=== PATIENT | female | born 1955 | race Caucasian/White ===

== ENCOUNTER 2020-10-28 14:43 | Outpatient (REF) | payer MEDICARE, SELFPAY ==
[2020-10-28 13:34] LABS: *AMPHETAMINES SCREEN URINE Negative (Negative); *BARBITURATES SCREEN URINE Negative (Negative); *BENZODIAZEPINES SCREEN URINE Negative (Negative); Cannabinoids THC Negative (Negative); Cocaine Screen,Urine Negative (Negative); METHADONE URINE SCREEN Negative (Negative); OPIATES URINE SCREEN POSITIVE (Negative)
[2020-10-28 13:35] LABS: Tricyclic Antidepressants Negative (Negative)
== END 2020-10-28 15:03 ==
LOC: LBN 14:43
PROVIDERS: PCP Nurse Practitioner Family; Visit Provider Nurse Practitioner Family
DX: G89.4 Chronic pain syndrome (principal); Z79.891 Long term (current) use of opiate analgesic
CPT/HCPCS: 80307

== ENCOUNTER → 2020-10-31 01:18 | Outpatient (CLI) | payer MEDICARE, SELFPAY ==
--- NOTE | 2020-10-31 | DI.MRI_ITS ---
EXAM: MR LUMBAR SPINE WO CLINICAL HISTORY: Chronic low back pain with radiculopathy, MRI '10,M47.27. TECHNIQUE: Multiplanar multisequence MRI of the Lumbar spine was performed. COMPARISON: CR LUMBAR SPINE COMPLETE from 12/08/2009 MR MRI - LUMBAR SPINE WO CONTRAST from 12/08/2009 MR MR LS SPINE W/O CONTRAST from 09/22/2013 MR MR LS SPINE W/O CONTRAST from 09/22/2013 FINDINGS: There is transitional anatomy here. There is a lumbosacral transitional vertebra. Conus medullaris is at normal level. There is no evidence of conus mass nor subjacent clumping of in trathecal nerve roots to suggest arachnoiditis. The distal thecal sac appears unremarkable.There is no evidence of Tarlov intrasacral cysts nor other significant findings within the sacral canal. Bones: No significant bone lesion evident With respect to the individual levels... T12-L1: Unremarkable L1-2: Normal disc height and signal. No disc herniation nor central canal stenosis.No foraminal steno sis L2-3: Normal disc height. There is focal increased signal in the posterior annulus but no evidence o f true disc herniation. The disc herniation which was evident at this level on the 2009 study is no longer seen. There is no central canal stenosis.No foraminal stenosis.No facet arthropathy. L3-4: Normal disc height. No disc herniation or central canal stenosis.No foraminal stenosis.No face t arthropathy. L4-5: Normal disc height and signal. There is very mild anterolisthesis of L4 upon L5 which is due t o moderate degenerative changes in the facet joints. There are no pars defects at this level. There is approximately 1-2 millimeters anterior slippage of L4 upon L5 evident. There is no significant c entral canal stenosis and there is no foraminal stenosis at this level. L5-S1: There is advanced chronic disc space narrowing again noted at this level with Modic type 2 sub endplate fatty changes both size of this disc space again evident. There is mild annular bulging at this level but no distinct disc herniation or central canal stenosis. There is, however, mild bilat eral foraminal stenosis, slightly more prominent on the right side. This is basically vertical dione inal stenosis due to the height loss of the disc, thus narrowing the space between the subjacent desean erick and overlying L5 pedicles. Soft tissues: paraspinal soft tissues appear unremarkable. IMPRESSION: 1. At L4-5 level there is mild degenerative anterolisthesis of L4 upon L5 as described above. This i s not associated with significant central nor foraminal stenosis. Recommend flexion and extension la teral views to determine the true amount of anterior slippage of L4 upon L5 during everyday activitie s. 2. There is chronic advanced disc space narrowing at L5-S1 level, as evident on the prior studies lis fabiana above. There is no central canal stenosis at this level but there is mild bilateral vertical for aminal stenosis. 3. The disc herniation which was evident at L2-3 level on the 2009 study is no longer seen. DATA REPOSITORY:
--- NOTE | 2020-10-31 | DI.MAMMO_ITS ---
EXAM: MG MAMMO SCREENING CLINICAL HISTORY: screening,Z12.39. TECHNIQUE: Bilateral full field digital CC and MLO mammographic images were obtained with 3D tomosyn thesis and utilizing computer aided detection (CAD). COMPARISON: None FINDINGS: There are no CAD designations. There are no spiculated masses nor malignant appearing microcalcification groups. There is no signif icant architectural distortion nor skin thickening-retraction. IMPRESSION: No radiographic evidence of malignancy. BI-RADS Category 1 - Negative Breast Density - Category B - Scattered areas of fibroglandular density Breast density Category C or D implies that the patient has dense breast tissue. Dense breast tissue can make it harder to find cancer on a mammogram. Dense breast tissue is also associated with an incr eased risk of breast cancer. This information about the result of the mammogram report was provided to the patient to raise their awareness. Use this report when you speak with the patient about their risks for breast cancer, which includes their family history. At that time, you may recommend additional screening tests (Ultrasoun d or MRI) as these tests may add significant information. A negative radiographic report should not delay biopsy if a dominant or clinically suspicious mass is present. Up to ten percent of cancers are not identified on mammography. A negative report may reinforce clinical impression. Adenosis and dense breasts may obscure an underlying neoplasm. False positive reports average 6 to 10%. Patient will receive a letter notifying them of these results.
== END ==
PROVIDERS: PCP Nurse Practitioner Family; Visit Provider Nurse Practitioner Family
DX: Z12.31 Encounter for screening mammogram for malignant neoplasm of breast (principal); M47.26 Other spondylosis with radiculopathy, lumbar region; M48.07 Spinal stenosis, lumbosacral region
CPT/HCPCS: 77063; 77067; 72148

== ENCOUNTER 2020-10-31 02:47 | Outpatient (CLI) | payer MEDICARE, SELFPAY ==
[2020-10-31 10:12] LABS: ALT 16 U/L (14-59); AST 13 U/L (15-37); Albumin 4.3 g/dL (3.4-5.0); Alkaline Phosphatase 57 U/L (46-116); BUN 21 mg/dL (7-18); Bilirubin, Total 0.4 mg/dL (0.2-1.0); CREATININE 1.24 mg/dL (0.55-1.02); Calculated LDL 119 mg/dL (<100); Chloride 98 mmol/L (98-107); Cholesterol 224 mg/dL (<200); Estimated GFR 43.69 (mL/min/1.73m2); Glucose 135 mg/dL (74-106); HDL Cholesterol 45 mg/dL (40-60); Sodium 136 mmol/L (136-145); Triglyceride 302 mg/dL (<150)
== END 2020-10-31 03:07 ==
PROVIDERS: PCP Nurse Practitioner Family; Visit Provider Nurse Practitioner Family
DX: E78.5 Hyperlipidemia, unspecified (principal)
CPT/HCPCS: 36415; 80053; 80061

== ENCOUNTER → 2021-08-23 01:12 | Outpatient (CLI) | payer MEDICARE, SELFPAY ==
--- NOTE | 2021-08-23 08:25 | DI.CTLCSR_ITS ---
Exam(s) CT CHEST LUNG CANCER SCREEN EXAM: CT CHEST LUNG CANCER SCREEN CLINICAL HISTORY: Screening for lung cancer,CURRENT SMOKER, F17.210. TECHNIQUE: Imaging Protocol: Low Dose Technique CONTRAST MATERIAL: None COMPARISON: CR XR CHEST 2V PA LATERAL from 08/23/2021. Also chest x-ray December 2015 was reviewed FINDINGS: CHEST: LUNGS: Mild benign-appearing subpleural markings noted in the sub apical aspect of the right upper lo be (series 2/image 26). There is a mosaic pattern throughout both lung desouza consistent with air tra pping . There is a small area of subpleural infiltrate the posterior aspect of the right lower lobe (series 2/image 105). No other focal right lung findings and no pleural effusion. In the opposite-left lung there are no significant focal findings. No pleural effusion. MEDIASTINUM: There is no obvious hilar nor mediastinal adenopathy. CARDIAC: Heart size is normal. There is no pericardial effusion.Caliber of the thoracic aorta is wit hin normal limits. OTHER: No obvious adrenal masses. OSSEOUS: There is a small 6 x 6 millimeter probable bone island in a midthoracic vertebral body.. IMPRESSION: 1. Small area of subpleural infiltrate right lower lobe. Also subpleural increased markings in right upper lobe. No pleural effusions nor intrathoracic adenopathy 2. Recommend repeat CT scan in 6 months. 3. Lung RADS Cat 3 - Probably Benign: Probably benign finding(s) - short term follow-up suggested; in clude nodules with a low likelihood of becoming a clinically active cancer. Lung-RADS 1.0 CATEGORIES: Category 0 - Prior chest CT exam(s) being located for comparison. Category 1 - Annual screening in 12 months. No nodules or definitely benign nodules. Category 2 - Annual screening in 12 months. Benign appearance. Nodules with low likelihood of becomin g active cancer. Category 3 - 6-month follow-up. Probably benign. Short-term follow-up suggested. Nodules with low lik elihood of becoming active cancer. Category 4A - 3-month follow-up and CT/PET if >8 mm in size. Suspicious finding. Findings which requi re additional testing. Category 4B - Findings which require additional testing and tissue sampling. Modifier S- Potentially clinically significant findings (non lung cancer) RADIATION DOSE DELIVERED: 80.3mGy.cm Total DLP 1.84mGy CTDIvol DATA REPOSITORY: All CT scans at this facility are submitted to the National Radiology Data Registry (NRDR) Dose Index Registry (DIR) with the [employer] ([employer]). RADIATION OPTIMIZATION: All CT scans at this facility use at least one of these dose optimization te chniques: automated exposure control; mA and/or kV adjustment per patient size (includes targeted exa ms where dose is matched to clinical indication); or iterative reconstruction.
--- NOTE | 2021-08-23 08:30 | DI.RAD_ITS ---
Exam(s) XR CHEST 2V PA LATERAL EXAM: XR CHEST 2V PA LATERAL CLINICAL HISTORY: Left upper back/beneath bra strap pain,UPPER BACK PAIN ON LT,M54.9. TECHNIQUE: 2D digital imaging was performed. COMPARISON: CR RIGHT RIBS PA CXR-3 VIEWS from 01/02/2016 FINDINGS: Heart size is normal. The mediastinum is not widened. Lungs are clear. No infiltrates nor pleural effusions. IMPRESSION: No acute pulmonary findings. DATA REPOSITORY: RADIATION DOSE DELIVERED:
== END ==
PROVIDERS: PCP Nurse Practitioner Family; Visit Provider Nurse Practitioner Family
DX: F17.210 Nicotine dependence, cigarettes, uncomplicated (principal); M54.9 Dorsalgia, unspecified; Z12.2 Encounter for screening for malignant neoplasm of respiratory organs; R91.8 Other nonspecific abnormal finding of lung field
CPT/HCPCS: 71271; 71046

== ENCOUNTER 2021-09-27 10:11 | Outpatient (CLI) | payer MEDICARE, SELFPAY ==
--- NOTE | 2021-09-27 06:00 | DI.RAD_ITS ---
Exam(s) XR PAIN CLINIC LUMBAR SP 2V EXAM: XR PAIN CLINIC LUMBAR SP 2V CLINICAL HISTORY: DX: Lumbar Spondylosis TECHNIQUE: 2D and realtime digital imaging was performed. CONTRAST MATERIAL: Refer to procedure report. COMPARISON: No exams were available for comparison FINDINGS: Fluoroscopy was provided for Dr. Sheikh during the performance of a bilateral lumbar medial branch blo ck. Please refer to the procedure report for complete details. Ka,r=5.18 mGy IMPRESSION:
[2021-09-27 10:23] VITALS: BP 125/71; PULSE 80; RESP 18; TEMP 36.7; O2SAT 97
--- NOTE | 2021-09-27 10:50 | PDOC.PAIN ---
Pain Clinic Procedure Note Procedure Note Procedure Note: Lumbar/Sacral Medial Branch Blocks Ira Matos has been referred to the [facility] for lumbar/sacral medial branch blocks. COMMENTS: She was seen in our office on 03/09/2021 and this procedure was recommended. Pain VAS pre-procedure was 8/10. DX: Lumbosacral spondylosis without myelopathy Patient was interviewed and the medical record reviewed. There were no medical, pharmacologic, radiographic or other structural contraindications to attempting fluoroscopically guided local anesthetic lumbar/sacral medial branch blocks. Risks and expected side effects as well as potential benefit of the procedure were reviewed and voiced concerns addressed. The printed consent form was signed and witnessed. Standard time-out procedure was performed. Patient was placed in the prone position on the fluoroscopy table and automated blood pressure cuff and pulse oximeter applied. The skin entry points for approaching the anatomic target points of the segmental medial branches of the bilateral L3-L5DR were identified with anfluoroscopy and marked. Following thorough Chlorhexadine preparation of the skin and draping and 1% lidocaine infiltration of the skin entry points and subcutaneous tissues, a 25 gauge 3.5 spinal needle was placed under fluoroscopic guidance down on to the target point for each respective segmental medial branch.Position was confirmed in A/P, oblique and lateral views with 0.25ml of omnipaque 240. At this point 0.5ml of 0.5% Bupivacaine was injected at each segmental nerve. Vital signs were stable throughout the procedure and were as recorded in the docflowsheet by the nursing staff. Follow up plans and appointments were discussed and was instructed to keep careful note of how the usual pain was modified by these injections. Specifically was asked to keep a pain diary for the next 24 hours using a numeric pain scale of 0-10 and report these results at the follow-up visit. Post procedure instruction was given as documented in the nursing documentation and having met discharge criteria. Patient was discharged from the [facility]. Based on the medial branches blocked today, if the patient has adequate relief and we are able to proceed to radiofrequency ablation, the treatment should result in the denervation of the bilateral L4-L5 and L5-S1 FACET JOINTS. We would expect to denervate a total of 4 facets during the radiofrequency ablation. COMMENTS: Post-procedure pain VAS was 2/10. She will call back with her 1-4 hour post-procedure pain scores for her low back. Nabil Sheikh DO, MPH [facility] CC: KYA SevillaP
[2021-09-27] MEDS: Omnipaque 240 MG/ML 50 ML BTL IJ (10:53)
[2021-09-27] MEDS: Bupivacaine 0.5% Pres-Free 10 ML VIAL IJ (10:53)
[2021-09-27 11:01] VITALS: BP 126/93; PULSE 79; RESP 21; O2SAT 98
== END 2021-09-27 10:12 | disposition home or self-care (01) ==
LOC: PC 10:11
PROVIDERS: PCP Nurse Practitioner Family; Visit Provider Preventive Medicine Occupational Medicine
DX: M47.817 Spondylosis without myelopathy or radiculopathy, lumbosacral region (principal)
CPT/HCPCS: 64493; 64494; 72100; Q9967

== ENCOUNTER 2021-11-02 10:25 | Outpatient (CLI) | payer MEDICARE, SELFPAY ==
[2021-11-02 10:35] VITALS: BP 126/74; PULSE 80; RESP 18; TEMP 36.9; O2SAT 97
--- NOTE | 2021-11-02 11:04 | DI.RAD_ITS ---
Exam(s) XR PAIN CLINIC LUMBAR SP 2V EXAM: XR PAIN CLINIC LUMBAR SP 2V CLINICAL HISTORY: DX: Lumbar Spondylosis. TECHNIQUE: Fluoroscopy was provided for the referring physician for guidance with performing injecti on procedure. COMPARISON: No exams were available for comparison FINDINGS: Please see procedure note for details. Fluoro time 55.1 seconds RADIATION DOSE DELIVERED: naa Mcguire=8.34 mGy
--- NOTE | 2021-11-02 11:06 | PDOC.PAIN_ITS ---
Pain Clinic Procedure Note Procedure Note Procedure Note: Lumbar/Sacral Medial Branch Blocks #2 Ira Matos has been referred to the [facility] for lumbar/sacral medial branch blocks. COMMENTS: She did very well with the first LMBB Dx: Lumbosacral spondylosis without myelopathy Pre-procedure pain VAS: 6/10 Patient was interviewed and the medical record reviewed. There were no medical, pharmacologic, radiographic or other structural contraindications to attempting fluoroscopically guided local anesthetic lumbar/sacral medial branch blocks. Risks and expected side effects as well as potential benefit of the procedure were reviewed and voiced concerns addressed. The printed consent form was signed and witnessed. Standard time-out procedure was performed. Patient was placed in the prone position on the fluoroscopy table and automated blood pressure cuff and pulse oximeter applied. The skin entry points for approaching the anatomic target points of the segmental medial branches of bilateral L3-L5DR were identified with anfluoroscopy and marked. Following thorough Chlorhexadine preparation of the skin and draping and 1% lidocaine infiltration of the skin entry points and subcutaneous tissues, a 22 gauge spinal needle was placed under fluoroscopic guidance down on to the target point for each respective segmental medial branch.Position was confirmed in A/P, oblique and lateral views with 0.25ml of omnipaque 240. At this point 0.5ml of 2% Lidocaine was injected at each sensory nerve. Vital signs were stable throughout the procedure and were as recorded in the docflowsheet by the nursing staff. Follow up plans and appointments were discussed and was instructed to keep careful note of how the usual pain was modified by these injections. Specifically was asked to keep a pain diary for the next 24 hours using a numeric pain scale of 0-10 and report these results at the follow-up visit. Post procedure instruction was given as documented in the nursing documentation and having met discharge criteria. Patient was discharged from the [facility] Management [facility]. Based on the medial branches blocked today, if the patient has adequate relief and we are able to proceed to radiofrequency ablation, the treatment should result in the denervation of the bilateral L4-L5 and L5-S1 FACET JOINTS. We would expect to denervate a total of 4 facets during the radiofrequency ablation. COMMENTS: Post-op pain VAS = 2/10 Nabil Sheikh DO, MPH [facility] CC: NOREEN Sevilla
[2021-11-02 11:14] VITALS: BP 137/78; PULSE 75; RESP 18; O2SAT 97
[2021-11-02] MEDS: Lidocaine 2% Pres-Free 5 ML VIAL IJ (11:14)
[2021-11-02] MEDS: Omnipaque 240 MG/ML 50 ML BTL IJ (11:14)
== END 2021-11-02 10:26 | disposition home or self-care (01) ==
LOC: PC 10:26
PROVIDERS: PCP Nurse Practitioner Family; Visit Provider Preventive Medicine Occupational Medicine
DX: M47.817 Spondylosis without myelopathy or radiculopathy, lumbosacral region (principal)
CPT/HCPCS: 64493; 64494; 72100; Q9967

== ENCOUNTER → 2022-02-01 10:51 | Outpatient (BNVA) | payer MEDICARE, SELFPAY | PROVIDERS: PCP Nurse Practitioner Family; Referring Provider Nurse Practitioner Family; Visit Provider Physical Therapy Assistant | DX: Z12.11 Encounter for screening for malignant neoplasm of colon (principal); Z86.010 Personal history of colon polyps ==

== ENCOUNTER 2022-02-08 08:00 | Outpatient (CLI) | payer MEDICARE, SELFPAY ==
[2022-02-08 08:14] VITALS: BP 138/76; PULSE 77; RESP 20; TEMP 36.9; O2SAT 98
[2022-02-08] MEDS: fentaNYL 100 MCG/2 ML VIAL IVP ×2 (08:57→09:26)
[2022-02-08] MEDS: Midazolam 2 MG/2 ML VIAL IVP (08:58)
--- NOTE | 2022-02-08 09:37 | DI.RAD_ITS ---
Exam(s) XR PAIN CLINIC LUMBAR SP 2V EXAM: XR PAIN CLINIC LUMBAR SP 2V CLINICAL HISTORY: lumbar spondylosis TECHNIQUE: 2D and realtime digital imaging was performed. Radiologist not present. CONTRAST MATERIAL: None. COMPARISON: No exams were available for comparison FINDINGS: Fluoroscopy was provided for pain management therapy. Please refer to procedure report or details. Cumulative dose: Shaylar=10.52 mGy IMPRESSION: RADIATION DOSE DELIVERED:
[2022-02-08 09:48] VITALS: BP 147/82; PULSE 67; RESP 16; O2SAT 97
[2022-02-08] MEDS: methylPREDNISolone ACETATE 40 MG/ML VIAL IJ (09:52)
[2022-02-08] MEDS: Lidocaine 2% Pres-Free 5 ML VIAL IJ (09:52)
[2022-02-08] MEDS: Bupivacaine 0.5% Pres-Free 10 ML VIAL IJ (09:52)
--- NOTE | 2022-02-08 10:39 | PDOC.PAIN ---
Pain Clinic Procedure Note Procedure Note Procedure Note: Bilateral Lumbar Radiofrequency with Coolief Machine PROCEDURE NOTE Date of Service: February 08, 2022 Patient: Ira Matos Provider: Nabil Sheikh DO, MPH Pre Operative Diagnosis: Lumbosacral Spondylosis without Myelopathy Post Operative Diagnosis: Same Post procedure pain; VAS= 7/10 PROCEDURE: Radiofrequency Ablation of medial branches - Bilateral L3 L4 L5 and lateral branches of bilateral S1. Ira Matos was brought into the fluoroscopy suite and positioned into the prone position on the fluoroscopy table and allowed to adjust to a position of comfort. A grounding pad was placed on the left thigh. The lumbar region was widely prepped with a chloraprep solution, allowed to air dry and draped in standard sterile surgical fashion. Local anesthesia was provided by 1 mL of 2% Lidocaine delivered with a 25g needle. A 17g 100 mm radiofrequency introducer needle was placed to the planned anatomic targets guided with intermittent fluoroscopy with a perpendicular approach to terminally place at the junction of the superior articular process and the transverse process of the bilateral L4 L5, the base of the sacral ala on the bilateral for the L5 medial branch nerves and the area between base of the sacral ala to the S1 foramen bilaterally. The stylets were removed and radiofrequency probes with a 4mm active tip were then inserted. Needle tip position of the probes was verified in the AP, oblique, and lateral views. At each site, the medial branch nerve was stimulated at 2 Hz to a maximum 1-2 volts determined to finalize safe needle and electrode placement. The patient was awake and responsive during this portion of the procedure. Each target was anesthetized with 1-2 mL of 2% Lidocaine for anesthesia for lesioning and then each target was lesioned at 80 degrees Celsius for 2 minutes and 30 seconds. Tissue impedences were noted to be between 250 and 500 Ohms. Electrodes and needles were then removed and bandages placed over the needle placement sites, the patient then returned to the supine position on a stretcher and transported to the recovery room without hemodynamic, neurologic, or allergic reactions. Fluoroscopic images were printed for hard copy recording and digitally archived. POST PROCEDURE EVALUATION: IMPRESSION: 1. Summary of procedure. Medication given is documented in the MAR. 2. The patient will be contacted in 1-3 weeks 3. Estimated Blood Loss: <5 mls 4. Fluoroscopy time: Documented in the EMR. Follow up plans and appointments were discussed with the Ira . Post procedure instruction was given as documented in nursing documentation and having met discharge criteria, Ira was discharged from the Pain Management Center. COMMENTS: No apparent complications. Post-procedure pain: VAS= 1/10. F/U with our office as needed. I personally performed this entire procedure. Nabil Sheikh DO, MPH Attending Physician Pain Management
== END 2022-02-08 08:01 | disposition home or self-care (01) ==
LOC: PC 08:01
PROVIDERS: PCP Nurse Practitioner Family; Visit Provider Preventive Medicine Occupational Medicine
DX: M47.817 Spondylosis without myelopathy or radiculopathy, lumbosacral region (principal)
CPT/HCPCS: 64635; 64636; 72100; J1030; J2250; J3010

== ENCOUNTER 2022-02-19 06:52 | Day surgery (SDC) | payer MEDICARE, SELFPAY ==
--- NOTE | 2022-02-18 18:27 | ANES.PREOP_ITS ---
General Info Date of Service Date Performed: 02/19/22 Height: 5 ft 2.25 in Weight: 51.71 kg Body Mass Index (BMI): 20.7 Surgical Procedure: Operation Date: 02/19/22 08:20 Proposed Procedure Side Surgeon p Colonoscopy Ronda Mulligan MD Meds Allergies and Home Medications Allergies Allergy/AdvReac Type Severity Reaction Status Date / Time mirtazapine AdvReac Lightheaded Verified 02/19/22 07:12 ness Home Medication Medication Instructions Recorded ibuprofen 200 mg tablet (Motrin IB) 1 - 4 tab PO PRN 02/04/13 docusate sodium 100 mg capsule 100 mg PO BID PRN #180 cap 09/09/18 (Colace) naloxone 4 mg/actuation nasal 1 spray INTRANASAL Q2-3M PRN #2 ea 08/16/20 spray (Narcan) atenolol 50 mg tablet 50 mg PO DAILY #90 tab 08/17/21 hydrochlorothiazide 25 mg tablet 25 mg PO QAM #90 tab 11/30/21 omeprazole 40 mg capsule,delayed 40 mg PO .Daily to BID #180 tab-cap 11/30/21 release tolterodine 4 mg capsule,extended 4 mg PO DAILY #90 tab 11/30/21 release 24 hr oxycodone-acetaminophen 5 mg-325 1 tab PO TID #84 tab MDD 3 tablets 01/25/22 mg tablet bisacodyl 5 mg tablet,delayed 5 mg PO ONCE #4 tab 02/01/22 release (Dulcolax (bisacodyl)) polyethylene glycol 3350 17 17 g PO ONCE #238 g 02/01/22 gram/dose oral powder ibuprofen 200 mg tablet 200 mg PO Q6H PRN 02/06/22 Current Visit Medications: Current Medications Generic Name Dose Route Start Last Admin Trade Name Freq PRN Reason Stop Dose Admin Ringer's Solution 1,000 mls @ 80 mls/hr 02/19/22 06:00 IV 03/18/22 23:59 INFUSION [facility] IV Miscellaneous Supplies 1 each 02/19/22 06:00 Iv Access IV 03/18/22 23:59 DIRECTED CRISTELA Sodium Chloride 0 ml 02/19/22 06:00 Normal Saline Flush 10 Ml Syr IV 03/18/22 23:59 PRN PRN Sodium Chloride 0 ml 02/19/22 06:00 Normal Saline 10 Ml Vial IJ 03/18/22 23:59 DIRECTED PRN Sterile Water 0 ml 02/19/22 06:00 Water,Injection,Sterile 10 Ml Vial IJ 03/18/22 23:59 DIRECTED PRN PFSH Active Problems Active Problems: Problem Status Onset Code Essential hypertension I10 Hyperlipidemia E78.5 Osteoporosis M81.0 PTSD (post-traumatic stress disorder) F43.10 GERD (gastroesophageal reflux disease) K21.9 Cigarette smoker F17.210 Lumbosacral radiculopathy due to degenerative joint disease of spine M47.27 Overactive bladder N32.81 Prediabetes R73.03 Medical History Medical History Endometriosis Medical History Comments:: Pt. states her mother had a reaction to ether, they almost lost her Surgical History Surgical History History of bilateral tubal ligation (04/15/86) History of operative procedure on lumbosacral spinal structure RFA 02/08/22 Hx of esophagogastroduodenoscopy (11/20/06) S/P carpal tunnel release (~2006) Right wrist S/P section (04/15/86) S/P colonoscopy (12/06/16) S/P laparoscopic hysterectomy (~1999) Tobacco Smoking/Tobacco Use Status: Current every day Tobacco Type: cigarettes Years smoked: 46 Passive smoking exposure: Yes Second hand exposure: Yes Alcohol Alcohol Intake: former Substance Use Substance use: Never Substance use type: does not use Prental History History 2 Para 2 Hx # Term Pregnancies Multiple births Hx # Pregnancies Ectopic pregnancies AB induced Hx Number of Living Children 2 AB spontaneous Vital Signs and Lab Results Vital Signs Most Recent Vital Signs in EMR: Temp Pulse Resp BP Pulse Ox 36.8 C 107 H 17 148/90 H 97 02/19/22 07:13 02/19/22 07:13 02/19/22 07:13 02/19/22 07:13 02/19/22 07:13 Lab Results Blood Type / Crossmatch: No Data to Display Complete Blood Count: No Data to Display Complete Metabolic Panel: No Data to Display Liver Function Panel: No Data to Display Coagulation Panel: No Data to Display Cardiac Panel: No Data to Display Arterial Blood Gas: No Data to Display Venous Blood Gas: No Data to Display Pancreas Panel: No Data to Display Thyroid Panel: No Data to Display Infectious Disease: No Data to Display Blood Cultures: No Data to Display Toxicology Panel: No Data to Display Anesthesia Assessment and Plan Anesthesia History Personal History: No History of Anesthesia Complications Family History: Other Exercise Tolerance Exercise Tolerance: Metabolic Equivalents>4 Pertinent Negatives Pertinent Negatives: No Symptoms of GERD, No Major Cardiovascular Symptoms or Complaints, No Major Pulmonary Symptoms or Complaints and No History of CVA/TIA Cardiac & Pulmonary Exam Cardiac Exam: Normal S1/S2 Heart Sounds Pulmonary Exam: Rales Present Implantable Cardiac Device Does patient have a Pacemaker or an ICD?: No Airway Exam Known Difficult Airway: No Mallampati Class: 2 Mouth Opening: Normal (> 3cm) Thyromental Distance: Greater than 3 cm Neck Range of Motion: Full ROM Neck Circumference: Normal Teeth Condition: Generalized Poor Dentition and Removable Dentures/Plates Upper ASA Classification ASA Score: ASA 2 Emergency Case?: No NPO Status NPO Status: NPO Clears >2 hours, Solids >8 hours Anesthesia Plan Resuscitation Status: Full Code Anesthesia Technique: General Anesthesia Airway Planned: Natural Airway Monitors Used: Standard Monitors Preoperative Comments:: 66 yo female with history of tubular adenoma for colonoscopy. Sig PMHx: HTN (atenolol, HCTZ), PTSD, GERD (omeprozole), preDM, smoker, former EtOH, back pain.
--- NOTE | 2022-02-19 06:39 | COLE_ITS ---
Colonoscopy Report Date of procedure: 02/19/22 Pre-op diagnosis general: Colon Cancer Screening Post-op diagnosis procedure note: other (polyps and diverticulosis) Procedure: Colonoscopy with polypectomy Surgeon: Ronda Mulligan Anesthesia Type: General:No Airway Estimated blood loss (mL): 3 Pathology: other (transverse polyp, descending polyp x2, sigmoid polyp x6, rectal polyp x2) Complications: None Disposition: same day Indications: 66 y/o female with history of HTN, GERD, PTSD and pre-diabetes presents for colonoscopy screening pre-op. Her last screening was in 2017, which was remarkable for tubular adenoma.. She reports a family history of colon cancer in her father, mother and paternal aunt. She denies any changes in bowel habits describing a long history of intermittent constipation. She states she does have regular bowel movements also. She denies bloody or black tarry stools, abdominal pain, diarrhea or constipation. She denies constitutional symptoms. Prep: Miralax/Dulcolax Procedure Start Time: 08:10 Procedure End Time: 08:49 Retraction Time: 19 minutes Findings: multiple polyps diverticulosis Procedure Description: After informed consent was obtained the patient was taken to the procedure room and placed in a left decubitous position. Monitors were applied and a time out was done. The patients name, date of , procedure, allergies to medications and metal in their body was reviewed. The patient was then sedated. Once sedated and comfortable a rectal exam was done. External exam was normal. Internal exam revealed a normal sphincter tone and no palpable masses. The scope was then introduced and retro-flexed. No internal hemorrhoids, polyps or masses were identified on retro-flexion. The scope was then advanced to the cecum without difficulty. The ileocecal vlave and appendiceal orifice were identified. The prep was adequate. The scope was then slowly retracted over 19 minutes back into the rectum. Polyps were removed with cold forceps in the transverse polyp, descending polyps x2, sigmoid polyps x6, rectal polyp x2. T here was mild sigmoid diverticulosis noted. The scope was removed and the patient was woken up and taken back to Same day surgery in stable condition. The patient tolerated the procedure well and there were no immediate complications. Follow up: The patient should follow up in 5 years unless they develop changes in bowel habits or other new gastrointestinal complaints.
--- NOTE | 2022-02-19 06:42 | W.PM.DSUDISC ---
Discharge Plan Disposition Patient Disposition: HOME Condition: Good Discharge Details Reason For Visit: Colonoscopy Attending Provider: Ronda Mulligan Primary Care Provider: Susan Arrieta Home Meds and New Rx's Prescriptions: Continued naloxone [Narcan] 4 mg/actuation spray,non-aerosol 1 spray intranasal Q2-3M PRN (Reason: opioid overdose) Qty: 2 4RF Rx Instructions: spray 1 dose into ONE nostril; alternate nostrils w each dose until help arrives atenolol 50 mg tablet 50 mg PO DAILY Qty: 90 4RF ibuprofen [Motrin IB] 200 MG tablet 1 - 4 tab PO PRN 0RF Label Comments: 04/11/18-PRN/pps docusate sodium [Colace] 100 mg capsule 100 mg PO BID PRNQty: 180 4RF Label Comments: 04/11/16 PRN only/pps hydrochlorothiazide 25 mg tablet 25 mg PO QAM Qty: 90 4RF omeprazole 40 mg capsule,delayed release(DR/EC) 40 mg PO .Daily to BID Qty: 180 4RF Rx Instructions: Take 1 pill once to twice a day for heartburn tolterodine 4 mg capsule,extended release 24hr 4 mg PO DAILY Qty: 90 4RF oxycodone-acetaminophen 5-325 mg tablet 1 tab PO TID MDD 3 tablets Qty: 84 0RF Rx Instructions: Take 1 tablet three times a day for chronic low back pain ibuprofen 200 mg Tablet 200 mg PO Q6H PRN0RF Discontinued bisacodyl [Dulcolax (bisacodyl)] 5 mg tablet,delayed release (DR/EC) 5 mg PO ONCE Qty: 4 0RF Rx Instructions: Take according to provider's instructions for colonoscopy prep. polyethylene glycol 3350 17 gram/dose powder 17 g PO ONCE Qty: 238 0RF Rx Instructions: To be taken as directed by prescriber's office for colonoscopy prep. Discharge Instructions Instructions: Diverticulosis (DC), Colorectal Polyps (DC) Additional Instructions: Findings: polyps diverticulosis Follow up: 5 years Please call if you develop: fevers >101.5 Nausea or Vomiting Abdominal pain that is not transient Rectal bleeding that is more then a tbsp A hard abdomen and inability to pass gas DAY SURGERY UNIT POST ENDOSCOPY INSTRUCTIONS Instructions for everyone who is given Anesthesia: For your safety, please do the following for the next 24 Hours: a. Do not drive or operate dangerous equipment b. Do not drink alcohol beverages or use any recreational drugs for the first 24 hours or while taking pain medications. The medications in your body may have a reaction that can be dangerous. c. Do not make any important decisions or sign any important papers 1. Generally there are no restrictions on your activity after a day or so has gone by, but you may feel a bit fatigued for a few days. 2. After you arrive home you may have a light meal and return to a normal diet as you can tolerate it without feeling sick to your stomach. 3. After surgery, you may feel pain or discomfort. This should be only transient, but if it persists please contact your doctor. 4. If there are any questions regarding the findings of your procedure, please feel free to contact your doctor. 6. If you are unable to contact your doctor with a problem, contact the hospital at [phone]. 7. Continue all your regular medications unless directed otherwise. I understand the above instructions and have no questions. Signature of Patient or Responsible Adult Escort Date/Time Name of Responsible Adult Escort Signature of Nurse Date/Time Activity:: Activity as Tolerated Diet:: high fiber Discharge Orders Discharge Orders: Discharge Order (Routine); Ordered 02/19/22 Ordered By: Ronda Mulligan
[2022-02-19 07:13] VITALS: BP 148/90; PULSE 107; RESP 17; TEMP 36.8; O2SAT 97
[2022-02-19] MEDS: Lactated Ringers 1,000 ML 80 ML IV (07:27)
[2022-02-19 08:02] VITALS: BMI 20.7
--- NOTE | 2022-02-19 08:15 | BOWEL_PTH ---
PATIENT: Ira aMtos LOC: [facility] U#:[id number] AGE/SX: 66/F ROOM: RE02/19/[address]: Ronda Mulligan MD : 1955 BED: DIS: 02/19/2022 SPEC #: [id number] RECD: 02/19/22 12:41 STATUS: JENA REQ #: [id number] HENNY: 02/19/22 08:[address]: Ronda Mulligan DEPT: Surgical Specimen RECD BY: Maribeth Yuan ENTERED: 02/19/22 12:44 SP TYPE: Bowel OTHR DR: Susan Arrieta, NOREEN Tissues: 1 - BIOPSY BOWEL 2 - BIOPSY BOWEL 3 - BIOPSY BOWEL 4 - BIOPSY BOWEL Procedures: GROSS AND MICRO LEVEL 4 Comments: [id number]
[2022-02-19 09:02] VITALS: BP 95/67; PULSE 72; RESP 17; TEMP 36.5; O2SAT 98
--- NOTE | 2022-02-19 09:05 | W.ANESPOSTOP ---
Postoperative Evaluation Date, Time and Location Date Performed: 02/19/22 Time Performed: 09:05 Patient Location: Day Surgery Unit Vital Signs Most Recent Imported Vital Signs: Most Recent Vital Signs Temp Pulse Resp BP Pulse Ox 36.5 C 72 17 95/67 L 98 02/19/22 09:02 02/19/22 09:02 02/19/22 09:02 02/19/22 09:02 02/19/22 09:02 Pain Score Most Recent Pain Score: Most Recent Pain Score Pain Level 0 02/19/22 09:02 Assessment Mental Status: Awake (Alert & Oriented to Patient Baseline) Airway and Respiratory Function: Patent airway with normal (patient baseline) respiratory exam Cardiovascular Function: Hemodynamically Stable Hydration Status: Adequately Hydrated Nausea & Vomiting: No Nausea or Vomiting Pain: Pt. Denies Any Pain Peripheral Nerve Block: Patient did not receive a nerve block
[2022-02-19 09:33] VITALS: BP 107/74; PULSE 72; RESP 18; TEMP 36.7; O2SAT 96
== END 2022-02-19 09:59 | disposition home or self-care (01) ==
LOC: SUR 06:53
PROVIDERS: PCP Nurse Practitioner Family; Visit Provider Surgery
PROC: 0DJD8ZZ Inspection of Lower Intestinal Tract, Via Natural or Artificial Opening Endoscopic (ICD-10-PCS; CPT 45378; principal; 2022-02-19 08:15)
DX: Z12.11 Encounter for screening for malignant neoplasm of colon (principal); K63.5 Polyp of colon; K57.30 Diverticulosis of large intestine without perforation or abscess without bleeding; R73.03 Prediabetes; I10 Essential (primary) hypertension; K21.9 Gastro-esophageal reflux disease without esophagitis; K63.89 Other specified diseases of intestine
CPT/HCPCS: 45380; 88305

== ENCOUNTER → 2022-03-15 02:26 | Outpatient (CLI) | payer MEDICARE, SELFPAY ==
--- NOTE | 2022-03-15 06:45 | DI.CT_ITS ---
Exam(s) CT CHEST WO EXAM: CT CHEST WO CLINICAL HISTORY: 6mo f/u on right lower lobe infiltrate on LDCT, R91.8 abnl finding lung. TECHNIQUE: Imaging protocol: Axial computed tomography images were obtained and coronal and sagittal reformatted images were created and reviewed. COMPARISON: CT CT CHEST LUNG CANCER SCREEN from 08/23/2021 FINDINGS: The examination is limited due to patient motion artifact. Tracheobronchial tree: Patent where visualized. Pulmonary parenchyma: No consolidation or dominant measurable mass. No architectural distortion. Find ings of air trapping are present. Mediastinum and Rhianna: No dominant adenopathy or fluid collection. The esophagus is unremarkable. Thyroid gland: Unremarkable. Pleura: No effusion or pneumothorax. Heart: The heart is not dilated. Coronary artery calcifications are present. No pericardial effusion . Aorta: Thoracic aorta non-dilated. Atherosclerosis. Upper abdomen: Unremarkable. Lymph nodes: Within normal limits. Soft tissues: Unremarkable. Bones:Within normal limits for the patient's age. There is a stable bone island in the midthoracic v ertebral body. IMPRESSION: Resolution of the right lower lobe pulmonary infiltrates. No acute pulmonary process. RADIATION DOSE DELIVERED: 403.27mGy.cm Total DLP 403.27mGy.cm Total DLP DATA REPOSITORY: All CT scans at this facility are submitted to the National Radiology Data Registry (NRDR) Dose Index Registry (DIR) with the [employer] (ACR). RADIATION OPTIMIZATION: All CT scans at this facility use at least one of these dose optimization te chniques: automated exposure control; mA and/or kV adjustment per patient size (includes targeted exa ms where dose is matched to clinical indication); or iterative reconstruction.
== END ==
PROVIDERS: PCP Nurse Practitioner Family; Visit Provider Nurse Practitioner Family
DX: R91.8 Other nonspecific abnormal finding of lung field (principal)
CPT/HCPCS: 71250

== ENCOUNTER → 2022-03-21 03:11 | Outpatient (CLI) | payer MEDICARE, SELFPAY | PROVIDERS: PCP Nurse Practitioner Family; Visit Provider Nurse Practitioner Family ==

== ENCOUNTER 2022-10-01 03:23 | Outpatient (CLI) | payer MEDICARE, SELFPAY ==
[2022-10-01 09:17] LABS: Abs Immature Grans 0.05 10^3/uL (0.0-0.06); Absolute Basophil Count 0.03 10^3/uL (0.0-0.2); Absolute Eosinophil Count 0.08 10^3/uL (0.0-0.7); Absolute Lymphocyte Count 2.39 10^3/uL (1.2-3.4); Basophils % 0.3; Eosinophils % 0.7; HCT 37.1 % (36.0-46.0); HGB 12.3 g/dL (11.2-15.7); Immature Grans % 0.4; Lymphocytes % 20.9; MCH 31.7 pg (27.0-33.0); MCHC 33.2 % (32.0-36.0); MCV 96 fL (80-95); MPV 9.3 fL (8.0-11.0); Monocytes % 8.7; Platelet Count 279 10^3/uL (130-400); RBC 3.88 10^6/uL (3.93-5.22); RDW 13.1 % (11.7-14.6); RDW-SD 45.9 fL; WBC 11.43 10^3/uL (4.4-10.8)
[2022-10-01 09:20] LABS: Absolute Monocyte Count 0.99 10^3/uL (0.1-0.8); Absolute Neutrophil Count 7.89 10^3/uL (1.2-6.7)
[2022-10-01 09:51] LABS: Anion Gap 9.4 mmol/L (3-11); BUN 51 mg/dL (7-18); CO2 33.6 mmol/L (21.0-32.0); CREATININE 1.9 mg/dL (0.55-1.02); Calcium 9.3 mg/dL (8.5-10.1); Chloride 93 mmol/L (98-107); Estimated GFR 28.94 (mL/min/1.73m2); Glucose 134 mg/dL (74-106); Sodium 136 mmol/L (136-145); TSH (W/Ref FT4) 0.64 uIU/mL (0.36-3.74)
[2022-10-01 10:04] LABS: Potassium 2.7 mmol/L (3.5-5.1)
== END 2022-10-01 03:24 | disposition home or self-care (01) ==
LOC: LBO 03:23
PROVIDERS: PCP Nurse Practitioner Family; Visit Provider Nurse Practitioner Family
DX: R73.03 Prediabetes (principal); R42 Dizziness and giddiness; I10 Essential (primary) hypertension
CPT/HCPCS: 36415; 80048; 83036; 84443; 85025

== ENCOUNTER 2022-10-23 21:58 | Outpatient (REF) | payer MEDICARE, SELFPAY | END 2022-10-23 21:59 | disposition home or self-care (01) | LOC: LBN 21:58 | PROVIDERS: PCP Nurse Practitioner Family; Visit Provider Nurse Practitioner Family | DX: M54.9 Dorsalgia, unspecified (principal); R30.0 Dysuria | CPT/HCPCS: 87086 ==

== ENCOUNTER 2022-10-24 05:07 | Outpatient (CLI) | payer MEDICARE, SELFPAY ==
[2022-10-24 13:40] LABS: Anion Gap 8.6 mmol/L (3-11); BUN 41 mg/dL (7-18); CO2 27.4 mmol/L (21.0-32.0); CREATININE 2.1 mg/dL (0.55-1.02); Calcium 9.2 mg/dL (8.5-10.1); Chloride 103 mmol/L (98-107); Estimated GFR 25.67 (mL/min/1.73m2); Glucose 123 mg/dL (74-106); Potassium 3.9 mmol/L (3.5-5.1); Sodium 139 mmol/L (136-145)
== END 2022-10-24 05:08 | disposition home or self-care (01) ==
LOC: LBO 05:07
PROVIDERS: PCP Nurse Practitioner Family; Visit Provider Nurse Practitioner Family
DX: E87.6 Hypokalemia (principal); E78.5 Hyperlipidemia, unspecified; I10 Essential (primary) hypertension
CPT/HCPCS: 36415; 80048

== ENCOUNTER 2022-10-31 01:53 | Outpatient (CLI) | payer MEDICARE, SELFPAY ==
--- NOTE | 2022-10-31 07:00 | DI.US_ITS ---
Exam(s) US RENAL EXAM: US RENAL CLINICAL HISTORY: hematuria with out dysuria,R31.0. TECHNIQUE: Phillips scale, color and spectral Doppler were used. COMPARISON: CT CT CHEST LUNG CANCER SCREEN from 08/23/[address] CHEST WO from 03/15/2022 FINDINGS: Renal size in cm: Right: 11 left: 9.7 Echogenicity: Normal Hydronephrosis: Severe right hydronephrosis.. Parenchymal thinning on the right. Cyst or mass: No Nephrolithiasis: No Left ureteral jet is normal. Right ureteral jet is faintly visualized. Bladder:Normal Prevoid vol: 118 Postvoid vol:0 IMPRESSION: Severe right hydronephrosis. No left hydronephrosis. CT urogram could be considered for further evaluation DATA REPOSITORY:
[2022-10-31 15:24] LABS: CREATININE 2.1 mg/dL (0.55-1.02); Estimated GFR 25.67 (mL/min/1.73m2)
== END 2022-10-31 02:13 ==
LOC: DI 01:53
PROVIDERS: Nurse Practitioner Gerontology; PCP Nurse Practitioner Family; Visit Provider Nurse Practitioner Family
DX: R31.0 Gross hematuria (principal); R31.9 Hematuria, unspecified
CPT/HCPCS: 76770; 81003; 99215; 82565

== ENCOUNTER 2022-10-31 13:41 | Outpatient (REF) | payer MEDICARE, SELFPAY ==
[2022-10-31 21:20] LABS: Bilirubin Negative (Negative); Blood Negative (Negative); Clarity Clear (Clear); Glucose Negative (Negative); Ketones Negative (Negative); Leukocyte Esterase Negative (Negative); Nitrite Negative (Negative); Urobilinogen 0.2 EU/dL (Up TO 0.2); pH 5.5 (5-8)
[2022-10-31 22:27] LABS: Bacteria Rare HPF (Negative); C & S Indicated? No; Crystals Few Amorphous HPF (Negative); Epithelial Cells Few HPF (Negative); Mucus Negative (Negative); RBC Negative HPF (0-2); WBC Negative HPF (0-5)
== END 2022-10-31 13:42 | disposition home or self-care (01) ==
LOC: LBN 13:41
PROVIDERS: PCP Nurse Practitioner Family; Visit Provider Nurse Practitioner Family
DX: R30.0 Dysuria (principal)
CPT/HCPCS: 81003; 81015

== ENCOUNTER 2022-10-31 16:01 | Outpatient (CLI) | payer MEDICARE, SELFPAY ==
--- NOTE | 2022-10-31 14:51 | DI.CT_ITS ---
Exam(s) CT ABDOMEN PELVIS WO EXAM: CT ABDOMEN PELVIS WO CLINICAL HISTORY: gross erik with R hydro, r31.9. TECHNIQUE: Imaging Protocol: Axial computed tomography images with coronal and sagittal reformatted images were created and reviewed. IV contrast: None given due to elevated creatinine. Oral: no COMPARISON: CT CT CHEST WO from 03/15/2022 FINDINGS: ABDOMEN: Lung Bases: Bibasilar air trapping. Liver: Normal density. No measurable mass. Gallbladder and biliary tract: No radiodense calculus or dilation. Pancreas: Normal density, no abnormal calcifications or inflammatory process. Spleen: Normal. Kidneys: Left normal size, contour and axis. 2 millimeters nonobstructing stone mid left kidney. No obstructive uropathy. No masses seen. Right: Severe right hydronephrosis and parenchymal thinning. No perinephric collection. Left ureter dilated down to level of lower pelvis. No obstructing stone or mass is visible. Adrenal glands: No masses seen. Lymph nodes: Within normal limits. Abdominal Aorta: Abdominal portion non-dilated. Moderate to severe atherosclerotic changes. PELVIS: Bladder: Nearly empty. No gross wall thickening. No visible mass. Bowel: Large quantity of stool throughout the colon. Mild diverticulosis. No obstruction or bowel w all thickening. Peritoneal cavity: No ascites, collection or mesenteric inflammatory response. Reproductive organs: Status post hysterectomy. Bones: Degenerative disc changes L5-S1. IMPRESSION: Severe right hydronephrosis with dilatation of the ureter down to the low pelvis, a few cm above the ureteralvesicle junction. No visible obstructing stone or mass. RADIATION DOSE DELIVERED: 516.42mGy.cm Total DLP DATA REPOSITORY: All CT scans at this facility are submitted to the National Radiology Data Registry (NRDR) Dose Index Registry (DIR) with the [employer] (ACR). RADIATION OPTIMIZATION: All CT scans at this facility use at least one of these dose optimization te chniques: automated exposure control; mA and/or kV adjustment per patient size (includes targeted exa ms where dose is matched to clinical indication); or iterative reconstruction.
== END 2022-10-31 16:21 ==
LOC: DI 16:02
PROVIDERS: PCP Nurse Practitioner Family; Visit Provider Nurse Practitioner Family
DX: N13.2 Hydronephrosis with renal and ureteral calculous obstruction (principal); R31.9 Hematuria, unspecified
CPT/HCPCS: 76770; 81003; 99215; 74176; 82565

== ENCOUNTER 2022-11-01 12:07 | Day surgery (SDC) | payer MEDICARE, SELFPAY ==
--- NOTE | 2022-11-01 10:09 | W.ANESPRE ---
General Info Date of Service Date Performed: 11/01/22 Height: 5 ft 2 in Weight: 52.617 kg Body Mass Index (BMI): 21.2 Surgical Procedure: Operation Date: 11/01/22 14:25 Proposed Procedure Side Surgeon p Cystoscopy/Retrograde/ Stent Placement Right Janes Parsons MD Meds Allergies and Home Medications Allergies Allergy/AdvReac Type Severity Reaction Status Date / Time mirtazapine AdvReac Lightheaded Verified 10/31/22 15:19 ness Home Medication Medication Instructions Recorded docusate sodium 100 mg capsule 100 mg PO BID PRN #180 caps 09/09/18 (Colace) naloxone 4 mg/actuation nasal 1 spray intranasal Q2-3M PRN 08/16/20 spray (Narcan) opioid overdose #2 ea hydrochlorothiazide 25 mg tablet 25 mg PO QAM #90 tabs 11/30/21 omeprazole 40 mg capsule,delayed 40 mg PO .Daily to BID #180 11/30/21 release tab-caps tolterodine 4 mg capsule,extended 4 mg PO DAILY #90 tabs 11/30/21 release 24 hr ibuprofen 200 mg tablet 200 mg PO Q6H PRN 02/06/22 atenolol 50 mg tablet 50 mg PO DAILY #90 tabs 08/30/22 oxycodone-acetaminophen 5 mg-325 1 tab PO QID pain #112 tabs 10/24/22 mg tablet Current Visit Medications: Current Medications Generic Name Dose Route Start Last Admin Trade Name Freq PRN Reason Stop Dose Admin Ringer's Solution 1,000 mls @ 80 mls/hr 11/01/22 06:00 IV 11/30/22 23:59 INFUSION CRISTELA Cefazolin Sodium/Dextrose 2 gm in 50 mls @ 100 mls/hr 11/01/22 06:00 Ancef Duplex IVPB 11/01/22 16:00 PREOP CRISTELA IV Miscellaneous Supplies 1 each 11/01/22 06:00 Iv Access IV 11/30/22 23:59 DIRECTED CRISTELA Sodium Chloride 0 ml 11/01/22 06:00 Normal Saline Flush 10 Ml Syr IV 11/30/22 23:59 PRN PRN Sodium Chloride 0 ml 11/01/22 06:00 Normal Saline 10 Ml Vial IJ 11/30/22 23:59 DIRECTED PRN Sterile Water 0 ml 11/01/22 06:00 Water,Injection,Sterile 10 Ml Vial IJ 11/30/22 23:59 DIRECTED PRN PFSH Active Problems Active Problems: Problem Status Onset Code Hematuria ~10/2022 R31.9 Hydronephrosis of right kidney ~10/2022 N13.30 DANIEL (acute kidney injury) ~09/2022 N17.9 Lumbosacral radiculopathy due to degenerative joint disease of spine M47.27 Chronic low back pain M54.50, G89.29 Essential hypertension I10 Hyperlipidemia E78.5 Osteoporosis M81.0 PTSD (post-traumatic stress disorder) F43.10 GERD (gastroesophageal reflux disease) K21.9 Cigarette smoker F17.210 Overactive bladder N32.81 Prediabetes R73.03 Medical History Medical History Endometriosis Medical History Comments:: Pt. states her mother had a reaction to ether, they almost lost her Surgical History Surgical History History of bilateral tubal ligation (04/15/86) History of operative procedure on lumbosacral spinal structure RFA 02/08/22 Hx of esophagogastroduodenoscopy (11/20/06) S/P carpal tunnel release (~2006) Right wrist S/P section (04/15/86) S/P colonoscopy (12/06/16) 02/2022 S/P laparoscopic hysterectomy (~1999) Tobacco Smoking/Tobacco Use Status: Current every day Tobacco Type: cigarettes Years smoked: 46 Passive smoking exposure: Yes Second hand exposure: Yes Alcohol Alcohol Intake: former Substance Use Substance use: Never Substance use type: does not use Prental History History 2 Para 2 Hx # Term Pregnancies Multiple births Hx # Pregnancies Ectopic pregnancies AB induced Hx Number of Living Children 2 AB spontaneous Vital Signs and Lab Results Lab Results Blood Type / Crossmatch: No Data to Display Complete Blood Count: No Data to Display Complete Metabolic Panel: Sodium 139 mmol/L (136-145) 10/24/22 12:27 Potassium 3.9 mmol/L (3.5-5.1) 10/24/22 12:27 Chloride 103 mmol/L (98-107) 10/24/22 12:27 Carbon Dioxide 27.4 mmol/L (21.0-32.0) 10/24/22 12:27 BUN 41 mg/dL (7-18) H 10/24/22 12:27 Creatinine 2.1 mg/dL (0.55-1.02) H 10/31/22 15:03 Est GFR (CKD-EPI 2020) 25.67 (mL/min/1.73m2) 10/31/22 15:03 Calcium 9.2 mg/dL (8.5-10.1) 10/24/22 12:27 Glucose 123 mg/dL (74-106) H 10/24/22 12:27 Liver Function Panel: No Data to Display Coagulation Panel: No Data to Display Cardiac Panel: No Data to Display Arterial Blood Gas: No Data to Display Venous Blood Gas: No Data to Display Pancreas Panel: No Data to Display Thyroid Panel: No Data to Display Infectious Disease: No Data to Display Blood Cultures: No Data to Display Toxicology Panel: No Data to Display Anesthesia Assessment and Plan Anesthesia History Personal History: No History of Anesthesia Complications Family History: No Family History of Anesthesia Complications Exercise Tolerance Exercise Tolerance: Metabolic Equivalents>4 Pertinent Negatives Pertinent Negatives: No Symptoms of GERD, No Major Cardiovascular Symptoms or Complaints, No Major Pulmonary Symptoms or Complaints and No History of CVA/TIA Cardiac & Pulmonary Exam Cardiac Exam: Normal S1/S2 Heart Sounds Pulmonary Exam: Clear Bilateral Breath Sounds Implantable Cardiac Device Does patient have a Pacemaker or an ICD?: No Airway Exam Known Difficult Airway: No Mallampati Class: 2 Mouth Opening: Normal (> 3cm) Thyromental Distance: Greater than 3 cm Neck Range of Motion: Full ROM Neck Circumference: Normal Teeth Condition: Generalized Poor Dentition and Removable Dentures/Plates Upper Airway Comments: Lower front teeth loose ASA Classification ASA Score: ASA 3 Emergency Case?: No NPO Status NPO Status: NPO Clears >2 hours, Solids >8 hours Anesthesia Plan Resuscitation Status: Full Code Anesthesia Technique: MAC Anesthesia Airway Planned: Natural Airway Monitors Used: Standard Monitors Preoperative Comments:: 66 yo female with hydroneph for stent placement. Sig PMHx: DANIEL (GFR 25), HTN (atenolol, HCTZ), PTSD, GERD (omeprazole), preDM, smoker, former EtOH, back pain. Previous Anes - colo with prop, no issues.
[2022-11-01 12:29] VITALS: BP 167/87; PULSE 77; RESP 16; TEMP 36.7; O2SAT 98
[2022-11-01] MEDS: Lactated Ringers 1,000 ML 80 ML IV (12:44)
--- NOTE | 2022-11-01 14:29 | W.PM.HP.N ---
Date of service: 11/01/22 Time of Service: 14:29 Assessment and Plan Assessment and plan (1) Hematuria: Status: Acute (2) Hydronephrosis of right kidney: Status: Acute Assessment and plan: I will plan to do a cystoscopy retrograde pyelogram and place a ureteral stent to relieve her hydronephrosis. I would likely get a urine cytology during the procedure and depending on visualization, there may be tissue for me to biopsy today. If I do not see tissue to biopsy, once the stent is allowed in her system to decompress, she will need to return to the operating room for ureteroscopy and possible biopsy. History of Present Illness History of Present Illness Chief Complaint: Right hydronephrosis Narrative: This is a 67-year-old woman who was seen in her primary care provider's office about a week ago with gross hematuria. There was concern that she may have a urinary tract infection and she was started on Keflex. Her urine culture ultimately showed no significant uropathogens. She subsequently had a renal ultrasound which showed right hydronephrosis. The CT scan done yesterday shows the hydronephrosis and a dilated ureter down to the pelvis. No stone is seen. She does have a long history of smoking (over 1pack per day) and the concern is that she may have a ureteral mass causing hydronephrosis. She presents for stent placement. She will likely need ureteroscopy once her system decompressed. Review of Systems Constitutional Comments: No fevers or chills No vision change or dysphasia No diabetes or thyroid Chronic smokers cough. No hemoptysis No chest pain or palpitations Hx GERD controlled with prilosec. No nausea, vomiting, hepatitis, ulcers, jaundice No seizures, strokes or peripheral neuropathy No bleeding disorders or anemia Chronic back pain. No gout PFSH All Active Problems Hematuria (Acute ~10/2022) Hydronephrosis of right kidney (Acute ~10/2022) DANIEL (acute kidney injury) (Acute ~09/2022) Lumbosacral radiculopathy due to degenerative joint disease of spine (Chronic) Chronic low back pain (Chronic) Essential hypertension (Chronic) Hyperlipidemia (Chronic) Osteoporosis (Chronic) PTSD (post-traumatic stress disorder) (Chronic) GERD (gastroesophageal reflux disease) (Chronic) Cigarette smoker (Chronic) Overactive bladder (Chronic) Prediabetes (Chronic) Medical History Endometriosis Surgical History History of bilateral tubal ligation (04/15/86) History of operative procedure on lumbosacral spinal structure RFA 02/08/22 Hx of esophagogastroduodenoscopy (11/20/06) S/P carpal tunnel release (~2006) Right wrist S/P section (04/15/86) S/P colonoscopy (12/06/16) 02/2022 S/P laparoscopic hysterectomy (~1999) Family History Mother , 76 Essential hypertension Heart disease Colon cancer Father , 81 Essential hypertension Stroke Colon cancer Brother , 48 Lung cancer Brother , 48 from accident No problems noted. Sister No problems noted. Son No problems noted. Daughter No problems noted. Maternal Grandfather No problems noted. Maternal Grandmother No problems noted. Paternal Grandfather No problems noted. Paternal Grandmother No problems noted. Social History (Updated 02/03/22 @ 10:19 by Maty Martinez) Smoking/Tobacco Use Status: Current every day Tobacco Type: cigarettes Years smoked: 46 Tobacco: How many years used: 46 Second Hand Exposure: Yes Smoking risk assessment performed?: Yes Alcohol Intake: former Drug use: Never Substance use type: does not use Household members: significant other Housing: house Number of Children: 2 current occupation: Disabled What type of physical activity do you participate in: walking and independent ambulation Do you feel safe at home: Yes Do you feel safe in your relationship?: Yes History History 2 Para 2 Hx # Term Pregnancies Multiple births Hx # Pregnancies Ectopic pregnancies AB induced Hx Number of Living Children 2 AB spontaneous Meds Allergies and Home Medications Allergies Allergy/AdvReac Type Severity Reaction Status Date / Time mirtazapine AdvReac Lightheaded Verified 10/31/22 15:19 ness Home Medications Medication Instructions Recorded Confirmed Type docusate sodium 100 mg capsule 100 mg PO BID PRN #180 caps 09/09/18 10/31/22 History (Colace) naloxone 4 mg/actuation nasal 1 spray intranasal Q2-3M PRN 08/16/20 10/31/22 Rx spray (Narcan) opioid overdose #2 ea hydrochlorothiazide 25 mg tablet 25 mg PO QAM #90 tabs 11/30/21 11/01/22 Rx omeprazole 40 mg capsule,delayed 40 mg PO .Daily to BID #180 11/30/21 11/01/22 Rx release tab-caps tolterodine 4 mg capsule,extended 4 mg PO DAILY #90 tabs 11/30/21 11/01/22 Rx release 24 hr ibuprofen 200 mg tablet 200 mg PO Q6H PRN 02/06/22 10/31/22 History atenolol 50 mg tablet 50 mg PO DAILY #90 tabs 08/30/22 11/01/22 Rx oxycodone-acetaminophen 5 mg-325 1 tab PO QID pain #112 tabs 10/24/22 11/01/22 Rx mg tablet Exam Const General: cooperative Neck Neck: supple Resp Effort & Inspection: normal respiratory effort Cardio Rate: regular rate Rhythm: regular rhythm GI Palpation: soft and no masses Neuro General: patient alert, patient awake and patient oriented x3 Results Last Vital Signs Temp 36.7 C 11/01/22 12:29 Pulse 77 11/01/22 12:29 Resp 16 11/01/22 12:29 BP 167/87 H 11/01/22 12:29 Pulse Ox 98 11/01/22 12:29 Time Spent Time spent with Patient: <40 minutes Time was spent: obtaining and/or reviewing separately otained hiistory and counseling the patient
[2022-11-01 14:55] VITALS: BMI 21.2
[2022-11-01] MEDS: ceFAZolin 2 GM/50 ML BAG IVPB (15:05)
--- NOTE | 2022-11-01 15:22 | PAPNONF_PTH ---
PATIENT: Ira Matos LOC: [facility] U#:[id number] AGE/SX: 67/F ROOM: RE11/01/[address]: Janes Parsons MD : 1955 BED: DIS: 11/01/2022 SPEC #: [id number] RECD: 11/01/22 18:28 STATUS: JENA REJamey #: [id number] HENNY: 11/01/22 15:[address]: Janes Parsons [facility]PT[facility] Cytology RECD BY: Maribeth Yuan ENTERED: 11/01/22 18:28 SP TYPE: JHON PRUITT DR: NOREEN Sevilla Tissues: 1 - BODY FLUID CYTO(SPUTUM/URINE)[facility] Procedures: BODY FLUID CYTO(URINE/SPUTUM) Comments: [id number] (TOTAL URINE VOLUME = 30 ml) (REFRIGERATED)
[2022-11-01] MEDS: Lidocaine 2% Jelly 6 ML SYR (15:29)
[2022-11-01] MEDS: Omnipaque 300 MG/ML 50 ML BTL (15:58)
--- NOTE | 2022-11-01 16:08 | W.PM.DSUDISC ---
Date of service: 11/01/22 Time of Service: 16:08 Discharge Plan Disposition Patient Disposition: Home Condition: Good Discharge Details Reason For Visit: hydronephrosis Attending Provider: Janes Parsons Primary Care Provider: Susan Arrieta Home Meds and New Rx's Prescriptions: No Action naloxone [Narcan] 4 mg/actuation spray,non-aerosol 1 spray intranasal Q2-3M PRN (Reason: opioid overdose) Qty: 2 4RF Rx Instructions: spray 1 dose into ONE nostril; alternate nostrils w each dose until help arrives atenolol 50 mg tablet 50 mg PO DAILY Qty: 90 3RF docusate sodium [Colace] 100 mg capsule 100 mg PO BID PRNQty: 180 Label Comments: 04/11/16 PRN only/pps hydrochlorothiazide 25 mg tablet 25 mg PO QAM Qty: 90 4RF Hold Instructions: Home Medication placed on hold at Doctor's office omeprazole 40 mg capsule,delayed release(DR/EC) 40 mg PO .Daily to BID Qty: 180 4RF Rx Instructions: Take 1 pill once to twice a day for heartburn tolterodine 4 mg capsule,extended release 24hr 4 mg PO DAILY Qty: 90 4RF Hold Instructions: She is holding for now, not sure if still needing ibuprofen 200 mg Tablet 200 mg PO Q6H PRN oxycodone-acetaminophen 5-325 mg tablet 1 tab PO QID MDD 4 tablets Qty: 112 0RF Rx Instructions: Take 1 tablet four times a day for chronic low back pain Discharge Instructions Additional Instructions: expect my office to call about urine cytology results and plans for next procedure (ureteroscopy) Activity:: Activity as Tolerated Shower/Bathe:: 24 hours Diet:: As Tolerated Discharge Orders Discharge Orders: Discharge Order (Routine); Ordered 11/01/22 Ordered By: Janes Parsons DS: Diagnosis Discharge Diagnosis (1) Hematuria: Status: Acute (2) Hydronephrosis of right kidney: Status: Acute
[2022-11-01 16:10] VITALS: BP 139/77; PULSE 67; RESP 16; TEMP 36.3; O2SAT 100
--- NOTE | 2022-11-01 16:12 | W.PM.OP ---
Date of service: 11/01/22 Time of Service: 16:12 Operative Note Operative Note DATE OF PROCEDURE: 11/01/22 PRE-OP DIAGNOSIS: right hydronephrosis POST-OP DIAGNOSIS: same PROCEDURE: cystoscopy, right retrograde pyelogram, right ureteroscopy, insert right ureteral stent SURGEON: Janes Parsons Refer to Anesthesia Record ESTIMATED BLOOD LOSS: 5 PATHOLOGY: other (urine for cytology) COMPLICATIONS: None Patient was transported to: same day Patient's condition: stable Implants: 4.8 [place] by 22 to 30 cm ureteral stent Indications: This is a 67-year-old woman who noticed gross hematuria and symptoms worrisome for a urinary tract infection about a week ago. Her urine culture showed no significant uropathogens. She was then evaluated with a renal ultrasound which showed right hydronephrosis. A CT showed a dilated ureter and down into the pelvis with no specific stone identified at the transition point. She presents now for stent placement. 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 She was given preoperative antibiotics. After successful induction of general anesthesia without intubation, she was placed in the dorsal lithotomy position. Her genitalia was prepped and draped. 2% Xylocaine jelly was instilled into the urethra to act as a local anesthetic. A 22 [place] rigid cystoscope was passed through the urethra into the bladder. The urine in the bladder was collected and sent for cytology. The bladder was inspected with a 30 degree lens. The right ureteral orifice was visualized. No blood was seen coming from the ureteral orifice and no mass was seen surrounding the orifice. The orifice was then cannulated with a 5 [place] access catheter. A retrograde pyelogram was obtained by injecting Omnipaque through the access catheter under fluoroscopic guidance. In the pelvis, the ureter ended blindly with neck initially no contrast extending above the obstructing lesion. I attempted to pass a guidewire through the access catheter and up the remainder of the ureter, but I was not successful. I then passed a semirigid ureteroscope up to the narrowed area. Under ureteroscopic visualization, I was able to pass a guidewire that went up the ureter. I then removed the ureteroscope and passed a access catheter over the wire. I removed the wire and injected Omnipaque through the access catheter. In this manner, I was able to outline a markedly dilated ureter and collecting system. We obtained a hydronephrotic drip from the catheter. I then replaced the wire and removed the access catheter. I attempted to pass a dual-lumen catheter over the wire, but could not navigate the dual-lumen catheter through the stenotic area in the urethra. Likewise, I attempted to pass a 7 [place] variable length stent over the wire, but was not able to go above the stenotic area. Finally, I was able to pass a 4.8 [place] variable length stent over the wire. The proximal end of the stent was seen in the renal pelvis and the distal and was seen in the bladder. The positioning of the stent was confirmed both fluoroscopically and cystoscopically. She tolerated this procedure well with no complications.
--- NOTE | 2022-11-01 16:15 | DI.RAD_ITS ---
Exam(s) XR RETROGRADE IN OR EXAM: XR RETROGRADE IN OR CLINICAL HISTORY: RIGHT HYDRONEPHROSIS TECHNIQUE: 2D and realtime digital imaging was performed. CONTRAST MATERIAL: Refer to procedure report. COMPARISON: No exams were available for comparison FINDINGS: Fluoroscopy was provided for Dr. Parsons during the performance of a retrograde evaluation of the yaron l collecting system. Please refer to the procedure report for complete details. Ka,r=21.9 mGy IMPRESSION: RADIATION DOSE DELIVERED:
[2022-11-01 16:38] VITALS: BP 152/77; PULSE 60; RESP 16; TEMP 36.7; O2SAT 96
--- NOTE | 2022-11-01 16:45 | W.ANESPOSTOP ---
Postoperative Evaluation Date, Time and Location Date Performed: 11/01/22 Time Performed: 16:45 Patient Location: Day Surgery Unit Vital Signs Most Recent Imported Vital Signs: Most Recent Vital Signs Temp Pulse Resp BP Pulse Ox 36.7 C 60 16 152/77 H 96 11/01/22 16:38 11/01/22 16:38 11/01/22 16:38 11/01/22 16:38 11/01/22 16:38 Pain Score Most Recent Pain Score: Most Recent Pain Score Pain Level 0 11/01/22 16:38 Assessment Mental Status: Awake (Alert & Oriented to Patient Baseline) Airway and Respiratory Function: Patent airway with normal (patient baseline) respiratory exam Cardiovascular Function: Hemodynamically Stable Hydration Status: Adequately Hydrated Nausea & Vomiting: No Nausea or Vomiting Pain: Pt. Denies Any Pain Peripheral Nerve Block: Patient did not receive a nerve block
== END 2022-11-01 16:52 | disposition home or self-care (01) ==
PROVIDERS: PCP Nurse Practitioner Family; Visit Provider Urology
PROC: (CPT 74450; principal; 2022-11-01 14:15)
DX: R31.0 Gross hematuria (principal); N13.30 Unspecified hydronephrosis; F17.210 Nicotine dependence, cigarettes, uncomplicated; Q62.10 Congenital occlusion of ureter, unspecified
CPT/HCPCS: 52332; 52005; 74420; 88104; J0690; J2704; Q9967

== ENCOUNTER 2022-11-05 03:09 | Outpatient (CLI) | payer MEDICARE, SELFPAY ==
[2022-11-05 12:24] LABS: Anion Gap 11.3 mmol/L (3-11); BUN 26 mg/dL (7-18); CO2 25.7 mmol/L (21.0-32.0); CREATININE 1.6 mg/dL (0.55-1.02); Calcium 9.4 mg/dL (8.5-10.1); Chloride 99 mmol/L (98-107); Estimated GFR 35.57 (mL/min/1.73m2); Glucose 104 mg/dL (74-106); Potassium 3.4 mmol/L (3.5-5.1); Sodium 136 mmol/L (136-145)
== END 2022-11-05 03:10 | disposition home or self-care (01) ==
LOC: LOS 03:09
PROVIDERS: PCP Nurse Practitioner Family; Visit Provider Nurse Practitioner Family
DX: N17.9 Acute kidney failure, unspecified (principal)
CPT/HCPCS: 36415; 80048

== ENCOUNTER → 2022-11-09 08:06 | Outpatient (BNVA) | payer MEDICARE, SELFPAY | PROVIDERS: PCP Nurse Practitioner Family; Referring Provider Nurse Practitioner Family; Visit Provider Urology | DX: Z96.0 Presence of urogenital implants (principal); N13.5 Crossing vessel and stricture of ureter without hydronephrosis | CPT/HCPCS: 99443 ==

== ENCOUNTER 2022-11-19 06:13 | Day surgery (SDC) | payer MEDICARE, SELFPAY ==
[2022-11-19 06:31] VITALS: BP 168/93; PULSE 69; RESP 16; TEMP 36.6; O2SAT 95
--- NOTE | 2022-11-19 06:54 | W.ANESPRE ---
General Info Date of Service Date Performed: 11/19/22 Height: 5 ft 2 in Weight: 51.8 kg Body Mass Index (BMI): 20.9 Surgical Procedure: Operation Date: 11/19/22 07:40 Proposed Procedure Side Surgeon p Cystoscopy/Ureteroscopy w/Ureteral Biopsy/ Remove Ureteral Stent Right Janes Parsons MD Meds Allergies and Home Medications Allergies Allergy/AdvReac Type Severity Reaction Status Date / Time mirtazapine AdvReac Lightheaded Verified 11/19/22 06:29 ness Home Medication Medication Instructions Recorded docusate sodium 100 mg capsule 100 mg PO BID PRN #180 caps 09/09/18 (Colace) naloxone 4 mg/actuation nasal 1 spray intranasal Q2-3M PRN 08/16/20 spray (Narcan) opioid overdose #2 ea hydrochlorothiazide 25 mg tablet 25 mg PO QAM #90 tabs 11/30/21 omeprazole 40 mg capsule,delayed 40 mg PO .Daily to BID #180 11/30/21 release tab-caps ibuprofen 200 mg tablet 200 mg PO Q6H PRN 02/06/22 atenolol 50 mg tablet 50 mg PO DAILY #90 tabs 08/30/22 oxycodone-acetaminophen 5 mg-325 1 tab PO QID pain #112 tabs 10/24/22 mg tablet Current Visit Medications: Current Medications Generic Name Dose Route Start Last Admin Trade Name Freq PRN Reason Stop Dose Admin Ringer's Solution 1,000 mls @ 80 mls/hr 11/19/22 06:00 IV 11/19/22 23:59 INFUSION CRISTELA Cefazolin Sodium/Dextrose 1 gm in 50 mls @ 100 mls/hr 11/19/22 06:00 Ancef Duplex IVPB 11/19/22 16:00 PREOP CRISTLEA IV Miscellaneous Supplies 1 each 11/19/22 06:00 Iv Access IV 11/19/22 23:59 DIRECTED CRISTELA Sodium Chloride 0 ml 11/19/22 06:00 Normal Saline Flush 10 Ml Syr IV 11/19/22 23:59 PRN PRN Sodium Chloride 0 ml 11/19/22 06:00 Normal Saline 10 Ml Vial IJ 11/19/22 23:59 DIRECTED PRN Sterile Water 0 ml 11/19/22 06:00 Water,Injection,Sterile 10 Ml Vial IJ 11/19/22 23:59 DIRECTED PRN PFSH Active Problems Active Problems: Problem Status Onset Code Essential hypertension I10 Hyperlipidemia E78.5 Osteoporosis M81.0 PTSD (post-traumatic stress disorder) F43.10 GERD (gastroesophageal reflux disease) K21.9 Cigarette smoker F17.210 Lumbosacral radiculopathy due to degenerative joint disease of spine M47.27 Overactive bladder N32.81 Prediabetes R73.03 Chronic low back pain M54.50, G89.29 DANIEL (acute kidney injury) ~09/2022 N17.9 Hydronephrosis of right kidney ~10/2022 N13.30 Hematuria ~10/2022 R31.9 Ureteral stricture, right N13.5 Medical History Medical History Endometriosis Medical History Comments:: Pt. states her mother had a reaction to ether, they almost lost her Surgical History Surgical History History of bilateral tubal ligation (04/15/86) History of operative procedure on lumbosacral spinal structure RFA 02/08/22 Hx of esophagogastroduodenoscopy (11/20/06) S/P carpal tunnel release (~2006) Right wrist S/P section (04/15/86) S/P colonoscopy (12/06/16) 02/2022 S/P cystoscopy with ureteral stent placement 11/01/22 right retrograde pyelogram, right ureteroscopy, right ureteral stent S/P laparoscopic hysterectomy (~1999) Tobacco Smoking/Tobacco Use Status: Current every day Tobacco Type: cigarettes Years smoked: 46 Passive smoking exposure: Yes Second hand exposure: Yes Alcohol Alcohol Intake: former Substance Use Substance use: Never Substance use type: does not use Prental History History 2 Para 2 Hx # Term Pregnancies Multiple births Hx # Pregnancies Ectopic pregnancies AB induced Hx Number of Living Children 2 AB spontaneous Vital Signs and Lab Results Vital Signs Most Recent Vital Signs in EMR: Most Recent Vital Signs Temp Pulse Resp BP Pulse Ox 36.6 C 69 16 168/93 H 95 11/19/22 06:31 11/19/22 06:31 11/19/22 06:31 11/19/22 06:31 11/19/22 06:31 Lab Results Blood Type / Crossmatch: No Data to Display Complete Blood Count: No Data to Display Complete Metabolic Panel: Sodium 136 mmol/L (136-145) 11/05/22 09:10 Potassium 3.4 mmol/L (3.5-5.1) L 11/05/22 09:10 Chloride 99 mmol/L (98-107) 11/05/22 09:10 Carbon Dioxide 25.7 mmol/L (21.0-32.0) 11/05/22 09:10 BUN 26 mg/dL (7-18) H 11/05/22 09:10 Creatinine 1.6 mg/dL (0.55-1.02) H 11/05/22 09:10 Est GFR (CKD-EPI 2020) 35.57 (mL/min/1.73m2) 11/05/22 09:10 Calcium 9.4 mg/dL (8.5-10.1) 11/05/22 09:10 Glucose 104 mg/dL (74-106) 11/05/22 09:10 Liver Function Panel: No Data to Display Coagulation Panel: No Data to Display Cardiac Panel: No Data to Display Arterial Blood Gas: No Data to Display Venous Blood Gas: No Data to Display Pancreas Panel: No Data to Display Thyroid Panel: No Data to Display Infectious Disease: No Data to Display Blood Cultures: No Data to Display Toxicology Panel: No Data to Display Anesthesia Assessment and Plan Anesthesia History Personal History: No History of Anesthesia Complications Family History: No Family History of Anesthesia Complications Exercise Tolerance Exercise Tolerance: Metabolic Equivalents>4 Pertinent Negatives Pertinent Negatives: No Symptoms of GERD Cardiac & Pulmonary Exam Cardiac Exam: Normal S1/S2 Heart Sounds Pulmonary Exam: Clear Bilateral Breath Sounds Implantable Cardiac Device Does patient have a Pacemaker or an ICD?: No Airway Exam Known Difficult Airway: No Mallampati Class: 2 Mouth Opening: Normal (> 3cm) Thyromental Distance: Greater than 3 cm Neck Range of Motion: Full ROM Neck Circumference: Normal Teeth Condition: Generalized Poor Dentition and Removable Dentures/Plates Upper Airway Comments: Lower front teeth loose ASA Classification ASA Score: ASA 3 Emergency Case?: No NPO Status NPO Status: NPO Clears >2 hours, Solids >8 hours Anesthesia Plan Resuscitation Status: Full Code Anesthesia Technique: MAC Anesthesia Airway Planned: Natural Airway Monitors Used: Standard Monitors
[2022-11-19] MEDS: Lactated Ringers 1,000 ML 80 ML IV (06:55)
--- NOTE | 2022-11-19 07:00 | DI.RAD_ITS ---
Exam(s) XR RETROGRADE IN OR EXAM: XR RETROGRADE IN OR CLINICAL HISTORY: Ureteral stricture, right TECHNIQUE: 2D and realtime digital imaging was performed. CONTRAST MATERIAL: Refer to procedure report. COMPARISON: No exams were available for comparison FINDINGS: Fluoroscopy was provided for Dr. Parsons during the performance of a retrograde evaluation of the yaron l collecting system. Please refer to the procedure report for complete details. Ka,r=0.93 mGy IMPRESSION: RADIATION DOSE DELIVERED:
[2022-11-19 07:01] VITALS: BMI 20.9
--- NOTE | 2022-11-19 07:11 | W.PM.HP.N ---
Date of service: 11/19/22 Time of Service: 07:12 Assessment and Plan Assessment and plan (1) Ureteral stricture, right: Status: Acute (2) Hydronephrosis of right kidney: Status: Acute Assessment and plan: We do not have a specific cause for her stricture at this time. I plan to do a ureteroscopy to visualize the area directly and take biopsies/cytologies of the area to get a tissue diagnosis. The ultimate treatment will depend on biopsy results and remaining function of the kidneys. History of Present Illness History of Present Illness Chief Complaint: Right hydronephrosis Narrative: This is a 67-year-old woman who was identified as having right hydronephrosis and hydroureter down to a segment of the ureter in the pelvis. No stone was identified at that location. She underwent cystoscopy and placement of a right ureteral stent. I obtained a urine cytology directly from the bladder. The cytology showed no abnormal cells. Now that the stent has been indwelling for a few weeks, she presents for cystoscopy, removal of ureteral stent, ureteroscopy and possible biopsy of the narrowed area. Review of Systems Narrative: No fevers or chills No vision change or dysphasia No diabetes or thyroid No shortness of breath, cough or hemoptysis No chest pain or palpitations Hx GERD. No hepatitis, ulcers or jaundice No seizures, strokes or peripheral neuropathy No bleeding disorders or anemia Chronic back pain. No gout PFSH All Active Problems Essential hypertension (Chronic) Hyperlipidemia (Chronic) Osteoporosis (Chronic) PTSD (post-traumatic stress disorder) (Chronic) GERD (gastroesophageal reflux disease) (Chronic) Cigarette smoker (Chronic) Lumbosacral radiculopathy due to degenerative joint disease of spine (Chronic) Overactive bladder (Chronic) Prediabetes (Chronic) Chronic low back pain (Chronic) DANIEL (acute kidney injury) (Acute ~09/2022) Hydronephrosis of right kidney (Acute ~10/2022) Hematuria (Acute ~10/2022) Ureteral stricture, right (Acute) Medical History Endometriosis Surgical History History of bilateral tubal ligation (04/15/86) History of operative procedure on lumbosacral spinal structure RFA 02/08/22 Hx of esophagogastroduodenoscopy (11/20/06) S/P carpal tunnel release (~2006) Right wrist S/P section (04/15/86) S/P colonoscopy (12/06/16) 02/2022 S/P cystoscopy with ureteral stent placement 11/01/22 right retrograde pyelogram, right ureteroscopy, right ureteral stent S/P laparoscopic hysterectomy (~1999) Family History Mother , 76 Essential hypertension Heart disease Colon cancer Father , 81 Essential hypertension Stroke Colon cancer Brother , 48 Lung cancer Brother , 48 from accident No problems noted. Sister No problems noted. Son No problems noted. Daughter No problems noted. Maternal Grandfather No problems noted. Maternal Grandmother No problems noted. Paternal Grandfather No problems noted. Paternal Grandmother No problems noted. Social History (Updated 02/03/22 @ 10:19 by Maty Martinez) Smoking/Tobacco Use Status: Current every day Tobacco Type: cigarettes Years smoked: 46 Tobacco: How many years used: 46 Second Hand Exposure: Yes Smoking risk assessment performed?: Yes Alcohol Intake: former Drug use: Never Substance use type: does not use Household members: significant other Housing: house Number of Children: 2 current occupation: Disabled What type of physical activity do you participate in: walking and independent ambulation Do you feel safe at home: Yes Do you feel safe in your relationship?: Yes History History 2 Para 2 Hx # Term Pregnancies Multiple births Hx # Pregnancies Ectopic pregnancies AB induced Hx Number of Living Children 2 AB spontaneous Meds Allergies and Home Medications Allergies Allergy/AdvReac Type Severity Reaction Status Date / Time mirtazapine AdvReac Lightheaded Verified 11/19/22 06:29 ness Home Medications Medication Instructions Recorded Confirmed Type docusate sodium 100 mg capsule 100 mg PO BID PRN #180 caps 09/09/18 11/19/22 History (Colace) naloxone 4 mg/actuation nasal 1 spray intranasal Q2-3M PRN 08/16/20 11/19/22 Rx spray (Narcan) opioid overdose #2 ea hydrochlorothiazide 25 mg tablet 25 mg PO QAM #90 tabs 11/30/21 11/19/22 Rx omeprazole 40 mg capsule,delayed 40 mg PO .Daily to BID #180 11/30/21 11/19/22 Rx release tab-caps ibuprofen 200 mg tablet 200 mg PO Q6H PRN 02/06/22 11/19/22 History atenolol 50 mg tablet 50 mg PO DAILY #90 tabs 08/30/22 11/19/22 Rx oxycodone-acetaminophen 5 mg-325 1 tab PO QID pain #112 tabs 10/24/22 11/19/22 Rx mg tablet Exam Const General: cooperative Resp Effort & Inspection: normal respiratory effort Auscultation: clear to auscultation bilaterally Cardio Rate: regular rate Rhythm: regular rhythm GI Inspection: normal to inspection Palpation: soft Neuro General: patient alert, patient awake and patient oriented x3 Results Last Vital Signs Temp 36.6 C 11/19/22 06:31 Pulse 69 11/19/22 06:31 Resp 16 11/19/22 06:31 BP 168/93 H 11/19/22 06:31 Pulse Ox 95 11/19/22 06:31 Time Spent Time spent with Patient: <40 minutes Time was spent: counseling the patient
[2022-11-19] MEDS: ceFAZolin 1 GM/50 ML BAG IVPB (07:34)
--- NOTE | 2022-11-19 07:48 | PAPNONF_PTH ---
PATIENT: Ira Matos LOC: [facility] U#:[id number] AGE/SX: 67/F ROOM: RE11/19/[address]: Janes Parsons MD : 1955 BED: DIS: 11/19/2022 SPEC #: [id number] RECD: 11/19/22 12:55 STATUS: JENA REQ #: [id number] HENNY: 11/19/22 07:[address]: Janes Parsons DEPT: [facility] Cytology RECD BY: Maribeth Yuan ENTERED: 11/19/22 12:56 SP TYPE: JHON PRUITT DR: Susan Arrieta, NOREEN Tissues: 1 - BODY FLUID CYTO(SPUTUM/URINE)[facility] Procedures: BODY FLUID CYTO(URINE/SPUTUM) Comments: [id number] (TV = 15 ml & 30 ml CYTOLYT ADDED) (REFRIGERATED)
[2022-11-19] MEDS: Lidocaine 2% Jelly 6 ML SYR (07:49)
--- NOTE | 2022-11-19 08:08 | URE_PTH ---
PATIENT: Ira Matos LOC: [facility] U#:[id number] AGE/SX: 67/F ROOM: RE11/19/[address]: Janes Parsons MD : 1955 BED: DIS: 11/19/2022 SPEC #: [id number] RECD: 11/19/22 12:43 STATUS: JENA REQ #: [id number] HENNY: 11/19/22 08:[address]: Jaens Parsons DEPT: Surgical Specimen RECD BY: Maribeth Yuan ENTERED: 11/19/22 12:44 SP TYPE: URE OTHR DR: Susan Arrieta, NOREEN Tissues: 1 - URETER BIOPSY Procedures: GROSS AND MICRO LEVEL 4 Comments: [id number]
--- NOTE | 2022-11-19 08:16 | W.PM.DSUDISC ---
Date of service: 11/19/22 Time of Service: 08:16 Discharge Plan Disposition Patient Disposition: Home Condition: Stable Discharge Details Reason For Visit: ureteral biopsy Attending Provider: Janes Parsons Primary Care Provider: Susan Arrieta Home Meds and New Rx's Prescriptions: No Action naloxone [Narcan] 4 mg/actuation spray,non-aerosol 1 spray intranasal Q2-3M PRN (Reason: opioid overdose) Qty: 2 4RF Rx Instructions: spray 1 dose into ONE nostril; alternate nostrils w each dose until help arrives atenolol 50 mg tablet 50 mg PO DAILY Qty: 90 3RF docusate sodium [Colace] 100 mg capsule 100 mg PO BID PRNQty: 180 Label Comments: 04/11/16 PRN only/pps hydrochlorothiazide 25 mg tablet 25 mg PO QAM Qty: 90 4RF Hold Instructions: Home Medication placed on hold at Doctor's office omeprazole 40 mg capsule,delayed release(DR/EC) 40 mg PO .Daily to BID Qty: 180 4RF Rx Instructions: Take 1 pill once to twice a day for heartburn ibuprofen 200 mg Tablet 200 mg PO Q6H PRN oxycodone-acetaminophen 5-325 mg tablet 1 tab PO QID MDD 4 tablets Qty: 112 0RF Rx Instructions: Take 1 tablet four times a day for chronic low back pain Discharge Instructions Additional Instructions: followup 1 to 2 weeks for pathology results - can be done by phone if pt prefers Stent is back in so not unusual to have blood in urine, frequent urination Activity:: Activity as Tolerated Shower/Bathe:: 24 hours Diet:: As Tolerated Discharge Orders Discharge Orders: Discharge Order (Routine); Ordered 11/19/22 Ordered By: Janes Parsons DS: Diagnosis Discharge Diagnosis (1) Ureteral stricture, right: Status: Acute (2) Hydronephrosis of right kidney: Status: Acute
[2022-11-19 08:21] VITALS: BP 142/76; PULSE 68; RESP 16; TEMP 36.4; O2SAT 98
[2022-11-19] MEDS: Phenazopyridine 200 MG TAB PO (08:33)
[2022-11-19 08:45] VITALS: BP 158/83; PULSE 56; RESP 15; TEMP 36.3; O2SAT 95
--- NOTE | 2022-11-19 08:59 | W.ANESPOSTOP ---
Postoperative Evaluation Date, Time and Location Date Performed: 11/19/22 Time Performed: 09:00 Patient Location: Day Surgery Unit Vital Signs Most Recent Imported Vital Signs: Most Recent Vital Signs Temp Pulse Resp BP Pulse Ox 36.3 C L 56 L 15 158/83 H 95 11/19/22 08:45 11/19/22 08:45 11/19/22 08:45 11/19/22 08:45 11/19/22 08:45 Pain Score Most Recent Pain Score: Most Recent Pain Score Pain Level 0 11/19/22 08:45 Assessment Mental Status: Awake (Alert & Oriented to Patient Baseline) Airway and Respiratory Function: Patent airway with normal (patient baseline) respiratory exam Cardiovascular Function: Hemodynamically Stable Hydration Status: Adequately Hydrated Nausea & Vomiting: No Nausea or Vomiting Pain: Pt. Denies Any Pain Peripheral Nerve Block: Patient did not receive a nerve block
--- NOTE | 2022-11-19 14:12 | ROE_ITS ---
Date of service: 11/19/22 Time of Service: 08:30 Operative Note Operative Note DATE OF PROCEDURE: 11/19/22 PRE-OP DIAGNOSIS: Right ureteral stricture PROCEDURE: Cystoscopy, remove right ureteral stent, right ureteroscopy with ureteral cytologies and ureteral biopsy, insert right ureteral stent SURGEON: Janes Parsons ANESTHESIA TYPE: General:No Airway Refer to Anesthesia Record ESTIMATED BLOOD LOSS: 10 PATHOLOGY: other (1. ureteral cytology by barbotage 2. Ureteral biopsies) COMPLICATIONS: None Patient was transported to: same day Patient's condition: stable Implants: 6 [place] by 22 to 30 cm right ureteral stent Indications: This is a 67-year-old woman who was previously identified as having right hydronephrosis due to a right ureteral stricture. She was initially evaluated with cystoscopy and stent placement. During that initial procedure, I obtained a cytology from the bladder. That particular cytology showed no abnormality. Now that the stent has been in place and the ureter has dilated somewhat, hopefully we are able to obtain direct ureteral specimens for pathology Findings: Short segment of ureteral narrowing with proximal dilation of the ureter Procedure Description: The patient was given preoperative antibiotics and brought to the operating room on 11/19/2022. After successful induction of general anesthesia, she was placed in the dorsal lithotomy position. Her genitalia was prepped and draped. 2% Xylocaine jelly was instilled into the urethra to act as a local anesthetic. A 22 [place] rigid cystoscope was passed through the urethra into the bladder. The bladder was inspected with a 30 degree lens. A stent could be seen protruding from the right ureteral orifice. The stent was grasped and alligator forceps and brought out to the level of the urethral meatus. A Glidewire was then passed through the lumen of the stent and the wire was advanced up the right ureter. The stent was removed leaving the wire in place. A semirigid ureteroscope was then passed through the urethra into the bladder. The ureteroscope was advanced into the right distal ureter and advanced up to the level of the ureteral narrowing. Initially, I injected saline through the lumen of the ureteroscope directly at the narrowed area. I was able to withdraw fluid from the ureteroscope, collected and sent it to the lab for cytology I was able to pass a [email or web address] stone basket through the lumen of the scope. By opening the basket, I was able to trap some ureteral tissue in the basket and send it to the lab for permanent section. At the completion of the procedure, I was able to run the scope through the narrowed area and visualize a dilated proximal ureter. I removed the ureteroscope and passed a 6 [place] variable length stent over the indwelling wire. The proximal end of the stent was curled in the renal pelvis and the distal end was curled within the bladder. The positioning of the stent was confirmed both fluoroscopically and cystoscopically. The patient tolerated this procedure well with no complications.
== END 2022-11-19 09:10 | disposition home or self-care (01) ==
PROVIDERS: PCP Nurse Practitioner Family; Visit Provider Urology
PROC: (CPT 52354; principal; 2022-11-19 07:30)
DX: N13.1 Hydronephrosis with ureteral stricture, not elsewhere classified (principal); I10 Essential (primary) hypertension; R73.03 Prediabetes; F17.210 Nicotine dependence, cigarettes, uncomplicated; R82.89 Other abnormal findings on cytological and histological examination of urine
CPT/HCPCS: 52354; 52332; 76000; 88305; 74420; 88104; J0690; J2704

== ENCOUNTER → 2022-11-30 12:02 | Outpatient (BNVA) | payer MEDICARE, SELFPAY | PROVIDERS: PCP Nurse Practitioner Family; Referring Provider Nurse Practitioner Family; Visit Provider Urology | DX: N13.5 Crossing vessel and stricture of ureter without hydronephrosis (principal); N13.30 Unspecified hydronephrosis | CPT/HCPCS: 99443 ==

== ENCOUNTER 2022-12-07 00:40 | Outpatient (CLI) | payer MEDICARE, SELFPAY ==
--- NOTE | 2022-12-07 07:25 | DI.NM_ITS ---
Exam(s) NM DTPA RENOGRAM WO LASIX CLINICAL HISTORY: check differential renal function,HYDRONEPHROSIS RT KIDNEY,URETERAL STRICT. COMPARISON: CT CT ABDOMEN PELVIS WO from 10/31/2022 XA XR RETROGRADE IN OR from 11/01/2022 XA XR RETROGRADE IN OR from 11/19/2022 EXAMINATION: Dose: 10.8 mCi Tc-99m DTPA Images: Immediately for 1 minute followed by dynamic for 30 minutes. FINDINGS: Curve Appearance: Right: Flattened curve Left: Normal Split renal function: Right: 17 % Left: 83 % IMPRESSION: 1. Poor right renal function with split function of 17 percent.
== END 2022-12-07 01:00 ==
LOC: DI 00:40
PROVIDERS: PCP Nurse Practitioner Family; Visit Provider Urology
DX: R94.4 Abnormal results of kidney function studies (principal)
CPT/HCPCS: 78707

== ENCOUNTER → 2023-01-07 07:33 | Outpatient (BNVA) | payer MEDICARE, SELFPAY | PROVIDERS: PCP Nurse Practitioner Family; Referring Provider Nurse Practitioner Family; Visit Provider Urology | DX: N13.5 Crossing vessel and stricture of ureter without hydronephrosis (principal) | CPT/HCPCS: 99443 ==

== ENCOUNTER → 2023-03-12 12:46 | Outpatient (BNVA) | payer MEDICARE, SELFPAY | PROVIDERS: PCP Nurse Practitioner Family; Referring Provider Nurse Practitioner Family; Visit Provider Urology | DX: Z46.6 Encounter for fitting and adjustment of urinary device (principal); N13.30 Unspecified hydronephrosis; N13.5 Crossing vessel and stricture of ureter without hydronephrosis | CPT/HCPCS: 51702 ==

== ENCOUNTER 2023-03-25 08:10 | Outpatient (CLI) | payer MEDICARE, SELFPAY ==
[2023-03-25 12:10] LABS: Abs Immature Grans 0.06 10^3/uL (0.0-0.06); Absolute Basophil Count 0.04 10^3/uL (0.0-0.2); Absolute Eosinophil Count 0.08 10^3/uL (0.0-0.7); Absolute Lymphocyte Count 1.65 10^3/uL (1.2-3.4); Absolute Monocyte Count 0.53 10^3/uL (0.1-0.8); Absolute Neutrophil Count 7.55 10^3/uL (1.2-6.7); Basophils % 0.4; Eosinophils % 0.8; HCT 34.3 % (36.0-46.0); HGB 11.2 g/dL (11.2-15.7); Immature Grans % 0.6; Lymphocytes % 16.6; MCH 32.7 pg (27.0-33.0); MCHC 32.7 % (32.0-36.0); MCV 100 fL (80-95); Monocytes % 5.3; Neutrophils % 76.3; Platelet Count 352 10^3/uL (130-400); RBC 3.42 10^6/uL (3.93-5.22); RDW 13.2 % (11.7-14.6); RDW-SD 49.1 fL; WBC 9.91 10^3/uL (4.4-10.8)
[2023-03-25 12:26] LABS: ALT 11 U/L (14-59); AST 14 U/L (15-37); Albumin 3.1 g/dL (3.4-5.0); Alkaline Phosphatase 79 U/L (46-116); BUN 17 mg/dL (7-18); Bilirubin, Total 0.2 mg/dL (0.2-1.0); CREATININE 1.5 mg/dL (0.55-1.02); Calcium 9.9 mg/dL (8.5-10.1); Chloride 102 mmol/L (98-107); Estimated GFR 38.43 (mL/min/1.73m2); Glucose 107 mg/dL (74-106); Potassium 3.1 mmol/L (3.5-5.1); Sodium 140 mmol/L (136-145); Total Protein 7.6 g/dL (6.4-8.2)
== END 2023-03-25 08:11 | disposition home or self-care (01) ==
LOC: LOS 08:10
PROVIDERS: PCP Nurse Practitioner Family; Visit Provider Nurse Practitioner Family
DX: I10 Essential (primary) hypertension (principal); N13.30 Unspecified hydronephrosis; N13.5 Crossing vessel and stricture of ureter without hydronephrosis; N17.9 Acute kidney failure, unspecified
CPT/HCPCS: 36415; 80053; 85025

== ENCOUNTER → 2023-03-26 15:20 | Outpatient (BNVA) | payer MEDICARE, SELFPAY | PROVIDERS: PCP Nurse Practitioner Family; Referring Provider Nurse Practitioner Family; Visit Provider Urology | DX: N13.1 Hydronephrosis with ureteral stricture, not elsewhere classified (principal) | CPT/HCPCS: 99214 ==

== ENCOUNTER 2023-03-31 04:33 | Inpatient (IN) | payer MEDICARE, SELFPAY ==
[2023-03-31] VITALS (29 sets, daily range): BP systolic 149–200; BP diastolic 80–95; PULSE 71–97; RESP 13–23; TEMP 36.6–37.2; O2SAT 90–98
--- NOTE | 2023-03-31 04:30 | RT.EKG_ITS ---
APPROVED REPORT Exam: Resting ECG Reason for Exam: chest pain Patient Location: E HR:91 bpm ECG Measurements Heart Rate 91 AXIS VT 150 P 64 QRSd 81 QRS -9 QT 342 T 32 QTc 420 Conclusion Sinus rhythm...normal P axis, V-rate 60- 99 Probable left atrial enlargement...P >50mS, <-0.10mV V1 Physician: no stemi
--- NOTE | 2023-03-31 04:45 | DI.CT_ITS ---
Exam(s) CT ABDOMEN PELVIS WO EXAM: CT ABDOMEN PELVIS WO CLINICAL HISTORY: renal failure, vomiting,LLQ generalized abd pain. TECHNIQUE: Imaging Protocol: Axial computed tomography images with coronal and sagittal reformatted images were created and reviewed. COMPARISON: CT CT ABDOMEN PELVIS WO from 10/31/2022 FINDINGS: ABDOMEN: Lung Bases: There are small bilateral pleural effusions, right greater than left. Liver: Hepatomegaly. No measurable mass. Gallbladder and biliary tract: The gallbladder is distended. No wall thickening or stones are seen. Pancreas: Normal density, no abnormal calcifications or inflammatory process. Spleen: Normal. Kidneys: Normal size, contour and axis.There is marked right hydronephrosis and hydroureter. No radi opaque calculi are seen. No significant left nephrolithiasis. No masses seen. Adrenal glands: No mass is seen. Lymph nodes: Within normal limits. Abdominal Aorta: Abdominal portion non-dilated. Atherosclerosis. PELVIS: Bladder:Symmetric distention, no gross wall thickening. Bowel: There is wall thickening seen in the distal descending colon, sigmoid colon and rectum. There is no evidence of bowel obstruction. Colonic diverticula are seen. There is no evidence of appendi citis. Peritoneal cavity: There is a moderate amount of ascites. No free air. There are small round nodule seen in the suprapubic region which are less than 1 cm in size. Reproductive organs: Unremarkable as visualized. Bones: Within normal limits. Soft Tissues: Within normal limits. IMPRESSION: 1. Colitis involving the distal descending colon, sigmoid colon and rectum. 2. New pelvic ascites. 3. Small right pleural effusion and tiny left pleural effusion. 4. Persistent marked right hydronephrosis without evidence of a radiopaque stone. 5. Gallbladder distension. No evidence of cholelithiasis. RADIATION DOSE DELIVERED: 381.35mGy.cm Total DLP DATA REPOSITORY: All CT scans at this facility are submitted to the National Radiology Data Registry (NRDR) Dose Index Registry (DIR) with the [employer] (ACR). RADIATION OPTIMIZATION: All CT scans at this facility use at least one of these dose optimization te chniques: automated exposure control; mA and/or kV adjustment per patient size (includes targeted exa ms where dose is matched to clinical indication); or iterative reconstruction.
--- NOTE | 2023-03-31 04:49 | ED.GENADUL_ITS ---
Discharge Plan Disposition Patient Disposition: Admit to [facility] Condition: Improving Discharge Details Chief Complaint: Abd Prob Clinical Impression: Colitis Primary Care Provider: Susan Arrieta ED Provider: Maxime Sabillon Home Meds and New Rx's Prescriptions: No Action naloxone [Narcan] 4 mg/actuation spray,non-aerosol 1 spray intranasal Q2-3M PRN (Reason: opioid overdose) Qty: 2 4RF Rx Instructions: spray 1 dose into ONE nostril; alternate nostrils w each dose until help arrives atenolol 50 mg tablet 50 mg PO DAILY Qty: 90 3RF losartan 50 mg tablet 50 mg PO DAILY Qty: 90 3RF docusate sodium [Colace] 100 mg capsule 100 mg PO BID PRNQty: 180 Patient Comments: 04/11/16 PRN only/pps ibuprofen 200 mg Tablet 200 mg PO Q6H PRN omeprazole 40 mg capsule,delayed release(DR/EC) 40 mg PO .Daily to BID Qty: 180 3RF Rx Instructions: Take 1 pill once to twice a day for heartburn oxycodone-acetaminophen 5-325 mg tablet 1 tab PO .4 to 5 times a day MDD 5 tablets Qty: 117 0RF Rx Instructions: Take 1 tablet four times a day for chronic low back pain potassium chloride 20 mEq tablet extended release 20 meq PO BID Qty: 30 0RF Medical Decision Making 67-year-old female with a past medical history of PTSD, GERD, right- sided hydronephrosis secondary to ureteral stricture, which eventually led to a stent, then subsequent removal of the stent led to a return and worsening of her symptoms which led to a recent decision about 5 days ago to perform a right- sided nephrectomy on the poorly functioning right kidney. She presents this evening for increased abdominal pain and constipation. Patient states that over the last few weeks she has had right-sided flank pain which has been worsening, now the pain is somewhat severe. It is severe and achy in nature. It is been notably severe for the past 12 hours. She denies any fever or chills. She denies headache urinary changes. She denies any diarrhea. She has had vomiting secondary to the pain. She also admits to having diminished bowel movements over the last few days, in particular she has had a few very very hard stools, and is concerned she is constipated. She denies any blood in her vomit or her stools. She denies any other complaints at this time. She sees Dr. Parsons regularly for her urology management, but will be going down to [facility] for her nephrectomy. Patient denies any other complaints at this time. No other modifying factors. Physical exam demonstrates generalized abdominal tenderness/achiness. No signs of an acute surgical abdomen clinically though. We will perform a rectal exam. We will treat the patient's pain, we will get a CT scan to evaluate for diverticulitis, obstruction, or renal obstruction. We will monitor closely and reassess. 7:15 AM Patient's laboratory work-up has returned, mild white count of 13 with a mild left shift, lactate is 1.2, electrolytes stable, creatinine is 1.6 which is at the patient's baseline, calcium slightly elevated at 11, troponin normal. Urinalysis negative for infection. CT scan shows evidence of distal colitis, notably enlarged gallbladder but no gallbladder wall thickening. There is persistent severe right hydronephrosis and hydroureter. On reassessment patient states that she still has pain. She is able to differentiate between her chronic kidney pain, and also the new pain which is in the lower left quadrant of the abdomen. She states that this did improve a little with the morphine but is still notably persistent. She does not have significant right upper quadrant pain at this time. I do feel that the new increased pain that she is having is secondary to her colitis. We will treat this with Flagyl and ceftriaxone. With the patient's complicated medical status, her persistent pain, her persistent nausea, and evidence of colitis needing antibiotic therapy, I do feel that inpatient admission for continued monitoring for at least 24 hours would be appropriate at this time for continued pain control, IV antibiotics, and IV hydration as patient still feels notably nauseous and does not feel like she can take anything orally. We will reach out to medicine for admission. At this time though there is no indication for any emergent urologic intervention as she is at her chronic baseline from a urology perspective. 8 AM Discussed the case with Dr. Cody, he agrees with the assessment and plan. I have extensively reviewed the treatment plan with the patient. I have addressed all patient concerns at this time. I have also discussed the plan with the admitting physician and they agree with the current assessment and plan and have agreed to assume responsibility for the patient. All parties demonstrate verbal understanding and agreement with our assessment and plan at this time. The documentation in this chart was dictated using [employer] dictation software. Please excuse any dictation errors. FINDINGS: Pleural spaces: Small right pleural effusion. Heart: There is diminished attenuation of the cardiac chambers in comparison to the myocardium which can be seen with anemia. Correlate clinically. Liver: Hepatomegaly. No mass. Gallbladder and bile ducts: Gallbladder is distended. No wall thickening or calcified gallstones. No biliary ductal dilatation. Pancreas: Normal. No ductal dilation. Spleen: Normal. No splenomegaly. Adrenal glands: Normal. No mass. Kidneys and ureters: Severe right hydronephrosis and hydroureter remain. No radiopaque renal or ureteric calculi identified. No left hydronephrosis. Fat stranding about right kidney is unchanged Stomach and bowel: No dilated loops of small bowel or colonic dilatation. There is now marked wall thickening in distal descending, sigmoid and rectal portions of the colon. Colonic diverticula. Appendix: No evidence of appendicitis. Intraperitoneal space: No free intraperitoneal gas. Moderate pelvic ascites. Vasculature: Unremarkable. No abdominal aortic aneurysm. Lymph nodes: Multiple approximally 1 cm circular soft tissue densities in anterior suprapubic pelvis, most likely prominent lymph nodes. No inguinal, pelvic sidewall, retroperitoneal or abdominal adenopathy. Urinary bladder: Unremarkable as visualized. Reproductive: Prior hysterectomy. Bones/joints: The spine demonstrates mild degenerative changes at multiple levels. Soft tissues: Unremarkable. IMPRESSION: 1. Distal colitis. 2. New pelvic ascites. 3. Small right pleural effusion. 4. Colonic diverticula. 5. Persistent, severe right hydronephrosis and hydroureter. 6. Anemia suspected. 7. The gallbladder is distended but otherwise normal. Gallbladder distention is a nonspecific finding and can be related to patient fasting state. Correlate clinically. Thank you for allowing us to participate in the care of your patient. Dictated and Authenticated by: Jorje Crooks DO 03/31/2023 6:22 AM Eastern Time ([place] & [place]) HPI General Date/Time Provider Initiated Documentation: 03/31/23 04:34 . HPI Narrative: 67-year-old female with a past medical history of PTSD, GERD, right- sided hydronephrosis secondary to ureteral stricture, which eventually led to a stent, then subsequent removal of the stent led to a return and worsening of her symptoms which led to a recent decision about 5 days ago to perform a right- sided nephrectomy on the poorly functioning right kidney. She presents this evening for increased abdominal pain and constipation. Patient states that over the last few weeks she has had right-sided flank pain which has been worsening, now the pain is somewhat severe. It is severe and achy in nature. It is been notably severe for the past 12 hours. She denies any fever or chills. She denies headache urinary changes. She denies any diarrhea. She has had vomiting secondary to the pain. She also admits to having diminished bowel movements over the last few days, in particular she has had a few very very hard stools, and is concerned she is constipated. She denies any blood in her vomit or her stools. She denies any other complaints at this time. She sees Dr. Parsons regularly for her urology management, but will be going down to [facility] for her nephrectomy. Patient denies any other complaints at this time. No other modifying factors. Related Data Home Medications Medication Instructions Recorded Confirmed docusate sodium 100 mg capsule 100 mg PO BID PRN #180 caps 09/09/18 03/31/23 (Colace) naloxone 4 mg/actuation nasal 1 spray intranasal Q2-3M PRN 08/16/20 03/31/23 spray (Narcan) opioid overdose #2 ea ibuprofen 200 mg tablet 200 mg PO Q6H PRN 02/06/22 03/31/23 atenolol 50 mg tablet 50 mg PO DAILY #90 tabs 08/30/22 03/31/23 losartan 50 mg tablet 50 mg PO DAILY #90 tabs 02/07/23 03/31/23 omeprazole 40 mg capsule,delayed 40 mg PO .Daily to BID #180 02/25/23 03/31/23 release tab-caps oxycodone-acetaminophen 5 mg-325 1 tab PO .4 to 5 times a day pain 03/21/23 03/31/23 mg tablet #117 tabs potassium chloride 20 mEq 20 meq PO BID #30 tabs 03/27/23 03/31/23 tablet,extended release Previous Rx's Medication Instructions Recorded naloxone 4 mg/actuation nasal 1 spray intranasal Q2-3M PRN 08/16/20 spray (Narcan) opioid overdose #2 ea atenolol 50 mg tablet 50 mg PO DAILY #90 tabs 08/30/22 losartan 50 mg tablet 50 mg PO DAILY #90 tabs 02/07/23 omeprazole 40 mg capsule,delayed 40 mg PO .Daily to BID #180 02/25/23 release tab-caps oxycodone-acetaminophen 5 mg-325 1 tab PO .4 to 5 times a day pain 03/21/23 mg tablet #117 tabs potassium chloride 20 mEq 20 meq PO BID #30 tabs 03/27/23 tablet,extended release Allergies Allergy/AdvReac Type Severity Reaction Status Date / Time mirtazapine AdvReac Lightheaded Verified 03/31/23 04:48 ness General Stated Complaint: Abd Prob PURA: 3 Review of Systems All systems reviewed & are unremarkable except as noted in HPI and below PFSH All Active Problems Colitis (Acute) DANIEL (acute kidney injury) (Acute ~09/2022) Hydronephrosis of right kidney (Acute ~10/2022) Ureteral stricture, right (Acute) CKD (chronic kidney disease) stage 3, GFR 30-59 ml/min (Acute) Essential hypertension (Chronic) Hyperlipidemia (Chronic) Osteoporosis (Chronic) Prediabetes (Chronic) PTSD (post-traumatic stress disorder) (Chronic) GERD (gastroesophageal reflux disease) (Chronic) Lumbosacral radiculopathy due to degenerative joint disease of spine (Chronic) Chronic low back pain (Chronic) Overactive bladder (Chronic) Cigarette smoker (Chronic) Medical History Endometriosis Surgical History History of bilateral tubal ligation (04/15/86) History of carpal tunnel surgery of right wrist (~2006) History of operative procedure on lumbosacral spinal structure (02/08/22) RFA 02/08/22 Hx of esophagogastroduodenoscopy (11/20/06) S/P section (04/15/86) S/P colonoscopy (12/06/16) 02/2022 S/P cystoscopy with ureteral stent placement (11/01/22) Right retrograde pyelogram, right ureteroscopy, right ureteral stent S/P laparoscopic hysterectomy (~1999) Family History Mother , 76 Essential hypertension Heart disease Colon cancer Father , 81 Essential hypertension Stroke Colon cancer Brother , 48 Lung cancer Brother , 48 from accident No problems noted. Sister No problems noted. Son No problems noted. Daughter No problems noted. Maternal Grandfather No problems noted. Maternal Grandmother No problems noted. Paternal Grandfather No problems noted. Paternal Grandmother No problems noted. Social History Smoking/Tobacco Use Status: Current every day Tobacco Type: cigarettes Years smoked: 47 Tobacco: How many years used: 20 Second Hand Exposure: Yes Smoking risk assessment performed?: Yes Alcohol Intake: former Drug use: Never Substance use type: does not use Caregiver/Support person: No Household members: significant other Housing: house Number of Children: 2 Communication Needs: None Do you need help understanding health information?: Rarely current occupation: Disabled Pets and animals: Yes Pets and animals: dog(s) Sexually active: No Do you think of yourself as: straight/heterosexual Current gender identity: female What is your relationship status?: living with partner How often do you talk on the phone with friends or family?: twice per week How often do you get together with friends or relatives?: decline to answer How often do you attend gnosticist or gnosticism services?: decline to answer Do you belong to any clubs or organized social groups?: no Panel score (0-1 are the most socially isolated patients): 1 What type of physical activity do you participate in: walking Duration: 30-45 minutes/day Frequency: daily Ann-Marie/Orthodox: Taoism Special ann-marie needs: No Seatbelt use: always Drive intox or ride w/intox local city driver: No Do you feel safe at home: Yes Do you feel safe in your relationship?: Yes History History 2 Para 2 Hx # Term Pregnancies Multiple births Hx # Pregnancies Ectopic pregnancies AB induced Hx Number of Living Children 2 AB spontaneous Exam Narrative Exam Narrative: 1.Const: Well-nourished, Well-developed, appearing stated age 2.Eyes: PERRL, no conjunctival injection, and symmetrical lids. 3.ENT: Atraumatic external nose and ears. Moist MM. Neck: Symmetric, trachea midline, No thyromegaly. 4.CVS: +S1/S2, No murmurs or gallops. Peripheral pulses 2+ and equal in all extremities. Brisk capillary refill in all extremities. 5.RESP: Unlabored respiratory effort. Clear to auscultation bilaterally. No wheezes rales or rhonchi 6.GI: Soft, nondistended. No rebound. Mild voluntary guarding. Generalized abdominal achiness on palpation, but no focal significant tenderness. Mild CVA tenderness on the right. 7.MSK: Normocephalic/Atraumatic, Extremities w/o deformity or ttp No cyanosis or clubbing, Normal movement of all extremities 8.Skin: Warm, Dry. No rashes or lesions. 9.Neuro: cheesemaker helper II-XII grossly intact. Sensation grossly intact, no focal neurologic deficits. 10.Psych: (AAO) x3. Appropriate mood and affect Course Vital Signs Vital signs: Vital Signs Temperature 36.8 C 03/31/23 04:39 Pulse 97 H 03/31/23 04:39 Respiratory Rate 16 03/31/23 04:39 Blood Pressure 200/95 H 03/31/23 04:39 Pulse Oximetry 97 03/31/23 04:39 Temperature 36.8 C 03/31/23 04:39 Temperature Source Oral 03/31/23 04:39 Pulse 97 H 03/31/23 04:39 Respiratory Rate 16 03/31/23 04:39 Respiratory Effort Normal 03/31/23 04:39 Blood Pressure 200/95 H 03/31/23 04:39 Pulse Oximetry 97 03/31/23 04:39 Oxygen Delivery Method Room Air 03/31/23 04:39 Oxygen Flow Rate 0 03/31/23 04:39 Pain Level 10 03/31/23 04:39
[2023-03-31] MEDS: Ondansetron 4 MG/2 ML VIAL IVP (05:00)
[2023-03-31] MEDS: Normal Saline 500 ML IV (05:00)
[2023-03-31] MEDS: HYDROmorphone 2 MG/ML SYR 1 MG IVP ×2 (05:00→21:15)
[2023-03-31] MEDS: ACETAMINOPHEN 1,000 MG/100 ML BTL 400 MG IVPB (05:01)
[2023-03-31 05:08] LABS: Lactate 1.2 mmol/L (0.6-1.4)
[2023-03-31 05:09] LABS: Abs Immature Grans 0.05 10^3/uL (0.0-0.06); Absolute Basophil Count 0.04 10^3/uL (0.0-0.2); Absolute Eosinophil Count 0.09 10^3/uL (0.0-0.7); Absolute Lymphocyte Count 1.74 10^3/uL (1.2-3.4); Absolute Monocyte Count 0.49 10^3/uL (0.1-0.8); Absolute Neutrophil Count 10.77 10^3/uL (1.2-6.7); Basophils % 0.3; Eosinophils % 0.7; HCT 38.2 % (36.0-46.0); HGB 12.7 g/dL (11.2-15.7); Immature Grans % 0.4; Lymphocytes % 13.2; MCH 32.6 pg (27.0-33.0); MCHC 33.2 % (32.0-36.0); MCV 98 fL (80-95); MPV 8.4 fL (8.0-11.0); Monocytes % 3.7; Neutrophils % 81.7; Platelet Count 400 10^3/uL (130-400); RDW 13.4 % (11.7-14.6); WBC 13.18 10^3/uL (4.4-10.8)
[2023-03-31 05:29] LABS: ALT 14 U/L (14-59); AST 14 U/L (15-37); Albumin 3.5 g/dL (3.4-5.0); Alkaline Phosphatase 114 U/L (46-116); Anion Gap 11.1 mmol/L (3-11); BUN 16 mg/dL (7-18); Bilirubin, Total 0.3 mg/dL (0.2-1.0); CO2 24.9 mmol/L (21.0-32.0); CREATININE 1.6 mg/dL (0.55-1.02); Calcium 11.4 mg/dL (8.5-10.1); Chloride 100 mmol/L (98-107); Estimated GFR 35.57 (mL/min/1.73m2); Glucose 128 mg/dL (74-106); Lipase 20 U/L (16-77); Potassium 4.1 mmol/L (3.5-5.1); Sodium 136 mmol/L (136-145); Total Protein 8.5 g/dL (6.4-8.2); Troponin I < 50 ng/L (<or=60)
[2023-03-31 05:34] LABS: Bilirubin Negative (Negative); Blood Negative (Negative); Clarity Clear (Clear); Glucose Negative (Negative); Ketones Negative (Negative); Leukocyte Esterase Negative (Negative); Nitrite Negative (Negative); Specific Gravity 1.015 (1.005-1.025); Urobilinogen 0.2 mg/dL (Up to 0.2)
--- NOTE | 2023-03-31 06:22 | DI.VRAD_ITS ---
PROCEDURE INFORMATION: Exam: CT Abdomen And Pelvis Without Contrast Exam date and time: 03/31/2023 5:21 AM Age: 67 years old Clinical indication: Other: Renal failure, vomiing llq pain and generalized abd TECHNIQUE: Imaging protocol: Computed tomography of the abdomen and pelvis without contrast. COMPARISON: CT ABDOMEN PELVIS WO 10/31/2022 3:33 PM FINDINGS: Pleural spaces: Small right pleural effusion. Heart: There is diminished attenuation of the cardiac chambers in comparison to the myocardium which can be seen with anemia. Correlate clinically. Liver: Hepatomegaly. No mass. Gallbladder and bile ducts: Gallbladder is distended. No wall thickening or calcified gallstones. No biliary ductal dilatation. Pancreas: Normal. No ductal dilation. Spleen: Normal. No splenomegaly. Adrenal glands: Normal. No mass. Kidneys and ureters: Severe right hydronephrosis and hydroureter remain. No radiopaque renal or ureteric calculi identified. No left hydronephrosis. Fat stranding about right kidney is unchanged Stomach and bowel: No dilated loops of small bowel or colonic dilatation. There is now marked wall thickening in distal descending, sigmoid and rectal portions of the colon. Colonic diverticula. Appendix: No evidence of appendicitis. Intraperitoneal space: No free intraperitoneal gas. Moderate pelvic ascites. Vasculature: Unremarkable. No abdominal aortic aneurysm. Lymph nodes: Multiple approximally 1 cm circular soft tissue densities in anterior suprapubic pelvis, most likely prominent lymph nodes. No inguinal, pelvic sidewall, retroperitoneal or abdominal adenopathy. Urinary bladder: Unremarkable as visualized. Reproductive: Prior hysterectomy. Bones/joints: The spine demonstrates mild degenerative changes at multiple levels. Soft tissues: Unremarkable. IMPRESSION: 1. Distal colitis. 2. New pelvic ascites. 3. Small right pleural effusion. 4. Colonic diverticula. 5. Persistent, severe right hydronephrosis and hydroureter. 6. Anemia suspected. 7. The gallbladder is distended but otherwise normal. Gallbladder distention is a nonspecific finding and can be related to patient fasting state. Correlate clinically. Dictated and Authenticated by: Jorje Crooks MD. Ordering:SHALA Swartz MD
[2023-03-31] MEDS: MORPHine 4 MG/ML SYR IVP (07:20)
[2023-03-31] MEDS: metroNIDAZOLE 500 MG/100 ML BAG 100 MG IVPB ×3 (07:24→21:16)
[2023-03-31] MEDS: cefTRIAXone 2 GM/50 ML BAG IVPB (07:27)
[2023-03-31 08:19] LABS: Magnesium 1.8 mg/dL (1.8-2.4)
[2023-03-31] MEDS: Atenolol 50 MG TAB PO (08:38)
[2023-03-31] MEDS: Losartan 50 MG TAB PO (08:38)
[2023-03-31] MEDS: Methylnaltrexone 12 MG/0.6 ML VIAL 8 MG SC (09:59)
[2023-03-31] MEDS: Potassium Chloride 20 MEQ TABCR PO ×2 (09:59→21:15)
[2023-03-31] MEDS: Ketorolac 15 MG/ML VIAL IVP ×3 (10:46→23:39)
[2023-03-31 11:20] LABS: Lab Add On Test done
--- NOTE | 2023-03-31 12:45 | INITIAL_ITS ---
Date of service: 03/31/23 Time of Service: 12:45 Care Management Initial Assmt Initial Assessment REASON FOR HOSPITALIZATION:: Colitis PREVIOUS FUNCTIONAL STATUS/SOCIAL/FAMILY SUPPORTS:: Ira lives in [facility] with her partner, Steven. She is retired but formerly worked in [employer] for many years. She names her homeland security program specialist Steven as her only support. Ira drives and is independent with her ADLs at baseline. CURRENT FUNCTIONAL STATUS:: Ira is lying in bed when CM comes to meet with her. She briefly engages in conversation but is tired and does not feel well. CM will continue to follow. ADVANCE DIRECTIVES:: None on file; accepts form for completion at a later time. Has patient been provided with info about the portal/API?: No Did the patient sign up for the portal?: No CODE STATUS:: Full Code INSURANCE COVERAGE / FINANCIAL ISSUES:: Medicare. CURRENT HOME/COMMUNITY SERVICES/EQUIPMENT:: None PRIMARY CARE PHYSICIAN:: TRIXIE Sevilla POTENTIAL DISCHARGE NEEDS:: Follow up appointment with PCP and evaluation for further needs. PATIENT/FAMILY EDUCATION NEEDS:: Review of discharge instructions including medications, limitations and follow up plan of care; discuss Ask Me Three and self management. ANTICIPATED BARRIERS TO DISCHARGE:: None identified at this time. TRANSPORTATION:: Via private vehicle with homeland security program specialist. PLAN:: Anticipate Ira will be discharged home with no services when medically cleared by provider. She will follow up with her PCP and plan of care as instructed following discharge. She will be transported home by her partner via private vehicle when ready. CM will continue to support patient and any discharge planning needs. PFSH All Active Problems Colitis (Acute) DANIEL (acute kidney injury) (Acute ~09/2022) Hydronephrosis of right kidney (Acute ~10/2022) Ureteral stricture, right (Acute) CKD (chronic kidney disease) stage 3, GFR 30-59 ml/min (Acute) Essential hypertension (Chronic) Hyperlipidemia (Chronic) Osteoporosis (Chronic) Prediabetes (Chronic) PTSD (post-traumatic stress disorder) (Chronic) GERD (gastroesophageal reflux disease) (Chronic) Lumbosacral radiculopathy due to degenerative joint disease of spine (Chronic) Chronic low back pain (Chronic) Overactive bladder (Chronic) Cigarette smoker (Chronic) Medical History Endometriosis Surgical History History of bilateral tubal ligation (04/15/86) History of carpal tunnel surgery of right wrist (~2006) History of operative procedure on lumbosacral spinal structure (02/08/22) RFA 02/08/22 Hx of esophagogastroduodenoscopy (11/20/06) S/P section (04/15/86) S/P colonoscopy (12/06/16) 02/2022 S/P cystoscopy with ureteral stent placement (11/01/22) Right retrograde pyelogram, right ureteroscopy, right ureteral stent S/P laparoscopic hysterectomy (~1999) Family History Mother , 76 Essential hypertension Heart disease Colon cancer Father , 81 Essential hypertension Stroke Colon cancer Brother , 48 Lung cancer Brother , 48 from accident No problems noted. Sister No problems noted. Son No problems noted. Daughter No problems noted. Maternal Grandfather No problems noted. Maternal Grandmother No problems noted. Paternal Grandfather No problems noted. Paternal Grandmother No problems noted. Social History Smoking/Tobacco Use Status: Current every day Tobacco Type: cigarettes Years smoked: 47 Tobacco: How many years used: 20 Second Hand Exposure: Yes Smoking risk assessment performed?: Yes Alcohol Intake: former Drug use: Never Substance use type: does not use Caregiver/Support person: No Household members: significant other Housing: house Number of Children: 2 Communication Needs: None Do you need help understanding health information?: Rarely current occupation: Disabled Pets and animals: Yes Pets and animals: dog(s) Sexually active: No Do you think of yourself as: straight/heterosexual Current gender identity: female What is your relationship status?: living with partner How often do you talk on the phone with friends or family?: twice per week How often do you get together with friends or relatives?: decline to answer How often do you attend lutheran or confucianism services?: decline to answer Do you belong to any clubs or organized social groups?: no Panel score (0-1 are the most socially isolated patients): 1 What type of physical activity do you participate in: walking Duration: 30-45 minutes/day Frequency: daily Ann-Marie/Presybeterian: Hoahaoism Special ann-marie needs: No Seatbelt use: always Drive intox or ride w/intox driver wheelchair: No Do you feel safe at home: Yes Do you feel safe in your relationship?: Yes History History 2 Para 2 Hx # Term Pregnancies Multiple births Hx # Pregnancies Ectopic pregnancies AB induced Hx Number of Living Children 2 AB spontaneous
--- NOTE | 2023-03-31 16:28 | W.PM.HP.N ---
Date of service: 03/31/23 Time of Service: 16:29 Assessment and Plan Assessment and plan (1) Colitis: Status: Acute Assessment and plan: Metronidazole and ceftriaxone started Relistor for constipation NS 100 ml/h Ketorelac and dilaudid prn pain (2) Hydronephrosis of right kidney: Status: Acute Assessment and plan: Followed by [facility] Scheduled nephrectomy (3) Nausea: Status: Acute Assessment and plan: PRN prochlorperazine (4) Hypokalemia: Status: Chronic Assessment and plan: Continue home potassium replacement (5) Essential hypertension: Status: Chronic Assessment and plan: Continue losartan; monitor (6) GERD (gastroesophageal reflux disease): Status: Chronic Assessment and plan: continue omeprazole BID (7) DVT prophylaxis: Status: Acute Assessment and plan: SCDs (8) Discharge planning issues: Status: Acute Assessment and plan: Home when stable Discussed with Dr Cody History of Present Illness History of Present Illness Chief Complaint: Abdominal pain Narrative: This is a 67-year-old female with a past medical history of PTSD, GERD, right-sided hydronephrosis secondary to ureteral stricture, which eventually led to a stent, then subsequent removal of the stent led to a return and worsening of her symptoms which led to a recent decision to schedule a right-sided nephrectomy on the poorly functioning right kidney.? She presented to the [facility] ED for increased abdominal pain and constipation.? Patient stated that over the last few weeks she has had right-sided flank pain which has been worsening, and the pain became severe.? She described it as severe and achy in nature.? It had been notably severe for 12 hours prior to arrival.? She denied any fever or chills.? She denied headache urinary changes.? She denied any diarrhea.? She did complain of vomiting she believes was secondary to the pain.? She also admited to having diminished bowel movements over the last few days, in particular she had a few very very hard stools, and is concerned she was constipated.? She denied any blood in her vomit or her stools.? She denied any other complaints.? She sees Dr. Parsons regularly for her urology management, but will be going down to [facility] for her nephrectomy.? Patient's laboratory work-up in the ED revealed mild white count of 13 with a mild left shift, lactate 1.2, electrolytes stable, creatinine is 1.6 which is at the patient's baseline, calcium slightly elevated at 11, troponin normal.? Urinalysis negative for infection.? CT scan showed evidence of distal colitis, notably enlarged gallbladder but no gallbladder wall thickening.? There is persistent severe right hydronephrosis and hydroureter.? On reassessment patient stated that she still had pain.? She was able to differentiate between her chronic kidney pain, and also the new pain which is in the lower left quadrant of the abdomen.? She stated that this did improve a little with the morphine but was still notably persistent.? She did not have significant right upper quadrant pain.? She was diagnosed with colitis and started on Flagyl and ceftriaxone.? With the patient's complicated medical status, her persistent pain, her persistent nausea, and evidence of colitis needing antibiotic therapy, the patient was admitted to the medical floor for further diagnostic studies and treatment for continued pain control, IV antibiotics, and IV hydration.? The patient is a full code. Review of Systems All systems reviewed & are unremarkable except as noted in HPI and below PFSH All Active Problems Nausea (Acute) Hypokalemia (Chronic) Discharge planning issues (Acute) DVT prophylaxis (Acute) Colitis (Acute) DANIEL (acute kidney injury) (Acute ~09/2022) Hydronephrosis of right kidney (Acute ~10/2022) Ureteral stricture, right (Acute) CKD (chronic kidney disease) stage 3, GFR 30-59 ml/min (Acute) Essential hypertension (Chronic) Hyperlipidemia (Chronic) Osteoporosis (Chronic) Prediabetes (Chronic) PTSD (post-traumatic stress disorder) (Chronic) GERD (gastroesophageal reflux disease) (Chronic) Lumbosacral radiculopathy due to degenerative joint disease of spine (Chronic) Chronic low back pain (Chronic) Overactive bladder (Chronic) Cigarette smoker (Chronic) Medical History Endometriosis Surgical History History of bilateral tubal ligation (04/15/86) History of carpal tunnel surgery of right wrist (~2006) History of operative procedure on lumbosacral spinal structure (02/08/22) RFA 02/08/22 Hx of esophagogastroduodenoscopy (11/20/06) S/P section (04/15/86) S/P colonoscopy (12/06/16) 02/2022 S/P cystoscopy with ureteral stent placement (11/01/22) Right retrograde pyelogram, right ureteroscopy, right ureteral stent S/P laparoscopic hysterectomy (~1999) Family History Mother , 76 Essential hypertension Heart disease Colon cancer Father , 81 Essential hypertension Stroke Colon cancer Brother , 48 Lung cancer Brother , 48 from accident No problems noted. Sister No problems noted. Son No problems noted. Daughter No problems noted. Maternal Grandfather No problems noted. Maternal Grandmother No problems noted. Paternal Grandfather No problems noted. Paternal Grandmother No problems noted. Social History Smoking/Tobacco Use Status: Current every day Tobacco Type: cigarettes Years smoked: 47 Tobacco: How many years used: 20 Second Hand Exposure: Yes Smoking risk assessment performed?: Yes Alcohol Intake: former Drug use: Never Substance use type: does not use Caregiver/Support person: No Household members: significant other Housing: house Number of Children: 2 Communication Needs: None Do you need help understanding health information?: Rarely current occupation: Disabled Pets and animals: Yes Pets and animals: dog(s) Sexually active: No Do you think of yourself as: straight/heterosexual Current gender identity: female What is your relationship status?: living with partner How often do you talk on the phone with friends or family?: twice per week How often do you get together with friends or relatives?: decline to answer How often do you attend zoroastrian or uatsdin services?: decline to answer Do you belong to any clubs or organized social groups?: no Panel score (0-1 are the most socially isolated patients): 1 What type of physical activity do you participate in: walking Duration: 30-45 minutes/day Frequency: daily Ann-Marie/Evangelical: Rastafari Special ann-marie needs: No Seatbelt use: always Drive intox or ride w/intox driver/refuse collector: No Do you feel safe at home: Yes Do you feel safe in your relationship?: Yes History History 2 Para 2 Hx # Term Pregnancies Multiple births Hx # Pregnancies Ectopic pregnancies AB induced Hx Number of Living Children 2 AB spontaneous Meds Allergies and Home Medications Allergies Allergy/AdvReac Type Severity Reaction Status Date / Time mirtazapine AdvReac Lightheaded Verified 03/31/23 04:48 ness Home Medications Medication Instructions Recorded Confirmed Type docusate sodium 100 mg capsule 100 mg PO BID PRN #180 caps 09/09/18 03/31/23 History (Colace) naloxone 4 mg/actuation nasal 1 spray intranasal Q2-3M PRN 08/16/20 03/31/23 Rx spray (Narcan) opioid overdose #2 ea ibuprofen 200 mg tablet 200 mg PO Q6H PRN 02/06/22 03/31/23 History atenolol 50 mg tablet 50 mg PO DAILY #90 tabs 08/30/22 03/31/23 Rx losartan 50 mg tablet 50 mg PO DAILY #90 tabs 02/07/23 03/31/23 Rx omeprazole 40 mg capsule,delayed 40 mg PO .Daily to BID #180 02/25/23 03/31/23 Rx release tab-caps oxycodone-acetaminophen 5 mg-325 1 tab PO .4 to 5 times a day pain 03/21/23 03/31/23 Rx mg tablet #117 tabs potassium chloride 20 mEq 20 meq PO BID #30 tabs 03/27/23 03/31/23 Rx tablet,extended release Exam Narrative Exam Narrative: 1.Const: Well-nourished, Well-developed, appearing stated age 2.Eyes: PERRL, no conjunctival injection, and symmetrical lids. 3.ENT: Atraumatic external nose and ears. Moist MM. Neck: Symmetric, trachea midline, No thyromegaly. 4.CVS: +S1/S2, No murmurs or gallops. Peripheral pulses 2+ and equal in all extremities. Brisk capillary refill in all extremities. 5.RESP: Unlabored respiratory effort. Clear to auscultation bilaterally. No wheezes rales or rhonchi 6.GI: Soft, nondistended. No rebound. Mild voluntary guarding. Generalized abdominal achiness on palpation, but no focal significant tenderness. Mild CVA tenderness on the right. 7.MSK: Normocephalic/Atraumatic, Extremities w/o deformity or ttp No cyanosis or clubbing, Normal movement of all extremities 8.Skin: Warm, Dry. No rashes or lesions. 9.Neuro: granite chip terrazzo finisher II-XII grossly intact. Sensation grossly intact, no focal neurologic deficits. 10.Psych: (AAO) x3. Appropriate mood and affect Results Labs 03/31/23 05:00 03/31/23 05:00 Labs: Laboratory Results - last 24 hr 03/31/23 03/31/23 03/31/23 05:00 05:00 05:00 WBC 13.18 H RBC 3.90 L Hgb 12.7 Hct 38.2 MCV 98 H MCH 32.6 MCHC 33.2 RDW 13.4 Plt Count 400 MPV 8.4 Immature Gran % 0.4 Neutrophils % 81.7 Lymphocytes % 13.2 Monocytes % 3.7 Eosinophils % 0.7 Basophils % 0.3 Nucleated RBC % 0.0 Absolute Neutrophils 10.77 H Absolute Lymphocytes 1.74 Absolute Monocytes 0.49 Absolute Eosinophils 0.09 Absolute Basophils 0.04 VBG Lactate 1.2 Sodium 136 Potassium 4.1 Chloride 100 Carbon Dioxide 24.9 Anion Gap 11.1 H BUN 16 Creatinine 1.6 H Est GFR (CKD-EPI 2020) 35.57 Glucose 128 H Calcium 11.4 H Magnesium Total Bilirubin 0.3 AST 14 L ALT 14 Alkaline Phosphatase 114 Troponin I < 50 Total Protein 8.5 H Albumin 3.5 Lipase 20 Urine Color Urine Clarity Urine pH Ur Specific [place] Urine Protein Urine Ketones Urine Blood Urine Nitrite Urine Bilirubin Urine Urobilinogen Ur Leukocyte Esterase Urine Glucose Add-On Test Request 03/31/23 03/31/23 03/31/23 05:00 05:00 05:30 WBC RBC Hgb Hct MCV MCH MCHC RDW Plt Count MPV Immature Gran % Neutrophils % Lymphocytes % Monocytes % Eosinophils % Basophils % Nucleated RBC % Absolute Neutrophils Absolute Lymphocytes Absolute Monocytes Absolute Eosinophils Absolute Basophils VBG Lactate Sodium Potassium Chloride Carbon Dioxide Anion Gap BUN Creatinine Est GFR (CKD-EPI 2020) Glucose Calcium Magnesium 1.8 Total Bilirubin AST ALT Alkaline Phosphatase Troponin I Total Protein Albumin Lipase Urine Color Yellow Urine Clarity Clear Urine pH 5.0 Ur Specific [place] 1.015 Urine Protein Negative Urine Ketones Negative Urine Blood Negative Urine Nitrite Negative Urine Bilirubin Negative Urine Urobilinogen 0.2 Ur Leukocyte Esterase Negative Urine Glucose Negative Add-On Test Request done Last Vital Signs Temp 37 C 03/31/23 15:53 Pulse 77 03/31/23 15:53 Resp 20 03/31/23 15:53 BP 165/80 H 03/31/23 15:53 Pulse Ox 92 03/31/23 15:53 Time Spent Time spent with Patient: 55-74 minutes Time was spent: preparing to see the patient(eg.review tests), obtaining and/or reviewing separately otained hiistory, ordering medications,tests, procedures, referring, communicating with other health animal care attendant, indepentently interpreting results, counseling the patient and care coordination
[2023-03-31] MEDS: HYDROmorphone 2 MG TAB PO (17:28)
[2023-03-31] MEDS: Acetaminophen 325 MG TAB PO (17:28)
[2023-03-31] MEDS: Normal Saline Flush 10 ML SYR IVP ×2 (21:14→23:39)
[2023-03-31] MEDS: Docusate Sodium 100 MG CAP PO (21:15)
[2023-04-01] VITALS (8 sets, daily range): BP systolic 166–197; BP diastolic 72–103; PULSE 68–93; RESP 18; TEMP 35.7–36.5; O2SAT 92–94
[2023-04-01] MEDS: HYDROmorphone 2 MG TAB PO ×2 (03:03→08:00)
[2023-04-01] MEDS: metroNIDAZOLE 500 MG/100 ML BAG 100 MG IVPB ×4 (03:04→20:32)
[2023-04-01] MEDS: HYDROmorphone 2 MG/ML SYR 1 MG IVP ×2 (04:27→05:27)
[2023-04-01] MEDS: Normal Saline Flush 10 ML SYR IVP (04:28)
[2023-04-01 06:24] LABS: Abs Immature Grans 0.04 10^3/uL (0.0-0.06); Absolute Basophil Count 0.03 10^3/uL (0.0-0.2); Absolute Eosinophil Count 0.06 10^3/uL (0.0-0.7); Absolute Lymphocyte Count 1.54 10^3/uL (1.2-3.4); Absolute Neutrophil Count 7.77 10^3/uL (1.2-6.7); Basophils % 0.3; Eosinophils % 0.6; HGB 11.2 g/dL (11.2-15.7); Immature Grans % 0.4; Lymphocytes % 15.5; MCH 33.1 pg (27.0-33.0); MCHC 33.9 % (32.0-36.0); MCV 98 fL (80-95); MPV 8.6 fL (8.0-11.0); Neutrophils % 78.2; Platelet Count 328 10^3/uL (130-400); RBC 3.38 10^6/uL (3.93-5.22); RDW 13.3 % (11.7-14.6); RDW-SD 47.8 fL; WBC 9.94 10^3/uL (4.4-10.8)
[2023-04-01 06:50] LABS: Anion Gap 9.3 mmol/L (3-11); BUN 14 mg/dL (7-18); CO2 23.7 mmol/L (21.0-32.0); CREATININE 1.4 mg/dL (0.55-1.02); Calcium 10.7 mg/dL (8.5-10.1); Chloride 103 mmol/L (98-107); Estimated GFR 41.75 (mL/min/1.73m2); Glucose 113 mg/dL (74-106); Potassium 4.1 mmol/L (3.5-5.1); Sodium 136 mmol/L (136-145)
[2023-04-01] MEDS: Potassium Chloride 20 MEQ TABCR PO ×2 (07:57→19:51)
[2023-04-01] MEDS: Losartan 50 MG TAB PO (07:57)
[2023-04-01] MEDS: Omeprazole 20 MG CAPCR 40 MG PO ×2 (07:57→19:50)
[2023-04-01] MEDS: Atenolol 50 MG TAB PO (07:57)
[2023-04-01] MEDS: Ketorolac 15 MG/ML VIAL IVP ×3 (07:57→23:00)
[2023-04-01] MEDS: cefTRIAXone 1 GM/50 ML BAG IVPB (07:58)
[2023-04-01] MEDS: amLODIPine 5 MG TAB PO (09:55)
[2023-04-01] MEDS: HYDROmorphone 2 MG/ML SYR IVP ×3 (09:55→20:32)
[2023-04-01] MEDS: ACETAMINOPHEN 1,000 MG/100 ML BTL 400 MG IVPB ×2 (10:00→19:50)
--- NOTE | 2023-04-01 10:51 | PDOC.CMPRO ---
Date of service: 04/01/23 Time of Service: 10:51 Care Management Progress Note Progress Note Text Progress Note Text: S/O:Ira was sitting up in bed when CM met with her. She had asked to speak to CM as she had some concerns about her care yesterday. She shared that when she arrived on the unit she felt that she did not receive any attention and that she was very ill. There were no specific details provided. Ira stated that she had her ureteral l stent removed on 03/12/23 and that she has not felt well since. Her supervisor asbestos removal Alejo was present during the visit and corroborated this. She had many questions which CM was able to answer. One of her concerns was that she did not feel that her pain was adequately managed. This had been communicated to the provider and changes were made to her pain regimen. Ira chronically takes pain medication for arthritis in her back as well as for kidney pain. She has been scheduled to have a nephrectomy of her right kidny at [facility], but as an interim measure, will have another stent placed tomorrow. Ira verbalized that she is hopeful she will experience pain relief after the procedure. A: Ira is a 67 year old woman admitted on 03/31/23 with colitis P:Anticipate Ira will be discharged home with no services when medically cleared by provider.? She will follow up with her PCP and plan of care as instructed following discharge.? She will be transported home by her partner via private vehicle.? CM will continue to support patient and any discharge planning needs.
[2023-04-01 11:18] LABS: Lab Add On Test DONE
[2023-04-01 11:58] LABS: Procalcitonin < 0.1 ng/mL
[2023-04-01] MEDS: oxyCODONE 5 mg/Acetaminophen 325 mg TAB 1 TAB PO ×2 (12:38→20:32)
--- NOTE | 2023-04-01 12:41 | W.UROLOGYCON ---
Date of service: 04/01/23 Time of Service: 12:41 Assessment and Plan Assessment and plan (1) Hydronephrosis of right kidney: Status: Acute Assessment and plan: With minimal function from the right kidney, there is no expectation to preserve renal function. The stent however might help control some of her pain. She is agreeable to having the stent reinserted but we will continue with the referral for consideration of laparoscopic nephrectomy. History of Present Illness History of Present Illness Chief Complaint: Hydronephrosis Narrative: This is a 67-year-old woman who is previously known from a finding of right hydronephrosis and hydroureter. No soft tissue mass or stone was identified at the narrowing of her right ureter. Her urologic evaluation has involved cystoscopy with placement of ureteral stent. A urine cytology was obtained and no cancer cells were identified. Once the stent was left in place to do well, we brought her back to the operating room where we did ureteroscopy and biopsy of the strictured area. The biopsy showed fibrotic tissue with no specific mucosal abnormalities. We did a nuclear renogram in less than 20% of her total renal function is coming from the kidney. We agreed that if her kidney was symptomatic with persistent pain or with pyelonephritis, a simple nephrectomy would be her best option. We left a ureteral stent in place for some time, but after removing the stent, her right flank pain escalated. We have already made a referral for her to see one of the providers at [facility] that could perform her simple nephrectomy laparoscopically. In the meantime, she is admitted with colitis. She is on a combination of ceftriaxone and Flagyl. She continues to have flank pain and is wondering if a stent might help her symptoms at this time. Review of Systems Narrative: No fevers or chills No vision change or dysphasia No diabetes or thyroid dysfunction No shortness of breath, cough or hemoptysis No chest pain or palpitations No hepatitis, ulcers, jaundice No seizures, strokes or peripheral neuropathy No bleeding disorders Chronic back pain. No gout Constitutional Constitutional: Denies chills and Denies fever(s) Cardiovascular Cardiovascular: Denies chest pain Respiratory Respiratory: Denies hemoptysis Genitourinary Genitourinary: Denies hematuria PFSH All Active Problems Constipation (Acute) Ascites (Acute) Hypertensive urgency (Acute) Nausea (Acute) Hypokalemia (Chronic) Discharge planning issues (Acute) DVT prophylaxis (Acute) Colitis (Acute) DANIEL (acute kidney injury) (Acute ~09/2022) Hydronephrosis of right kidney (Acute ~10/2022) Ureteral stricture, right (Acute) CKD (chronic kidney disease) stage 3, GFR 30-59 ml/min (Chronic) Essential hypertension (Chronic) Hyperlipidemia (Chronic) Osteoporosis (Chronic) Prediabetes (Chronic) PTSD (post-traumatic stress disorder) (Chronic) GERD (gastroesophageal reflux disease) (Chronic) Lumbosacral radiculopathy due to degenerative joint disease of spine (Chronic) Chronic low back pain (Chronic) Overactive bladder (Chronic) Cigarette smoker (Chronic) Medical History Endometriosis Surgical History History of bilateral tubal ligation (04/15/86) History of carpal tunnel surgery of right wrist (~2006) History of operative procedure on lumbosacral spinal structure (02/08/22) RFA 02/08/22 Hx of esophagogastroduodenoscopy (11/20/06) S/P section (04/15/86) S/P colonoscopy (12/06/16) 02/2022 S/P cystoscopy with ureteral stent placement (11/01/22) Right retrograde pyelogram, right ureteroscopy, right ureteral stent S/P laparoscopic hysterectomy (~1999) Family History Mother , 76 Essential hypertension Heart disease Colon cancer Father , 81 Essential hypertension Stroke Colon cancer Brother , 48 Lung cancer Brother , 48 from accident No problems noted. Sister No problems noted. Son No problems noted. Daughter No problems noted. Maternal Grandfather No problems noted. Maternal Grandmother No problems noted. Paternal Grandfather No problems noted. Paternal Grandmother No problems noted. Social History Smoking/Tobacco Use Status: Current every day Tobacco Type: cigarettes Years smoked: 47 Tobacco: How many years used: 20 Second Hand Exposure: Yes Smoking risk assessment performed?: Yes Alcohol Intake: former Drug use: Never Substance use type: does not use Caregiver/Support person: No Household members: significant other Housing: house Number of Children: 2 Communication Needs: None Do you need help understanding health information?: Rarely current occupation: Disabled Pets and animals: Yes Pets and animals: dog(s) Sexually active: No Do you think of yourself as: straight/heterosexual Current gender identity: female What is your relationship status?: living with partner How often do you talk on the phone with friends or family?: twice per week How often do you get together with friends or relatives?: decline to answer How often do you attend druze or sabianism services?: decline to answer Do you belong to any clubs or organized social groups?: no Panel score (0-1 are the most socially isolated patients): 1 What type of physical activity do you participate in: walking Duration: 30-45 minutes/day Frequency: daily Ann-Marie/Jehovah'S Witness: Evangelical Special ann-marie needs: No Seatbelt use: always Drive intox or ride w/intox haulpak driver: No Do you feel safe at home: Yes Do you feel safe in your relationship?: Yes History History 2 Para 2 Hx # Term Pregnancies Multiple births Hx # Pregnancies Ectopic pregnancies AB induced Hx Number of Living Children 2 AB spontaneous Exam Narrative Exam Narrative: She appears uncomfortable She does not appear septic or toxic Her vital signs are documented elsewhere Her abdomen is soft with no peritoneal signs She is awake and alert Her urinalysis shows no sign of infection Her noncontrast CT shows markedly dilated renal pelvis and ureter down to the pelvis. There is minimal parenchyma remaining in the right kidney. No stones or soft tissue abnormalities identified in the pelvis. Const General: uncomfortable GI Inspection: normal to inspection Palpation: soft Neuro General: patient alert, patient awake and patient oriented x3 Results Last Vital Signs Temp 36.5 C 04/01/23 07:45 Pulse 87 04/01/23 09:50 Resp 18 04/01/23 07:45 BP 189/89 H 04/01/23 09:50 Pulse Ox 94 04/01/23 09:50 Labs 04/02/23 06:15 04/02/23 06:15 Labs: Laboratory Results - last 24 hr 04/01/23 04/01/23 04/01/23 06:04 06:04 06:04 WBC 9.94 RBC 3.38 L Hgb 11.2 Hct 33.0 L MCV 98 H MCH 33.1 H MCHC 33.9 RDW 13.3 Plt Count 328 MPV 8.6 Immature Gran % 0.4 Neutrophils % 78.2 Lymphocytes % 15.5 Monocytes % 5.0 Eosinophils % 0.6 Basophils % 0.3 Nucleated RBC % 0.0 Absolute Neutrophils 7.77 H Absolute Lymphocytes 1.54 Absolute Monocytes 0.50 Absolute Eosinophils 0.06 Absolute Basophils 0.03 Sodium 136 Potassium 4.1 Chloride 103 Carbon Dioxide 23.7 Anion Gap 9.3 BUN 14 Creatinine 1.4 H Est GFR (CKD-EPI 2020) 41.75 Glucose 113 H Calcium 10.7 H C-Reactive Protein Procalcitonin Add-On Test Request DONE 04/01/23 04/01/23 06:04 06:04 WBC RBC Hgb Hct MCV MCH MCHC RDW Plt Count MPV Immature Gran % Neutrophils % Lymphocytes % Monocytes % Eosinophils % Basophils % Nucleated RBC % Absolute Neutrophils Absolute Lymphocytes Absolute Monocytes Absolute Eosinophils Absolute Basophils Sodium Potassium Chloride Carbon Dioxide Anion Gap BUN Creatinine Est GFR (CKD-EPI 2020) Glucose Calcium C-Reactive Protein 6.40 H Procalcitonin < 0.1 Add-On Test Request
--- NOTE | 2023-04-01 12:45 | W.PM.PROGNOT ---
Date of Service Date of service: 04/01/23 Time of Service: 12:46 Assessment and Plan Assessment and plan (1) Colitis: Status: Acute Assessment and plan: The patient is being empirically treated with ceftriaxone and metronidazole. Her CRP is 6.4. I did order a scheduled bowel regimen, stool studies, probiotics. The patient does endorse having being on antibiotics recently, so C.Diff is a possibility. General surgery is consulted for any other ideas as to how to approach this colitis. (2) Hydronephrosis of right kidney: Status: Acute Assessment and plan: Acute on chronic. NO evidence of stones. The patient is known to the urology clinic for history of this. She is planned for a ureteral stent placement tomorrow am; NPO after midnight. No evidence of a UTI on this admission. (3) Hypertensive urgency: Status: Acute Assessment and plan: In setting of uncontrolled pain. I did encourage the nursing to treat the pain first and use prn antihypertensives once the pain regimen has been exhausted. Continue home atenolol, losartan. Amlodipine added today. Prn IV lopressor and hydralazine are written. (4) Ascites: Status: Acute Assessment and plan: This is a new problem. General surgery is consulted to evaluate the need for paracenthesis, but I do not think that on my physical exam there appeared to be enough fluid for a tap. (5) Constipation: Status: Acute Assessment and plan: Intensify bowel regimen. (6) CKD (chronic kidney disease) stage 3, GFR 30-59 ml/min: Status: Chronic Assessment and plan: Cr is at about baseline. Will continue to monitor post placement of a ureteral stent. (7) DVT prophylaxis: Status: Acute Assessment and plan: Start SC heparin (hold after midnight) (8) Discharge planning issues: Status: Acute Assessment and plan: Full code Continues to require hospitalization Subjective Subjective Interval history since last seen: Ms Matos c/o abdominal pain, L>R, as well as nausea. NO dizziness, CP, SOB. She has been constipated - this is normal for her. At home, she had started taking miralax for her constipation and stopped taking colace. She was evaluated by Dr Parsons, who is planning on placing a ureteral stent for her R hydronephrosis tomorrow. Her BP has been very elevated today, up to 200/95. It is now down to 189/89. Exam Narrative Exam Narrative: General: Pleasant middle-aged female who is uncomfortable, A&Ox3, in visible pain HEENT: EOMI, MMM Heart: RRR, no m/r/g Lungs: CTAB Abdomen: soft, tender diffusely, but especially in LLQ Extremities: no jeremy BLEs Objective Last Vital Signs Temp 36.5 C 04/01/23 07:45 Pulse 87 04/01/23 09:50 Resp 18 04/01/23 07:45 BP 189/89 H 04/01/23 09:50 Pulse Ox 94 04/01/23 09:50 Laboratory Results - last 24 hr 04/01/23 04/01/23 04/01/23 06:04 06:04 06:04 WBC 9.94 RBC 3.38 L Hgb 11.2 Hct 33.0 L MCV 98 H MCH 33.1 H MCHC 33.9 RDW 13.3 Plt Count 328 MPV 8.6 Immature Gran % 0.4 Neutrophils % 78.2 Lymphocytes % 15.5 Monocytes % 5.0 Eosinophils % 0.6 Basophils % 0.3 Nucleated RBC % 0.0 Absolute Neutrophils 7.77 H Absolute Lymphocytes 1.54 Absolute Monocytes 0.50 Absolute Eosinophils 0.06 Absolute Basophils 0.03 Sodium 136 Potassium 4.1 Chloride 103 Carbon Dioxide 23.7 Anion Gap 9.3 BUN 14 Creatinine 1.4 H Est GFR (CKD-EPI 2020) 41.75 Glucose 113 H Calcium 10.7 H C-Reactive Protein Procalcitonin Add-On Test Request DONE 04/01/23 04/01/23 06:04 06:04 WBC RBC Hgb Hct MCV MCH MCHC RDW Plt Count MPV Immature Gran % Neutrophils % Lymphocytes % Monocytes % Eosinophils % Basophils % Nucleated RBC % Absolute Neutrophils Absolute Lymphocytes Absolute Monocytes Absolute Eosinophils Absolute Basophils Sodium Potassium Chloride Carbon Dioxide Anion Gap BUN Creatinine Est GFR (CKD-EPI 2020) Glucose Calcium C-Reactive Protein 6.40 H Procalcitonin < 0.1 Add-On Test Request Time Spent with Patient Time Spent with Patient: 35-49 minutes Time was spent: preparing to see the patient(eg.review tests), obtaining and/or reviewing separately otained hiistory, ordering medications,tests, procedures, referring, communicating with other health primary care sales representative, indepentently interpreting results, counseling the patient and care coordination
[2023-04-01 13:05] LABS: Vitamin D 25 Total 13.8 ng/mL (30-100)
[2023-04-01] MEDS: Ondansetron 4 MG/2 ML VIAL IVP (14:38)
[2023-04-01] MEDS: Polyethylene Glycol 3350 17 GM PACKET PO (14:39)
[2023-04-01] MEDS: Docusate Sodium 100 MG CAP PO ×2 (14:39→19:50)
[2023-04-01] MEDS: Heparin 5,000 UNITS/ML VIAL 5000 UNITS SC ×2 (14:55→19:51)
--- NOTE | 2023-04-01 15:48 | W.SURGCON ---
Date of service: 04/01/23 Time of Service: 15:51 Assessment and Plan Assessment and plan (1) Colitis: Status: Acute Assessment and plan: The cause of her colitis is unclear to me. There are some diverticula obvious on the CAT scan, and this was seen on her previous colonoscopy, so I suppose traditional diverticulitis could be the source of this. Alternatively, her previous biopsies suggest some element of chronic colitis, which would be more consistent with something like a lymphocytic or collagenous colitis (although the symptoms of that are typically diarrhea rather than constipation). For now, I think it is reasonable to continue with antibiotics. I would keep her on some clear liquids, or a simple bland diet to see how her symptoms evolve. Stool studies should be sent to rule out other infectious colitis, as well as C. difficile. Assuming she starts to recover, it would probably be worth doing another colonoscopy to better characterize the pathology that was previously described. Regards to her ascites, I suspect this is secondary to the colitis. The volume is too small for any kind of diagnostic paracentesis at this point. History of Present Illness History of Present Illness Chief Complaint: Abdominal pain Narrative: Ira is 67 years old. She comes to the hospital with a chief complaint of abdominal pain. She points to her mid epigastrium, but she says the pain is mostly on her right side. She describes the pain as stabbing, and cramping. She tells me the pains been getting worse since a right-sided ureteral stent was removed in the end of February. She denies nausea or vomiting. She was found to have a leukocytosis of 13,000 in the emergency department, as well as some mild increase in her serum creatinine which was measured at 1.6. She underwent a CAT scan of the abdomen and pelvis without contrast that showed colitis of the descending and sigmoid colons, as well as the rectum. She also had some pelvic ascites which was new compared to previous imaging. She was admitted to the hospital, and started on ceftriaxone and Flagyl. Her past medical history is significant for chronic constipation. She tells me she moves her bowels once every few weeks. She tells me that she has tried Metamucil, and Dulcolax without much success. She has a known right-sided ureteral stricture, and chronic right-sided hydronephrosis. She has had some discussions about insertion of another right ureteral stent, or perhaps right nephrectomy. Her other past medical history is significant for some hypertension, hypercholesterolemia, and GERD. She underwent a colonoscopy about a year ago. At that time, she had some hyperplastic polyps removed. She was diagnosed with some diverticulosis, and her pathology report describes some lymphoplasmacytic inflammation suggesting chronic inactive colitis. Review of Systems Constitutional Constitutional: Reports body ache(s), Reports fatigue, Denies fever(s) and Reports lethargy Eyes Eyes: Reports system reviewed and no additional complaints, except as documented ENT Ears, Nose, Mouth, and Throat: Reports system reviewed and no additional complaints, except as documented Cardiovascular Cardiovascular: Denies chest pain and Denies dyspnea Respiratory Respiratory: Denies chest congestion, Reports cough and Denies dyspnea Gastrointestinal Gastrointestinal: Reports abdominal pain, Denies hematochezia, Reports constipation, Reports cramping, Denies nausea and Denies vomiting Musculoskeletal Musculoskeletal: Reports system reviewed and no additional complaints, except as documented Neurologic Neurologic: Reports system reviewed and no additional complaints, except as documented and Reports confusion Psychiatric Psychiatric: Reports confusion Endocrine Endocrine: Reports fatigue Hematologic/Lymphatic Hematologic/Lymphatic: Denies easy bleeding and Denies easy bruising PFSH All Active Problems Constipation (Acute) Ascites (Acute) Hypertensive urgency (Acute) Nausea (Acute) Hypokalemia (Chronic) Discharge planning issues (Acute) DVT prophylaxis (Acute) Colitis (Acute) DANIEL (acute kidney injury) (Acute ~09/2022) Hydronephrosis of right kidney (Acute ~10/2022) Ureteral stricture, right (Acute) CKD (chronic kidney disease) stage 3, GFR 30-59 ml/min (Chronic) Essential hypertension (Chronic) Hyperlipidemia (Chronic) Osteoporosis (Chronic) Prediabetes (Chronic) PTSD (post-traumatic stress disorder) (Chronic) GERD (gastroesophageal reflux disease) (Chronic) Lumbosacral radiculopathy due to degenerative joint disease of spine (Chronic) Chronic low back pain (Chronic) Overactive bladder (Chronic) Cigarette smoker (Chronic) Medical History Endometriosis Surgical History History of bilateral tubal ligation (04/15/86) History of carpal tunnel surgery of right wrist (~2006) History of operative procedure on lumbosacral spinal structure (02/08/22) RFA 02/08/22 Hx of esophagogastroduodenoscopy (11/20/06) S/P section (04/15/86) S/P colonoscopy (12/06/16) 02/2022 S/P cystoscopy with ureteral stent placement (11/01/22) Right retrograde pyelogram, right ureteroscopy, right ureteral stent S/P laparoscopic hysterectomy (~1999) Family History Mother , 76 Essential hypertension Heart disease Colon cancer Father , 81 Essential hypertension Stroke Colon cancer Brother , 48 Lung cancer Brother , 48 from accident No problems noted. Sister No problems noted. Son No problems noted. Daughter No problems noted. Maternal Grandfather No problems noted. Maternal Grandmother No problems noted. Paternal Grandfather No problems noted. Paternal Grandmother No problems noted. Social History Smoking/Tobacco Use Status: Current every day Tobacco Type: cigarettes Years smoked: 47 Tobacco: How many years used: 20 Second Hand Exposure: Yes Smoking risk assessment performed?: Yes Alcohol Intake: former Drug use: Never Substance use type: does not use Caregiver/Support person: No Household members: significant other Housing: house Number of Children: 2 Communication Needs: None Do you need help understanding health information?: Rarely current occupation: Disabled Pets and animals: Yes Pets and animals: dog(s) Sexually active: No Do you think of yourself as: straight/heterosexual Current gender identity: female What is your relationship status?: living with partner How often do you talk on the phone with friends or family?: twice per week How often do you get together with friends or relatives?: decline to answer How often do you attend mandaeism or sabianism services?: decline to answer Do you belong to any clubs or organized social groups?: no Panel score (0-1 are the most socially isolated patients): 1 What type of physical activity do you participate in: walking Duration: 30-45 minutes/day Frequency: daily Ann-Marie/Yarsani: Amish Special ann-marie needs: No Seatbelt use: always Drive intox or ride w/intox route delivery service driver: No Do you feel safe at home: Yes Do you feel safe in your relationship?: Yes History History 2 Para 2 Hx # Term Pregnancies Multiple births Hx # Pregnancies Ectopic pregnancies AB induced Hx Number of Living Children 2 AB spontaneous Exam Const General: cooperative, comfortable and no acute distress Nutritional Appearance: average body habitus Orientation: alert, awake and oriented x3 Eyes General: appearance normal, both eyes and all related structures Neck Neck: normal visual inspection, full ROM and supple Resp Effort & Inspection: normal respiratory effort Auscultation: clear to auscultation bilaterally Cardio Jugular venous pressure: no JVD Rate: regular rate Rhythm: regular rhythm GI Inspection: normal to inspection Palpation: soft Percussion: dullness to percussion Auscultation: hypoactive bowel sounds Skin General skin exam: no rashes or lesions noted Results Last Vital Signs Temp 97.3 F L 04/01/23 15:41 Pulse 77 04/01/23 15:41 Resp 18 04/01/23 15:41 BP 169/72 H 04/01/23 15:41 Pulse Ox 92 04/01/23 15:41 Labs 04/01/23 06:04 04/01/23 06:04 Labs: Laboratory Results - last 24 hr 04/01/23 04/01/23 04/01/23 06:04 06:04 06:04 WBC 9.94 RBC 3.38 L Hgb 11.2 Hct 33.0 L MCV 98 H MCH 33.1 H MCHC 33.9 RDW 13.3 Plt Count 328 MPV 8.6 Immature Gran % 0.4 Neutrophils % 78.2 Lymphocytes % 15.5 Monocytes % 5.0 Eosinophils % 0.6 Basophils % 0.3 Nucleated RBC % 0.0 Absolute Neutrophils 7.77 H Absolute Lymphocytes 1.54 Absolute Monocytes 0.50 Absolute Eosinophils 0.06 Absolute Basophils 0.03 Sodium 136 Potassium 4.1 Chloride 103 Carbon Dioxide 23.7 Anion Gap 9.3 BUN 14 Creatinine 1.4 H Est GFR (CKD-EPI 2020) 41.75 Glucose 113 H Calcium 10.7 H C-Reactive Protein 25-OH Vitamin D Total Procalcitonin Add-On Test Request DONE 04/01/23 04/01/23 04/01/23 06:04 06:04 06:04 WBC RBC Hgb Hct MCV MCH MCHC RDW Plt Count MPV Immature Gran % Neutrophils % Lymphocytes % Monocytes % Eosinophils % Basophils % Nucleated RBC % Absolute Neutrophils Absolute Lymphocytes Absolute Monocytes Absolute Eosinophils Absolute Basophils Sodium Potassium Chloride Carbon Dioxide Anion Gap BUN Creatinine Est GFR (CKD-EPI 2020) Glucose Calcium C-Reactive Protein 6.40 H 25-OH Vitamin D Total 13.8 L Procalcitonin < 0.1 Add-On Test Request
[2023-04-02] VITALS (19 sets, daily range): BP systolic 151–207; BP diastolic 81–105; PULSE 68–88; RESP 12–23; TEMP 35.4–37.2; O2SAT 92–95; BMI 19.0
[2023-04-02] MEDS: metroNIDAZOLE 500 MG/100 ML BAG 100 MG IVPB ×5 (01:55→19:30)
[2023-04-02] MEDS: HYDROmorphone 2 MG/ML SYR IVP ×4 (02:30→19:29)
[2023-04-02] MEDS: oxyCODONE 5 MG TAB PO ×3 (02:30→17:55)
[2023-04-02] MEDS: ACETAMINOPHEN 1,000 MG/100 ML BTL 400 MG IVPB ×2 (05:10→15:26)
[2023-04-02 06:48] LABS: Abs Immature Grans 0.03 10^3/uL (0.0-0.06); Absolute Basophil Count 0.04 10^3/uL (0.0-0.2); Absolute Lymphocyte Count 1.86 10^3/uL (1.2-3.4); Absolute Monocyte Count 0.46 10^3/uL (0.1-0.8); Absolute Neutrophil Count 6.24 10^3/uL (1.2-6.7); Basophils % 0.5; Eosinophils % 1.1; HCT 33.4 % (36.0-46.0); HGB 11.2 g/dL (11.2-15.7); Immature Grans % 0.3; Lymphocytes % 21.3; MCH 32.9 pg (27.0-33.0); MCHC 33.5 % (32.0-36.0); MCV 98 fL (80-95); MPV 8.5 fL (8.0-11.0); Monocytes % 5.3; Neutrophils % 71.5; Platelet Count 341 10^3/uL (130-400); RDW 13.2 % (11.7-14.6); RDW-SD 47.4 fL; WBC 8.73 10^3/uL (4.4-10.8)
[2023-04-02 07:07] LABS: Anion Gap 10.5 mmol/L (3-11); BUN 16 mg/dL (7-18); C-Reactive Protein 5.17 mg/dL (0.0-0.3); CO2 24.5 mmol/L (21.0-32.0); CREATININE 1.5 mg/dL (0.55-1.02); Calcium 10.3 mg/dL (8.5-10.1); Chloride 101 mmol/L (98-107); Estimated GFR 38.43 (mL/min/1.73m2); Glucose 111 mg/dL (74-106); Magnesium 1.7 mg/dL (1.8-2.4); Potassium 4.1 mmol/L (3.5-5.1); Sodium 136 mmol/L (136-145)
--- NOTE | 2023-04-02 07:08 | ANES.PREOP_ITS ---
General Info Date of Service Date Performed: 04/02/23 Height: 5 ft 2 in Weight: 47.174 kg Body Mass Index (BMI): 19.0 Surgical Procedure: Operation Date: 04/02/23 07:40 Proposed Procedure Side Surgeon p Cystoscopy/Retrograde/ Stent Insertion Right Janes Parsons MD Meds Allergies and Home Medications Allergies Allergy/AdvReac Type Severity Reaction Status Date / Time mirtazapine AdvReac Lightheaded Verified 03/31/23 04:48 ness Home Medication Medication Instructions Recorded docusate sodium 100 mg capsule 100 mg PO BID PRN #180 caps 09/09/18 (Colace) naloxone 4 mg/actuation nasal 1 spray intranasal Q2-3M PRN 08/16/20 spray (Narcan) opioid overdose #2 ea ibuprofen 200 mg tablet 200 mg PO Q6H PRN 02/06/22 atenolol 50 mg tablet 50 mg PO DAILY #90 tabs 08/30/22 losartan 50 mg tablet 50 mg PO DAILY #90 tabs 02/07/23 omeprazole 40 mg capsule,delayed 40 mg PO .Daily to BID #180 02/25/23 release tab-caps oxycodone-acetaminophen 5 mg-325 1 tab PO .4 to 5 times a day pain 03/21/23 mg tablet #117 tabs potassium chloride 20 mEq 20 meq PO BID #30 tabs 03/27/23 tablet,extended release Current Visit Medications: Current Medications Generic Name Dose Route Start Last Admin Trade Name Freq PRN Reason Stop Dose Admin Amlodipine Besylate 5 mg 04/02/23 08:30 Amlodipine 5 Mg Tab PO DAILY CRISTELA Atenolol 50 mg 03/31/23 08:30 04/01/23 07:57 Atenolol 50 Mg Tab PO 50 mg DAILY CRISTELA Administration Bisacodyl 5 mg 04/01/23 12:59 Bisacodyl 5 Mg Tabec PO DAILY PRN PRN Bisacodyl 10 mg 04/01/23 12:59 Bisacodyl 10 Mg Supp KS DAILY PRN PRN Dimethicone/Zinc Oxide 0 gm 03/31/23 07:34 Miguel Angel Protect Cream 142 Gm Tube TP PRN PRN Docusate Sodium 100 mg 04/01/23 20:00 04/01/23 19:50 Docusate Sodium 100 Mg Cap PO 100 mg BID CRISTELA Administration Heparin Sodium (Porcine) 5,000 units 04/01/23 12:00 04/01/23 19:51 Heparin 5,000 Units/Ml Vial SC 5,000 units Q8H CRISTELA Administration Hydralazine HCl 10 mg 04/01/23 08:21 Hydralazine 20 Mg/Ml Vial IVP Q4H PRN PRN Hydromorphone HCl 1 - 2 mg 04/01/23 05:00 04/02/23 02:30 Hydromorphone 2 Mg/Ml Syr IVP 2 mg Q4H PRN PRN Administration Metronidazole 500 mg in 100 mls @ 100 mls/hr 03/31/23 14:00 04/02/23 01:55 Flagyl IVPB 100 mls/hr Q6H CRISTELA Administration Ceftriaxone Sodium/Dextrose 1 gm in 50 mls @ 100 mls/hr 04/01/23 08:30 04/01/23 12:02 Rocephin IVPB Infused DAILY CRISTELA Infusion Sodium Chloride 500 mls @ 0 mls/hr 03/31/23 12:44 Saline 500ml Bag IV PRN PRN As Directed Acetaminophen 1,000 mg in 100 mls @ 400 mls/hr 04/01/23 04:39 04/02/23 05:10 Ofirmev IVPB 400 mls/hr Q8H PRN PRN Administration IV Miscellaneous Supplies 1 each 03/31/23 12:45 Iv Access IV DIRECTED CRISTELA Ketorolac Tromethamine 15 mg 03/31/23 09:02 04/01/23 23:00 Ketorolac 15 Mg/Ml Vial IVP 04/05/23 09:01 15 mg Q6H PRN PRN Administration Lactobacillus Acidophilus/Casei 1 cap 04/02/23 08:30 L. Acidophilus, Casei, Rhamnosus Cap PO DAILY CRISTELA Losartan Potassium 50 mg 03/31/23 08:30 04/01/23 07:57 Losartan 50 Mg Tab PO 50 mg DAILY CRISTELA Administration Metoprolol Tartrate 5 mg 04/01/23 12:45 Metoprolol 5 Mg/5 Ml Vial IVP Q6H PRN PRN Nicotine 14 mg 04/01/23 16:12 Nicotine 14 Mg/24 Hr Patch TD DAILY PRN PRN Omeprazole 40 mg 04/01/23 07:30 04/01/23 19:50 Omeprazole 20 Mg Capcr PO 40 mg DAILY@ CRISTELA Administration Ondansetron HCl 4 mg 04/01/23 12:41 04/01/23 14:38 Ondansetron 4 Mg/2 Ml Vial IVP 4 mg Q6H PRN PRN Administration Oxycodone HCl 5 mg 04/02/23 00:06 04/02/23 02:30 Oxycodone 5 Mg Tab PO 5 mg Q6H PRN PRN Administration Polyethylene Glycol 17 gm 04/02/23 08:30 Polyethylene Glycol 3350 17 Gm Packet PO DAILY CRISTELA Potassium Chloride 20 meq 03/31/23 09:00 04/01/23 19:51 Potassium Chloride 20 Meq Tabcr PO 20 meq BID CRISTELA Administration Prochlorperazine Edisylate 5 mg 03/31/23 07:40 Prochlorperazine 10 Mg/2 Ml Vial IVP Q4H PRN PRN Sodium Chloride 0 ml 03/31/23 12:44 04/01/23 04:28 Normal Saline Flush 10 Ml Syr IVP 10 ml PRN PRN Administration PFSH Active Problems Active Problems: Problem Status Onset Code Constipation K59.00 Ascites R18.8 Hypertensive urgency I16.0 Nausea R11.0 Hypokalemia E87.6 Discharge planning issues Z02.9 DVT prophylaxis Z29.9 Colitis K52.9 DANIEL (acute kidney injury) ~09/2022 N17.9 Hydronephrosis of right kidney ~10/2022 N13.30 Ureteral stricture, right N13.5 CKD (chronic kidney disease) stage 3, GFR 30-59 ml/min N18.30 Essential hypertension I10 Hyperlipidemia E78.5 Osteoporosis M81.0 Prediabetes R73.03 PTSD (post-traumatic stress disorder) F43.10 GERD (gastroesophageal reflux disease) K21.9 Lumbosacral radiculopathy due to degenerative joint disease of spine M47.27 Chronic low back pain M54.50, G89.29 Overactive bladder N32.81 Cigarette smoker F17.210 Medical History Medical History Endometriosis Medical History Comments:: Pt. states her mother had a reaction to ether, they almost lost her Surgical History Surgical History History of bilateral tubal ligation (04/15/86) History of carpal tunnel surgery of right wrist (~2006) History of operative procedure on lumbosacral spinal structure (02/08/22) RFA 02/08/22 Hx of esophagogastroduodenoscopy (11/20/06) S/P section (04/15/86) S/P colonoscopy (12/06/16) 02/2022 S/P cystoscopy with ureteral stent placement (11/01/22) Right retrograde pyelogram, right ureteroscopy, right ureteral stent S/P laparoscopic hysterectomy (~1999) Tobacco Smoking/Tobacco Use Status: Current every day Tobacco Type: cigarettes Years smoked: 47 Passive smoking exposure: Yes Second hand exposure: Yes Alcohol Alcohol Intake: former Substance Use Substance use: Never Substance use type: does not use Prental History History 2 Para 2 Hx # Term Pregnancies Multiple births Hx # Pregnancies Ectopic pregnancies AB induced Hx Number of Living Children 2 AB spontaneous Vital Signs and Lab Results Vital Signs Most Recent Vital Signs in EMR: Most Recent Vital Signs Temp Pulse Resp BP Pulse Ox 36.9 C 78 18 170/81 H 92 04/02/23 06:23 04/02/23 06:23 04/02/23 06:23 04/02/23 06:23 04/02/23 06:23 Lab Results 04/02/23 06:15 04/01/23 06:04 Blood Type / Crossmatch: No Data to Display Complete Blood Count: White Blood Count 8.73 10^3/uL (4.4-10.8) 04/02/23 06:15 Red Blood Count 3.40 10^6/uL (3.93-5.22) L 04/02/23 06:15 Hemoglobin 11.2 g/dL (11.2-15.7) 04/02/23 06:15 Hematocrit 33.4 % (36.0-46.0) L 04/02/23 06:15 Platelet Count 341 10^3/uL (130-400) 04/02/23 06:15 Venous Blood Lactate 1.2 mmol/L (0.6-1.4) 03/31/23 05:00 Complete Metabolic Panel: Sodium 136 mmol/L (136-145) 04/02/23 06:15 Potassium 4.1 mmol/L (3.5-5.1) 04/02/23 06:15 Chloride 101 mmol/L (98-107) 04/02/23 06:15 Carbon Dioxide 24.5 mmol/L (21.0-32.0) 04/02/23 06:15 BUN 16 mg/dL (7-18) 04/02/23 06:15 Creatinine 1.5 mg/dL (0.55-1.02) H 04/02/23 06:15 Est GFR (CKD-EPI 2020) 38.43 (mL/min/1.73m2) 04/02/23 06:15 Magnesium 1.7 mg/dL (1.8-2.4) L 04/02/23 06:15 Calcium 10.3 mg/dL (8.5-10.1) H 04/02/23 06:15 Albumin 3.5 g/dL (3.4-5.0) 03/31/23 05:00 Glucose 111 mg/dL (74-106) H 04/02/23 06:15 C-Reactive Protein 5.17 mg/dL (0.0-0.3) H 04/02/23 06:15 Liver Function Panel: Alanine Aminotransferase (ALT/SGPT) 14 U/L (14-59) 03/31/23 05: 00 Aspartate Amino Transf (AST/SGOT) 14 U/L (15-37) L 03/31/23 05: 00 Coagulation Panel: No Data to Display Cardiac Panel: Troponin I < 50 ng/L (<or=60) 03/31/23 Arterial Blood Gas: No Data to Display Venous Blood Gas: No Data to Display Pancreas Panel: Lipase 20 U/L (16-77) 03/31/23 05:00 Thyroid Panel: No Data to Display Infectious Disease: No Data to Display Blood Cultures: No Data to Display Toxicology Panel: No Data to Display Imaging and Studies Imaging and Studies Study information below may be from another EMR and interpreted by another provider. Please see original notes in EMR for more complete details. EKG Summary: EKG PATIENT NAME: Ira Matos #: [id number] ORDERING PROVIDER: Maxime Elizabeth #: [id number] PRIMARY CARE PROVIDER:ANITA RYAN NP DATE/TIME OF SERVICE: 03/31/231 : 1955PERFORMING LOCATION: [place] APPROVED REPORT Exam: Resting ECG Reason for Exam: chest pain Patient Location: E HR:91 bpm ECG Measurements Heart Rate 91 AXIS KS 150 P 64 QRSd 81 QRS -9 QT 342 T32 QTc 420 Conclusion Sinus rhythm...normal P axis, V-rate 60- 99 Probable left atrial enlargement...P >50mS, <-0.10mV V1 Physician: no stemi <Electronically signed by MAXIME ELIZABETH DO in [place]> E-Sign Date: 03/31/23 E-Sign Time: 0503 ADDENDUM APPROVED REPORT Exam: Resting ECG Reason for Exam: chest pain Patient Location: E HR:91 bpm ECG Measurements Heart Rate 91 AXIS KS 150 P 64 QRSd 81 QRS -9 QT 342 T32 QTc 420 Conclusion Sinus rhythm...normal P axis, V-rate 60- 99 Probable left atrial enlargement...P >50mS, <-0.10mV V1 Physician: no stemi I have reviewed and I agree with the emergency room physician's ECG interpretation. Electronically signed by: <Electronically signed by Jennifer Anne M.D. in [place]> 04/01/23 0807 Cosigned by: Anesthesia Assessment and Plan Anesthesia History Personal History: No History of Anesthesia Complications Family History: No Family History of Anesthesia Complications Exercise Tolerance Exercise Tolerance: Metabolic Equivalents>4 Pertinent Negatives Pertinent Negatives: No Symptoms of GERD, No Major Cardiovascular Symptoms or Complaints, No Major Pulmonary Symptoms or Complaints and No History of CVA/TIA Cardiac & Pulmonary Exam Cardiac Exam: Normal S1/S2 Heart Sounds Pulmonary Exam: Clear Bilateral Breath Sounds Implantable Cardiac Device Does patient have a Pacemaker or an ICD?: No Airway Exam Known Difficult Airway: No Mallampati Class: 2 Mouth Opening: Normal (> 3cm) Thyromental Distance: Greater than 3 cm Neck Range of Motion: Full ROM Neck Circumference: Normal Teeth Condition: Generalized Poor Dentition and Removable Dentures/Plates Upper Airway Comments: Lower front teeth loose ASA Classification ASA Score: ASA 3 Emergency Case?: Yes NPO Status NPO Status: NPO Clears >2 hours, Solids >8 hours Anesthesia Plan Resuscitation Status: Full Code Anesthesia Technique: General Anesthesia Airway Planned: Endotracheal Tube Monitors Used: Standard Monitors
--- NOTE | 2023-04-02 07:15 | DI.RAD_ITS ---
Exam(s) XR RETROGRADE IN OR EXAM: XR RETROGRADE IN OR CLINICAL HISTORY: right hydronephrosis and hydroureter. TECHNIQUE: 2D digital imaging was performed. COMPARISON: No exams were available for comparison FINDINGS: Fluoroscopy provided during urologic stent placement. See procedure report for details. Total fluoroscopy time 36 seconds Radiation exposure index/cumulative dose: Shaylar= 3.5 mGy IMPRESSION: As above. DATA REPOSITORY: RADIATION DOSE DELIVERED:
[2023-04-02] MEDS: Lactated Ringers 1,000 ML 30 ML IV (08:03)
[2023-04-02] MEDS: Lidocaine 2% Jelly 6 ML SYR (08:14)
[2023-04-02] MEDS: cefTRIAXone 1 GM/50 ML BAG IVPB ×2 (08:15→08:45)
[2023-04-02] MEDS: Omnipaque 300 MG/ML 50 ML BTL (08:24)
--- NOTE | 2023-04-02 08:29 | ROE_ITS ---
Date of service: 04/02/23 Time of Service: 08:29 Operative Note Operative Note DATE OF PROCEDURE: 04/02/23 PRE-OP DIAGNOSIS: Right hydronephrosis Right distal ureteral stricture PROCEDURE: Cystoscopy, right retrograde pyelogram, insert right ureteral stent SURGEON: Janes Parsons ANESTHESIA TYPE: General:No Airway Refer to Anesthesia Record ESTIMATED BLOOD LOSS: 0 PATHOLOGY: none sent COMPLICATIONS: None Patient was transported to: floor Patient's condition: stable Implants: 6 Haitian by 22 to 30 cm right ureteral stent Indications: This is a 67-year-old woman who has a history of right hydronephrosis and hydroureter down to a distal ureteral stricture. She was initially treated with a stent placement. She then underwent ureteroscopy and biopsy of the strictured area. Fibrosis was identified but no malignancy was found. We found that her right kidney was only producing about 15% of her total renal function, so we did not believe that a reconstruction procedure for the stricture would be indicated. We felt a nephrectomy would be more appropriate if her hydronephrosis remained symptomatic. She is currently admitted with colitis. There is CT again shows the hydronephrosis as expected. She has had an escalation of her pain since her ureteral stent was removed. She is agreeable to a stent placement for possible pain control. Findings: Severe right hydronephrosis due to distal ureteral stricture Procedure Description: The patient was brought to the operating room on 04/02/2023. She was already on a combination of ceftriaxone and Flagyl for her colitis. After successful induction of general anesthesia, she was placed in the dorsal lithotomy position. Her genitalia was prepped and draped. 2% Xylocaine jelly was instilled into the urethra to act as a local anesthetic. A 22 Haitian rigid cystoscope was passed through the urethra into the bladder. The bladder was inspected with a 30 degree lens. The right ureteral orifice was visualized. I was able to cannulate the orifice with a 5 Haitian access catheter. When I injected Omnipaque through the access catheter however, no filling of the ureter was identified. The contrast came back around the access catheter. I was however able to pass a guidewire up the ureter. I was able to move the ureteral access catheter over the wire into the proximal ureter. I removed the wire and injected Omnipaque which demonstrated a markedly dilated renal pelvis. I replaced the guidewire and removed the access catheter. I was then able to pass a 6 Haitian variable length stent over the wire. We positioned the stent with the proximal end curled in the renal pelvis and the distal end curled in the bladder. The positioning of the stent was confirmed both fluoroscopically and cystoscopically. The bladder was emptied and the scope was removed. The patient tolerated this procedure well.
--- NOTE | 2023-04-02 08:56 | PDOC.CMPRO ---
Date of service: 04/02/23 Time of Service: 08:56 Care Management Progress Note Progress Note Text Progress Note Text: S/O:Ira was sitting up in bed when CM met with her. A: rIa is a 67 year old woman admitted on 03/31/23 with colitis P:Anticipate Ira will be discharged home with no services when medically cleared by provider.? She will follow up with her PCP and plan of care as instructed following discharge.? She will be transported home by her partner via private vehicle.? CM will continue to support patient and any discharge planning needs.
--- NOTE | 2023-04-02 09:04 | W.ANESPOSTOP ---
Postoperative Evaluation Date, Time and Location Date Performed: 04/02/23 Time Performed: 09:04 Patient Location: PACU Vital Signs Most Recent Imported Vital Signs: Most Recent Vital Signs Temp Pulse Resp BP Pulse Ox 36.3 C L 84 23 195/104 H 95 04/02/23 08:38 04/02/23 08:38 04/02/23 08:38 04/02/23 08:38 04/02/23 08:38 Pain Score Most Recent Pain Score: Most Recent Pain Score Pain Level 10 04/02/23 07:28 Assessment Mental Status: Awake (Alert & Oriented to Patient Baseline) Airway and Respiratory Function: Patent airway with normal (patient baseline) respiratory exam Cardiovascular Function: Hemodynamically Stable Hydration Status: Adequately Hydrated Nausea & Vomiting: No Nausea or Vomiting Pain: Pain is tolerable per patient Peripheral Nerve Block: Patient did not receive a nerve block Postoperative Comments:: VS remain elevated at this time, primarily seems to be revolving around patient sensation of need to void. Currently being medicated by SENIOR HARDWARE ENGINEER. Patient alert and denied questions. Appropriate for discharge back to hospitalist service from Anesthesia.
[2023-04-02] MEDS: fentaNYL 100 MCG/2 ML VIAL IVP (09:06)
[2023-04-02] MEDS: amLODIPine 5 MG TAB PO (10:23)
[2023-04-02] MEDS: Atenolol 50 MG TAB PO (10:23)
[2023-04-02] MEDS: Docusate Sodium 100 MG CAP PO ×2 (10:25→19:29)
[2023-04-02] MEDS: Omeprazole 20 MG CAPCR 40 MG PO ×2 (10:25→19:29)
[2023-04-02] MEDS: Losartan 50 MG TAB PO (10:25)
[2023-04-02] MEDS: Polyethylene Glycol 3350 17 GM PACKET PO (10:26)
[2023-04-02] MEDS: Bisacodyl 5 MG TABEC PO (10:26)
[2023-04-02] MEDS: Potassium Chloride 20 MEQ TABCR PO ×2 (10:27→19:29)
[2023-04-02] MEDS: Normal Saline Flush 10 ML SYR IVP ×2 (11:44→14:14)
[2023-04-02] MEDS: Bisacodyl 10 MG SUPP PR (11:44)
[2023-04-02] MEDS: Ketorolac 15 MG/ML VIAL IVP (14:13)
--- NOTE | 2023-04-02 16:29 | DSE_ITS ---
Date of service: 04/02/23 Time of Service: 16:29 DS: Diagnosis Discharge Diagnosis (1) Hydronephrosis of right kidney: Status: Acute Discharge Plan Disposition Patient Disposition: Home Condition: Fair Discharge Details Reason For Visit: Colitis Admit Date/Time: 03/31/23 07:34 Admit Provider: Liban Cody Attending Provider: Liban Cody Primary Care Provider: Susan Arrieta Home Meds and New Rx's Prescriptions: New amlodipine 5 mg Tablet 5 mg PO DAILY Qty: 30 0RF metronidazole 500 mg tablet 500 mg PO Q6H Qty: 22 0RF Rx Instructions: continued hospital course cefpodoxime 200 mg tablet 200 mg PO BID Qty: 22 0RF Rx Instructions: must administer with a meal/food Do not drink alcohol Continued naloxone [Narcan] 4 mg/actuation spray,non-aerosol 1 spray intranasal Q2-3M PRN (Reason: opioid overdose) Qty: 2 4RF Rx Instructions: spray 1 dose into ONE nostril; alternate nostrils w each dose until help arrives atenolol 50 mg tablet 50 mg PO DAILY Qty: 90 3RF losartan 50 mg tablet 50 mg PO DAILY Qty: 90 3RF docusate sodium [Colace] 100 mg capsule 100 mg PO BID PRNQty: 180 Patient Comments: 04/11/16 PRN only/pps ibuprofen 200 mg Tablet 200 mg PO Q6H PRN omeprazole 40 mg capsule,delayed release(DR/EC) 40 mg PO .Daily to BID Qty: 180 3RF Rx Instructions: Take 1 pill once to twice a day for heartburn oxycodone-acetaminophen 5-325 mg tablet 1 tab PO .4 to 5 times a day MDD 5 tablets Qty: 117 0RF Rx Instructions: Take 1 tablet four times a day for chronic low back pain potassium chloride 20 mEq tablet extended release 20 meq PO BID Qty: 30 0RF Discharge Instructions Instructions: Metronidazole (By mouth), Cefpodoxime Proxetil (By mouth), Hypertension (DC), Colitis (ED), Ureteral Stent Placement (DC) Additional Instructions: Take your antibiotics until they are finished. Referrals: Susan Arrieta NP [Primary Care Provider] - (1-2 weeks) Janes Parsons MD [ [facility] STAFF PHYSICIAN] - (1-2 weeks) Activity:: Activity as Tolerated Equipment/Supplies:: No Equipment Needed Diet:: As Tolerated Discharge Orders Discharge Orders: Discharge Order (Routine); Ordered 04/02/23 Ordered By: Mishel Cantu DS: Data Vitals/I&O Vitals and I&O: Vital Signs Temperature 35.4 C L 04/02/23 15:20 Temperature Source Tympanic 04/02/23 15:20 Pulse 71 04/02/23 15:20 Pulse Rhythm Regular 04/02/23 15:40 Pulse 83 03/31/23 07:57 Respiratory Rate 18 04/02/23 15:20 Respiratory Effort Normal 04/02/23 15:40 Respiratory Depth Normal 04/02/23 15:40 Respiratory Pattern Normal 04/02/23 15:40 Blood Pressure 168/85 H 04/02/23 15:20 Blood Pressure Mean 106 03/31/23 07:57 Pulse Oximetry 92 04/02/23 15:20 Oxygen Delivery Method Room Air 04/02/23 15:20 Oxygen Flow Rate 0 04/02/23 15:20 Pain Level 10 04/02/23 15:20 Comment rn notified 04/02/23 03:30 Intake & Output 04/01/23 04/02/23 04/02/23 23:59 11:59 23:59 Intake Total 450 / 650 700 / 800 100 / 800 Output Total 500 / 1000 500 / 1000 Balance 450 / 650 200 / -200 -400 / -200 Weight 47.174 kg Intake: IV 450 / 650 700 / 800 100 / 800 Output: Urine 500 / 1000 500 / 1000 Other: Urine Color Pale Yellow Yellow Urine Appearance Clear Clear Clear Urine Odor None None Comment PACU. Stool Size Small Stool Characteristics Formed Hard Emesis Description None Voiding Methods Toilet Bedpan Toilet Data Completed and Pending Labs on day of discharge: Labs from last 24 hours 04/02/23 04/02/23 06:15 06:15 WBC 8.73 RBC 3.40 L Hgb 11.2 Hct 33.4 L MCV 98 H MCH 32.9 MCHC 33.5 RDW 13.2 Plt Count 341 MPV 8.5 Immature Gran % 0.3 Neutrophils % 71.5 Lymphocytes % 21.3 Monocytes % 5.3 Eosinophils % 1.1 Basophils % 0.5 Nucleated RBC % 0.0 Absolute Neutrophils 6.24 Absolute Lymphocytes 1.86 Absolute Monocytes 0.46 Absolute Eosinophils 0.10 Absolute Basophils 0.04 Sodium 136 Potassium 4.1 Chloride 101 Carbon Dioxide 24.5 Anion Gap 10.5 BUN 16 Creatinine 1.5 H Est GFR (CKD-EPI 2020) 38.43 Glucose 111 H Calcium 10.3 H Magnesium 1.7 L C-Reactive Protein 5.17 H PFSH All Active Problems Constipation (Acute) Ascites (Acute) Hypertensive urgency (Acute) Nausea (Acute) Hypokalemia (Chronic) Discharge planning issues (Acute) DVT prophylaxis (Acute) Colitis (Acute) DANIEL (acute kidney injury) (Acute ~09/2022) Hydronephrosis of right kidney (Acute ~10/2022) Ureteral stricture, right (Acute) CKD (chronic kidney disease) stage 3, GFR 30-59 ml/min (Chronic) Essential hypertension (Chronic) Hyperlipidemia (Chronic) Osteoporosis (Chronic) Prediabetes (Chronic) PTSD (post-traumatic stress disorder) (Chronic) GERD (gastroesophageal reflux disease) (Chronic) Lumbosacral radiculopathy due to degenerative joint disease of spine (Chronic) Chronic low back pain (Chronic) Overactive bladder (Chronic) Cigarette smoker (Chronic) Medical History Endometriosis Surgical History History of bilateral tubal ligation (04/15/86) History of carpal tunnel surgery of right wrist (~2006) History of operative procedure on lumbosacral spinal structure (02/08/22) RFA 02/08/22 Hx of esophagogastroduodenoscopy (11/20/06) S/P section (04/15/86) S/P colonoscopy (12/06/16) 02/2022 S/P cystoscopy with ureteral stent placement (11/01/22) Right retrograde pyelogram, right ureteroscopy, right ureteral stent S/P laparoscopic hysterectomy (~1999) Family History Mother , 76 Essential hypertension Heart disease Colon cancer Father , 81 Essential hypertension Stroke Colon cancer Brother , 48 Lung cancer Brother , 48 from accident No problems noted. Sister No problems noted. Son No problems noted. Daughter No problems noted. Maternal Grandfather No problems noted. Maternal Grandmother No problems noted. Paternal Grandfather No problems noted. Paternal Grandmother No problems noted. Social History Smoking/Tobacco Use Status: Current every day Tobacco Type: cigarettes Years smoked: 47 Tobacco: How many years used: 20 Second Hand Exposure: Yes Smoking risk assessment performed?: Yes Alcohol Intake: former Drug use: Never Substance use type: does not use Caregiver/Support person: No Household members: significant other Housing: house Number of Children: 2 Communication Needs: None Do you need help understanding health information?: Rarely current occupation: Disabled Pets and animals: Yes Pets and animals: dog(s) Sexually active: No Do you think of yourself as: straight/heterosexual Current gender identity: female What is your relationship status?: living with partner How often do you talk on the phone with friends or family?: twice per week How often do you get together with friends or relatives?: decline to answer How often do you attend baptism or methodist services?: decline to answer Do you belong to any clubs or organized social groups?: no Panel score (0-1 are the most socially isolated patients): 1 What type of physical activity do you participate in: walking Duration: 30-45 minutes/day Frequency: daily Ann-Marie/Uatsdin: Pentecostal Special ann-marie needs: No Seatbelt use: always Drive intox or ride w/intox motorcoach driver: No Do you feel safe at home: Yes Do you feel safe in your relationship?: Yes History History 2 Para 2 Hx # Term Pregnancies Multiple births Hx # Pregnancies Ectopic pregnancies AB induced Hx Number of Living Children 2 AB spontaneous
--- NOTE | 2023-04-02 17:26 | CMDISCH_ITS ---
Date of service: 04/02/23 Time of Service: 17:26 LACE Index Scoring Tool Questions: Length of Stay (in days): 2 Was the patient admitted via the E.D.?: Yes Comorbidities: Liver or Renal Disease E.D. Visits: 1 Answers: Total Score: 11 Risk of Readmission: High Risk Care Management Discharge Plan Reason for Hospitalization: Colitis Discharge Plan: Ira will be discharged home with no services. She will follow up with her PCP and plan of care as instructed and will be transported home by her partner via private vehicle. Patient/Family Education Needs: Review of discharge instructions including medi cations, limitations and follow up plan of care; discuss Ask Me Three and self management.
--- NOTE | 2023-04-02 18:45 | PGE_ITS ---
Date of Service Date of service: 04/02/23 Time of Service: 16:00 Assessment and Plan Assessment and plan (1) Colitis: Status: Acute Assessment and plan: Continue ceftriaxone and metronidazole recommendation of surgery Continue scheduled bowel regimen, stool studies, probiotics. The patient does endorse having being on antibiotics recently, so C.Diff is a possibility. . (2) Hydronephrosis of right kidney: Status: Acute Assessment and plan: Acute on chronic. No evidence of stones. The patient is known to the urology clinic for history of this. She underwent a ureteral stent placement this am that was unevenful No evidence of a UTI on this admission. (3) Hypertensive urgency: Status: Acute Assessment and plan: In setting of uncontrolled pain. Continue home atenolol, losartan and recently added amlodipine Prn IV lopressor and hydralazine Treat pain prior to BP (4) Ascites: Status: Acute Assessment and plan: This is a new problem. Seen by general surgery - they do no recommend paracenthesis (5) Constipation: Status: Acute Assessment and plan: Intensify bowel regimen. (6) CKD (chronic kidney disease) stage 3, GFR 30-59 ml/min: Status: Chronic Assessment and plan: Cr is at about baseline. Will continue to monitor post placement of a ureteral stent. (7) DVT prophylaxis: Status: Deleted Assessment and plan: Start SC heparin (8) Discharge planning issues: Status: Deleted Assessment and plan: Full code Continues to require hospitalization Discussed with Dr Mora Subjective Subjective Patient reports: no new complaints, feels better, tolerating a regular diet, bowel movement and afebrile; denies flatus, diarrhea, nausea or vomiting Interval history since last seen: Ira states she is feeling better and requested to go home. After discharge was completed she said she stated her ride left and she had no way to get home. [facility] was closed for the day. Exam Const General: cooperative, comfortable and no acute distress Nutritional Appearance: average body habitus Orientation: alert, awake and oriented x3 Eyes General: appearance normal, both eyes and all related structures Neck Neck: normal visual inspection, full ROM and supple Resp Effort & Inspection: normal respiratory effort Auscultation: clear to auscultation bilaterally Cardio Jugular venous pressure: no JVD Rate: regular rate Rhythm: regular rhythm GI Inspection: normal to inspection Palpation: soft Percussion: dullness to percussion Auscultation: hypoactive bowel sounds Skin General skin exam: no rashes or lesions noted Objective Last Vital Signs Temp 35.4 C L 04/02/23 15:20 Pulse 71 04/02/23 15:20 Resp 18 04/02/23 15:20 BP 168/85 H 04/02/23 15:20 Pulse Ox 92 04/02/23 15:20 Laboratory Results - last 24 hr 04/02/23 04/02/23 06:15 06:15 WBC 8.73 RBC 3.40 L Hgb 11.2 Hct 33.4 L MCV 98 H MCH 32.9 MCHC 33.5 RDW 13.2 Plt Count 341 MPV 8.5 Immature Gran % 0.3 Neutrophils % 71.5 Lymphocytes % 21.3 Monocytes % 5.3 Eosinophils % 1.1 Basophils % 0.5 Nucleated RBC % 0.0 Absolute Neutrophils 6.24 Absolute Lymphocytes 1.86 Absolute Monocytes 0.46 Absolute Eosinophils 0.10 Absolute Basophils 0.04 Sodium 136 Potassium 4.1 Chloride 101 Carbon Dioxide 24.5 Anion Gap 10.5 BUN 16 Creatinine 1.5 H Est GFR (CKD-EPI 2020) 38.43 Glucose 111 H Calcium 10.3 H Magnesium 1.7 L C-Reactive Protein 5.17 H Time Spent with Patient Time Spent with Patient: 25-34 minutes Time was spent: preparing to see the patient(eg.review tests), ordering medications,tests, procedures, referring, communicating with other health transition of care specialist, indepentently interpreting results and counseling the patient
[2023-04-03] MEDS: oxyCODONE 5 MG TAB PO ×2 (00:08→06:10)
[2023-04-03 01:07] VITALS: PULSE 88
[2023-04-03] MEDS: HYDROmorphone 2 MG/ML SYR IVP (01:07)
[2023-04-03] MEDS: metroNIDAZOLE 500 MG/100 ML BAG 100 MG IVPB ×2 (01:08→08:08)
[2023-04-03 01:11] VITALS: BP 170/90; PULSE 78; RESP 18; TEMP 36.9; O2SAT 94
[2023-04-03] MEDS: Ketorolac 15 MG/ML VIAL IVP (02:46)
[2023-04-03] MEDS: ACETAMINOPHEN 1,000 MG/100 ML BTL 400 MG IVPB (05:06)
[2023-04-03 07:00] VITALS: PULSE 91
[2023-04-03 07:26] VITALS: BP 184/96; PULSE 89; RESP 18; TEMP 36.6; O2SAT 96
[2023-04-03 07:46] VITALS: BP 125/75; PULSE 63; RESP 18; TEMP 36.5; O2SAT 95
[2023-04-03] MEDS: Losartan 50 MG TAB PO (08:00)
[2023-04-03] MEDS: Omeprazole 20 MG CAPCR 40 MG PO (08:00)
[2023-04-03] MEDS: Docusate Sodium 100 MG CAP PO (08:01)
[2023-04-03] MEDS: amLODIPine 5 MG TAB PO (08:02)
[2023-04-03] MEDS: Atenolol 50 MG TAB PO (08:02)
[2023-04-03] MEDS: Potassium Chloride 20 MEQ TABCR PO (08:03)
[2023-04-03] MEDS: Polyethylene Glycol 3350 17 GM PACKET PO (08:09)
[2023-04-03] MEDS: Normal Saline Flush 10 ML SYR IVP (08:09)
[2023-04-03] MEDS: cefTRIAXone 1 GM/50 ML BAG IVPB (09:57)
--- NOTE | 2023-04-03 10:14 | DSE_ITS ---
Date of service: 04/03/23 Time of Service: 10:14 DS: Diagnosis Discharge Diagnosis (1) Hydronephrosis of right kidney: Status: Chronic Discharge Plan Disposition Patient Disposition: Home Condition: Fair Discharge Details Reason For Visit: Colitis Admit Date/Time: 03/31/23 07:34 Admit Provider: Liban Cody Attending Provider: Liban Cody Primary Care Provider: Susan Arrieta Hospital Course Hospital Course: This is a 67-year-old female with a past medical history of PTSD, GERD, right-sided hydronephrosis secondary to ureteral stricture, which eventually led to a stent, then subsequent removal of the stent led to a return and worsening of her symptoms. She is awaiting a nephrectomy which is scheduled to be done at [facility]. Presented here to the emergency department with increasing right-sided flank pain. Her work-up in the emergency department did show worsening hydronephrosis with hydroureter. Her work-up in the emergency department also showed colitis so she was started on treatment with metronidazole ceftriaxone and admitted to the hospitalist services. Also was experiencing constipation thought to be due to her chronic opioid use and was given Relistor. She was seen by Dr. Parsons regarding her hydronephrosis and stent was again placed. Her pain and nausea became controlled with antiemetics and oral pain medicine. She medically stabilized and was felt ready for discharge to home. She was started on amlodipine for poorly controlled blood pressures while hospitalized. And will be discharged home on cefpodoxime and metronidazole to complete her course for colitis. She is discharged to home with no services. Discharge is discussed with Dr. Mora?? Home Meds and New Rx's Prescriptions: New amlodipine 5 mg Tablet 5 mg PO DAILY Qty: 30 0RF metronidazole 500 mg tablet 500 mg PO Q6H Qty: 22 0RF Rx Instructions: continued hospital course cefpodoxime 200 mg tablet 200 mg PO BID Qty: 22 0RF Rx Instructions: must administer with a meal/food Do not drink alcohol Continued naloxone [Narcan] 4 mg/actuation spray,non-aerosol 1 spray intranasal Q2-3M PRN (Reason: opioid overdose) Qty: 2 4RF Rx Instructions: spray 1 dose into ONE nostril; alternate nostrils w each dose until help arrives atenolol 50 mg tablet 50 mg PO DAILY Qty: 90 3RF losartan 50 mg tablet 50 mg PO DAILY Qty: 90 3RF docusate sodium [Colace] 100 mg capsule 100 mg PO BID PRNQty: 180 Patient Comments: 04/11/16 PRN only/pps ibuprofen 200 mg Tablet 200 mg PO Q6H PRN omeprazole 40 mg capsule,delayed release(DR/EC) 40 mg PO .Daily to BID Qty: 180 3RF Rx Instructions: Take 1 pill once to twice a day for heartburn oxycodone-acetaminophen 5-325 mg tablet 1 tab PO .4 to 5 times a day MDD 5 tablets Qty: 117 0RF Rx Instructions: Take 1 tablet four times a day for chronic low back pain potassium chloride 20 mEq tablet extended release 20 meq PO BID Qty: 30 0RF No Action hydromorphone [Dilaudid] 2 mg tablet 2 mg PO Q6H MDD 4 tabs PRN (Reason: pain) Qty: 20 0RF Discharge Instructions Instructions: Metronidazole (By mouth), Cefpodoxime Proxetil (By mouth), Hypertension (DC), Colitis (ED), Ureteral Stent Placement (DC) Additional Instructions: Take your antibiotics until they are finished. Stand Alone Forms: Nursing Discharge Form Referrals: Susan Arrieta [employer] [Primary Care Provider] - (Dr Arrieta's office would like you to call [phone] later today to set up an Appointment as they are updating computers till 1pm and can not make appointments at this time.) Janes Parsons MD [ [facility] STAFF PHYSICIAN] - (A Nurse from Dr Parsons's office will call you with an appointment after they look at your referral ) Activity:: Activity as Tolerated Equipment/Supplies:: No Equipment Needed Diet:: As Tolerated Discharge Orders Discharge Orders: Discharge Order (Routine); Ordered 04/03/23 Ordered By: Lori Cervantes Discharge Data Discharge Date/Time-TO BE ENTERED AT DEPARTURE: 04/03/23 11:21 DS: Summary Time Spent with Patient providing and/or coordinating discharge services: Greater than 30 minutes Status at Discharge Functional status at discharge: uses cane/walker Overall status at discharge: patient is progressing back to baseline Mental Status: mental status grossly normal Speech and Movement: speech and movement normal Mood: congruent mood Affect: normal affect Exam Const General: cooperative, comfortable and no acute distress Nutritional Appearance: thin Orientation: alert, awake and oriented x3 HENMT Head: normocephalic and atraumatic Eyes General: appearance normal, both eyes and all related structures Neck Neck: normal visual inspection and full ROM Chest Chest: normal inspection of the chest Resp Effort & Inspection: normal respiratory effort Auscultation: clear to auscultation bilaterally Cardio Rate: regular rate Rhythm: regular rhythm GI Inspection: normal to inspection Palpation: soft Skin General skin exam: no rashes or lesions noted Neuro General: patient alert and patient awake Extrem General: normal to inspection and no pedal edema Psych Mental Status: mental status grossly normal Speech and Movement: speech and movement normal Mood: congruent mood Affect: normal affect DS: Data Vitals/I&O Vitals and I&O: Vital Signs Temperature 36.5 C 04/03/23 07:46 Temperature Source Tympanic 04/03/23 07:46 Pulse 63 04/03/23 07:46 Pulse Rhythm Regular 04/03/23 08:11 Pulse 83 03/31/23 07:57 Respiratory Rate 18 04/03/23 07:46 Respiratory Effort Normal 04/03/23 08:11 Respiratory Depth Normal 04/03/23 08:11 Respiratory Pattern Normal 04/03/23 08:11 Blood Pressure 125/75 04/03/23 07:46 Blood Pressure Mean 106 03/31/23 07:57 Pulse Oximetry 95 04/03/23 07:46 Oxygen Delivery Method Room Air 04/03/23 07:46 Oxygen Flow Rate 0 04/03/23 07:46 Pain Level 0 04/03/23 07:46 Comment patient rating pain at a 10/10 is observed resting comfortably at side of bed but when she notices nurse she starts getting tearful and grabbing her stomach and moaning which stops as soon as nurse leaves the room 04/03/23 01:11 Intake & Output 04/02/23 04/02/23 04/03/23 11:59 23:59 11:59 Intake Total 700 / 1000 300 / 1000 200 / 200 Output Total 500 / 1500 1000 / 1500 200 / 200 Balance 200 / -500 -700 / -500 0 / 0 Weight 47.174 kg Intake: IV 700 / 1000 300 / 1000 200 / 200 Output: Urine 500 / 1500 1000 / 1500 200 / 200 Other: Urine Color Pale Light Ana Light Ana Yellow Urine Appearance Clear Clear Clear Urine Odor None None Comment PACU. Stool Size Small Stool Characteristics Formed Hard Emesis Description None Voiding Methods Bedpan Toilet PFSH All Active Problems (Updated 04/05/23 @ 01:57 by Nabil Baker) Hypercalcemia (Acute) Acute confusion (Acute) Lesion of brain (Acute) Constipation (Acute) Ascites (Acute) Hypertensive urgency (Acute) Nausea (Acute) Hypokalemia (Chronic) Colitis (Acute) DANIEL (acute kidney injury) (Acute ~09/2022) Hydronephrosis of right kidney (Chronic ~10/2022) Ureteral stricture, right (Acute) CKD (chronic kidney disease) stage 3, GFR 30-59 ml/min (Chronic) Essential hypertension (Chronic) Hyperlipidemia (Chronic) Osteoporosis (Chronic) Prediabetes (Chronic) PTSD (post-traumatic stress disorder) (Chronic) GERD (gastroesophageal reflux disease) (Chronic) Lumbosacral radiculopathy due to degenerative joint disease of spine (Chronic) Chronic low back pain (Chronic) Overactive bladder (Chronic) Cigarette smoker (Chronic) Medical History Endometriosis Surgical History History of bilateral tubal ligation (04/15/86) History of carpal tunnel surgery of right wrist (~2006) History of operative procedure on lumbosacral spinal structure (02/08/22) RFA 02/08/22 Hx of esophagogastroduodenoscopy (11/20/06) S/P section (04/15/86) S/P colonoscopy (12/06/16) 02/2022 S/P cystoscopy with ureteral stent placement (11/01/22) Right retrograde pyelogram, right ureteroscopy, right ureteral stent S/P laparoscopic hysterectomy (~1999) Family History Mother , 76 Essential hypertension Heart disease Colon cancer Father , 81 Essential hypertension Stroke Colon cancer Brother , 48 Lung cancer Brother , 48 from accident No problems noted. Sister No problems noted. Son No problems noted. Daughter No problems noted. Maternal Grandfather No problems noted. Maternal Grandmother No problems noted. Paternal Grandfather No problems noted. Paternal Grandmother No problems noted. Social History Smoking/Tobacco Use Status: Current every day Tobacco Type: cigarettes Years smoked: 47 Tobacco: How many years used: 20 Second Hand Exposure: Yes Smoking risk assessment performed?: Yes Alcohol Intake: former Drug use: Never Substance use type: does not use Caregiver/Support person: No Household members: significant other Housing: house Number of Children: 2 Communication Needs: None Do you need help understanding health information?: Rarely current occupation: Disabled Pets and animals: Yes Pets and animals: dog(s) Sexually active: No Do you think of yourself as: straight/heterosexual Current gender identity: female What is your relationship status?: living with partner How often do you talk on the phone with friends or family?: twice per week How often do you get together with friends or relatives?: decline to answer How often do you attend oriental orthodox or jain services?: decline to answer Do you belong to any clubs or organized social groups?: no Panel score (0-1 are the most socially isolated patients): 1 What type of physical activity do you participate in: walking Duration: 30-45 minutes/day Frequency: daily Ann-Marie/Latter-Day: Pentecostal Special ann-marie needs: No Seatbelt use: always Drive intox or ride w/intox interstate bus driver: No Do you feel safe at home: Yes Do you feel safe in your relationship?: Yes History History 2 Para 2 Hx # Term Pregnancies Multiple births Hx # Pregnancies Ectopic pregnancies AB induced Hx Number of Living Children 2 AB spontaneous Time Spent with Patient Time Spent with Patient: 45-69 minutes Time was spent: preparing to see the patient(eg.review tests), obtaining and/or reviewing separately otained hiistory, ordering medications,tests, procedures, indepentently interpreting results and counseling the patient
== END 2023-04-03 11:21 | disposition home or self-care (01) | DRG 694 ==
LOC: ER 08:07 → MS 08:19
PROVIDERS: Internal Medicine; Urology; Admitting Provider Family Medicine; Emergency Provider Student in an Organized Health Care Education/Training Program; PCP Nurse Practitioner Family; Visit Provider Family Medicine
PROC: 0T9680Z Drainage of Right Ureter with Drainage Device, Via Natural or Artificial Opening Endoscopic (ICD-10-PCS; CPT 74450; principal; 2023-04-02 07:30)
DX: N13.30 Unspecified hydronephrosis (principal); R18.8 Other ascites; K52.9 Noninfective gastroenteritis and colitis, unspecified; R11.0 Nausea; I12.9 Hypertensive chronic kidney disease with stage 1 through stage 4 chronic kidney disease, or unspecified chronic kidney disease; E87.6 Hypokalemia; K21.9 Gastro-esophageal reflux disease without esophagitis; I16.0 Hypertensive urgency; K59.00 Constipation, unspecified; F43.10 Post-traumatic stress disorder, unspecified; N18.30 Chronic kidney disease, stage 3 unspecified; E78.5 Hyperlipidemia, unspecified; M81.0 Age-related osteoporosis without current pathological fracture; M47.26 Other spondylosis with radiculopathy, lumbar region; F17.210 Nicotine dependence, cigarettes, uncomplicated; G89.29 Other chronic pain; M54.50 Low back pain, unspecified; R73.03 Prediabetes; N32.81 Overactive bladder; K57.30 Diverticulosis of large intestine without perforation or abscess without bleeding
CPT/HCPCS: 52332; 36415; 80048; 80053; 82306; 83690; 84145; 93005; 99222; 74176; 74420; 81003; 83605; 83735; 84484; 85025; 86140; 93010; 99232; 99233; 99239; J0131; J0696; J1170; J1644; J1885; J2250; J2270; J2405; J3010; Q9967

== ENCOUNTER → 2023-04-01 10:39 | Outpatient (BNVA) | payer MEDICARE, SELFPAY | PROVIDERS: PCP Nurse Practitioner Family; Referring Provider Nurse Practitioner Family; Visit Provider Urology ==

== ENCOUNTER → 2023-04-02 08:53 | Outpatient (BNVA) | payer MEDICARE, SELFPAY | PROVIDERS: PCP Nurse Practitioner Family; Referring Provider Nurse Practitioner Family; Visit Provider Urology ==

== ENCOUNTER 2023-04-04 19:56 | Inpatient (IN) | payer MEDICARE, SELFPAY ==
[2023-04-04] VITALS (27 sets, daily range): BP systolic 126–188; BP diastolic 70–100; PULSE 74–94; RESP 14–28; TEMP 36.8; O2SAT 93–95
--- NOTE | 2023-04-04 20:15 | RT.EKG_ITS ---
APPROVED REPORT Exam: Resting ECG Reason for Exam: stroke alert Patient Location: E HR:74 bpm ECG Measurements Heart Rate 74 AXIS CA 137 P 77 QRSd 81 QRS -3 QT 373 T -10 QTc 414 Conclusion Sinus rhythm...normal P axis, V-rate 60- 99 Probable left atrial enlargement...P >50mS, <-0.10mV V1
--- NOTE | 2023-04-04 20:15 | RT.EKG_ITS ---
APPROVED REPORT Exam: Resting ECG Reason for Exam: expressive aphasia Patient Location: I HR:68 bpm ECG Measurements Heart Rate 68 AXIS WV 147 P 0 QRSd 83 QRS -15 QT 371 T 30 QTc 395 Conclusion Sinus rhythm...normal P axis, V-rate 60- 99
--- NOTE | 2023-04-04 20:15 | DI.CT_ITS ---
Exam(s) CT HEAD WO EXAM: CT HEAD WO CLINICAL HISTORY: confusion / expressive aphasia. STROKE PROTOCOL. TECHNIQUE: Imaging Protocol: Axial computed tomography images with coronal and sagittal reformatted images were created and reviewed COMPARISON: No exams were available for comparison FINDINGS: There are no skull fractures. However, there is a lytic lesion in the left occipital skull with absen ce of the inner table and mottled appearance of the outer table, this skull lesion measuring approxim ately 2 cm wide. There are no other skull lesions evident. There is no evidence of intracranial hemorrhage, mass effect, or shift of midline structures. There are no extra-axial fluid collections. The ventricles are not enlarged or shifted and there is no blo od within the ventricular system nor within the basal cisterns. There is periventricular hypodensity consistent with chronic small-vessel white matter ischemic sarah es. No obvious acute territorial infarct. IMPRESSION: Bilateral chronic white matter changes consistent with chronic microvascular ischemic disease. There is a lytic lesion in the left occipital bone of the skull as described above. Although arachno id granulation can have this appearance, other main considerations are for metastatic disease or mult iple myeloma. Correlation with prior medical history is recommended. First read by [facility]. RADIATION DOSE DELIVERED: 657.68mGy.cm Total DLP DATA REPOSITORY: All CT scans at this facility are submitted to the National Radiology Data Registry (NRDR) Dose Index Registry (DIR) with the [employer] ([employer]). RADIATION OPTIMIZATION: All CT scans at this facility use at least one of these dose optimization te chniques: automated exposure control; mA and/or kV adjustment per patient size (includes targeted exa ms where dose is matched to clinical indication); or iterative reconstruction.
--- NOTE | 2023-04-04 20:28 | ED.GENADUL_ITS ---
Discharge Plan Discharge Details Chief Complaint: GenMedical Clinical Impression: Acute confusion, Lesion of brain Primary Care Provider: Susan Arrieta ED Provider: Will Womack Home Meds and New Rx's Prescriptions: No Action naloxone [Narcan] 4 mg/actuation spray,non-aerosol 1 spray intranasal Q2-3M PRN (Reason: opioid overdose) Qty: 2 4RF Rx Instructions: spray 1 dose into ONE nostril; alternate nostrils w each dose until help arrives atenolol 50 mg tablet 50 mg PO DAILY Qty: 90 3RF hydromorphone [Dilaudid] 2 mg tablet 2 mg PO Q6H MDD 4 tabs PRN (Reason: pain) Qty: 20 0RF losartan 50 mg tablet 50 mg PO DAILY Qty: 90 3RF docusate sodium [Colace] 100 mg capsule 100 mg PO BID PRNQty: 180 Patient Comments: 04/11/16 PRN only/pps ibuprofen 200 mg Tablet 200 mg PO Q6H PRN omeprazole 40 mg capsule,delayed release(DR/EC) 40 mg PO .Daily to BID Qty: 180 3RF Rx Instructions: Take 1 pill once to twice a day for heartburn oxycodone-acetaminophen 5-325 mg tablet 1 tab PO .4 to 5 times a day MDD 5 tablets Qty: 117 0RF Rx Instructions: Take 1 tablet four times a day for chronic low back pain potassium chloride 20 mEq tablet extended release 20 meq PO BID Qty: 30 0RF amlodipine 5 mg Tablet 5 mg PO DAILY Qty: 30 0RF metronidazole 500 mg tablet 500 mg PO Q6H Qty: 22 0RF Rx Instructions: continued hospital course cefpodoxime 200 mg tablet 200 mg PO BID Qty: 22 0RF Rx Instructions: must administer with a meal/food Do not drink alcohol Medical Decision Making Patient presents to the emergency department with subacute onset of what appears to be confusion. It is persisting greater than 8 hours. Recent illness in the hospital for colitis however no obvious infectious source at this time. Possible dehydration possible to likely hypercalcemia as the cause of her confusion. Ammonia level is normal. CT scan of the brain suggests a possible lytic lesion in the brain. Suspect stroke and or intracranial mass previously undiagnosed. Patient was presented to the hospitalist service for further observation and MRI. Aspirin was administered. Patient is not a tPA candidate due to low NIH score nonlateralizing deficit and unknown onset of symptoms. Differential Diagnosis Differential Diagnosis: Stroke/intracranial mass/encephalopathy Medical Records Medical records reviewed: Yes I reviewed the patient's medical records. Lab Data Lab results reviewed: Yes I reviewed the patient's lab results. HPI General Date/Time Provider Initiated Documentation: 04/04/23 20:24 . HPI Narrative: Patient with a recent hospital admission to our facility for over diagnosis of colitis. Discharge 4 days ago. Was doing well at home until midmorning when she stated she was having episodes of confusion. Specifically she states she was having difficulty reading her [place] and using her phone on. returned around 2 PM to find the patient confused. No focal weakness minimal difficulty ambulating no facial droop. Primary issue is confusion. After several hours of no improvement they presented to the emergency department 8 hours after onset of symptoms. Timeframe is not clear as the patient was alone when her symptoms started and she is now confused. No previous history of episodes such as this. Denies recent fevers dehydration chills or headaches. Related Data Home Medications Medication Instructions Recorded Confirmed docusate sodium 100 mg capsule 100 mg PO BID PRN #180 caps 09/09/18 04/04/23 (Colace) naloxone 4 mg/actuation nasal 1 spray intranasal Q2-3M PRN 08/16/20 04/04/23 spray (Narcan) opioid overdose #2 ea ibuprofen 200 mg tablet 200 mg PO Q6H PRN 02/06/22 04/04/23 atenolol 50 mg tablet 50 mg PO DAILY #90 tabs 08/30/22 04/04/23 losartan 50 mg tablet 50 mg PO DAILY #90 tabs 02/07/23 04/04/23 omeprazole 40 mg capsule,delayed 40 mg PO .Daily to BID #180 02/25/23 04/04/23 release tab-caps oxycodone-acetaminophen 5 mg-325 1 tab PO .4 to 5 times a day pain 03/21/23 04/04/23 mg tablet #117 tabs potassium chloride 20 mEq 20 meq PO BID #30 tabs 03/27/23 04/04/23 tablet,extended release amlodipine 5 mg tablet 5 mg PO DAILY #30 tabs 04/02/23 04/04/23 cefpodoxime 200 mg tablet 200 mg PO BID #22 tabs 04/02/23 04/04/23 metronidazole 500 mg tablet 500 mg PO Q6H #22 tabs 04/02/23 04/04/23 hydromorphone 2 mg tablet 2 mg PO Q6H PRN pain #20 tabs 04/04/23 04/04/23 (Dilaudid) Previous Rx's Medication Instructions Recorded naloxone 4 mg/actuation nasal 1 spray intranasal Q2-3M PRN 08/16/20 spray (Narcan) opioid overdose #2 ea atenolol 50 mg tablet 50 mg PO DAILY #90 tabs 08/30/22 losartan 50 mg tablet 50 mg PO DAILY #90 tabs 02/07/23 omeprazole 40 mg capsule,delayed 40 mg PO .Daily to BID #180 02/25/23 release tab-caps oxycodone-acetaminophen 5 mg-325 1 tab PO .4 to 5 times a day pain 03/21/23 mg tablet #117 tabs potassium chloride 20 mEq 20 meq PO BID #30 tabs 03/27/23 tablet,extended release amlodipine 5 mg tablet 5 mg PO DAILY #30 tabs 04/02/23 cefpodoxime 200 mg tablet 200 mg PO BID #22 tabs 04/02/23 metronidazole 500 mg tablet 500 mg PO Q6H #22 tabs 04/02/23 hydromorphone 2 mg tablet 2 mg PO Q6H PRN pain #20 tabs 04/04/23 (Dilaudid) Allergies Allergy/AdvReac Type Severity Reaction Status Date / Time mirtazapine AdvReac Lightheaded Verified 04/04/23 20:10 ness General Stated Complaint: GenMedical PURA: 3 Review of Systems Narrative: REVIEW OF SYSTEMS: CONST: Negative for fever, body aches and chills. HENT: Negative for neck pain/stiffness, headache, congestion, sore throat, swelling. EYES: Negative for discharge/pain or vision changes. RESP: Negative for cough/hemoptysis and shortness of breath. CV: Negative chest pain, difficulty breathing, palpitations. ABD: Negative pain, nausea, vomiting. : Negative increase frequency, dysuria, blood in urine or stool. MUSC: Negative for muscle aches, edema. SKIN: Negative rash, lesions/sores. NEURO: . PFSH All Active Problems Acute confusion (Acute) Lesion of brain (Acute) Constipation (Acute) Ascites (Acute) Hypertensive urgency (Acute) Nausea (Acute) Hypokalemia (Chronic) Colitis (Acute) DANIEL (acute kidney injury) (Acute ~09/2022) Hydronephrosis of right kidney (Acute ~10/2022) Ureteral stricture, right (Acute) CKD (chronic kidney disease) stage 3, GFR 30-59 ml/min (Chronic) Essential hypertension (Chronic) Hyperlipidemia (Chronic) Osteoporosis (Chronic) Prediabetes (Chronic) PTSD (post-traumatic stress disorder) (Chronic) GERD (gastroesophageal reflux disease) (Chronic) Lumbosacral radiculopathy due to degenerative joint disease of spine (Chronic) Chronic low back pain (Chronic) Overactive bladder (Chronic) Cigarette smoker (Chronic) Medical History Endometriosis Surgical History History of bilateral tubal ligation (04/15/86) History of carpal tunnel surgery of right wrist (~2006) History of operative procedure on lumbosacral spinal structure (02/08/22) RFA 02/08/22 Hx of esophagogastroduodenoscopy (11/20/06) S/P section (04/15/86) S/P colonoscopy (12/06/16) 02/2022 S/P cystoscopy with ureteral stent placement (11/01/22) Right retrograde pyelogram, right ureteroscopy, right ureteral stent S/P laparoscopic hysterectomy (~1999) Family History Mother , 76 Essential hypertension Heart disease Colon cancer Father , 81 Essential hypertension Stroke Colon cancer Brother , 48 Lung cancer Brother , 48 from accident No problems noted. Sister No problems noted. Son No problems noted. Daughter No problems noted. Maternal Grandfather No problems noted. Maternal Grandmother No problems noted. Paternal Grandfather No problems noted. Paternal Grandmother No problems noted. Social History Smoking/Tobacco Use Status: Current every day Tobacco Type: cigarettes Years smoked: 47 Tobacco: How many years used: 20 Second Hand Exposure: Yes Smoking risk assessment performed?: Yes Alcohol Intake: former Drug use: Never Substance use type: does not use Caregiver/Support person: No Household members: significant other Housing: house Number of Children: 2 Communication Needs: None Do you need help understanding health information?: Rarely current occupation: Disabled Pets and animals: Yes Pets and animals: dog(s) Sexually active: No Do you think of yourself as: straight/heterosexual Current gender identity: female What is your relationship status?: living with partner How often do you talk on the phone with friends or family?: twice per week How often do you get together with friends or relatives?: decline to answer How often do you attend restorationist or anglican services?: decline to answer Do you belong to any clubs or organized social groups?: no Panel score (0-1 are the most socially isolated patients): 1 What type of physical activity do you participate in: walking Duration: 30-45 minutes/day Frequency: daily Ann-Marie/Yazdanism: Zoroastrian Special ann-marie needs: No Seatbelt use: always Drive intox or ride w/intox emergency vehicle driver: No Do you feel safe at home: Yes Do you feel safe in your relationship?: Yes History History 2 Para 2 Hx # Term Pregnancies Multiple births Hx # Pregnancies Ectopic pregnancies AB induced Hx Number of Living Children 2 AB spontaneous Exam Narrative Exam Narrative: GENERAL APPEARANCE NAD, activity normal for age, well developed/ well nourished, no cyanosis, pallor, or diaphoresis. EYES lids/conjunctiva normal. EARS/NOSE/THROAT Mucous membranes moist, nares normal, lips/teeth normal uvula midline without oral pharyngeal erythema, exudate or swelling No lymphangitis/lymphedema. HEAD/NECK normocephalic atraumatic, no facial trauma, neck is supple. RESPIRATORY respiratory effort normal, speaks in full sentences, no tripod position, no accessory muscle use. Lungs clear to auscultation without rhonchi, wheezes, rales CARDIAC Regular rate and rhythm, no edema. ABDOMINAL Soft, ND/NT. No evidence of fluid wave. No pulsatile masses on exam, rebound tenderness, Benson sign or pain over Mcburney's point. MUSCLES/EXTREMITIES No abnormal range of motion, no swelling. SKIN Warm, pink and dry. No rashes, dermatoses, petechiae or lesions. NEUROLOGICAL Speech is clear and appropriate. Normal level of consciousness. G ait and coordination are normal. 5/5 strength in all extremities. No nystagmus no disconjugate gaze. Cranial nerves II through XII are intact. No pronator drift. Negative Romberg sign. No dysarthria. Patient appears to have some degree of expressive aphasia or word finding difficulty. Appears more as confusion than strict language deficit. PSYCH Normal mood and affect. Judgement/competence is appropriate Course Reevaluation(s) Initial Evaluation: stroke alert called. Brief: confusion and expressive aphasia. NIH = 1 , no localizing deficits. Possible encephalopathy Time: 20:28 Vital Signs Vital signs: Vital Signs Temperature 36.8 C 04/04/23 20:05 Pulse 78 04/04/23 20:05 Respiratory Rate 16 04/04/23 20:05 Blood Pressure 126/75 04/04/23 20:05 Pulse Oximetry 94 04/04/23 20:05 Temperature 36.8 C 04/04/23 20:05 Temperature Source Oral 04/04/23 20:05 Pulse 78 04/04/23 20:05 Respiratory Rate 16 04/04/23 20:20 Respiratory Effort Normal, Short of Breath 04/04/23 20:20 Respiratory Depth Normal 04/04/23 20:20 Respiratory Pattern Normal 04/04/23 20:20 Blood Pressure 126/75 04/04/23 20:05 Blood Pressure Position Sitting 04/04/23 20:05 Pulse Oximetry 94 04/04/23 20:05 Oxygen Delivery Method Room Air 04/04/23 20:05 Oxygen Flow Rate 0 04/04/23 20:05 Pain Level 8 04/04/23 20:05
[2023-04-04 20:38] LABS: Abs Immature Grans 0.08 10^3/uL (0.0-0.06); Absolute Basophil Count 0.04 10^3/uL (0.0-0.2); Absolute Monocyte Count 0.82 10^3/uL (0.1-0.8); Basophils % 0.3; Eosinophils % 1.5; HCT 36.4 % (36.0-46.0); Immature Grans % 0.6; Lymphocytes % 21.5; MCH 32.8 pg (27.0-33.0); MCV 100 fL (80-95); MPV 8.7 fL (8.0-11.0); Monocytes % 6.3; Neutrophils % 69.8; Platelet Count 440 10^3/uL (130-400); RBC 3.66 10^6/uL (3.93-5.22); RDW 13.1 % (11.7-14.6); WBC 13.04 10^3/uL (4.4-10.8)
[2023-04-04 20:49] LABS: INR 1.1 (0.9-1.1); Prothrombin Time 11.5 sec (9.3-11.0)
[2023-04-04 20:55] LABS: ALT 12 U/L (14-59); AST 15 U/L (15-37); Albumin 3.6 g/dL (3.4-5.0); Alkaline Phosphatase 88 U/L (46-116); Anion Gap 11.5 mmol/L (3-11); BUN 23 mg/dL (7-18); Bilirubin, Total 0.4 mg/dL (0.2-1.0); CO2 25.5 mmol/L (21.0-32.0); CREATININE 1.7 mg/dL (0.55-1.02); Chloride 100 mmol/L (98-107); Estimated GFR 33.07 (mL/min/1.73m2); Glucose 134 mg/dL (74-106); Magnesium 1.6 mg/dL (1.8-2.4); Potassium 4.7 mmol/L (3.5-5.1); Sodium 137 mmol/L (136-145); Total Protein 8.5 g/dL (6.4-8.2); Troponin I < 50 ng/L (<or=60)
[2023-04-04 21:00] LABS: Calcium 11.7 mg/dL (8.5-10.1)
--- NOTE | 2023-04-04 21:03 | DI.VRAD_ITS ---
Addendum created by Laurie Arana MD on 04/04/2023 9:08:25 PM EDT: THIS REPORT CONTAINS FINDINGS THAT MAY BE CRITICAL TO PATIENT CARE. The findings were verbally communicated via telephone conference with Will Womack at 9:07 PM EDT on 04/04/2023. The findings were acknowledged and understood. Initial report created on 04/04/2023 9:01:45 PM EDT: PROCEDURE INFORMATION: Exam: CT Head Without Contrast Exam date and time: 04/04/2023 8:34 PM Age: 67 years old Clinical indication: Stroke-like symptoms; Other: Confusion / expressive aphasia. Stroke protocol TECHNIQUE: Imaging protocol: Computed tomography of the head without contrast. Radiation optimization: All CT scans at this facility use at least one of these dose optimization techniques: automated exposure control; mA and/or kV adjustment per patient size (includes targeted exams where dose is matched to clinical indication); or iterative reconstruction. Other technique: STROKE PROTOCOL was implemented. COMPARISON: No relevant prior studies available. FINDINGS: Brain: [id number] volume loss within the brain parenchyma. Multifocal and confluent areas of low attenuation are seen within the subcortical and periventricular white matter. No loss of coyle-white differentiation to suggest an acute cortical infarct. No intracranial hemorrhage. No midline shift. Cerebral ventricles: No hydrocephalus. Paranasal sinuses: The imaged paranasal sinuses are well aerated. No air-fluid levels. Mastoid air cells: The mastoid air cells are well aerated. Orbital cavities: The intraorbital contents are normal appearance. Bones/joints: A lytic lesion is seen within the left occipital skull, with a mottled appearance of the outer cortex. The remaining skull is normal appearance. Soft tissues: Unremarkable. IMPRESSION: 1. No evidence for acute cortical infarct. No intracranial hemorrhage. 2. A lytic lesion is seen within the left occipital skull, with a mottled appearance of the outer cortex. While this may represent arachnoid granulation, a metastasis or myeloma could also give this appearance. This warrants further evaluation with an MRI of the brain with without contrast. 3. [id number] volume loss with white matter changes most commonly seen with chronic microvascular ischemic disease. ASSESSMENT: ASPECTS ([place] Stroke Program Early CT Score) is 10. Dictated and Authenticated by: Laurie Arana MD. Ordering:LOBO Solis MD
[2023-04-04 21:09] LABS: Ammonia < 10 umol/L (11-32)
[2023-04-04] MEDS: Normal Saline 500 ML 1000 ML IV (21:30)
[2023-04-04 22:49] LABS: Bilirubin Negative (Negative); Blood Moderate (Negative); Clarity Sl Cloudy (Clear); Glucose Negative (Negative); Ketones Negative (Negative); Leukocyte Esterase Small (Negative); Nitrite Negative (Negative); Specific Gravity 1.015 (1.005-1.025); Urobilinogen 0.2 mg/dL (Up to 0.2); pH 5.5 (5-8)
[2023-04-04 23:06] LABS: Bacteria Few HPF (Negative); C & S Indicated? Yes; Crystals Negative HPF (Negative); Epithelial Cells Few HPF (Negative); Mucus Negative (Negative)
[2023-04-04] MEDS: Aspirin 81 MG CHEW 162 MG CH (23:43)
--- NOTE | 2023-04-04 23:54 | HPE_ITS ---
Date of service: 04/04/23 Time of Service: 23:54 Assessment and Plan Assessment and plan (1) Acute confusion: Status: Acute Assessment and plan: This is a 67-year-old lady who had acute onset of confusional state with expression difficulties noticed by family which persisted throughout her ED evaluation and when I interviewed her. She has no headache and no other focal neurological complaints. CT of the head showed no bleed or large strokes and she will require MRI of the brain with and without contrast. This was recommended by the CT radiologist. Also her calcium being elevated could cause some confusion and this will treat with IV hydration. She may need update on her echocardiogram which also can be done with a bubble study to work-up for TIA. She was given aspirin in the ED at 162 mg and will be candidate for continued on 81 mg daily. PT and OT will see the patient for rehab re habilitation. Neurological consultation as available. Patient should stop smoking tobacco do better job of controlling her blood pressure. She is a full code. (2) DANIEL (acute kidney injury): Status: Acute Assessment and plan: Worsening renal function compared to baseline the patient having restenting done just recently. IV hydration to also help hypercalcemia. Trend labs. Dr. Parsons will continue to follow the patient for the right ureteral stone and stenting. (3) Hypercalcemia: Start date: 04/05/23 Status: Acute Assessment and plan: This may be secondary to kidney disease currently and dehydration and will be treated with IV hydration with lab trending. Adjust IV fluid resuscitation to labs. This could be a problem associated with decreased renal function and anemia when a person has multiple myeloma. This will be obtained as patient with her lytic lesion in her skull. Of note the alkaline phosphatase is not elevated which I think occurs in multiple myeloma rather than and more destructive lesions. (4) CKD (chronic kidney disease) stage 3, GFR 30-59 ml/min: Status: Chronic Assessment and plan: Slightly worsened, trend labs as patient is hydrated. (5) Hypokalemia: Status: Chronic Assessment and plan: Chronic on potassium supplement with patient not necessarily on diuretics. This may be nutritional or increased losses. Monitor with the usual supplement in the hospital. (6) Colitis: Status: Acute Assessment and plan: Recent hospitalization for colitis and discharged on cefepime and Flagyl with patient stated that her symptoms are overall better though she continues to have right abdominal discomfort from her obstructed kidney. She will continue on these medications until completion of 10 days. (7) Hydronephrosis of right kidney: Status: Chronic Assessment and plan: Recurrent with stenting multiple times and following up with urology. (8) Essential hypertension: Status: Chronic Assessment and plan: We will do permissive hypertension but currently elevated blood pressure is too high at this time. Monitor and treat with some of her usual meds dosing this evening if needed. We could give amlodipine tonight and losartan which not maximized. (9) Hyperlipidemia: Status: Chronic Assessment and plan: By history but not on statins with risk for cardiovascular disease and stroke. She will be placed on high-dose atorvastatin. (10) Chronic low back pain: Status: Chronic Assessment and plan: Chronically on narcotics with patient usually on oxycodone and preferring this though she now is on Dilaudid as a trial. This could be switched back to oxycodone if needed. She was taking this long-term for low back pain but also now takes it for her right flank pain. (11) Cigarette smoker: Status: Chronic Assessment and plan: This increases risk of cancer, heart disease and patient should stop with is recommended. She should look into the help programs for quitting tobacco. History of Present Illness History of Present Illness Chief Complaint: Confusion with word searching. Narrative: This is a 67-year-old lady who was recently hospitalized with colitis and recurrent right kidney obstruction with re-stenting during her hospital stay. She had gone home on antibiotic therapy with Flagyl and cefpodoxime and felt well the morning of admission but around noon began to have confusion with word searching and not been able to say what she was attempting. This was noticed by the patient and then her when he got home about 3 hours later also noticed her inability to express herself. This persisted and they became concerned come to the ED with evaluation a good 6 hours after the onset of symptoms with CT of the head negative for any acute processes and CTA of the head and neck avoided by the ED physician because the patient's kidney issues and not wanting to give with IV dye load. She would need to stay for an MRI of the brain anyway and since she had a possible lytic lesion on her skull she will be getting MRI with and without contrast. She had no pain and no focalizing weakness though she seems to be moving slowly and having upper extremity weakness when asked to move in bed. This appears to be more of a receptive issue. She is a smoker and currently continues to smoke. She does have hypertension but is not on a statin and not on aspirin. She was given 162 mg of aspirin in the ED and will continue on a baby aspirin. She will be initiated on high-dose statin as well. She did have slight elevation in her calcium but not dramatic and appears this could be causing some confusion but not to this extent and mostly expression rather than generalized confusion. Her is concerned about a stroke and with the patient not having headache and sudden onset of symptoms without evidence of bleed this approach to her problem is reasonable. IV hydration for mild elevation in her creatinine will help hypercalcemia. I did review her plan of treatment with the patient's . The stroke work-up will also include echocardiogram with bubble study and ultrasound of the carotids. She is a full code. Review of Systems Narrative: 13 point review of systems otherwise unrevealing or stable. She has not lost much weight and the patient's states she is always thin. PFSH All Active Problems Hypercalcemia (Acute) Acute confusion (Acute) Lesion of brain (Acute) Constipation (Acute) Ascites (Acute) Hypertensive urgency (Acute) Nausea (Acute) Hypokalemia (Chronic) Colitis (Acute) DANIEL (acute kidney injury) (Acute ~09/2022) Hydronephrosis of right kidney (Chronic ~10/2022) Ureteral stricture, right (Acute) CKD (chronic kidney disease) stage 3, GFR 30-59 ml/min (Chronic) Essential hypertension (Chronic) Hyperlipidemia (Chronic) Osteoporosis (Chronic) Prediabetes (Chronic) PTSD (post-traumatic stress disorder) (Chronic) GERD (gastroesophageal reflux disease) (Chronic) Lumbosacral radiculopathy due to degenerative joint disease of spine (Chronic) Chronic low back pain (Chronic) Overactive bladder (Chronic) Cigarette smoker (Chronic) Medical History Endometriosis Surgical History History of bilateral tubal ligation (04/15/86) History of carpal tunnel surgery of right wrist (~2006) History of operative procedure on lumbosacral spinal structure (02/08/22) RFA 02/08/22 Hx of esophagogastroduodenoscopy (11/20/06) S/P section (04/15/86) S/P colonoscopy (12/06/16) 02/2022 S/P cystoscopy with ureteral stent placement (11/01/22) Right retrograde pyelogram, right ureteroscopy, right ureteral stent S/P laparoscopic hysterectomy (~1999) Family History Mother , 76 Essential hypertension Heart disease Colon cancer Father , 81 Essential hypertension Stroke Colon cancer Brother , 48 Lung cancer Brother , 48 from accident No problems noted. Sister No problems noted. Son No problems noted. Daughter No problems noted. Maternal Grandfather No problems noted. Maternal Grandmother No problems noted. Paternal Grandfather No problems noted. Paternal Grandmother No problems noted. Social History Smoking/Tobacco Use Status: Current every day Tobacco Type: cigarettes Years smoked: 47 Tobacco: How many years used: 20 Second Hand Exposure: Yes Smoking risk assessment performed?: Yes Alcohol Intake: former Drug use: Never Substance use type: does not use Caregiver/Support person: No Household members: significant other Housing: house Number of Children: 2 Communication Needs: None Do you need help understanding health information?: Rarely current occupation: Disabled Pets and animals: Yes Pets and animals: dog(s) Sexually active: No Do you think of yourself as: straight/heterosexual Current gender identity: female What is your relationship status?: living with partner How often do you talk on the phone with friends or family?: twice per week How often do you get together with friends or relatives?: decline to answer How often do you attend zoroastrianism or yarsanism services?: decline to answer Do you belong to any clubs or organized social groups?: no Panel score (0-1 are the most socially isolated patients): 1 What type of physical activity do you participate in: walking Duration: 30-45 minutes/day Frequency: daily Ann-Marie/Jain: Holiness Special ann-marie needs: No Seatbelt use: always Drive intox or ride w/intox 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: No Do you feel safe at home: Yes Do you feel safe in your relationship?: Yes History History 2 Para 2 Hx # Term Pregnancies Multiple births Hx # Pregnancies Ectopic pregnancies AB induced Hx Number of Living Children 2 AB spontaneous Meds Allergies and Home Medications Allergies Allergy/AdvReac Type Severity Reaction Status Date / Time mirtazapine AdvReac Lightheaded Verified 04/04/23 20:10 ness Home Medications Medication Instructions Recorded Confirmed Type docusate sodium 100 mg capsule 100 mg PO BID PRN #180 caps 09/09/18 04/04/23 History (Colace) naloxone 4 mg/actuation nasal 1 spray intranasal Q2-3M PRN 08/16/20 04/04/23 Rx spray (Narcan) opioid overdose #2 ea ibuprofen 200 mg tablet 200 mg PO Q6H PRN 02/06/22 04/04/23 History atenolol 50 mg tablet 50 mg PO DAILY #90 tabs 08/30/22 04/04/23 Rx losartan 50 mg tablet 50 mg PO DAILY #90 tabs 02/07/23 04/04/23 Rx omeprazole 40 mg capsule,delayed 40 mg PO .Daily to BID #180 02/25/23 04/04/23 Rx release tab-caps oxycodone-acetaminophen 5 mg-325 1 tab PO .4 to 5 times a day pain 03/21/23 04/04/23 Rx mg tablet #117 tabs potassium chloride 20 mEq 20 meq PO BID #30 tabs 03/27/23 04/04/23 Rx tablet,extended release amlodipine 5 mg tablet 5 mg PO DAILY #30 tabs 04/02/23 04/04/23 Rx cefpodoxime 200 mg tablet 200 mg PO BID #22 tabs 04/02/23 04/04/23 Rx metronidazole 500 mg tablet 500 mg PO Q6H #22 tabs 04/02/23 04/04/23 Rx hydromorphone 2 mg tablet 2 mg PO Q6H PRN pain #20 tabs 04/04/23 04/04/23 Rx (Dilaudid) Exam Narrative Exam Narrative: General: Patient appears older than stated age with flattened affect and poor eye contact, she is speaking slowly and inappropriately not answering questions or able to state that her is in the room. She attempted to say that she is in the hospital but cannot name the hospital. She does seem to be slightly upset about not being able to express herself. She is in no acute distress. She alert and oriented possibly to person and place. HEENT: Normocephalic, eyes with pupils equal and react to light symmetrically, extraocular movement tact and sclera anicteric. Facial features are coarsened. Oropharynx with dry mucosa. Neck: Supple without JVD or palpable carotid thrills. Back: Kyphotic without CVA tenderness. Lungs: Bronchovesicular breath sounds diffusely with no focalizing rales or rhonchi. No expiratory wheeze. Heart: Distant heart sounds with regular rate and rhythm no murmurs gallops appreciated. Breast: Not examined. Abdomen: Soft with normal contour, no palpable hepatosplenomegaly. Tender over the right abdomen with slight guarding but no rebound. No discrete palpable mass. Left abdomen less tender. Bowel sounds positive all quadrants. Genitalia/rectal: Exam deferred. Skin: Pale, warm and dry with slightly decreased turgor. Actinic changes over sun exposed areas. No rashes noted. No bruising. No generalized lymphadenopathy. Neuro: Romberg not tested. No Babinski's. Cranial nerves II through XII appear to be grossly intact. No focal motor deficits the patient moves slowly especially with the upper extremities and has a partial grasp though able to hold her arms above her head with some difficulty. No tremor. Lower extremities also decreased range of motion with some stiffness to the joints and muscle atrophy. Sensory appears to be grossly intact. Psych: Flattened affect and depressed mood. Patient appears somewhat encephalopathic with her event and does repeat herself. Results Imaging Imaging Studies: Exam: CT Head Without Contrast Exam date and time: 04/04/2023 8:34 PM Age: 67 years old Clinical indication: Stroke-like symptoms; Other: Confusion / expressive aphasia. Stroke protocol TECHNIQUE: Imaging protocol: Computed tomography of the head without contrast. Radiation optimization: All CT scans at this facility use at least one of these dose optimization techniques: automated exposure control; mA and/or kV adjustment per patient size (includes targeted exams where dose is matched to clinical indication); or iterative reconstruction. Other technique: STROKE PROTOCOL was implemented. COMPARISON: No relevant prior studies available. FINDINGS: Brain: [id number] volume loss within the brain parenchyma. Multifocal and confluent areas of low attenuation are seen within the subcortical and periventricular white matter. No loss of coyle-white differentiation to suggest an acute cortical infarct. No intracranial hemorrhage. No midline shift. Cerebral ventricles: No hydrocephalus. Paranasal sinuses: The imaged paranasal sinuses are well aerated. No air-fluid levels. Mastoid air cells: The mastoid air cells are well aerated. Orbital cavities: The intraorbital contents are normal appearance. Bones/joints: A lytic lesion is seen within the left occipital skull, with a mottled appearance of the outer cortex. The remaining skull is normal appearance. Soft tissues: Unremarkable. IMPRESSION: 1. ? No evidence for acute cortical infarct. No intracranial hemorrhage. 2. ? A lytic lesion is seen within the left occipital skull, with a mottled appearance of the outer cortex. While this may represent arachnoid granulation, a metastasis or myeloma could also give this appearance. This warrants further evaluation with an MRI of the brain with without contrast. 3. ? Mzks-gw-adludduv volume loss with white matter changes most commonly seen with chronic microvascular ischemic disease. Labs 04/04/23 20:25 04/04/23 20:25 Labs: Laboratory Results - last 24 hr 04/04/23 04/04/23 04/04/23 20:25 20:25 20:25 WBC 13.04 H RBC 3.66 L Hgb 12.0 Hct 36.4 MCV 100 H MCH 32.8 MCHC 33.0 RDW 13.1 Plt Count 440 H MPV 8.7 Immature Gran % 0.6 Neutrophils % 69.8 Lymphocytes % 21.5 Monocytes % 6.3 Eosinophils % 1.5 Basophils % 0.3 Nucleated RBC % 0.0 Absolute Neutrophils 9.10 H Absolute Lymphocytes 2.80 Absolute Monocytes 0.82 H Absolute Eosinophils 0.20 Absolute Basophils 0.04 PT 11.5 H INR 1.1 Sodium 137 Potassium 4.7 Chloride 100 Carbon Dioxide 25.5 Anion Gap 11.5 H BUN 23 H Creatinine 1.7 H Est GFR (CKD-EPI 2020) 33.07 Glucose 134 H Calcium 11.7 H* Magnesium 1.6 L Total Bilirubin 0.4 AST 15 ALT 12 L Alkaline Phosphatase 88 Ammonia Troponin I < 50 Total Protein 8.5 H Albumin 3.6 Urine Color Urine Clarity Urine pH Ur Specific [place] Urine Protein Urine Ketones Urine Blood Urine Nitrite Urine Bilirubin Urine Urobilinogen Ur Leukocyte Esterase Urine RBC Urine WBC Ur Epithelial Cells Urine Crystals Urine Bacteria Urine Mucus Ur Culture Indicated? Urine Glucose 04/04/23 04/04/23 20:49 22:39 WBC RBC Hgb Hct MCV MCH MCHC RDW Plt Count MPV Immature Gran % Neutrophils % Lymphocytes % Monocytes % Eosinophils % Basophils % Nucleated RBC % Absolute Neutrophils Absolute Lymphocytes Absolute Monocytes Absolute Eosinophils Absolute Basophils PT INR Sodium Potassium Chloride Carbon Dioxide Anion Gap BUN Creatinine Est GFR (CKD-EPI 2020) Glucose Calcium Magnesium Total Bilirubin AST ALT Alkaline Phosphatase Ammonia < 10 L Troponin I Total Protein Albumin Urine Color Yellow Urine Clarity Sl Cloudy Urine pH 5.5 Ur Specific [place] 1.015 Urine Protein 100 H Urine Ketones Negative Urine Blood Moderate H Urine Nitrite Negative Urine Bilirubin Negative Urine Urobilinogen 0.2 Ur Leukocyte Esterase Small H Urine RBC 5-10 H Urine WBC 10-20 H Ur Epithelial Cells Few Urine Crystals Negative Urine Bacteria Few Urine Mucus Negative Ur Culture Indicated? Yes Urine Glucose Negative Last Vital Signs Temp 36.8 C 04/04/23 20:05 Pulse 81 04/04/23 22:46 Resp 19 04/04/23 22:50 BP 156/82 H 04/04/23 22:46 Pulse Ox 94 04/04/23 22:31 Time Spent Time spent with Patient: >75 minutes Time was spent: preparing to see the patient(eg.review tests), obtaining and/or reviewing separately otained hiistory, ordering medications,tests, procedures, referring, communicating with other health home health care coordinator, indepentently interpreting results, counseling the patient and care coordination
[2023-04-05] VITALS (19 sets, daily range): BP systolic 145–198; BP diastolic 76–102; PULSE 69–92; RESP 16–25; TEMP 36–37.4; O2SAT 90–95
[2023-04-05 00:08] LABS: Troponin I < 50 ng/L (<or=60)
[2023-04-05] MEDS: oxyCODONE 5 mg/Acetaminophen 325 mg TAB 1 TAB PO (00:58)
[2023-04-05] MEDS: MAGNESIUM SULFATE 2 GM/50 ML BAG IVPB (02:11)
[2023-04-05] MEDS: Atorvastatin 40 MG TAB 80 MG PO (02:14)
[2023-04-05] MEDS: Normal Saline 1,000 ML 25 ML IV (05:10)
[2023-04-05] MEDS: metroNIDAZOLE 500 MG TAB PO ×4 (05:29→23:55)
[2023-04-05] MEDS: Heparin 5,000 UNITS/ML VIAL 5000 UNITS SC ×3 (05:31→21:48)
[2023-04-05 06:32] LABS: HCT 35.8 % (36.0-46.0); HGB 11.7 g/dL (11.2-15.7); MCH 32.4 pg (27.0-33.0); MCHC 32.7 % (32.0-36.0); MCV 99 fL (80-95); MPV 8.7 fL (8.0-11.0); Platelet Count 382 10^3/uL (130-400); RBC 3.61 10^6/uL (3.93-5.22); RDW 13.1 % (11.7-14.6); RDW-SD 48.1 fL; WBC 11.96 10^3/uL (4.4-10.8)
[2023-04-05 06:42] LABS: INR 1.1 (0.9-1.1)
[2023-04-05 06:51] LABS: ALT 10 U/L (14-59); AST 12 U/L (15-37); Albumin 3.2 g/dL (3.4-5.0); Alkaline Phosphatase 79 U/L (46-116); Anion Gap 11.2 mmol/L (3-11); BUN 20 mg/dL (7-18); Bilirubin, Total 0.4 mg/dL (0.2-1.0); CO2 23.8 mmol/L (21.0-32.0); CREATININE 1.4 mg/dL (0.55-1.02); Calcium 11.5 mg/dL (8.5-10.1); Chloride 102 mmol/L (98-107); Estimated GFR 41.75 (mL/min/1.73m2); Glucose 118 mg/dL (74-106); Magnesium 2.6 mg/dL (1.8-2.4); Potassium 4.6 mmol/L (3.5-5.1); Sodium 137 mmol/L (136-145); Total Protein 7.6 g/dL (6.4-8.2)
[2023-04-05 06:58] LABS: TSH (W/Ref FT4) 1.04 uIU/mL (0.36-3.74)
--- NOTE | 2023-04-05 07:37 | IN_ITS ---
PT Notes Visit Reasons: Expressive Aphasia, Hypercalcemia, Lytic Bone... Inpatient Physical Therapy Evaluation Date: 04/05/23 Referring Doctor: Dr. Nabil Baker PT Orders: PT CONSULT: limited ability to ambulate Precautions: fall, standard Patient Profile/Admitting Diagnosis: Patient admitted for medical management after presenting to ED with confusion yesterday. Awaiting MRI later this morning. PMHX: All Active Problems Hypercalcemia (Acute) Acute confusion (Acute) Lesion of brain (Acute) Constipation (Acute) Ascites (Acute) Hypertensive urgency (Acute) Nausea (Acute) Hypokalemia (Chronic) Colitis (Acute) DANIEL (acute kidney injury) (Acute ~09/2022) Hydronephrosis of right kidney (Chronic ~10/2022) Ureteral stricture, right (Acute) CKD (chronic kidney disease) stage 3, GFR 30-59 ml/min (Chronic) Essential hypertension (Chronic) Hyperlipidemia (Chronic) Osteoporosis (Chronic) Prediabetes (Chronic) PTSD (post-traumatic stress disorder) (Chronic) GERD (gastroesophageal reflux disease) (Chronic) Lumbosacral radiculopathy due to degenerative joint disease of spine (Chronic) Chronic low back pain (Chronic) Overactive bladder (Chronic) Cigarette smoker (Chronic) Social History/Home Situation: Lives in a private home with her significant other. Disabled for many years. Independent with ambulation, ADLs. Drives independently. Equipment Owned/DME: none Subjective: Ira states that she would like to go home. Reports nausea but no vomiting. Denies any issues with mobility. Objective: General Observation: Sitting on commode with nursing present at initiation of session. IV in RUE ,otherwise no additional lines. Mental Status: Alert. Oriented to person and place, but not time. Struggles with word finding during session, relying on boyfriend for much of subjective reporting. Pain: denies ROM: Right Upper Extremity: Shoulder flexion 120* actively. Elbow, wrist and hand motion WFL. Left Upper Extremity: Shoulder flexion 120* actively. Elbow, wrist and hand motion WFL. Right Lower Extremity: WFL Left Lower Extremity: WFL Strength: Right Upper Extremity: Shoulder flexion 3+/5. Grossly 3/5 for all other UE movements. Left Upper Extremity: Shoulder flexion 3+/5. Grossly 3/5 for all other UE movements. Right Lower Extremity: Hip flexion 4/5. Quads 4+/5. Ankle DF 4/5. Left Lower Extremity: Hip flexion 4/5. Quads 4+/5. Ankle DF 4+/5. Bed Mobility/Transfers: supine-sit: independent sit-supine: independent sit-stand: SBA stand-sit: SBA commode-bed: supervision Gait: Ambulates 10'x2 with SBA. Demonstrates decreased safety awareness when managing obstacles/ IV line. Unable to tolerate further ambulation due to increasing nausea. Balance: Static Sitting: Normal Dynamic Sitting: Normal Static Standing: Good Dynamic Standing: Good 4-Position Balance Test: Small LEAH: 10 seconds Partial Tandem: 0 seconds (req unilateral UE support to maintain) Tandem: 0 seconds Single Le seconds Rhomberg: maintains 3 seconds only, with increased trunk sway in all planes Special Tests: Mobility Limitations Standardized Measure [facility]-P[facility] 6 clicks Basic Mobility Inpatient Short Form: Raw Score: 21 CMS Score: 29% impairment Informed Consent/Education: Patient instructed in purpose of PT consult and plan of care. Assessment: Patient is a 67 year old female referred to physical therapy services with the diagnosis of limited ability to ambulate. She is currently being managed acutely for confusion, with brain MRI later this morning. She presents with the following impairment level findings: 1. Decreased UE/LE strength 2. balance impairments 3. decreased activity tolerance Impairments are contributing to the following functional limitations: 1. increased fall risk due to balance impairments 2. decreased safety with household distance ambulation Patient is assessed as Moderate [id number] complexity based on the following: History: Patient is a 67 year old female admitted for evaluation and treatment of confusion, currently undergoing further work up. She presents with mobility impairments affecting safety with ambulation. Complicating factors include extensive medical history, including newly identified lytic lesion, chronic kidney disease. Examination: functional limitations as noted above Presentation: evolving Decision Making: moderate complexity Goals: Goals X1 week 1. Supine-Sit : independent 2. Sit-Supine : independent 3. Sit-Stand : independent 4. Stand-Sit : independent 5. Bed-Chair : independent 6. Chair-Bed : independent 7. Gait : independent for household distances 8. Stairs : supervision x 5 steps Plan of Care/Treatment Plan: 1-2x/day, 7 days/week x 1 week. Plan of care has been reviewed with the DIE STORAGE CLERK providing the service under Physical Therapy direction. Initiate Physical Therapy intervention for strengthening, bed mobility, transfers, gait, stairs, balance training, use of assistive device. DISCHARGE RECOMMENDATIONS: Home with services : PT TREATMENT CODE/TIME: 14487 (8:00-8:25) Linsey Alonzo, PT, DPT [facility]
--- NOTE | 2023-04-05 08:00 | DI.US_ITS ---
Exam(s) US CAROTID EXAM: US CAROTID CLINICAL HISTORY: Expressive Aphasia. TECHNIQUE: Ultrasound carotids performed using grayscale, color-flow, and spectral Doppler imaging. COMPARISON: US US RENAL from 10/31/2022 FINDINGS: CAROTID ARTERIES: There is significant plaque at the level the carotid bifurcations and proximal internal carotid arter ies, both calcified and noncalcified, more prominent on the left side. In left ICA there is velocity recorded 249 cm/sec peak systolic velocity, consistent with moderate-severe stenosis greater than 70 percent. On the opposite-right side there is also significant plaque but no elevated velocities. This indicat es amount of stenosis less than 50 percent VERTEBRAL ARTERIES: Antegrade flow demonstrated in both vertebral arteries. Measurements: R Bulb: 81.3cm/s PS / 22.2cm/s ED R CCA: 57.1cm/s PS / 17.9cm/s ED R ECA: 148.4cm/s PS / 15.2cm/s ED R ICA Prox: 96.8cm/s PS / 26.5cm/s ED R ICA Mid: 83.5cm/s PS / 20.5cm/s ED R ICA Distal: 72.2cm/s PS /21.6cm/s ED R Vert: 49.9cm/s PS / 16.1cm/s ED R SVR: 1.7 R DVR: 1.5 L Bulb: 199cm/s PS / 62.1cm/s ED L CCA: 54.9cm/s PS / 15.8cm/s ED L ECA: 128.4cm/s PS / 13.8cm/s ED L ICA Prox: 249cm/s PS / 74.8cm/s ED L ICA Mid: 72cm/s PS / 11cm/s ED L ICA Distal: 50.2cm/s PS / 17.1cm/s ED L Vert: 43.4cm/s PS / 10.8cm/s ED L SVR: 4.5 L DVR: 4.7 IMPRESSION: Significant plaque bilaterally at the carotid bulbs and proximal internal carotid arteries, more so o n the left side where there are elevated velocities indicating stenosis greater than 70 percent on th e left side. Amount of stenosis on the opposite-right side is estimated at less than 50 percent. Antegrade flow is demonstrated in both vertebral arteries. Criteria for Carotid Stenosis: Normal: ICA PSV <125 cm/s no plaque or intimal thickening is visible. <50% stenosis: ICA PSV <125 cm/s and plaque or intimal thickening is visible. 50-69% stenosis: ICA PSV is 125-250 cm/s and plaque is visible. >70% stenosis to near occlusion: ICA PSV >250 cm/s with visible plaque and luminal narrowing. DATA REPOSITORY:
--- NOTE | 2023-04-05 08:29 | OT.INIE ---
Occupational Therapy Notes Inpatient Occupational Therapy Evaluation Date: 04/05/23 Referring Doctor:Nabil Baker MD OT Orders: Non urgent- Limited Ability Precautions: Fall, Standard, Full PATIENT PROFILE/ADMITTING DIAGNOSIS: Pt is a 67 year old female who presented to the ED on 04/04/23 with a clinical impression of acute confusion/brain lesion. She was admitted to [facility] and an Occupational Therapy consult was ordered for assessment of pts functional limitations and impairments at this time. Past Medical History: All Active Problems Hypercalcemia (Acute) Acute confusion (Acute) Lesion of brain (Acute) Constipation (Acute) Ascites (Acute) Hypertensive urgency (Acute) Nausea (Acute) Hypokalemia (Chronic) Colitis (Acute) DANIEL (acute kidney injury) (Acute ~09/2022) Hydronephrosis of right kidney (Chronic ~10/2022) Ureteral stricture, right (Acute) CKD (chronic kidney disease) stage 3, GFR 30-59 ml/min (Chronic) Essential hypertension (Chronic) Hyperlipidemia (Chronic) Osteoporosis (Chronic) Prediabetes (Chronic) PTSD (post-traumatic stress disorder) (Chronic) GERD (gastroesophageal reflux disease) (Chronic) Lumbosacral radiculopathy due to degenerative joint disease of spine (Chronic) Chronic low back pain (Chronic) Overactive bladder (Chronic) Cigarette smoker (Chronic) Medical History? Endometriosis Surgical History? History of bilateral tubal ligation (04/15/86) History of carpal tunnel surgery of right wrist (~2006) History of operative procedure on lumbosacral spinal structure (02/08/22) RFA 02/08/22Hx of esophagogastroduodenoscopy (11/20/06) S/P section (04/15/86) S/P colonoscopy (12/06/16) /P cystoscopy with ureteral stent placement (11/01/22) Right retrograde pyelogram, right ureteroscopy, right ureteral stentS/P laparoscopic hysterectomy (~1999) Social History/Home Situation: Pt lives in a private home with her significant other. He reports that up until yesterday pt was very independent in regards to her ADL/IADL routines. He states that she was able to drive, she was (I) with dressing and bathing. He notes that he went to work yesterday for 6 hours and came home and pt was unable to process any conversation and would just stop talking. He notes that pts baseline is that she utilizes the bathroom a lot due to her kidneys. He states that his concern is cognitively at the moment. Equipment owned/DME: None prior SUBJECTIVE: Pt was lying in bed. Her significant other is present in the room and able to provide a baseline of pts level of function in her home setting. OBJECTIVE: General Observation: Pleasant, IV in (L) UE, telemetry Mental Status: Alert to name Pain: Pt states, I have pain all over ROM: RUE AROM WFL L UE AROM WFL STRENGTH: RUE 3+/5 LUE 4-/5 FUNCTIONAL MOBILITY/ADLS: Transfers CGA Supine-sit (I) Sit-supine (I) Sit-Stand (S) Stand-sit (S) Bed-Commode SBA Commode-bed SBA BATHING pt denies as she reports that she showered yesterday at home. DRESSING Dressing UE (I) Dressing LE (I) TOILETING on commode with min (A) toileting hygiene BALANCE: Static sitting Normal Dynamic Sitting Normal Static Standing Good Dynamic Standing Good SPECIAL TESTS: Daily Activity Limitations Standardized Measure [facility] AM PAC ?6 clicks? Daily Activity Inpatient Short Form: Raw score: 19 Standardized score: 40.22 CMS score: 42.80% INFORMED CONSENT/EDUCATION: Pt instructed in purpose of OT Consult and plan of care. ASSESSMENT: Patient is a 67-year-old female referred to occupational therapy services with diagnosis of hypercalcemia, acute confusion, lesion of brain, constipation, ascites, hypertensive urgency, nauseam hypokalemiam colitism DANIEL. Patient presents with clinical signs and symptoms consistent with dx, as demonstrated by the following impairment level findings/functional limitations: Functionally pt is able to follow vc and performance of ADLs with vc for performance. She is confused and has decreased cognitive awareness at this time. She requires vc for task initiation and executive function of her daily basic tasks and only has a short time period where she can cognitively process what is going on before she closes her eyes and stops responding. Her cognitive awareness limits her functional (I) at this time due to decreased safety awareness. [facility] score 19 Patient is assessed as a Moderate 12988 complexity based on the following: History: see above Examination: see functional limitations as noted above Presentation: evolving Decision Making: AMPAC score 19 GOALS Goals x1 week 1. Transfers (I) 2. Dressing seated (I) with (I) task initiation and min vc 3. Bathing seated (I) with (I) task initiation and min vc 4. Toileting (I) 5. Eating (I) with (I) task initiation PLAN OF CARE/TREATMENT PLAN: 1x/day, 5 days/ week x 1week Initiate Occupational Therapy Services for bathing, dressing, grooming, toileting, eating, transfer training. DISCHARGE RECOMMENDATIONS services including PT/OT when medically cleared per MD. TREATMENT TIME/MINUTES/CODES 54796, [id number], 25 minutes Alize Pa OTR/L [facility] [place], [place]
[2023-04-05] MEDS: HYDROmorphone 2 MG TAB PO ×3 (08:39→21:21)
[2023-04-05] MEDS: Aspirin 81 MG CHEW CH (08:39)
[2023-04-05] MEDS: Omeprazole 20 MG CAPCR 40 MG PO (08:39)
[2023-04-05] MEDS: amLODIPine 5 MG TAB PO ×2 (08:40→21:45)
[2023-04-05] MEDS: Potassium Chloride 20 MEQ TABCR PO (08:40)
[2023-04-05] MEDS: Cefpodoxime 200 MG TAB PO (08:40)
[2023-04-05] MEDS: Atenolol 50 MG TAB PO (08:41)
[2023-04-05] MEDS: Losartan 50 MG TAB PO (08:41)
--- NOTE | 2023-04-05 10:08 | INITIAL_ITS ---
Date of service: 04/05/23 Time of Service: 10:08 Care Management Initial Assmt Initial Assessment REASON FOR HOSPITALIZATION:: acute confusion PREVIOUS FUNCTIONAL STATUS/SOCIAL/FAMILY SUPPORTS:: Ira lives in [facility] with her partner, Steven. She is retired but formerly worked in [employer] for many years. She names her ophthalmic surgical assistant Steven as her only support. Ira drives and is independent with her ADLs at baseline. CURRENT FUNCTIONAL STATUS:: Ira was sitting up in bed when CM met with her. She had been out of the room for a long time having tests which included an MRI, ultrasound and Echocardiogram. She informed CM that she really wants to go home. CM explained that it would be best to stay until more is known about what is happening with her. She became acutely confused at home and has been having difficulty with word finding. ADVANCE DIRECTIVES:: none on file Has patient been provided with info about the portal/API?: Yes Did the patient sign up for the portal?: No CODE STATUS:: Full Code INSURANCE COVERAGE / FINANCIAL ISSUES:: Medicare PRIMARY CARE PHYSICIAN:: KEVON Sevilla POTENTIAL DISCHARGE NEEDS:: follow up with PCP and plan of care PATIENT/FAMILY EDUCATION NEEDS:: Review of discharge instructions including medications, limitations and follow up plan of care; discuss Ask Me Three and self management. TRANSPORTATION:: Via private vehicle with ophthalmic surgical assistant. PLAN:: Anticipate Ira will be discharged home with no services when medically cleared by provider. She will follow up with her PCP and plan of care as instructed following discharge. She will be transported home by her partner via private vehicle when ready. CM will continue to support patient and any discharge planning needs. PFSH All Active Problems Hypercalcemia (Acute) Acute confusion (Acute) Lesion of brain (Acute) Constipation (Acute) Ascites (Acute) Hypertensive urgency (Acute) Nausea (Acute) Hypokalemia (Chronic) Colitis (Acute) DANIEL (acute kidney injury) (Acute ~09/2022) Hydronephrosis of right kidney (Chronic ~10/2022) Ureteral stricture, right (Acute) CKD (chronic kidney disease) stage 3, GFR 30-59 ml/min (Chronic) Essential hypertension (Chronic) Hyperlipidemia (Chronic) Osteoporosis (Chronic) Prediabetes (Chronic) PTSD (post-traumatic stress disorder) (Chronic) GERD (gastroesophageal reflux disease) (Chronic) Lumbosacral radiculopathy due to degenerative joint disease of spine (Chronic) Chronic low back pain (Chronic) Overactive bladder (Chronic) Cigarette smoker (Chronic) Medical History Endometriosis Surgical History History of bilateral tubal ligation (04/15/86) History of carpal tunnel surgery of right wrist (~2006) History of operative procedure on lumbosacral spinal structure (02/08/22) RFA 02/08/22 Hx of esophagogastroduodenoscopy (11/20/06) S/P section (04/15/86) S/P colonoscopy (12/06/16) 02/2022 S/P cystoscopy with ureteral stent placement (11/01/22) Right retrograde pyelogram, right ureteroscopy, right ureteral stent S/P laparoscopic hysterectomy (~1999) Family History Mother , 76 Essential hypertension Heart disease Colon cancer Father , 81 Essential hypertension Stroke Colon cancer Brother , 48 Lung cancer Brother , 48 from accident No problems noted. Sister No problems noted. Son No problems noted. Daughter No problems noted. Maternal Grandfather No problems noted. Maternal Grandmother No problems noted. Paternal Grandfather No problems noted. Paternal Grandmother No problems noted. Social History Smoking/Tobacco Use Status: Current every day Tobacco Type: cigarettes Years smoked: 47 Tobacco: How many years used: 20 Second Hand Exposure: Yes Smoking risk assessment performed?: Yes Alcohol Intake: former Drug use: Never Substance use type: does not use Caregiver/Support person: No Household members: significant other Housing: house Number of Children: 2 Communication Needs: None Do you need help understanding health information?: Rarely current occupation: Disabled Pets and animals: Yes Pets and animals: dog(s) Sexually active: No Do you think of yourself as: straight/heterosexual Current gender identity: female What is your relationship status?: living with partner How often do you talk on the phone with friends or family?: twice per week How often do you get together with friends or relatives?: decline to answer How often do you attend advent or jainism services?: decline to answer Do you belong to any clubs or organized social groups?: no Panel score (0-1 are the most socially isolated patients): 1 What type of physical activity do you participate in: walking Duration: 30-45 minutes/day Frequency: daily Ann-Marie/Jainism: Latter Day Special ann-marie needs: No Seatbelt use: always Drive intox or ride w/intox class b truck driver: No Do you feel safe at home: Yes Do you feel safe in your relationship?: Yes History History 2 Para 2 Hx # Term Pregnancies Multiple births Hx # Pregnancies Ectopic pregnancies AB induced Hx Number of Living Children 2 AB spontaneous Readmission Within the Past 30 Days Yes or No: Yes Date of First Admission Date of 1st Admission: 03/31/23 Date of this Admission Date of Admission: 04/04/23 This admission was: Through ED
--- NOTE | 2023-04-05 10:31 | W.PM.PROGNOT ---
Date of Service Date of service: 04/05/23 Time of Service: 10:31 Assessment and Plan Assessment and plan (1) Acute confusion: Status: Acute Assessment and plan: initially thought d/t possible CVA imaging thus far negative for acute CVA, confusional state persists. unable to complete all imaging as ordered by no evidence of acute CVA on CT and MRI w/o. unable to complete MRI with or MRA d/t confusion leading to compliance failure. will give ativan for symptoms. doubt opioid withdrawal or OD as she has been receiving appropriate home dosing. I suspect infectious cause of delirium, and will initiate infection work up with most likely source urinary based on recent procedure will add UA, lactate procal and blood cultures, low threshold for LP if work up is unrevealing. start ceftriaxone 2 gm day 1 while awaiting culture report, consider antibiotic class change as she was on cefpodoxime outpatient, (I wonder if she was compliant with outpatient antibiotics as she was confused). (2) DANIEL (acute kidney injury): Status: Acute Assessment and plan: Worsening renal function compared to baseline the patient having restenting done just recently. IV hydration to also help hypercalcemia. Trend labs. Dr. Parsons will continue to follow the patient for the right ureteral stone and stenting. (3) Hypercalcemia: Status: Acute Assessment and plan: This may be secondary to kidney disease currently and dehydration and will be treated with IV hydration with lab trending. Adjust IV fluid resuscitation to labs. This could be a problem associated with decreased renal function and anemia when a person has multiple myeloma. This will be obtained as patient with her lytic lesion in her skull. Of note the alkaline phosphatase is not elevated which I think occurs in multiple myeloma rather than and more destructive lesions. (4) CKD (chronic kidney disease) stage 3, GFR 30-59 ml/min: Status: Chronic Assessment and plan: Slightly worsened, trend labs as patient is hydrated. (5) Hypokalemia: Status: Chronic Assessment and plan: level is normal at 4.6 Chronic on potassium supplement with patient not necessarily on diuretics. This may be nutritional or increased losses. Monitor with the usual supplement in the hospital. (6) Colitis: Status: Acute Assessment and plan: Recent hospitalization for colitis and discharged on cefepime and Flagyl with patient stated that her symptoms are overall better though she continues to have right abdominal discomfort from her obstructed kidney. She will continue on these medications for total of 10 days. (7) Hydronephrosis of right kidney: Status: Chronic Assessment and plan: Recurrent with stenting multiple times and following up with urology. campbell placed in setting of frequency and urgency (8) Essential hypertension: Status: Chronic Assessment and plan: allowing for permissive hypertension currently continue to monitor and treat with some of her usual meds dosing this evening if needed. (9) Hyperlipidemia: Status: Chronic Assessment and plan: was placed on high-dose atorvastatin on admission. (10) Chronic low back pain: Status: Chronic Assessment and plan: Chronically on narcotics with patient usually on oxycodone and preferring this though she now is on Dilaudid as a trial. This could be switched back to oxycodone if needed. She was taking this long-term for low back pain but also now takes it for her right flank pain. (11) Cigarette smoker: Status: Chronic Assessment and plan: tobacco replacement while hospitalized Discussed with Dr Mora Subjective Subjective Patient reports: afebrile Interval history since last seen: Patient continues to be confused and restless. Exam Const General: comfortable and frail appearing Nutritional Appearance: thin Orientation: alert, awake and confused [facility] Head: normocephalic and atraumatic Eyes General: appearance normal, both eyes and all related structures Neck Neck: normal visual inspection and full ROM Chest Chest: normal inspection of the chest Resp Effort & Inspection: normal respiratory effort Auscultation: clear to auscultation bilaterally Cardio Rate: regular rate Rhythm: regular rhythm GI Inspection: normal to inspection Palpation: soft Skin General skin exam: no rashes or lesions noted Neuro General: patient alert, patient awake and patient confused Extrem General: normal to inspection and no pedal edema Objective Last Vital Signs Temp 36.8 C 04/05/23 07:36 Pulse 80 04/05/23 07:36 Resp 18 04/05/23 07:36 BP 159/94 H 04/05/23 07:36 Pulse Ox 91 L 04/05/23 07:36 Laboratory Results - last 24 hr 04/04/23 04/04/23 04/04/23 20:25 20:25 20:25 WBC 13.04 H RBC 3.66 L Hgb 12.0 Hct 36.4 MCV 100 H MCH 32.8 MCHC 33.0 RDW 13.1 Plt Count 440 H MPV 8.7 Immature Gran % 0.6 Neutrophils % 69.8 Lymphocytes % 21.5 Monocytes % 6.3 Eosinophils % 1.5 Basophils % 0.3 Nucleated RBC % 0.0 Absolute Neutrophils 9.10 H Absolute Lymphocytes 2.80 Absolute Monocytes 0.82 H Absolute Eosinophils 0.20 Absolute Basophils 0.04 PT 11.5 H INR 1.1 Sodium 137 Potassium 4.7 Chloride 100 Carbon Dioxide 25.5 Anion Gap 11.5 H BUN 23 H Creatinine 1.7 H Est GFR (CKD-EPI 2020) 33.07 Glucose 134 H Calcium 11.7 H* Magnesium 1.6 L Total Bilirubin 0.4 AST 15 ALT 12 L Alkaline Phosphatase 88 Ammonia Troponin I < 50 Total Protein 8.5 H Albumin 3.6 TSH Urine Color Urine Clarity Urine pH Ur Specific [place] Urine Protein Urine Ketones Urine Blood Urine Nitrite Urine Bilirubin Urine Urobilinogen Ur Leukocyte Esterase Urine RBC Urine WBC Ur Epithelial Cells Urine Crystals Urine Bacteria Urine Mucus Ur Culture Indicated? Urine Glucose 04/04/23 04/04/23 04/04/23 20:49 22:39 23:45 WBC RBC Hgb Hct MCV MCH MCHC RDW Plt Count MPV Immature Gran % Neutrophils % Lymphocytes % Monocytes % Eosinophils % Basophils % Nucleated RBC % Absolute Neutrophils Absolute Lymphocytes Absolute Monocytes Absolute Eosinophils Absolute Basophils PT INR Sodium Potassium Chloride Carbon Dioxide Anion Gap BUN Creatinine Est GFR (CKD-EPI 2020) Glucose Calcium Magnesium Total Bilirubin AST ALT Alkaline Phosphatase Ammonia < 10 L Troponin I < 50 Total Protein Albumin TSH Urine Color Yellow Urine Clarity Sl Cloudy Urine pH 5.5 Ur Specific [place] 1.015 Urine Protein 100 H Urine Ketones Negative Urine Blood Moderate H Urine Nitrite Negative Urine Bilirubin Negative Urine Urobilinogen 0.2 Ur Leukocyte Esterase Small H Urine RBC 5-10 H Urine WBC 10-20 H Ur Epithelial Cells Few Urine Crystals Negative Urine Bacteria Few Urine Mucus Negative Ur Culture Indicated? Yes Urine Glucose Negative 04/05/23 04/05/23 04/05/23 06:23 06:23 06:23 WBC RBC Hgb Hct MCV MCH MCHC RDW Plt Count MPV Immature Gran % Neutrophils % Lymphocytes % Monocytes % Eosinophils % Basophils % Nucleated RBC % Absolute Neutrophils Absolute Lymphocytes Absolute Monocytes Absolute Eosinophils Absolute Basophils PT 11.0 INR 1.1 Sodium 137 Potassium 4.6 Chloride 102 Carbon Dioxide 23.8 Anion Gap 11.2 H BUN 20 H Creatinine 1.4 H Est GFR (CKD-EPI 2020) 41.75 Glucose 118 H Calcium 11.5 H Magnesium 2.6 H Total Bilirubin 0.4 AST 12 L ALT 10 L Alkaline Phosphatase 79 Ammonia Troponin I Total Protein 7.6 Albumin 3.2 L TSH 1.04 Urine Color Urine Clarity Urine pH Ur Specific [place] Urine Protein Urine Ketones Urine Blood Urine Nitrite Urine Bilirubin Urine Urobilinogen Ur Leukocyte Esterase Urine RBC Urine WBC Ur Epithelial Cells Urine Crystals Urine Bacteria Urine Mucus Ur Culture Indicated? Urine Glucose 04/05/23 06:23 WBC 11.96 H RBC 3.61 L Hgb 11.7 Hct 35.8 L MCV 99 H MCH 32.4 MCHC 32.7 RDW 13.1 Plt Count 382 MPV 8.7 Immature Gran % Neutrophils % Lymphocytes % Monocytes % Eosinophils % Basophils % Nucleated RBC % Absolute Neutrophils Absolute Lymphocytes Absolute Monocytes Absolute Eosinophils Absolute Basophils PT INR Sodium Potassium Chloride Carbon Dioxide Anion Gap BUN Creatinine Est GFR (CKD-EPI 2020) Glucose Calcium Magnesium Total Bilirubin AST ALT Alkaline Phosphatase Ammonia Troponin I Total Protein Albumin TSH Urine Color Urine Clarity Urine pH Ur Specific [place] Urine Protein Urine Ketones Urine Blood Urine Nitrite Urine Bilirubin Urine Urobilinogen Ur Leukocyte Esterase Urine RBC Urine WBC Ur Epithelial Cells Urine Crystals Urine Bacteria Urine Mucus Ur Culture Indicated? Urine Glucose Time Spent with Patient Time Spent with Patient: 35-49 minutes Time was spent: preparing to see the patient(eg.review tests), obtaining and/or reviewing separately otained hiistory, ordering medications,tests, procedures and indepentently interpreting results
[2023-04-05] MEDS: Gadoterate meglumine 20 ML VIAL 9 ML IVP (11:29)
[2023-04-05] MEDS: Normal Saline Flush 10 ML SYR IVP (11:30)
--- NOTE | 2023-04-05 12:00 | DI.MRI_ITS ---
Exam(s) MR BRAIN WO EXAM: MR BRAIN WO CLINICAL HISTORY: Expressive aphasia with lytic lesion skull TECHNIQUE: Multiplanar multisequence MRI of the brain was performed. This was originally performed for a left occipital skull lesion and was supposed to be performed with IV contrast but patient was n ot able to be cooperative and apparently only a noninfused study was obtained. COMPARISON: CT CT HEAD WO from 04/04/2023 FINDINGS: Images are degraded by motion artifact. CEREBRAL PARENCHYMA: There is no evidence of intracranial hemorrhage, mass effect, or shift of midline structures. There are no extra-axial fluid collections. Ventricles are not enlarged or shifted. There is no significant focal signal abnormality in the cerebellar hemispheres nor within the ila, m idbrain, and thalami. There is abundant bilateral signal abnormality in the Whitney in supra ventricular white are consistent chronic small vessel disease. This is not associated with hemorrhage nor surrounding edema and there is no evidence of restricted diffusion on DWI. PITUITARY GLAND: No mass nor parasellar abnormality. No obvious abnormality in the cavernous sinuses. FLOW VOIDS: The expected flow void are noted. No evidence of obvious aneurysm nor obvious vascular ma lformation. PARANASAL SINUSES: The visualized paranasal sinuses appear unremarkable. No obvious finding ORBITS: No obvious findings. SKULL: With respect to the left occipital skull lesions described on the CT scan, assessment is subop timal without IV contrast. IMPRESSION: There is abundant bilateral periventricular signal abnormality consistent with chronic small vessel d isease. No evidence of restricted diffusion to suggest acute ischemic event. Suboptimal evaluation of the skull lesion described on the CT scan because of absence of IV contrast on this study. DATA REPOSITORY:
--- NOTE | 2023-04-05 13:22 | DI.US_ITS ---
APPROVED REPORT EXAM: Comprehensive 2D, Doppler, and color-flow Echocardiogram Patient Location: In-Patient Room/Bed: 208 Body Coverer: Lucio Dobson RDMS, RVT Indications: Expressive aphasia, Possible CVA, HTN Echo Enhancing Agent Indication: Rule out Shunt Agent(s) / Amount(s) Used: Agitated Saline 30.0 cc Comments: Contrast study was performed with 3 IV injections of 10ccs of agitated normal saline, at re st, with cough and post valsalva maneuver. Patient was unable to cooperate with maneuvers. Other Information Study Quality: Poor. Technically limited study due to uncooperative patient. Patient terminated exam. . Conclusion Technically limited study Left ventricle appears normal in size wall thickness and systolic function Normal right ventricular size and systolic function Arctic valve is sclerotic and trileaflet. Valve motion appears unrestricted Both atria are grossly normal in size Wall motion Left Ventricle Unable to assess, Patient terminated exam. The overall left ventricular systolic function appears nor mal. Exam terminated by patient. Atria Saline bubble contrast intravenous injection is inconclusive due to patient inability to perform coug h and valsalva. Aortic Valve Aortic valve is calcified, unable to completely evaluate. Aortic valve is trileaflet Mitral Valve The mitral valve is normal in structure. Pulmonic Valve The pulmonary valve is normal in structure. There is no pulmonic valvular stenosis. There is no pulmo amparo valvular regurgitation. Great Vessels The aortic root is normal in size. 2D Dimensions Ao Root d 2.46 cm F: 2.7 - 3.3 LV Vol A4C d MOD 90.0 mL LV Volume Index 62.96 mL/m2 F: 29 - 61 LV EF A4C MOD 39.5 % Aortic Valve LVOT Area 2.77 cm2 LVOT Diam s 1.85 cm Pulmonary Valve PV Vmax 1.12 (0.5-1.5 m/s) RVOT Peak Gr. 2.87 mmHg PV Peak Grad 5.1 mmHg RVOT Mean Gr. 1.35 mmHg PV Mean Grad 2.2 mmHg RVOT VTI 0.152 m PV VTI 0.188 m RVOT Vmax 0.85 m/s
[2023-04-05] MEDS: LORazepam 2 MG/ML VIAL 1 MG IVP (15:43)
[2023-04-05 16:19] LABS: Bilirubin Negative (Negative); Blood Large (Negative); Clarity Sl Cloudy (Clear); Glucose Negative (Negative); Ketones Trace mg/dL (Negative); Leukocyte Esterase Moderate (Negative); Nitrite Negative (Negative); Urobilinogen 0.2 mg/dL (Up to 0.2); pH 5.5 (5-8)
[2023-04-05 16:25] LABS: Bacteria Few HPF (Negative); C & S Indicated? Yes; Casts Negative LPF (Negative); Crystals Negative HPF (Negative); Epithelial Cells Few HPF (Negative); Mucus Negative (Negative)
[2023-04-05 16:41] LABS: Lactate 0.8 mmol/L (0.6-1.4)
[2023-04-05 17:15] LABS: Procalcitonin < 0.1 ng/mL
[2023-04-05] MEDS: cefTRIAXone 2 GM/50 ML BAG IVPB (17:39)
[2023-04-05] MEDS: Normal Saline 1,000 ML 100 ML IV (17:40)
--- NOTE | 2023-04-05 17:56 | PT.INNT ---
Date of service: 04/05/23 PT Notes Visit Reasons: Expressive Aphasia,Hypercalcemia,Lytic Bone Lesion Patient unavailable
[2023-04-05] MEDS: Nicotine 21 MG/24 HR PATCH TD (18:19)
[2023-04-05] MEDS: Metoprolol 5 MG/5 ML VIAL IVP (18:22)
--- NOTE | 2023-04-05 21:25 | NUR.NOTE ---
follow up assessment. Pt more alert now, in comparison to earlier head to toe assessment. Pt's eyes now open. she still does not follow commands such as gripping hands. when i asked the pt if she takes pain medications at home she reported yes. 2mg po hydromorphone given, to ensure pt does not begin an opiod with drawl. monitoring blood pressure at this time. as it seems they have ruled out a hemorrhagic stroke. no current paramaters for permissive hypertension as mentioned in the H&P. end note. Nursing Note:
[2023-04-05] MEDS: Acetaminophen 325 MG TAB PO (23:55)
[2023-04-06] VITALS (8 sets, daily range): BP systolic 131–171; BP diastolic 72–86; PULSE 76–832; RESP 16–21; TEMP 36.4–37.4; O2SAT 92–96
--- NOTE | 2023-04-06 00:13 | NUR.NOTE ---
Assessment 1725 04/05/23. pt now more alert: she is oriented only to her name, the state, and that we are at the hospital she was able to easily swallow her po flagyl and tylenol. with her request of wayne landry. end note Nursing Note:
[2023-04-06] MEDS: Normal Saline 1,000 ML 100 ML IV ×2 (03:06→14:30)
[2023-04-06] MEDS: HYDROmorphone 2 MG TAB PO ×3 (04:56→20:06)
[2023-04-06] MEDS: Acetaminophen 325 MG TAB PO ×2 (04:57→08:36)
[2023-04-06] MEDS: metroNIDAZOLE 500 MG TAB PO ×4 (04:59→23:53)
[2023-04-06] MEDS: Heparin 5,000 UNITS/ML VIAL 5000 UNITS SC ×3 (05:18→23:53)
--- NOTE | 2023-04-06 05:34 | NUR.NOTE ---
Assessment Update: 0500: Pt seems to have taken a complete 360 in mentation at this time. she is oriented. to time, place, event and current situation. she is now able to tell me events leading up to her confusion shortly after her last hospital discharge a few days ago. end note. Nursing Note:
[2023-04-06 06:43] LABS: Abs Immature Grans 0.03 10^3/uL (0.0-0.06); Absolute Basophil Count 0.05 10^3/uL (0.0-0.2); Absolute Eosinophil Count 0.09 10^3/uL (0.0-0.7); Absolute Lymphocyte Count 1.86 10^3/uL (1.2-3.4); Absolute Monocyte Count 0.69 10^3/uL (0.1-0.8); Absolute Neutrophil Count 7.91 10^3/uL (1.2-6.7); Basophils % 0.5; Eosinophils % 0.8; HCT 32.7 % (36.0-46.0); Immature Grans % 0.3; Lymphocytes % 17.5; MCH 32.9 pg (27.0-33.0); MCHC 33.6 % (32.0-36.0); MCV 98 fL (80-95); MPV 8.8 fL (8.0-11.0); Monocytes % 6.5; Neutrophils % 74.4; Platelet Count 376 10^3/uL (130-400); RBC 3.34 10^6/uL (3.93-5.22); RDW 12.7 % (11.7-14.6); RDW-SD 45.6 fL; WBC 10.63 10^3/uL (4.4-10.8)
[2023-04-06 07:04] LABS: ALT 10 U/L (14-59); AST < 5 U/L (15-37); Alkaline Phosphatase 73 U/L (46-116); Anion Gap 12.7 mmol/L (3-11); BUN 19 mg/dL (7-18); Bilirubin, Total 0.3 mg/dL (0.2-1.0); CO2 24.3 mmol/L (21.0-32.0); CREATININE 1.3 mg/dL (0.55-1.02); Calcium 10.7 mg/dL (8.5-10.1); Chloride 101 mmol/L (98-107); Estimated GFR 45.63 (mL/min/1.73m2); Glucose 141 mg/dL (74-106); Potassium 3.4 mmol/L (3.5-5.1); Sodium 138 mmol/L (136-145); Total Protein 7.3 g/dL (6.4-8.2)
--- NOTE | 2023-04-06 07:30 | NUR.NOTE ---
Nursing Note: Accessed chart to determine orders for EKG and to determine whether or not one needs to be cancelled.
[2023-04-06] MEDS: Losartan 50 MG TAB PO (08:36)
[2023-04-06] MEDS: Aspirin 81 MG CHEW CH (08:36)
[2023-04-06] MEDS: Potassium Chloride 20 MEQ TABCR 40 MEQ PO (08:39)
[2023-04-06] MEDS: Potassium Chloride 20 MEQ TABCR PO (08:39)
[2023-04-06] MEDS: Atenolol 50 MG TAB PO (08:39)
[2023-04-06] MEDS: Omeprazole 20 MG CAPCR 40 MG PO ×2 (08:39→20:05)
[2023-04-06] MEDS: Nicotine 21 MG/24 HR PATCH TD (08:39)
[2023-04-06] MEDS: Lidocaine 5% Patch 2 PATCH TP (08:40)
[2023-04-06] MEDS: amLODIPine 5 MG TAB 10 MG PO (08:47)
--- NOTE | 2023-04-06 11:55 | W.PM.PROGNOT ---
Date of Service Date of service: 04/06/23 Time of Service: 11:55 Assessment and Plan Assessment and plan (1) Acute confusion: Status: Resolved Assessment and plan: now at baseline, initially thought d/t possible CVA imaging thus far negative for acute CVA, confusional state now resolved and she is at baseline doubt opioid withdrawal or OD as she has been receiving appropriate home dosing. I originally suspected infectious cause of delirium, and initiated infection work up with most likely source urinary based on recent procedure UA with no growth, lactate procal normal and blood cultures still pending, considered LP but now at baseline continue ceftriaxone 2 gm day 2 while awaiting final culture report, will place neurology consultation (2) DANIEL (acute kidney injury): Status: Acute Assessment and plan: Worsening renal function compared to baseline the patient having restenting done just recently. IV hydration to also help hypercalcemia. Trend labs. Dr. Parsons will continue to follow the patient for the right ureteral stone and stenting. (3) Hypercalcemia: Status: Acute Assessment and plan: normalizing, thought to be secondary to kidney disease and dehydration and cureently treated with IV hydration with lab trending. consider decreased renal function and anemia in multiple myeloma. This will be obtained as patient with her lytic lesion in her skull. will add upep, spep (4) CKD (chronic kidney disease) stage 3, GFR 30-59 ml/min: Status: Chronic Assessment and plan: Slightly worsened, trend labs as patient is hydrated. (5) Hypokalemia: Status: Chronic Assessment and plan: level is normal at 4.6 Chronic on potassium supplement with patient not necessarily on diuretics. This may be nutritional or increased losses. Monitor with the usual supplement in the hospital. (6) Colitis: Status: Acute Assessment and plan: Recent hospitalization for colitis and discharged on cefepime and Flagyl with patient stated that her symptoms are overall better though she continues to have right abdominal discomfort from her obstructed kidney. She will continue on these medications for total of 10 days. (7) Hydronephrosis of right kidney: Status: Chronic Assessment and plan: Recurrent with stenting multiple times and following up with urology. campbell placed in setting of frequency and urgency (8) Essential hypertension: Status: Chronic Assessment and plan: allowing for permissive hypertension currently continue to monitor and treat with some of her usual meds dosing this evening if needed. (9) Hyperlipidemia: Status: Chronic Assessment and plan: was placed on high-dose atorvastatin on admission. (10) Chronic low back pain: Status: Chronic Assessment and plan: Chronically on narcotics with patient usually on oxycodone and preferring this though she now is on Dilaudid as a trial. This could be switched back to oxycodone if needed. She was taking this long-term for low back pain but also now takes it for her right flank pain. (11) Cigarette smoker: Status: Chronic Assessment and plan: tobacco replacement while hospitalized Discussed with Dr Matta Subjective Subjective Patient reports: no new complaints, feels better, tolerating liquids well, tolerating a regular diet and afebrile; denies shortness of breath Exam Const General: comfortable and no acute distress Nutritional Appearance: thin Orientation: alert, awake and oriented x3 HENMT Head: normal to inspection, normocephalic and atraumatic Mouth: oral mucosae normal Chest Chest: normal inspection of the chest Resp Effort & Inspection: normal respiratory effort Auscultation: clear to auscultation bilaterally Cardio Rate: regular rate Rhythm: regular rhythm GI Inspection: normal to inspection Auscultation: normal bowel sounds Neuro General: patient alert, patient awake, patient oriented x3 and no focal motor deficits Cognition: normal cognition Speech: speech normal Gait: normal gait Motor: muscle tone normal throughout Sensory Exam: no sensory deficits noted Objective Last Vital Signs Temp 36.4 C L 04/06/23 11:13 Pulse 80 04/06/23 11:13 Resp 17 04/06/23 11:13 BP 168/86 H 04/06/23 11:13 Pulse Ox 95 04/06/23 11:13 Laboratory Results - last 24 hr 04/05/23 04/05/23 04/06/23 16:08 16:35 06:20 WBC RBC Hgb Hct MCV MCH MCHC RDW Plt Count MPV Immature Gran % Neutrophils % Lymphocytes % Monocytes % Eosinophils % Basophils % Nucleated RBC % Absolute Neutrophils Absolute Lymphocytes Absolute Monocytes Absolute Eosinophils Absolute Basophils VBG Lactate 0.8 Sodium 138 Potassium 3.4 L D Chloride 101 Carbon Dioxide 24.3 Anion Gap 12.7 H BUN 19 H Creatinine 1.3 H Est GFR (CKD-EPI 2020) 45.63 Glucose 141 H Calcium 10.7 H Total Bilirubin 0.3 AST < 5 L ALT 10 L Alkaline Phosphatase 73 Total Protein 7.3 Albumin 3.0 L Procalcitonin < 0.1 Urine Color Yellow Urine Clarity Sl Cloudy Urine pH 5.5 Ur Specific [place] 1.020 Urine Protein 100 H Urine Ketones Trace H Urine Blood Large H Urine Nitrite Negative Urine Bilirubin Negative Urine Urobilinogen 0.2 Ur Leukocyte Esterase Moderate H Urine RBC 10-20 H Urine WBC 10-20 H Ur Epithelial Cells Few Urine Crystals Negative Urine Bacteria Few Urine Casts Negative Urine Mucus Negative Ur Culture Indicated? Yes Urine Glucose Negative 04/06/23 06:20 WBC 10.63 RBC 3.34 L Hgb 11.0 L Hct 32.7 L MCV 98 H MCH 32.9 MCHC 33.6 RDW 12.7 Plt Count 376 MPV 8.8 Immature Gran % 0.3 Neutrophils % 74.4 Lymphocytes % 17.5 Monocytes % 6.5 Eosinophils % 0.8 Basophils % 0.5 Nucleated RBC % 0.0 Absolute Neutrophils 7.91 H Absolute Lymphocytes 1.86 Absolute Monocytes 0.69 Absolute Eosinophils 0.09 Absolute Basophils 0.05 VBG Lactate Sodium Potassium Chloride Carbon Dioxide Anion Gap BUN Creatinine Est GFR (CKD-EPI 2020) Glucose Calcium Total Bilirubin AST ALT Alkaline Phosphatase Total Protein Albumin Procalcitonin Urine Color Urine Clarity Urine pH Ur Specific [place] Urine Protein Urine Ketones Urine Blood Urine Nitrite Urine Bilirubin Urine Urobilinogen Ur Leukocyte Esterase Urine RBC Urine WBC Ur Epithelial Cells Urine Crystals Urine Bacteria Urine Casts Urine Mucus Ur Culture Indicated? Urine Glucose Time Spent with Patient Time Spent with Patient: 35-49 minutes Time was spent: preparing to see the patient(eg.review tests), obtaining and/or reviewing separately [facility] hiistory, ordering medications,tests, procedures, indepentently interpreting results and counseling the patient
--- NOTE | 2023-04-06 13:45 | PT.INTREAT ---
Date of service: 04/06/23 Time of Service: 13:10 PT Notes Visit Reasons: Expressive Aphasia,Hypercalcemia,Lytic Bone Lesion Inpatient Physical Therapy Treatment Note [facility] Date: 04/06/23 PRECAUTIONS: Fall, standard, activity as tolerated SUBJECTIVE: Patient supine in bed, agreeable to therapy OBJECTIVE: PAIN: none reported BED MOBILITY/TRANSFERS Rolling L/R: independent Supine-sit: independent Sit-supine: independent Sit-stand: independent Stand-sit: independent Bed-Chair: stand by assist Chair-bed: stand by assist GAIT Assistive Device: none Weight bearing: full Assist: standby Distance: 10x3 Deviation: reduced step length, reduced step height ASSESSMENT: Patient tolerates therapy well PLAN: continue strengthening per plan of care TREATMENT CODE/TIME: 39765 Ther Ex 19 minutes beginning at 13:10
[2023-04-06] MEDS: Acetaminophen 325 MG TAB 650 MG PO ×2 (15:33→20:05)
[2023-04-06] MEDS: Methylnaltrexone 12 MG/0.6 ML VIAL 8 MG SC (15:33)
[2023-04-06] MEDS: cefTRIAXone 2 GM/50 ML BAG IVPB (17:24)
[2023-04-06] MEDS: oxyCODONE 5 MG TAB PO (17:30)
[2023-04-06] MEDS: Atorvastatin 40 MG TAB 80 MG PO (20:05)
[2023-04-06] MEDS: Normal Saline Flush 10 ML SYR IVP (20:14)
[2023-04-07] MEDS: HYDROmorphone 2 MG TAB PO ×4 (01:57→20:04)
--- NOTE | 2023-04-07 03:32 | NUR.NOTE ---
0159: pt reports when asked how many of her 5mg oxycodone she uses in a day at home. she reports she takes 4 or 5 tablets a day when her home prescription per the electronic record says 5mg BID. end note. Nursing Note:
[2023-04-07] MEDS: oxyCODONE 5 MG TAB PO ×3 (04:22→16:28)
[2023-04-07] MEDS: metroNIDAZOLE 500 MG TAB PO ×3 (06:00→17:59)
[2023-04-07] MEDS: Heparin 5,000 UNITS/ML VIAL 5000 UNITS SC ×2 (06:00→14:10)
[2023-04-07 06:03] LABS: Abs Immature Grans 0.05 10^3/uL (0.0-0.06); Absolute Basophil Count 0.06 10^3/uL (0.0-0.2); Absolute Eosinophil Count 0.06 10^3/uL (0.0-0.7); Absolute Lymphocyte Count 1.67 10^3/uL (1.2-3.4); Absolute Monocyte Count 0.76 10^3/uL (0.1-0.8); Basophils % 0.5; Eosinophils % 0.5; HCT 34.9 % (36.0-46.0); HGB 11.9 g/dL (11.2-15.7); Immature Grans % 0.4; Lymphocytes % 13.4; MCH 33.2 pg (27.0-33.0); MCHC 34.1 % (32.0-36.0); MCV 98 fL (80-95); MPV 9.1 fL (8.0-11.0); Monocytes % 6.1; Neutrophils % 79.1; Platelet Count 454 10^3/uL (130-400); RBC 3.58 10^6/uL (3.93-5.22); RDW 12.6 % (11.7-14.6); RDW-SD 45.1 fL; WBC 12.48 10^3/uL (4.4-10.8)
[2023-04-07 06:10] LABS: Absolute Neutrophil Count 9.87 10^3/uL (1.2-6.7)
--- NOTE | 2023-04-07 06:21 | NUR.NOTE ---
Pt now having nausea, i believe secondary to pain level. as po dilaudid and po oxycodone at their current scheduled regimine seem to be doing nothing pt still reports 10/10 pain in sacral area. Nursing Note:
[2023-04-07 06:23] LABS: Anion Gap 10.9 mmol/L (3-11); BUN 15 mg/dL (7-18); CO2 25.1 mmol/L (21.0-32.0); CREATININE 1.2 mg/dL (0.55-1.02); Calcium 11.2 mg/dL (8.5-10.1); Chloride 100 mmol/L (98-107); Estimated GFR 50.23 (mL/min/1.73m2); Glucose 124 mg/dL (74-106); Magnesium 1.5 mg/dL (1.8-2.4); Potassium 4.1 mmol/L (3.5-5.1); Sodium 136 mmol/L (136-145)
[2023-04-07 07:18] VITALS: BP 171/94; PULSE 83; RESP 19; TEMP 36.9; O2SAT 94
[2023-04-07] MEDS: Omeprazole 20 MG CAPCR 40 MG PO ×2 (08:00→20:02)
[2023-04-07] MEDS: Losartan 50 MG TAB PO (08:00)
[2023-04-07] MEDS: Atenolol 50 MG TAB PO (08:00)
[2023-04-07] MEDS: Potassium Chloride 20 MEQ TABCR PO (08:00)
[2023-04-07] MEDS: amLODIPine 5 MG TAB 10 MG PO (08:00)
[2023-04-07] MEDS: Aspirin 81 MG CHEW CH (08:00)
[2023-04-07] MEDS: Acetaminophen 325 MG TAB 650 MG PO ×4 (08:00→20:03)
[2023-04-07] MEDS: Nicotine 21 MG/24 HR PATCH TD (08:04)
[2023-04-07] MEDS: Lidocaine 5% Patch 2 PATCH TP (08:04)
[2023-04-07] MEDS: MAGNESIUM SULFATE 4 GM/100 ML BAG IVPB (08:04)
[2023-04-07 11:10] VITALS: BP 127/76; PULSE 76; RESP 18; TEMP 36.8; O2SAT 93
[2023-04-07] MEDS: Normal Saline 500 ML 75 ML IV (13:11)
--- NOTE | 2023-04-07 13:26 | W.PM.PROGNOT ---
Date of Service Date of service: 04/07/23 Time of Service: 13:26 Assessment and Plan Assessment and plan (1) Acute confusion: Status: Resolved Assessment and plan: now at baseline, initially thought d/t possible CVA imaging thus far negative for acute CVA, confusional state now resolved and she is at baseline initially didn't suspect opioid withdrawal or OD but should consider as differential, I originally suspected infectious cause of delirium, and initiated infection work up with most likely source urinary based on recent procedure UA with no growth, lactate procal normal and blood cultures negative, continue ceftriaxone 2 gm day 2 while awaiting final culture report, will consider neurology consultation (2) DANIEL (acute kidney injury): Status: Resolved Assessment and plan: normalized after recieving IV fluids and previous stenting (3) Hypercalcemia: Status: Acute Assessment and plan: normalizing, thought to be secondary to kidney disease and dehydration and cureently treated with IV hydration with lab trending. consider decreased renal function and anemia in multiple myeloma. This will be obtained as patient with her lytic lesion in her skull. upep, spep pending (4) CKD (chronic kidney disease) stage 3, GFR 30-59 ml/min: Status: Chronic Assessment and plan: at baseline now (5) Hypokalemia: Status: Chronic Assessment and plan: replete and follow (6) Colitis: Status: Acute Assessment and plan: Recent hospitalization for colitis and discharged on cefepime and Flagyl with patient stated that her symptoms are overall better though she continues to have right abdominal discomfort from her obstructed kidney. She will continue on these medications for total of 10 days. (7) Hydronephrosis of right kidney: Status: Chronic Assessment and plan: Recurrent with stenting multiple times and following up with urology. campbell discontinued and voiding well (8) Essential hypertension: Status: Chronic Assessment and plan: blood pressure improved on current regimen, increased home dose amlodipine (9) Hyperlipidemia: Status: Chronic Assessment and plan: was placed on high-dose atorvastatin on admission. (10) Chronic low back pain: Status: Chronic Assessment and plan: Chronically on narcotics with patient usually on oxycodone and preferring this though she now is on Dilaudid as a trial. This could be switched back to oxycodone if needed. She was taking this long-term for low back pain but also now takes it for her right flank pain. (11) Cigarette smoker: Status: Chronic Assessment and plan: tobacco replacement while hospitalized Discussed with Dr Matta Subjective Subjective Patient reports: no new complaints, still having pain, tolerating liquids well, tolerating a regular diet, voiding w/o difficulty and afebrile; denies shortness of breath Exam Const General: comfortable and no acute distress Nutritional Appearance: thin Orientation: alert, awake and oriented x3 HENMT Head: normal to inspection, normocephalic and atraumatic Mouth: oral mucosae normal Chest Chest: normal inspection of the chest Resp Effort & Inspection: normal respiratory effort Auscultation: clear to auscultation bilaterally Cardio Rate: regular rate Rhythm: regular rhythm GI Inspection: normal to inspection Auscultation: normal bowel sounds Neuro General: patient alert, patient awake, patient oriented x3 and no focal motor deficits Cognition: normal cognition Speech: speech normal Gait: normal gait Motor: muscle tone normal throughout Sensory Exam: no sensory deficits noted Objective Last Vital Signs Temp 36.8 C 04/07/23 11:10 Pulse 76 04/07/23 11:10 Resp 18 04/07/23 11:10 BP 127/76 04/07/23 11:10 Pulse Ox 93 04/07/23 11:10 Laboratory Results - last 24 hr 04/07/23 04/07/23 05:40 05:40 WBC 12.48 H RBC 3.58 L Hgb 11.9 Hct 34.9 L MCV 98 H MCH 33.2 H MCHC 34.1 RDW 12.6 Plt Count 454 H MPV 9.1 Immature Gran % 0.4 Neutrophils % 79.1 Lymphocytes % 13.4 Monocytes % 6.1 Eosinophils % 0.5 Basophils % 0.5 Nucleated RBC % 0.0 Absolute Neutrophils 9.87 H Absolute Lymphocytes 1.67 Absolute Monocytes 0.76 Absolute Eosinophils 0.06 Absolute Basophils 0.06 Sodium 136 Potassium 4.1 Chloride 100 Carbon Dioxide 25.1 Anion Gap 10.9 BUN 15 Creatinine 1.2 H Est GFR (CKD-EPI 2020) 50.23 Glucose 124 H Calcium 11.2 H Magnesium 1.5 L Time Spent with Patient Time Spent with Patient: 25-34 minutes Time was spent: preparing to see the patient(eg.review tests), obtaining and/or reviewing separately otained hiistory, ordering medications,tests, procedures, referring, communicating with other health doggy daycare activities director and indepentently interpreting results
[2023-04-07 14:29] VITALS: BP 154/79; PULSE 69; RESP 19; TEMP 36.4; O2SAT 95
[2023-04-07] MEDS: Normal Saline 1,000 ML 75 ML IV (16:25)
[2023-04-07] MEDS: cefTRIAXone 2 GM/50 ML BAG IVPB (17:10)
[2023-04-07 18:29] VITALS: BP 151/83; PULSE 72; RESP 18; TEMP 37.1; O2SAT 93
[2023-04-07] MEDS: Atorvastatin 40 MG TAB 80 MG PO (20:04)
--- NOTE | 2023-04-07 22:26 | PT.INTREAT ---
Date of service: 04/07/23 Time of Service: 01:05 PT Notes Visit Reasons: Expressive Aphasia,Hypercalcemia,Lytic Bone Lesion Inpatient Physical Therapy Treatment Note [facility] Date: 04/07/23 PRECAUTIONS: fall, standard, activity as tolerated. SUBJECTIVE: Patient supine in bed, agreeable to therapy. OBJECTIVE: PAIN: none reported THEREX: Supine heel slides, bridges, straight leg raises, seated long arc quads, heel raises, toe raises, marching, sit to stands ASSESSMENT: patient tolerates therapy well PLAN: continue strengthening per plan of care TREATMENT CODE/TIME: [id number] ther ex 25 minutes beginning at 1:05
[2023-04-08] MEDS: Heparin 5,000 UNITS/ML VIAL 5000 UNITS SC ×3 (00:04→14:11)
[2023-04-08] MEDS: metroNIDAZOLE 500 MG TAB PO ×3 (00:04→11:41)
[2023-04-08] MEDS: HYDROmorphone 2 MG TAB PO ×4 (01:54→20:41)
[2023-04-08] MEDS: oxyCODONE 5 MG TAB PO ×2 (04:25→16:57)
[2023-04-08 06:20] VITALS: RESP 16; TEMP 36.3; O2SAT 94
[2023-04-08 06:46] LABS: Abs Immature Grans 0.05 10^3/uL (0.0-0.06); Absolute Eosinophil Count 0.05 10^3/uL (0.0-0.7); Absolute Monocyte Count 0.72 10^3/uL (0.1-0.8); Basophils % 0.3; Eosinophils % 0.4; HCT 34.6 % (36.0-46.0); HGB 11.5 g/dL (11.2-15.7); Immature Grans % 0.4; Lymphocytes % 11.6; MCH 31.9 pg (27.0-33.0); MCHC 33.2 % (32.0-36.0); MCV 96 fL (80-95); MPV 9.5 fL (8.0-11.0); Monocytes % 6.2; Neutrophils % 81.1; Platelet Count 420 10^3/uL (130-400); RBC 3.61 10^6/uL (3.93-5.22); RDW 12.3 % (11.7-14.6); RDW-SD 43.5 fL; WBC 11.59 10^3/uL (4.4-10.8)
[2023-04-08 06:49] LABS: Absolute Basophil Count 0.03 10^3/uL (0.0-0.2); Absolute Lymphocyte Count 1.34 10^3/uL (1.2-3.4)
[2023-04-08 07:06] LABS: Anion Gap 10.9 mmol/L (3-11); BUN 15 mg/dL (7-18); CO2 25.1 mmol/L (21.0-32.0); CREATININE 1.2 mg/dL (0.55-1.02); Calcium 10.5 mg/dL (8.5-10.1); Chloride 99 mmol/L (98-107); Estimated GFR 50.23 (mL/min/1.73m2); Glucose 113 mg/dL (74-106); Magnesium 1.8 mg/dL (1.8-2.4); Potassium 3.9 mmol/L (3.5-5.1); Sodium 135 mmol/L (136-145)
[2023-04-08 07:22] VITALS: BP 171/93; PULSE 85; RESP 18; TEMP 37.2; O2SAT 94
[2023-04-08] MEDS: Acetaminophen 325 MG TAB 650 MG PO ×4 (07:53→20:41)
[2023-04-08] MEDS: Lidocaine 5% Patch 2 PATCH TP (07:53)
[2023-04-08] MEDS: Omeprazole 20 MG CAPCR 40 MG PO ×2 (07:54→20:40)
[2023-04-08] MEDS: Potassium Chloride 20 MEQ TABCR PO (07:54)
[2023-04-08] MEDS: Atenolol 50 MG TAB PO (07:54)
[2023-04-08] MEDS: Losartan 50 MG TAB PO (07:54)
[2023-04-08] MEDS: Nicotine 21 MG/24 HR PATCH TD (07:54)
[2023-04-08] MEDS: Aspirin 81 MG CHEW CH (07:54)
[2023-04-08] MEDS: amLODIPine 5 MG TAB 10 MG PO (07:55)
[2023-04-08 12:09] VITALS: BP 179/83; PULSE 72; RESP 18; TEMP 37.3; O2SAT 95
[2023-04-08 14:41] LABS: Albumin, Urine % 32.9 %; Albumin, Urine mg/dL 25 mg/dL; Globulins, Urine % 67.1 %; Globulins, Urine mg/dL 52 mg/dL; Immunotyping, Urine (See Note); Total Protein Urine 77 mg/dL (See Note)
[2023-04-08 15:33] VITALS: BP 167/82; PULSE 82; RESP 16; TEMP 37.4; O2SAT 93
--- NOTE | 2023-04-08 16:24 | W.PM.PROGNOT ---
Date of Service Date of service: 04/08/23 Time of Service: 16:24 Assessment and Plan Assessment and plan (1) Acute confusion: Status: Resolved Assessment and plan: now at baseline, initially thought d/t possible CVA but that was ruled out. differentials: infection vs accidental med overdose UA with no growth, lactate procal normal and blood cultures negative, will discontinue antibiotics, colitis course complete, Urine negative (2) DANIEL (acute kidney injury): Status: Resolved Assessment and plan: normalized after recieving IV fluids and previous stenting (3) Hypercalcemia: Status: Acute Assessment and plan: normalizing, thought to be secondary to kidney disease and dehydration and cureently treated with IV hydration with lab trending. consider decreased renal function and anemia in multiple myeloma. This will be obtained as patient with her lytic lesion in her skull. upep, spep pending (4) CKD (chronic kidney disease) stage 3, GFR 30-59 ml/min: Status: Chronic Assessment and plan: at baseline now (5) Hypokalemia: Status: Chronic Assessment and plan: replete and follow (6) Colitis: Status: Resolved Assessment and plan: completed antibiotic course (7) Hydronephrosis of right kidney: Status: Chronic Assessment and plan: Recurrent with stenting multiple times and following up with urology. campbell discontinued and voiding well (8) Essential hypertension: Status: Chronic Assessment and plan: blood pressure improved on current regimen, increased home dose amlodipine (9) Hyperlipidemia: Status: Chronic Assessment and plan: was placed on high-dose atorvastatin on admission. (10) Chronic low back pain: Status: Chronic Assessment and plan: Chronically on narcotics with patient usually on oxycodone and preferring this though she now is on Dilaudid as a trial. This could be switched back to oxycodone if needed. She was taking this long-term for low back pain but also now takes it for her right flank pain. (11) Cigarette smoker: Status: Chronic Assessment and plan: tobacco replacement while hospitalized Discussed with Dr Matta Subjective Subjective Patient reports: no new complaints, feels better, tolerating liquids well and afebrile; denies nausea or shortness of breath Exam Const General: comfortable and no acute distress Nutritional Appearance: thin Orientation: alert, awake and oriented x3 HENMT Head: normal to inspection, normocephalic and atraumatic Mouth: oral mucosae normal Chest Chest: normal inspection of the chest Resp Effort & Inspection: normal respiratory effort Auscultation: clear to auscultation bilaterally Cardio Rate: regular rate Rhythm: regular rhythm GI Inspection: normal to inspection Auscultation: normal bowel sounds Neuro General: patient alert, patient awake, patient oriented x3 and no focal motor deficits Cognition: normal cognition Speech: speech normal Gait: normal gait Motor: muscle tone normal throughout Sensory Exam: no sensory deficits noted Objective Last Vital Signs Temp 37.4 C 04/08/23 15:33 Pulse 82 04/08/23 15:33 Resp 16 04/08/23 15:33 BP 167/82 H 04/08/23 15:33 Pulse Ox 93 04/08/23 15:33 Laboratory Results - last 24 hr 04/08/23 04/08/23 05:45 05:45 WBC 11.59 H RBC 3.61 L Hgb 11.5 Hct 34.6 L MCV 96 H MCH 31.9 MCHC 33.2 RDW 12.3 Plt Count 420 H MPV 9.5 Immature Gran % 0.4 Neutrophils % 81.1 Lymphocytes % 11.6 Monocytes % 6.2 Eosinophils % 0.4 Basophils % 0.3 Nucleated RBC % 0.0 Absolute Neutrophils 9.40 H Absolute Lymphocytes 1.34 Absolute Monocytes 0.72 Absolute Eosinophils 0.05 Absolute Basophils 0.03 Sodium 135 L Potassium 3.9 Chloride 99 Carbon Dioxide 25.1 Anion Gap 10.9 BUN 15 Creatinine 1.2 H Est GFR (CKD-EPI 2020) 50.23 Glucose 113 H Calcium 10.5 H Magnesium 1.8 Time Spent with Patient Time Spent with Patient: 25-34 minutes Time was spent: preparing to see the patient(eg.review tests), obtaining and/or reviewing separately otained hiistory, ordering medications,tests, procedures, indepentently interpreting results and counseling the patient
--- NOTE | 2023-04-08 17:29 | CMPROGNOTE_ITS ---
Date of service: 04/08/23 Time of Service: 17:29 Care Management Progress Note Progress Note Text Progress Note Text: S/O: Ira is lying in bed visiting with her son and when CM met with her. She is eager to discharge home and hopeful she is able to after she has a neurology consult. CM will follow. A: 67 year old female admitted to [facility] on 04/04/23 for acute confusion P:Anticipate, Ira will be discharged home with New RN/PT (if indicated) when medically cleared by provider.? She will follow up with her PCP and plan of care as instructed following discharge.? She will be transported home by her partner via private vehicle when ready.? CM will continue to support patient and any discharge planning needs.
--- NOTE | 2023-04-08 18:07 | PT.INTREAT ---
Date of service: 04/08/23 Time of Service: 15:00 PT Notes Visit Reasons: Expressive Aphasia,Hypercalcemia,Lytic Bone Lesion Inpatient Physical Therapy Treatment Note [facility] Date: 04/08/23 PRECAUTIONS: Fall, standard, activity as tolerated SUBJECTIVE: Supine in bed, agreeable to therapy OBJECTIVE: PAIN: none reported THEREX: Supine heel slides, bridges, straight leg raises, seated long arc quads, hamstring curls against therapist manual resistance, hip abduction against therapist manual resistance, hip adduction vs pillow, heel raises, toe raises, marching. ASSESSMENT: patient tolerates therapy well PLAN: continue strengthening per plan of care TREATMENT CODE/TIME: 96273 Ther Ex 26 minutes beginning at 15:00
[2023-04-08 20:24] VITALS: BP 166/87; PULSE 77; RESP 16; TEMP 36.1; O2SAT 95
[2023-04-08] MEDS: Atorvastatin 40 MG TAB 80 MG PO (20:40)
[2023-04-08 23:54] VITALS: BP 162/88; PULSE 80; RESP 16; TEMP 36.4; O2SAT 95
[2023-04-09] MEDS: HYDROmorphone 2 MG TAB PO ×2 (02:06→08:15)
[2023-04-09 03:25] VITALS: BP 168/88; PULSE 82; RESP 16; TEMP 36.3; O2SAT 95
[2023-04-09] MEDS: oxyCODONE 5 MG TAB PO (04:02)
[2023-04-09] MEDS: Heparin 5,000 UNITS/ML VIAL 5000 UNITS SC (05:37)
[2023-04-09 07:15] LABS: Abs Immature Grans 0.03 10^3/uL (0.0-0.06); Absolute Basophil Count 0.02 10^3/uL (0.0-0.2); Absolute Eosinophil Count 0.04 10^3/uL (0.0-0.7); Absolute Monocyte Count 0.74 10^3/uL (0.1-0.8); Basophils % 0.2; Eosinophils % 0.4; HCT 34.6 % (36.0-46.0); HGB 11.6 g/dL (11.2-15.7); Immature Grans % 0.3; Lymphocytes % 13.4; MCH 31.9 pg (27.0-33.0); MCHC 33.5 % (32.0-36.0); MCV 95 fL (80-95); MPV 9.5 fL (8.0-11.0); Monocytes % 6.6; Neutrophils % 79.1; Platelet Count 417 10^3/uL (130-400); RBC 3.64 10^6/uL (3.93-5.22); RDW 12.1 % (11.7-14.6); RDW-SD 42.2 fL; WBC 11.19 10^3/uL (4.4-10.8)
[2023-04-09 07:16] LABS: Absolute Neutrophil Count 8.85 10^3/uL (1.2-6.7)
[2023-04-09 07:20] VITALS: BP 161/91; PULSE 79; RESP 18; TEMP 36.6; O2SAT 96
[2023-04-09 07:20] LABS: Anion Gap 11.7 mmol/L (3-11); BUN 14 mg/dL (7-18); CO2 26.3 mmol/L (21.0-32.0); CREATININE 1.2 mg/dL (0.55-1.02); Calcium 11.1 mg/dL (8.5-10.1); Chloride 96 mmol/L (98-107); Estimated GFR 50.23 (mL/min/1.73m2); Glucose 115 mg/dL (74-106); Potassium 3.7 mmol/L (3.5-5.1); Sodium 134 mmol/L (136-145)
[2023-04-09] MEDS: Lidocaine 5% Patch 2 PATCH TP (08:13)
[2023-04-09] MEDS: Aspirin 81 MG CHEW CH (08:14)
[2023-04-09] MEDS: Acetaminophen 325 MG TAB 650 MG PO ×2 (08:14→12:31)
[2023-04-09] MEDS: amLODIPine 5 MG TAB 10 MG PO (08:14)
[2023-04-09] MEDS: Omeprazole 20 MG CAPCR 40 MG PO (08:14)
[2023-04-09] MEDS: Nicotine 21 MG/24 HR PATCH TD (08:14)
[2023-04-09] MEDS: Potassium Chloride 20 MEQ TABCR PO (08:15)
[2023-04-09] MEDS: Atenolol 50 MG TAB PO (08:15)
[2023-04-09] MEDS: Losartan 50 MG TAB PO (08:15)
--- NOTE | 2023-04-09 11:05 | W.PM.DS.N ---
Date of service: 04/09/23 Time of Service: 11:05 DS: Diagnosis Discharge Diagnosis (1) Acute confusion: Status: Resolved (2) DANIEL (acute kidney injury): Status: Resolved (3) Hypercalcemia: Status: Acute (4) CKD (chronic kidney disease) stage 3, GFR 30-59 ml/min: Status: Chronic (5) Hypokalemia: Status: Chronic (6) Colitis: Status: Resolved (7) Hydronephrosis of right kidney: Status: Chronic (8) Essential hypertension: Status: Chronic (9) Hyperlipidemia: Status: Chronic (10) Chronic low back pain: Status: Chronic (11) Cigarette smoker: Status: Chronic Discharge Plan Disposition Patient Disposition: Home Condition: Improving Discharge Details Reason For Visit: Expressive Aphasia,Hypercalcemia,Lytic Bone Lesion Admit Date/Time: 04/04/23 23:54 Admit Provider: Nabil Baker Attending Provider: Nabil Baker Primary Care Provider: Susan Arrieta Home Meds and New Rx's Prescriptions: New aspirin [Children's Aspirin] 81 mg Tablet,Chewable 81 mg CH DAILY Qty: 30 0RF Continued naloxone [Narcan] 4 mg/actuation spray,non-aerosol 1 spray intranasal Q2-3M PRN (Reason: opioid overdose) Qty: 2 4RF Rx Instructions: spray 1 dose into ONE nostril; alternate nostrils w each dose until help arrives atenolol 50 mg tablet 50 mg PO DAILY Qty: 90 3RF losartan 50 mg tablet 50 mg PO DAILY Qty: 90 3RF docusate sodium [Colace] 100 mg capsule 100 mg PO BID PRNQty: 180 Patient Comments: 04/11/16 PRN only/pps ibuprofen 200 mg Tablet 200 mg PO Q6H PRN omeprazole 40 mg capsule,delayed release(DR/EC) 40 mg PO .Daily to BID Qty: 180 3RF Rx Instructions: Take 1 pill once to twice a day for heartburn oxycodone-acetaminophen 5-325 mg tablet 1 tab PO .4 to 5 times a day MDD 5 tablets Qty: 117 0RF Rx Instructions: Take 1 tablet four times a day for chronic low back pain potassium chloride 20 mEq tablet extended release 20 meq PO BID Qty: 30 0RF amlodipine 5 mg Tablet 5 mg PO DAILY Qty: 30 0RF Discontinued hydromorphone [Dilaudid] 2 mg tablet 2 mg PO Q6H MDD 4 tabs PRN (Reason: pain) Qty: 20 0RF metronidazole 500 mg tablet 500 mg PO Q6H Qty: 22 0RF Rx Instructions: continued hospital course cefpodoxime 200 mg tablet 200 mg PO BID Qty: 22 0RF Rx Instructions: must administer with a meal/food Do not drink alcohol Discharge Instructions Instructions: Carotid Artery Disease (DC), Altered Mental Status (ED), Hypercalcemia (DC) Additional Instructions: take all medications as directed you will need outpatient follow up with your primary care provider for elevated calcium and for carotid stenosis. labs pending at discharge: PTH and SPEP carotid ultrasound results IMPRESSION: Significant plaque bilaterally at the carotid bulbs and proximal internal carotid arteries, more so on the left side where there are elevated velocities indicating stenosis greater than 70 percent on the left side.? Amount of stenosis on the opposite-right side is estimated at less than 50 percent. Antegrade flow is demonstrated in both vertebral arteries. Stand Alone Forms: Nursing Discharge Form Referrals: Susan Arrieta NP [Primary Care Provider] - 05/01/23 9:00 am JORGE SKINNER MD [ NON-[facility] STAFF PHYSICIAN] - (carotid stenosis) Janes Parsons MD [ [facility] STAFF PHYSICIAN] - Activity:: Activity as Tolerated Equipment/Supplies:: No Equipment Needed Diet:: As Tolerated Discharge Orders Discharge Orders: Discharge Order (Routine); Ordered 04/09/23 Ordered By: Lori Cervantes Exam Const General: comfortable and no acute distress Nutritional Appearance: thin Orientation: alert, awake and oriented x3 [facility] Head: normal to inspection, normocephalic and atraumatic Mouth: oral mucosae normal Chest Chest: normal inspection of the chest Resp Effort & Inspection: normal respiratory effort Auscultation: clear to auscultation bilaterally Cardio Rate: regular rate Rhythm: regular rhythm GI Inspection: normal to inspection Auscultation: normal bowel sounds Neuro General: patient alert, patient awake, patient oriented x3 and no focal motor deficits Cognition: normal cognition Speech: speech normal Gait: normal gait Motor: muscle tone normal throughout Sensory Exam: no sensory deficits noted DS: Data Vitals/I&O Vitals and I&O: Vital Signs Temperature 36.6 C 04/09/23 07:20 Temperature Source Tympanic 04/09/23 07:20 Pulse 79 04/09/23 07:20 Pulse Rhythm Regular 04/09/23 08:00 Pulse 87 04/05/23 00:30 Respiratory Rate 18 04/09/23 07:20 Respiratory Effort Normal 04/09/23 08:00 Respiratory Depth Normal 04/09/23 08:00 Respiratory Pattern Normal 04/09/23 08:00 Blood Pressure 161/91 H 04/09/23 07:20 Blood Pressure Mean 119 04/05/23 00:16 Blood Pressure Position Sitting 04/04/23 20:05 Pulse Oximetry 96 04/09/23 07:20 Oxygen Delivery Method Room Air 04/09/23 07:20 Oxygen Flow Rate 0 04/09/23 07:20 Fraction of Inspired Oxygen (FIO2) 98 04/09/23 02:11 Pain Level 10 04/09/23 04:02 Comment BP called over radio 04/08/23 15:33 Intake & Output 04/08/23 04/08/23 04/09/23 11:59 23:59 11:59 Intake Total 1100 / 1700 600 / 1700 Output Total 700 / 1300 600 / 1300 800 / 800 Balance 400 / 400 0 / 400 -800 / -800 Weight 44.5 kg 43.9 kg Intake: IV 1100 / 1100 Oral 600 / 600 Output: Urine 700 / 1300 600 / 1300 800 / 800 Other: Urine Color Yellow Yellow Yellow Urine Appearance Clear Clear Clear Comment less than 100 ml Stool Characteristics Soft Voiding Methods Bedside Commode Bedside Commode Bedside Commode Data Completed and Pending Labs on day of discharge: Labs from last 24 hours 04/09/23 04/09/23 04/07/23 06:35 06:35 04:55 WBC 11.19 H RBC 3.64 L Hgb 11.6 Hct 34.6 L MCV 95 MCH 31.9 MCHC 33.5 RDW 12.1 Plt Count 417 H MPV 9.5 Immature Gran % 0.3 Neutrophils % 79.1 Lymphocytes % 13.4 Monocytes % 6.6 Eosinophils % 0.4 Basophils % 0.2 Nucleated RBC % 0.0 Absolute Neutrophils 8.85 H Absolute Lymphocytes 1.50 Absolute Monocytes 0.74 Absolute Eosinophils 0.04 Absolute Basophils 0.02 Sodium 134 L Potassium 3.7 Chloride 96 L Carbon Dioxide 26.3 Anion Gap 11.7 H BUN 14 Creatinine 1.2 H Est GFR (CKD-EPI 2020) 50.23 Glucose 115 H Calcium 11.1 H U Total Protein mg/dL 77 Urine Albumin (PEP) 25 Urine Albumin (%) 32.9 Urine Globulin EP 52 Urine Globulin 67.1 U PEP M-Jayme Not Applicable U PEP M-Jayme % Not Applicable Urine Immunofixation (See Note) Urine ROMÁN Comments See Comment Preliminary micro results at discharge 04/05/23 16:35 Blood Culture - Preliminary Blood NO GROWTH 72 HOURS 04/05/23 16:25 Blood Culture - Preliminary Blood NO GROWTH 72 HOURS PFSH All Active Problems Hypercalcemia (Acute) Lesion of brain (Acute) Constipation (Acute) Ascites (Acute) Hypertensive urgency (Acute) Nausea (Acute) Hypokalemia (Chronic) Hydronephrosis of right kidney (Chronic ~10/2022) Ureteral stricture, right (Acute) CKD (chronic kidney disease) stage 3, GFR 30-59 ml/min (Chronic) Essential hypertension (Chronic) Hyperlipidemia (Chronic) Osteoporosis (Chronic) Prediabetes (Chronic) PTSD (post-traumatic stress disorder) (Chronic) GERD (gastroesophageal reflux disease) (Chronic) Lumbosacral radiculopathy due to degenerative joint disease of spine (Chronic) Chronic low back pain (Chronic) Overactive bladder (Chronic) Cigarette smoker (Chronic) Medical History Endometriosis Surgical History History of bilateral tubal ligation (04/15/86) History of carpal tunnel surgery of right wrist (~2006) History of operative procedure on lumbosacral spinal structure (02/08/22) RFA 02/08/22 Hx of esophagogastroduodenoscopy (11/20/06) S/P section (04/15/86) S/P colonoscopy (12/06/16) 02/2022 S/P cystoscopy with ureteral stent placement (11/01/22) Right retrograde pyelogram, right ureteroscopy, right ureteral stent S/P laparoscopic hysterectomy (~1999) Family History Mother , 76 Essential hypertension Heart disease Colon cancer Father , 81 Essential hypertension Stroke Colon cancer Brother , 48 Lung cancer Brother , 48 from accident No problems noted. Sister No problems noted. Son No problems noted. Daughter No problems noted. Maternal Grandfather No problems noted. Maternal Grandmother No problems noted. Paternal Grandfather No problems noted. Paternal Grandmother No problems noted. Social History Smoking/Tobacco Use Status: Current every day Tobacco Type: cigarettes Years smoked: 47 Tobacco: How many years used: 20 Second Hand Exposure: Yes Smoking risk assessment performed?: Yes Alcohol Intake: former Drug use: Never Substance use type: does not use Caregiver/Support person: No Household members: significant other Housing: house Number of Children: 2 Communication Needs: None Do you need help understanding health information?: Rarely current occupation: Disabled Pets and animals: Yes Pets and animals: dog(s) Sexually active: No Do you think of yourself as: straight/heterosexual Current gender identity: female What is your relationship status?: living with partner How often do you talk on the phone with friends or family?: twice per week How often do you get together with friends or relatives?: decline to answer How often do you attend adventism or orthodox services?: decline to answer Do you belong to any clubs or organized social groups?: no Panel score (0-1 are the most socially isolated patients): 1 What type of physical activity do you participate in: walking Duration: 30-45 minutes/day Frequency: daily Ann-Marie/Worship: Tenriism Special ann-marie needs: No Seatbelt use: always Drive intox or ride w/intox tour bus driver/guide: No Do you feel safe at home: Yes Do you feel safe in your relationship?: Yes History History 2 Para 2 Hx # Term Pregnancies Multiple births Hx # Pregnancies Ectopic pregnancies AB induced Hx Number of Living Children 2 AB spontaneous
[2023-04-09 11:28] VITALS: BP 158/91; PULSE 80; RESP 16; TEMP 37.1; O2SAT 94
--- NOTE | 2023-04-09 11:46 | PT.INNT ---
Date of service: 04/09/23 Time of Service: 11:29 PT Notes Visit Reasons: Expressive Aphasia,Hypercalcemia,Lytic Bone Lesion Patient refused therapy, stating that she's going home today or tomorrow and doesn't want to tire herself out with therapy before she goes.
--- NOTE | 2023-04-09 12:14 | PDOC.CMDIS ---
Date of service: 04/09/23 Time of Service: 12:15 LACE Index Scoring Tool Questions: Length of Stay (in days): 4 - 6 Was the patient admitted via the E.D.?: Yes Comorbidities: Liver or Renal Disease E.D. Visits: 2 Answers: Total Score: 14 Risk of Readmission: High Risk Care Management Discharge Plan Reason for Hospitalization: acute confusion, Expressive Aphasia,Hypercalcemia,Lytic Bone Lesion Discharge Plan: Ira is discharged home via private vehicle with family. She will follow up with community providers and her discharge plan of care as prescribed. No services are ordered prior to discharge. Patient/Family Education Needs: Review discharge instructions, limitations, medications and plan to follow up with community providers. Discuss ask me three and goals of self care.
--- NOTE | 2023-04-09 12:31 | DSE_ITS ---
Date of service: 04/09/23 Time of Service: 20:06 DS: Diagnosis Discharge Diagnosis (1) Acute confusion: Status: Resolved (2) DANIEL (acute kidney injury): Status: Resolved (3) Hypercalcemia: Status: Acute (4) CKD (chronic kidney disease) stage 3, GFR 30-59 ml/min: Status: Chronic (5) Hypokalemia: Status: Chronic (6) Colitis: Status: Resolved (7) Hydronephrosis of right kidney: Status: Chronic (8) Essential hypertension: Status: Chronic (9) Hyperlipidemia: Status: Chronic (10) Chronic low back pain: Status: Chronic (11) Cigarette smoker: Status: Chronic Discharge Plan Disposition Patient Disposition: Home Condition: Improving Discharge Details Reason For Visit: Expressive Aphasia,Hypercalcemia,Lytic Bone Lesion Admit Date/Time: 04/04/23 23:54 Admit Provider: Nabil Baker Attending Provider: Nabil Baker [facility]: This is a 66-year-old female with significant past medical history including chronic pain on chronic opioids who has had recent she has tried to get her pain better managed with addition. She is overseeing her medication administration is unclear if she did not take dosing at his recommended. She had recently been discharged here and diagnosed with colitis placed on antibiotics. Initially after returning home did okay found her to be very confused and aphasic so returned her to the emergency department for reevaluation. Her usual medication. She returned to baseline with no further symptoms. Initially her urine look like possible UTI or final cultures with no growth. She completed her course of antibiotics for colitis and has remained medically stable. She is back to her baseline and is safe for discharge to home. As part of her stroke work-up she was found to have bilateral carotid stenosis and will be referred to vascular surgery at [facility] for further monitoring and recommendations. She was initiated on baby aspirin daily Also noted on her hospitalization was elevated calcium level. She received IV fluids with some improvement and will need to follow-up closely outpatient with her primary care provider for further evaluation, SPEP and PTH are pending at time of discharge. She also will follow-up with urology for outpatient follow- up following a stent was placed for hydronephrosis. Discharge was discussed with Dr. Matta. Home Meds and New Rx's Prescriptions: New aspirin [Children's Aspirin] 81 mg Tablet,Chewable 81 mg CH DAILY Qty: 30 0RF Continued naloxone [Narcan] 4 mg/actuation spray,non-aerosol 1 spray intranasal Q2-3M PRN (Reason: opioid overdose) Qty: 2 4RF Rx Instructions: spray 1 dose into ONE nostril; alternate nostrils w each dose until help arrives atenolol 50 mg tablet 50 mg PO DAILY Qty: 90 3RF losartan 50 mg tablet 50 mg PO DAILY Qty: 90 3RF docusate sodium [Colace] 100 mg capsule 100 mg PO BID PRNQty: 180 Patient Comments: 04/11/16 PRN only/pps ibuprofen 200 mg Tablet 200 mg PO Q6H PRN omeprazole 40 mg capsule,delayed release(DR/EC) 40 mg PO .Daily to BID Qty: 180 3RF Rx Instructions: Take 1 pill once to twice a day for heartburn oxycodone-acetaminophen 5-325 mg tablet 1 tab PO .4 to 5 times a day MDD 5 tablets Qty: 117 0RF Rx Instructions: Take 1 tablet four times a day for chronic low back pain potassium chloride 20 mEq tablet extended release 20 meq PO BID Qty: 30 0RF amlodipine 5 mg Tablet 5 mg PO DAILY Qty: 30 0RF Discontinued hydromorphone [Dilaudid] 2 mg tablet 2 mg PO Q6H MDD 4 tabs PRN (Reason: pain) Qty: 20 0RF metronidazole 500 mg tablet 500 mg PO Q6H Qty: 22 0RF Rx Instructions: continued hospital course cefpodoxime 200 mg tablet 200 mg PO BID Qty: 22 0RF Rx Instructions: must administer with a meal/food Do not drink alcohol Discharge Instructions Instructions: Carotid Artery Disease (DC), Altered Mental Status (ED), Hypercalcemia (DC) Additional Instructions: take all medications as directed you will need outpatient follow up with your primary care provider for elevated calcium and for carotid stenosis. labs pending at discharge: PTH and SPEP carotid ultrasound results IMPRESSION: Significant plaque bilaterally at the carotid bulbs and proximal internal carotid arteries, more so on the left side where there are elevated velocities indicating stenosis greater than 70 percent on the left side.? Amount of stenosis on the opposite-right side is estimated at less than 50 percent. Antegrade flow is demonstrated in both vertebral arteries. Stand Alone Forms: Nursing Discharge Form Referrals: Susan Arrieta NP [Primary Care Provider] - 05/01/23 9:00 am JORGE SKINNER MD [ NON-[facility] STAFF PHYSICIAN] - (Referral sent. Office will call you to set up appointment. carotid stenosis) Janes Parsons MD [ [facility] STAFF PHYSICIAN] - 05/09/23 2:00 pm Activity:: Activity as Tolerated Equipment/Supplies:: No Equipment Needed Diet:: As Tolerated Discharge Orders Discharge Orders: Discharge Order (Routine); Ordered 04/09/23 Ordered By: Lori Cervantes Discharge Data Discharge Date/Time-TO BE ENTERED AT DEPARTURE: 04/09/23 14:31 DS: Summary Time Spent with Patient providing and/or coordinating discharge services: Greater than 30 minutes Status at Discharge Functional status at discharge: independent ambulation Overall status at discharge: patient is back to baseline Mental Status: mental status grossly normal Speech and Movement: speech and movement normal Mood: congruent mood Affect: normal affect Exam Const General: comfortable and no acute distress Nutritional Appearance: thin Orientation: alert, awake and oriented x3 HENMT Head: normal to inspection, normocephalic and atraumatic Mouth: oral mucosae normal Chest Chest: normal inspection of the chest Resp Effort & Inspection: normal respiratory effort Auscultation: clear to auscultation bilaterally Cardio Rate: regular rate Rhythm: regular rhythm GI Inspection: normal to inspection Auscultation: normal bowel sounds Neuro General: patient alert, patient awake, patient oriented x3 and no focal motor deficits Cognition: normal cognition Speech: speech normal Gait: normal gait Motor: muscle tone normal throughout Sensory Exam: no sensory deficits noted Psych Mental Status: mental status grossly normal Speech and Movement: speech and movement normal Mood: congruent mood Affect: normal affect DS: Data Vitals/I&O Vitals and I&O: Vital Signs Temperature 37.1 C 04/09/23 11:28 Temperature Source Tympanic 04/09/23 11:28 Pulse 80 04/09/23 11:28 Pulse Rhythm Regular 04/09/23 08:00 Pulse 87 04/05/23 00:30 Respiratory Rate 16 04/09/23 11:28 Respiratory Effort Normal 04/09/23 08:00 Respiratory Depth Normal 04/09/23 08:00 Respiratory Pattern Normal 04/09/23 08:00 Blood Pressure 158/91 H 04/09/23 11:28 Blood Pressure Mean 119 04/05/23 00:16 Blood Pressure Position Sitting 04/04/23 20:05 Pulse Oximetry 94 04/09/23 11:28 Oxygen Delivery Method Room Air 04/09/23 11:28 Oxygen Flow Rate 0 04/09/23 11:28 Fraction of Inspired Oxygen (FIO2) 98 04/09/23 02:11 Pain Level 0 04/09/23 11:28 Comment BP called over radio 04/08/23 15:33 Intake & Output 04/08/23 04/09/23 04/09/23 23:59 11:59 23:59 Intake Total 600 / 1700 Output Total 600 / 1300 1000 / 1000 Balance 0 / 400 -1000 / -1000 Weight 43.9 kg Intake: Oral 600 / 600 Output: Urine 600 / 1300 1000 / 1000 Other: Urine Color Yellow Yellow Urine Appearance Clear Clear Comment less than 100 ml Stool Characteristics Soft Voiding Methods Bedside Commode Bedside Commode Data Completed and Pending Labs on day of discharge: Labs from last 24 hours 04/09/23 04/09/23 04/09/23 12:25 06:35 06:35 WBC 11.19 H RBC 3.64 L Hgb 11.6 Hct 34.6 L MCV 95 MCH 31.9 MCHC 33.5 RDW 12.1 Plt Count 417 H MPV 9.5 Immature Gran % 0.3 Neutrophils % 79.1 Lymphocytes % 13.4 Monocytes % 6.6 Eosinophils % 0.4 Basophils % 0.2 Nucleated RBC % 0.0 Absolute Neutrophils 8.85 H Absolute Lymphocytes 1.50 Absolute Monocytes 0.74 Absolute Eosinophils 0.04 Absolute Basophils 0.02 Sodium 134 L Potassium 3.7 Chloride 96 L Carbon Dioxide 26.3 Anion Gap 11.7 H BUN 14 Creatinine 1.2 H Est GFR (CKD-EPI 2020) 50.23 Glucose 115 H Calcium 11.1 H PTH Related Peptide Pending U Total Protein mg/dL Urine Albumin (PEP) Urine Albumin (%) Urine Globulin EP Urine Globulin U PEP M-Jayme U PEP M-Jayme % Urine Immunofixation Urine ROMÁN Comments 04/07/23 04:55 WBC RBC Hgb Hct MCV MCH MCHC RDW Plt Count MPV Immature Gran % Neutrophils % Lymphocytes % Monocytes % Eosinophils % Basophils % Nucleated RBC % Absolute Neutrophils Absolute Lymphocytes Absolute Monocytes Absolute Eosinophils Absolute Basophils Sodium Potassium Chloride Carbon Dioxide Anion Gap BUN Creatinine Est GFR (CKD-EPI 2020) Glucose Calcium PTH Related Peptide U Total Protein mg/dL 77 Urine Albumin (PEP) 25 Urine Albumin (%) 32.9 Urine Globulin EP 52 Urine Globulin 67.1 U PEP M-Jayme Not Applicable U PEP M-Jayme % Not Applicable Urine Immunofixation (See Note) Urine ROMÁN Comments See Comment Preliminary micro results at discharge 04/05/23 16:35 Blood Culture - Preliminary Blood NO GROWTH 72 HOURS 04/05/23 16:25 Blood Culture - Preliminary Blood NO GROWTH 72 HOURS PFSH All Active Problems Hypercalcemia (Acute) Lesion of brain (Acute) Constipation (Acute) Ascites (Acute) Hypertensive urgency (Acute) Nausea (Acute) Hypokalemia (Chronic) Hydronephrosis of right kidney (Chronic ~10/2022) Ureteral stricture, right (Acute) CKD (chronic kidney disease) stage 3, GFR 30-59 ml/min (Chronic) Essential hypertension (Chronic) Hyperlipidemia (Chronic) Osteoporosis (Chronic) Prediabetes (Chronic) PTSD (post-traumatic stress disorder) (Chronic) GERD (gastroesophageal reflux disease) (Chronic) Lumbosacral radiculopathy due to degenerative joint disease of spine (Chronic) Chronic low back pain (Chronic) Overactive bladder (Chronic) Cigarette smoker (Chronic) Medical History Endometriosis Surgical History History of bilateral tubal ligation (04/15/86) History of carpal tunnel surgery of right wrist (~2006) History of operative procedure on lumbosacral spinal structure (02/08/22) RFA 02/08/22 Hx of esophagogastroduodenoscopy (11/20/06) S/P section (04/15/86) S/P colonoscopy (12/06/16) 02/2022 S/P cystoscopy with ureteral stent placement (11/01/22) Right retrograde pyelogram, right ureteroscopy, right ureteral stent S/P laparoscopic hysterectomy (~1999) Family History Mother , 76 Essential hypertension Heart disease Colon cancer Father , 81 Essential hypertension Stroke Colon cancer Brother , 48 Lung cancer Brother , 48 from accident No problems noted. Sister No problems noted. Son No problems noted. Daughter No problems noted. Maternal Grandfather No problems noted. Maternal Grandmother No problems noted. Paternal Grandfather No problems noted. Paternal Grandmother No problems noted. Social History Smoking/Tobacco Use Status: Current every day Tobacco Type: cigarettes Years smoked: 47 Tobacco: How many years used: 20 Second Hand Exposure: Yes Smoking risk assessment performed?: Yes Alcohol Intake: former Drug use: Never Substance use type: does not use Caregiver/Support person: No Household members: significant other Housing: house Number of Children: 2 Communication Needs: None Do you need help understanding health information?: Rarely current occupation: Disabled Pets and animals: Yes Pets and animals: dog(s) Sexually active: No Do you think of yourself as: straight/heterosexual Current gender identity: female What is your relationship status?: living with partner How often do you talk on the phone with friends or family?: twice per week How often do you get together with friends or relatives?: decline to answer How often do you attend buddhism or confucianism services?: decline to answer Do you belong to any clubs or organized social groups?: no Panel score (0-1 are the most socially isolated patients): 1 What type of physical activity do you participate in: walking Duration: 30-45 minutes/day Frequency: daily Ann-Marie/Judaism: Hoahaoism Special ann-marie needs: No Seatbelt use: always Drive intox or ride w/intox taxi driver: No Do you feel safe at home: Yes Do you feel safe in your relationship?: Yes History History 2 Para 2 Hx # Term Pregnancies Multiple births Hx # Pregnancies Ectopic pregnancies AB induced Hx Number of Living Children 2 AB spontaneous Time Spent with Patient Time Spent with Patient: 45-69 minutes Time was spent: preparing to see the patient(eg.review tests), obtaining and/or reviewing separately otained hiistory, ordering medications,tests, procedures, indepentently interpreting results and counseling the patient
[2023-04-09 15:34] LABS: Albumin 47.7 % (55.8-66.1); Albumin g/dL 3.2 g/dL (3.6-5.2); Comment (See Note); Total Protein 6.7 g/dL (6.3-8.2)
[2023-04-09 16:02] LABS: Immunotyping, Serum (See Note)
--- NOTE | 2023-04-09 21:39 | OT.INDS ---
Occupational Therapy Notes Occupational Therapy Inpatient Discharge Summary Date: 04/09/23 Dates of Service: 04/05/23-04/09/23 Referring Doctor:Nabil Baker MD OT Orders: Non urgent- Limited Ability Precautions: Fall, Standard, Full PATIENT PROFILE/ADMITTING DIAGNOSIS: Pt is a 67 year old female who presented to the ED on 04/04/23 with a clinical impression of acute confusion/brain lesion. She was admitted to [facility] and an Occupational Therapy consult was ordered for assessment of pts functional limitations and impairments at this time. Past Medical History: All Active Problems Hypercalcemia (Acute) Acute confusion (Acute) Lesion of brain (Acute) Constipation (Acute) Ascites (Acute) Hypertensive urgency (Acute) Nausea (Acute) Hypokalemia (Chronic) Colitis (Acute) DANIEL (acute kidney injury) (Acute ~09/2022) Hydronephrosis of right kidney (Chronic ~10/2022) Ureteral stricture, right (Acute) CKD (chronic kidney disease) stage 3, GFR 30-59 ml/min (Chronic) Essential hypertension (Chronic) Hyperlipidemia (Chronic) Osteoporosis (Chronic) Prediabetes (Chronic) PTSD (post-traumatic stress disorder) (Chronic) GERD (gastroesophageal reflux disease) (Chronic) Lumbosacral radiculopathy due to degenerative joint disease of spine (Chronic) Chronic low back pain (Chronic) Overactive bladder (Chronic) Cigarette smoker (Chronic) Medical History? Endometriosis Surgical History? History of bilateral tubal ligation (04/15/86) History of carpal tunnel surgery of right wrist (~2006) History of operative procedure on lumbosacral spinal structure (02/08/22) RFA 02/08/22Hx of esophagogastroduodenoscopy (11/20/06) S/P section (04/15/86) S/P colonoscopy (12/06/16) /P cystoscopy with ureteral stent placement (11/01/22) Right retrograde pyelogram, right ureteroscopy, right ureteral stentS/P laparoscopic hysterectomy (~1999) Social History/Home Situation: Pt lives in a private home with her significant other. He reports that up until yesterday pt was very independent in regards to her ADL/IADL routines. He states that she was able to drive, she was (I) with dressing and bathing. He notes that he went to work yesterday for 6 hours and came home and pt was unable to process any conversation and would just stop talking. He notes that pts baseline is that she utilizes the bathroom a lot due to her kidneys. He states that his concern is cognitively at the moment. Equipment owned/DME: None prior SUBJECTIVE:??Pt was sitting in her bed with her present. He states that she is doing well today. OBJECTIVE:? ROM: RUE AROM WFL L UE AROM WFL STRENGTH: RUE 3+/5 LUE 4-/5 FUNCTIONAL MOBILITY/ADLS:? Transfers CGA Supine-sit (I) Sit-supine (I) Sit-Stand (I) Stand-sit (I) Bed-Commode (I) Commode-bed (I) BATHING pt denies as she reports that she showered yesterday at home. DRESSING Dressing UE (I) Dressing LE (I) TOILETING on commode (I) toileting hygiene BALANCE: Static sitting Normal Dynamic Sitting Normal Static Standing Good Dynamic Standing Good ASSESSMENT:?? Patient is a 67-year-old female referred to occupational therapy services with diagnosis of hypercalcemia, acute confusion, lesion of brain, constipation, ascites, hypertensive urgency, nauseam hypokalemiam colitism DANIEL. Patient was performing her ADLs more (I) today. She had ideal task initiation and function (I) and seems to be back to her baseline level of function. GOALS- Met 1.? Transfers (I) 2.? Dressing seated (I) with (I) task initiation and min vc 3.? Bathing seated (I) with (I) task initiation and min vc 4.? Toileting (I) 5.? Eating (I) with (I) task initiation PLAN OF CARE/TREATMENT PLAN: Pt was discharged home today and medically cleared per MD DISCHARGE RECOMMENDATIONS services including PT/OT when medically cleared per MD. TREATMENT TIME/MINUTES/CODES 91005, 10 minutes Alize Pa OTR/[facility] [place], [place]
[2023-04-12 15:38] LABS: PTH-Related Peptide 8.7 pmol/L (< or = 4.2)
--- NOTE | 2023-04-16 09:22 | PT.INDS ---
PT Notes Visit Reasons: Expressive Aphasia,Hypercalcemia,Lytic Bone Lesion Inpatient Physical Therapy Evaluation Date: 04/08/23 Dates of Service: 04/05/2023 through 04/08/2023 This is a clinical summary of care provided for the duration of dates listed above. No charge was made in the completion of this documentation. Referring Doctor:? Dr. Nabil Baker PT Orders: PT CONSULT: limited ability to ambulate Precautions: fall, standard Patient Profile/Admitting Diagnosis:?? Patient admitted for medical management after presenting to ED with confusion yesterday. Awaiting MRI later this morning. PMHX: All Active Problems Hypercalcemia (Acute) Acute confusion (Acute) Lesion of brain (Acute) Constipation (Acute) Ascites (Acute) Hypertensive urgency (Acute) Nausea (Acute) Hypokalemia (Chronic) Colitis (Acute) DANIEL (acute kidney injury) (Acute ~09/2022) Hydronephrosis of right kidney (Chronic ~10/2022) Ureteral stricture, right (Acute) CKD (chronic kidney disease) stage 3, GFR 30-59 ml/min (Chronic) Essential hypertension (Chronic) Hyperlipidemia (Chronic) Osteoporosis (Chronic) Prediabetes (Chronic) PTSD (post-traumatic stress disorder) (Chronic) GERD (gastroesophageal reflux disease) (Chronic) Lumbosacral radiculopathy due to degenerative joint disease of spine (Chronic) Chronic low back pain (Chronic) Overactive bladder (Chronic) Cigarette smoker (Chronic) Social History/Home Situation: Lives in a private home with her significant other. Disabled for many years. Independent with ambulation, ADLs. Drives independently. Equipment Owned/DME: None Subjective:? NT. See most recent [employer]IST[employer] notes. Objective:? General Observation: NT. See most recent [employer] ASSIST[employer] notes. Mental Status: NT. See most recent [employer] ASSIST[employer] notes. Pain: NT. See most recent [employer] ASSIST[employer] notes. ROM: Right Upper Extremity: Shoulder flexion 120* actively. Elbow, wrist and hand motion WFL. Left Upper Extremity: Shoulder flexion 120* actively. Elbow, wrist and hand motion WFL. Right Lower Extremity: WFL Left Lower Extremity: WFL Strength: Right Upper Extremity: Shoulder flexion 3+/5. Grossly 3/5 for all other UE movements. Left Upper Extremity: Shoulder flexion 3+/5. Grossly 3/5 for all other UE movements. Right Lower Extremity: Hip flexion 4/5. Quads 4+/5. Ankle DF 4/5. Left Lower Extremity: Hip flexion 4/5. Quads 4+/5. Ankle DF 4+/5. BED MOBILITY/TRANSFERS? Rolling L/R: independent Supine-sit: independent ? Sit-supine: independent? Sit-stand: independent ? Stand-sit: independent? Bed-Chair: stand by assist ? Chair-bed: stand by assist ? GAIT? Assistive Device: none? Weight bearing: full Assist: standby ? Distance:? 10x3 ? Deviation: reduced step length, reduced step height ? Balance:? Static Sitting: Normal Dynamic Sitting: Normal Static Standing: Good Dynamic Standing: Good Assessment:?? Patient is a 67 year old female referred to physical therapy services with the diagnosis of limited ability to ambulate. She is currently being managed acutely for confusion, with brain MRI later this morning. She presents with the following impairment level findings: 1. Decreased UE/LE strength 2. balance impairments 3. decreased activity tolerance Impairments are contributing to the following functional limitations: 1. increased fall risk due to balance impairments 2. decreased safety with household distance ambulation Goals: Goals X1 week 1. Supine-Sit : independent MET 2. Sit-Supine : independent MET 3. Sit-Stand : independent MET 4. Stand-Sit : independent MET 5. Bed-Chair : independent MET 6. Chair-Bed : independent MET 7. Gait : independent for household distances NOT MET 8. Stairs : supervision x 5 steps NOT MET DISCHARGE RECOMMENDATIONS: Home with services : HH PT TREATMENT CODE/TIME:? NC Thank you for the opportunity to participate in the care of this patient. Lisseth Campos PT, DPT, CLT [facility] [place], [place]
[2023-04-19 19:28] LABS: PTH AB NEGATIVE (NEGATIVE)
--- NOTE | 2023-04-22 10:18 | PDOC.CMDIS ---
LACE Index Scoring Tool Questions: Length of Stay (in days): 4 - 6 Was the patient admitted via the E.D.?: Yes Comorbidities: Liver or Renal Disease and Metastatic Solid Tumor E.D. Visits: 3 Answers: Total Score: 15 Risk of Readmission: High Risk Care Management Discharge Plan Reason for Hospitalization: acute confusion, Expressive Aphasia,Hypercalcemia,Lytic Bone Lesion Discharge Plan: Ira will be discharged home with a same day hospice admission. A hospital bed and other equipment has been ordered and delivered. She will transport via EMS coordinated by CM and be followed by the hospice team. Patient/Family Education Needs: Expectations, limitations, pain and other symptom management Services Needed at Discharge: Home Health Care Services
== END 2023-04-09 14:31 | disposition home or self-care (01) | DRG 948 ==
LOC: ER 04-05 00:09 → MS 04-05 01:10
PROVIDERS: Internal Medicine; Nurse Practitioner Acute Care; Admitting Provider Family Medicine; Emergency Provider Emergency Medicine; PCP Nurse Practitioner Family; Visit Provider Family Medicine
DX: R41.0 Disorientation, unspecified (principal); N17.9 Acute kidney failure, unspecified; N13.1 Hydronephrosis with ureteral stricture, not elsewhere classified; R47.01 Aphasia; E83.52 Hypercalcemia; N18.30 Chronic kidney disease, stage 3 unspecified; E87.6 Hypokalemia; I12.9 Hypertensive chronic kidney disease with stage 1 through stage 4 chronic kidney disease, or unspecified chronic kidney disease; E78.5 Hyperlipidemia, unspecified; G89.29 Other chronic pain; M54.50 Low back pain, unspecified; F17.210 Nicotine dependence, cigarettes, uncomplicated; K59.00 Constipation, unspecified; K52.9 Noninfective gastroenteritis and colitis, unspecified; M81.0 Age-related osteoporosis without current pathological fracture; R73.03 Prediabetes; F43.10 Post-traumatic stress disorder, unspecified; K21.9 Gastro-esophageal reflux disease without esophagitis; N32.81 Overactive bladder; E86.0 Dehydration; I65.23 Occlusion and stenosis of bilateral carotid arteries; M89.9 Disorder of bone, unspecified; Z79.891 Long term (current) use of opiate analgesic
CPT/HCPCS: 36415; 80048; 80053; 83519; 84145; 84156; 84166; 85027; 86335; 87040; 93005; 93306; 97110; 97162; 97166; 97535; 70450; 70551; 81003; 81015; 82140; 82397; 83605; 83735; 84165; 84443; 84484; 85025; 85610; 86320; 87086; 93010; 93880; 99233; 99239; J1644; J2060; J3475

== ENCOUNTER → 2023-04-08 06:58 | Outpatient (BNVA) | payer MEDICARE, SELFPAY | PROVIDERS: PCP Nurse Practitioner Family; Referring Provider Nurse Practitioner Family; Visit Provider Psychiatry & Neurology Neurology ==

== ENCOUNTER 2023-04-15 17:52 | Inpatient (IN) | payer MEDICARE, SELFPAY ==
[2023-04-15] VITALS (43 sets, daily range): BP systolic 77–136; BP diastolic 65–99; PULSE 61–84; RESP 11–29; TEMP 36.8–37.2; O2SAT 93–99
--- NOTE | 2023-04-15 18:00 | RT.EKG_ITS ---
APPROVED REPORT Exam: Resting ECG Reason for Exam: hypotension Patient Location: E HR:67 bpm ECG Measurements Heart Rate 67 AXIS SD 136 P 55 QRSd 86 QRS 7 QT 366 T 59 QTc 388 Conclusion Sinus rhythm...normal P axis, V-rate 60- 99 Inferior infarct, acute...ST>0.10mV, T upright, II III aVF
[2023-04-15] MEDS: Normal Saline 1,000 ML 1000 ML IV ×2 (18:20→19:07)
[2023-04-15 18:22] LABS: Abs Immature Grans 0.09 10^3/uL (0.0-0.06); Absolute Lymphocyte Count 1.49 10^3/uL (1.2-3.4); Absolute Monocyte Count 0.69 10^3/uL (0.1-0.8); Absolute Neutrophil Count 15.42 10^3/uL (1.2-6.7); Basophils % 0.2; HCT 39.6 % (36.0-46.0); Immature Grans % 0.5; Lymphocytes % 8.4; MCH 32.2 pg (27.0-33.0); MCHC 32.8 % (32.0-36.0); MCV 98 fL (80-95); MPV 9.8 fL (8.0-11.0); Monocytes % 3.9; Platelet Count 568 10^3/uL (130-400); RBC 4.04 10^6/uL (3.93-5.22); RDW 12.3 % (11.7-14.6); RDW-SD 44.4 fL; WBC 17.72 10^3/uL (4.4-10.8)
[2023-04-15 18:24] LABS: Absolute Basophil Count 0.04 10^3/uL (0.0-0.2); Lactate 2.7 mmol/L (0.6-1.4)
[2023-04-15 18:36] LABS: Magnesium 2.5 mg/dL (1.8-2.4)
--- NOTE | 2023-04-15 18:40 | W.ED.GENAD ---
Discharge Plan Disposition Patient Disposition: Admit to [facility] Condition: Serious Discharge Details Chief Complaint: AMS/LOC Clinical Impression: General weakness, Hypercalcemia, Hyperkalemia Primary Care Provider: Susan Arrieta ED Provider: Giovanni Gayle [facility] Meds and New Rx's Prescriptions: No Action naloxone [Narcan] 4 mg/actuation spray,non-aerosol 1 spray intranasal Q2-3M PRN (Reason: opioid overdose) Qty: 2 4RF Rx Instructions: spray 1 dose into ONE nostril; alternate nostrils w each dose until help arrives atenolol 50 mg tablet 50 mg PO DAILY Qty: 90 3RF losartan 50 mg tablet 50 mg PO DAILY Qty: 90 3RF docusate sodium [Colace] 100 mg capsule 100 mg PO BID PRNQty: 180 Patient Comments: 04/11/16 PRN only/pps ibuprofen 200 mg Tablet 200 mg PO Q6H PRN omeprazole 40 mg capsule,delayed release(DR/EC) 40 mg PO .Daily to BID Qty: 180 3RF Rx Instructions: Take 1 pill once to twice a day for heartburn oxycodone-acetaminophen 5-325 mg tablet 1 tab PO .4 to 5 times a day MDD 5 tablets Qty: 117 0RF Rx Instructions: Take 1 tablet four times a day for chronic low back pain potassium chloride 20 mEq tablet extended release 20 meq PO BID Qty: 30 0RF aspirin [Children's Aspirin] 81 mg Tablet,Chewable 81 mg CH DAILY Qty: 30 0RF amlodipine 5 mg Tablet 5 mg PO DAILY Qty: 30 0RF Medical Decision Making 67 yo female who is on chronic opiates, cronic smoker, recently admitted for ams that resolved after recently having right ureteral stent placed, had mri without acute ischemic findings, is being [place] [facility] [place] stenosis, who comes in with her son and with general weakness. They state for the past 1-2 months she has had a drastic decline. She has lost a significant amount of weight and doesn't eat much and has no energy. She today has not been able to get out of bed and feels more weak so came here for an evaluation. She denies chest pain, dyspnea, vomiting. She has upper abdominal pain she states she's had for weeks. She appears cachectic and frail on exam. She is caox4 with no focal deficits on exam. She has clear lungs, no murmurs, on abdominal exam she does have ruq and luq tenderness. I'm concerned for dehydration given her triage bp was in the 70's systolic, it is 120 now. Also concern for possible infectious etiology vs cancer given her weight loss. Will proceed with ekg/troponin, cbc, lactate, cmp, ua, and obtain cta for pe to evaluate for possible pe vs infiltrate vs cancer, and given her abdominal pain obtain ct abd/pelvis. pt's kidney function severely reduced, has elevated calcium and K, will administer more IVF and give lokelma and insulin/dextrose, will also proceed with noncontrast imaging, concern for PE is low given lack of hypoxia or tachycardia and no evidence of dvt on exam. imaging shows findings of metastases, unclear etiology for the primary cancer, ct abd/pelvis shows sbo vs ileus, she has not had any vomiting and has had bowel movements so doubt sbo at this time, unclear densities in the small bowel but she and family deny any known foreign body ingestions. UA consistent with uti, will order ceftriaxone. She does seem more confused as she doesn't realize she has a campbell in and is not sure of the year. Will discuss with hospitalist about admission Differential Diagnosis Differential Diagnosis: cancer, dehydration, electrolyte abnormality, sepsis Medical Records Medical records reviewed: Yes I reviewed the patient's medical records. Imaging Data Radiologic Study: Attestation: I personally reviewed and interpreted this imaging study as follows: Imaging: CT Scan Radiologist's impression: IMPRESSION: 1. Distal small bowel obstruction versus gastric/small bowel ileus. 2. Contrast versus foreign bodies contributing to obstruction at the level gastro- duodenal junction and in the distal small bowel loop. 3. Stable hepatic metastasis. 4. Resolving right-sided hydronephrosis status post ureteral stent placement. 5. Bony metastatic disease. 6. Nonspecific colitis of the sigmoid colon. 7. THIS REPORT CONTAINS FINDINGS THAT MAY BE CRITICAL TO PATIENT CARE. The findings were verbally communicated via telephone conference with Giovanni Gayle at 8:50 PM EDT on 04/15/2023. The findings were acknowledged and understood. IMPRESSION: 1. Interval lung parenchymal metastatic disease. 2. Nonspecific ground-glass opacity which could due to edema or pneumonitis. 3. Progressing bony metastatic disease. Lab Data Lab results reviewed: Yes I reviewed the patient's lab results. ECG Data Attestation: I personally reviewed and interpreted this ECG (s) as follows: Prior ECG tracings: available for review Interpretation: sinus rate of 67 pr 136 qtc 388 HPI General Mode of arrival: EMS. Date/Time Provider Initiated Documentation: 04/15/23 18:01. Limitations to Documentation: no limitations. Information obtained by: patient. History of Present Illness 67 year old F presents to the emergency department with the chief complaint of weakness, described as moderate, Patient started experiencing this month(s) (1) and it has been constant. No relieving factors improve symptom(s), No exacerbating factors reported . Patient notes denies chest pain and fever/chills. Patient did receive the following treatments prior to arrival, none Related Data Home Medications Medication Instructions Recorded Confirmed docusate sodium 100 mg capsule 100 mg PO BID PRN #180 caps 09/09/18 04/04/23 (Colace) naloxone 4 mg/actuation nasal 1 spray intranasal Q2-3M PRN 08/16/20 04/04/23 spray (Narcan) opioid overdose #2 ea ibuprofen 200 mg tablet 200 mg PO Q6H PRN 02/06/22 04/04/23 atenolol 50 mg tablet 50 mg PO DAILY #90 tabs 08/30/22 04/04/23 losartan 50 mg tablet 50 mg PO DAILY #90 tabs 02/07/23 04/04/23 omeprazole 40 mg capsule,delayed 40 mg PO .Daily to BID #180 02/25/23 04/04/23 release tab-caps oxycodone-acetaminophen 5 mg-325 1 tab PO .4 to 5 times a day pain 03/21/23 04/04/23 mg tablet #117 tabs potassium chloride 20 mEq 20 meq PO BID #30 tabs 03/27/23 04/04/23 tablet,extended release amlodipine 5 mg tablet 5 mg PO DAILY #30 tabs 04/02/23 04/04/23 aspirin 81 mg chewable tablet 81 mg CH DAILY #30 tabs 04/09/23 (Children's Aspirin) Previous Rx's Medication Instructions Recorded naloxone 4 mg/actuation nasal 1 spray intranasal Q2-3M PRN 08/16/20 spray (Narcan) opioid overdose #2 ea atenolol 50 mg tablet 50 mg PO DAILY #90 tabs 08/30/22 losartan 50 mg tablet 50 mg PO DAILY #90 tabs 02/07/23 omeprazole 40 mg capsule,delayed 40 mg PO .Daily to BID #180 02/25/23 release tab-caps oxycodone-acetaminophen 5 mg-325 1 tab PO .4 to 5 times a day pain 03/21/23 mg tablet #117 tabs potassium chloride 20 mEq 20 meq PO BID #30 tabs 03/27/23 tablet,extended release amlodipine 5 mg tablet 5 mg PO DAILY #30 tabs 04/02/23 aspirin 81 mg chewable tablet 81 mg CH DAILY #30 tabs 04/09/23 (Children's Aspirin) Allergies Allergy/AdvReac Type Severity Reaction Status Date / Time mirtazapine AdvReac Lightheaded Verified 04/04/23 20:10 ness General Stated Complaint: AMS/LOC PURA: 2 Review of Systems All systems reviewed & are unremarkable except as noted in HPI and below Constitutional Constitutional: Denies chills and Denies fever(s) Cardiovascular Cardiovascular: Denies chest pain and Denies dyspnea Respiratory Respiratory: Denies cough and Denies dyspnea Gastrointestinal Gastrointestinal: Denies vomiting Musculoskeletal Musculoskeletal: Denies joint swelling PFSH All Active Problems General weakness (Acute) Hypercalcemia (Acute) Hyperkalemia (Acute) Hypercalcemia (Acute) Lesion of brain (Acute) Constipation (Acute) Ascites (Acute) Hypertensive urgency (Acute) Nausea (Acute) Hypokalemia (Chronic) Hydronephrosis of right kidney (Chronic ~10/2022) Ureteral stricture, right (Acute) CKD (chronic kidney disease) stage 3, GFR 30-59 ml/min (Chronic) Essential hypertension (Chronic) Hyperlipidemia (Chronic) Osteoporosis (Chronic) Prediabetes (Chronic) PTSD (post-traumatic stress disorder) (Chronic) GERD (gastroesophageal reflux disease) (Chronic) Lumbosacral radiculopathy due to degenerative joint disease of spine (Chronic) Chronic low back pain (Chronic) Overactive bladder (Chronic) Cigarette smoker (Chronic) Medical History Endometriosis Surgical History History of bilateral tubal ligation (04/15/86) History of carpal tunnel surgery of right wrist (~2006) History of operative procedure on lumbosacral spinal structure (02/08/22) RFA 02/08/22 Hx of esophagogastroduodenoscopy (11/20/06) S/P section (04/15/86) S/P colonoscopy (12/06/16) 02/2022 S/P cystoscopy with ureteral stent placement (11/01/22) Right retrograde pyelogram, right ureteroscopy, right ureteral stent S/P laparoscopic hysterectomy (~1999) Family History Mother , 76 Essential hypertension Heart disease Colon cancer Father , 81 Essential hypertension Stroke Colon cancer Brother , 48 Lung cancer Brother , 48 from accident No problems noted. Sister No problems noted. Son No problems noted. Daughter No problems noted. Maternal Grandfather No problems noted. Maternal Grandmother No problems noted. Paternal Grandfather No problems noted. Paternal Grandmother No problems noted. Social History Smoking/Tobacco Use Status: Current every day Tobacco Type: cigarettes Years smoked: 47 Tobacco: How many years used: 20 Second Hand Exposure: Yes Smoking risk assessment performed?: Yes Alcohol Intake: former Drug use: Never Substance use type: does not use Details: Has not had Dilaudid since previous admission Caregiver/Support person: No Household members: significant other Housing: house Number of Children: 2 Communication Needs: None Do you need help understanding health information?: Rarely current occupation: Disabled Pets and animals: Yes Pets and animals: dog(s) Sexually active: No Do you think of yourself as: straight/heterosexual Current gender identity: female What is your relationship status?: living with partner How often do you talk on the phone with friends or family?: twice per week How often do you get together with friends or relatives?: decline to answer How often do you attend christian or latter day services?: decline to answer Do you belong to any clubs or organized social groups?: no Panel score (0-1 are the most socially isolated patients): 1 What type of physical activity do you participate in: walking Duration: 30-45 minutes/day Frequency: daily Ann-Marie/Adventism: Hinduism Special ann-marie needs: No Seatbelt use: always Drive intox or ride w/intox school bus driver/teacher assistant: No Do you feel safe at home: Yes Do you feel safe in your relationship?: Yes History History 2 Para 2 Hx # Term Pregnancies Multiple births Hx # Pregnancies Ectopic pregnancies AB induced Hx Number of Living Children 2 AB spontaneous Exam Const General: frail appearing Orientation: alert HENMT Head: normal to inspection Ears: external ears normal General nose exam: external nose normal Mouth: moist mucous membranes Eyes General: appearance normal, both eyes and all related structures Neck Neck: normal visual inspection Chest Chest: no crepitus Resp Effort & Inspection: normal respiratory effort and able to speak in complete sentences Cardio Jugular venous pressure: no JVD Rate: regular rate Heart Sounds: no murmurs GI Palpation: soft and tender Skin General skin exam: no rashes or lesions noted Neuro General: patient alert and patient oriented x3 Extrem General: normal to inspection Psych Mental Status: mental status grossly normal Course Vital Signs Vital signs: Vital Signs Temperature 36.8 C 04/15/23 17:55 Pulse 80 04/15/23 17:55 Respiratory Rate 18 04/15/23 17:55 Blood Pressure 77/65 L 04/15/23 17:55 Pulse Oximetry 99 04/15/23 17:55 Temperature 36.8 C 04/15/23 17:55 Temperature Source Oral 04/15/23 17:55 Pulse 80 04/15/23 17:55 Respiratory Rate 12 04/15/23 18:08 Respiratory Effort Normal 04/15/23 18:08 Respiratory Depth Shallow 04/15/23 18:08 Respiratory Pattern Normal 04/15/23 18:08 Blood Pressure 77/65 L 04/15/23 17:55 Blood Pressure Position Sitting 04/15/23 17:55 Pulse Oximetry 99 04/15/23 17:55 Oxygen Delivery Method Room Air 04/15/23 17:55 Oxygen Flow Rate 0 04/15/23 17:55 Pain Level 0 04/15/23 17:55 Lab/Test Results Lab/Test Results: Laboratory Tests Range/Units 04/15/23 04/15/23 04/15/23 18:15 18:15 18:15 WBC (4.4-10.8) 10^3/uL 17.72 H RBC (3.93-5.22) 10^6/uL 4.04 Hgb (11.2-15.7) g/dL 13.0 Hct (36.0-46.0) % 39.6 MCV (80-95) fL 98 H MCH (27.0-33.0) pg 32.2 MCHC (32.0-36.0) % 32.8 RDW (11.7-14.6) % 12.3 Plt Count (130-400) 10^3/uL 568 H MPV (8.0-11.0) fL 9.8 Immature Gran % 0.5 Neutrophils % 87.0 Lymphocytes % 8.4 Monocytes % 3.9 Eosinophils % 0.0 Basophils % 0.2 Nucleated RBC % (0.0-0.3) % 0.0 Absolute Neutrophils (1.2-6.7) 10^3/uL 15.42 H Absolute Lymphocytes (1.2-3.4) 10^3/uL 1.49 Absolute Monocytes (0.1-0.8) 10^3/uL 0.69 Absolute Eosinophils (0.0-0.7) 10^3/uL 0.00 Absolute Basophils (0.0-0.2) 10^3/uL 0.04 VBG Lactate (0.6-1.4) mmol/L 2.7 H* Magnesium (1.8-2.4) mg/dL 2.5 H
[2023-04-15 18:49] LABS: ALT 25 U/L (14-59); AST 27 U/L (15-37); Albumin 3.8 g/dL (3.4-5.0); Alkaline Phosphatase 120 U/L (46-116); Anion Gap 14.7 mmol/L (3-11); Bilirubin, Total 0.3 mg/dL (0.2-1.0); CO2 23.3 mmol/L (21.0-32.0); Chloride 90 mmol/L (98-107); Glucose 171 mg/dL (74-106); Sodium 128 mmol/L (136-145); TSH (W/Ref FT4) 0.47 uIU/mL (0.36-3.74); Total Protein 10.3 g/dL (6.4-8.2); Troponin I < 50 ng/L (<or=60)
[2023-04-15 18:56] LABS: Procalcitonin < 0.1 ng/mL
[2023-04-15 19:00] LABS: ETHANOL BLOOD < 3.0 mg/dL (<10)
--- NOTE | 2023-04-15 19:00 | DI.CT_ITS ---
Exam(s) CT CHEST/ABD/PEL WO EXAM: CT CHEST/ABD/PEL WO CLINICAL HISTORY: ?tumor vs pneumonia, upper abd pain. TECHNIQUE: Imaging Protocol: Axial computed tomography images with coronal and sagittal reformatted images were created and reviewed CONTRAST MATERIAL: Intravenous: Omnipaque 350 Contrast volume:100 ml Oral: no COMPARISON: CT CT CHEST WO from 03/15/[address] ABDOMEN PELVIS WO from 10/31/[address] ABDOMEN PELVIS WO from 03/31/2023 FINDINGS: CHEST: Tracheobronchial tree: Patent where visualized. Pulmonary parenchyma: Innumerable bilateral pulmonary nodules consistent with metastatic disease. Th e largest is at the left lung base which measures 11 millimeters. There is also more acute appearing infiltrate in the right upper and lower lobes. Pleura: No effusion or pneumothorax. There is abnormal nodularity along the pleura, also suspicious for metastatic disease. Previously noted effusions are no longer present. Lymph nodes: Within normal limits. Aorta: Thoracic portion non-dilated. Moderate calcification. Heart: Normal size. Moderate coronary artery calcifications. Few small nodules are noted in the epi cardial fat, suspicious for metastatic disease. Bones: No compression fractures. Multiple lytic lesions now seen in spine, sternum and ribs, with si gnificant bony destruction...No compression fractures. ABDOMEN: Liver: Normal density. Low-density lesion inferior right lobe of the liver suspicious for metastatic lesion. Gallbladder and biliary tract: No radiodense calculus stable dilatation of the common bile duct. Dil ation. Pancreas: Moderate atrophy. No abnormal calcifications or inflammatory process. Spleen: Normal. Kidneys: Interval placement of right ureteral stent. Resolution of previously noted hydronephrosis. Adrenal glands: No masses seen. Aorta: Abdominal portion non-dilated. Atherosclerotic changes. Lymph nodes: Within normal limits. Soft tissues: Unremarkable. PELVIS: Bladder: Decompressed by catheter. Bowel: Difficult to evaluate without IV an oral contrast as well as lack of intra-abdominal fat.. Mar kedly distended stomach. High-density material in gastric antrum. Dilated loops of small bowel suspic ious for obstruction. Large quantity of stool noted in the ascending colon. Wall thickening involvin g the sigmoid colon. Peritoneal cavity: Peritoneal nodularity seen. Masslike density again noted along the right lateral p elvic wall through which the ureteral catheter extends. Bones: Numerous lytic lesions seen in the pelvis, the largest in the lower sacrum. Reproductive organs: Status post hysterectomy. IMPRESSION: Findings consistent with small-bowel obstruction. Peritoneal metastases. Numerous pulmonary metastases. Extensive bony metastases. Status post placement of right ureteral stent with resolution of hydronephrosis. Liver metastasis. RADIATION DOSE DELIVERED: 668.05mGy.cm Total DLP DATA REPOSITORY: All CT scans at this facility are submitted to the National Radiology Data Registry (NRDR) Dose Index Registry (DIR) with the [employer] (A[employer]). RADIATION OPTIMIZATION: All CT scans at this facility use at least one of these dose optimization te chniques: automated exposure control; mA and/or kV adjustment per patient size (includes targeted exa ms where dose is matched to clinical indication); or iterative reconstruction.
[2023-04-15 19:03] LABS: BUN 89 mg/dL (7-18); CREATININE 4.1 mg/dL (0.55-1.02); Calcium 15.3 mg/dL (8.5-10.1); Potassium 6.6 mmol/L (3.5-5.1)
[2023-04-15 19:18] LABS: INR 1.1 (0.9-1.1); PTT Activated 24.3 sec (21.5-31.9); Prothrombin Time 10.7 sec (9.3-11.0)
[2023-04-15] MEDS: Insulin REGULAR-Human 100 UNITS/ML UNIT 10 UNITS IV (19:19)
[2023-04-15] MEDS: Dextrose 25%-Water 10 ML SYR IVP (19:19)
[2023-04-15 19:52] LABS: Bilirubin Small (Negative); Blood Large (Negative); Clarity Cloudy (Clear); Glucose Negative (Negative); Ketones Trace mg/dL (Negative); Leukocyte Esterase Moderate (Negative); Nitrite Negative (Negative); Specific Gravity 1.025 (1.005-1.025); Urobilinogen 0.2 mg/dL (Up to 0.2)
[2023-04-15 20:00] LABS: Bacteria Moderate HPF (Negative); C & S Indicated? Yes; Crystals Negative HPF (Negative); Epithelial Cells Few HPF (Negative); Mucus Trace (Negative); Other Cells Moderate Yeast (Negative); RBC 20-50 HPF (0-2); WBC >50 HPF (0-5)
[2023-04-15] MEDS: Sodium Zirconium Cyclosilicate 10 GM PKT PO (20:03)
[2023-04-15 20:04] LABS: *AMPHETAMINES SCREEN URINE Negative (Negative); *BARBITURATES SCREEN URINE Negative (Negative); *BENZODIAZEPINES SCREEN URINE Negative (Negative); Cannabinoids THC Negative (Negative); Cocaine Screen,Urine Negative (Negative); METHADONE URINE SCREEN Negative (Negative); OPIATES URINE SCREEN Positive (Negative)
[2023-04-15 20:05] LABS: Tricyclic Antidepressants Negative (Negative)
[2023-04-15 20:32] LABS: Anion Gap 12.9 mmol/L (3-11); CO2 20.1 mmol/L (21.0-32.0); Chloride 99 mmol/L (98-107); Estimated GFR 13.01 (mL/min/1.73m2); Glucose 124 mg/dL (74-106); Sodium 132 mmol/L (136-145)
[2023-04-15 20:35] LABS: Calcium 14.7 mg/dL (8.5-10.1)
[2023-04-15 20:36] LABS: BUN 87 mg/dL (7-18); CREATININE 3.7 mg/dL (0.55-1.02); Potassium 6.2 mmol/L (3.5-5.1)
[2023-04-15] MEDS: cefTRIAXone 1 GM/50 ML BAG IVPB (20:38)
--- NOTE | 2023-04-15 20:53 | DI.VRAD_ITS ---
Addendum created by Paolo Cabral MD on 04/15/2023 8:54:11 PM EDT: Status post hysterectomy. Initial report created on 04/15/2023 8:53:29 PM EDT: PROCEDURE INFORMATION: Exam: CT Chest Without Contrast; Diagnostic Exam date and time: 04/15/2023 7:36 PM Age: 67 years old Clinical indication: Abdominal pain; Localized; Prior surgery; Surgery date: 1-6 months; Surgery type: Ureteral stent R, . tubal ligation, hysterectomy, L spine; Patient HX: ? Tumor v/s pneumonia, upper abd pain TECHNIQUE: Imaging protocol: Diagnostic computed tomography of the chest without contrast. Total images: 2194 Radiation optimization: All CT scans at this facility use at least one of these dose optimization techniques: automated exposure control; mA and/or kV adjustment per patient size (includes targeted exams where dose is matched to clinical indication); or iterative reconstruction. COMPARISON: CT CHEST WO 03/15/2022 7:57 AM FINDINGS: Lungs: Minimal pleural thickening right lung base. Interval subsegmental ground-glass opacity superior segment right lower lobe and right upper lobe. No endobronchial lesion. Background of mild mosaic attenuation. Lung nodules: A few interval 2 mm right lower middle lobe nodules. Interval 1 cm nodular opacity left lung base. Interval 2 mm scattered left lower and upper lobe nodules. Pleural spaces: No pleural effusion or pneumothorax. Heart: No cardiomegaly. No pericardial effusion. Coronary arteries: Moderate coronary artery calcification. Lymph nodes: No mediastinal, hilar or axillary adenopathy. Vasculature: No displaced aortic intimal calcifications. Intraperitoneal space: See below. Bones/joints: Thoracic kyphosis. No significant compression deformity. Interval lytic lesion involving the sternal body measuring 1 cm. A few interval lytic rib lesions including subcentimeter lesion posterior aspect left 12th rib. Interval multiple vertebral lytic lesions including involving the T3, T4 and T5 pedicles and left transverse processes. Pathologic fracture posterior left 2nd rib. Soft tissues: Extrathoracic soft tissues are unremarkable. IMPRESSION: 1. Interval lung parenchymal metastatic disease. 2. Nonspecific ground-glass opacity which could due to edema or pneumonitis. 3. Progressing bony metastatic disease. PROCEDURE INFORMATION: Exam: CT Abdomen And Pelvis Without Contrast Exam date and time: 04/15/2023 7:36 PM Age: 67 years old Clinical indication: Abdominal pain; Localized; Prior surgery; Surgery date: 1-6 months; Surgery type: Ureteral stent R, . tubal ligation, hysterectomy, L spine; Patient HX: ? Tumor v/s pneumonia, upper abd pain TECHNIQUE: Imaging protocol: Computed tomography of the abdomen and pelvis without contrast. Radiation optimization: All CT scans at this facility use at least one of these dose optimization techniques: automated exposure control; mA and/or kV adjustment per patient size (includes targeted exams where dose is matched to clinical indication); or iterative reconstruction. COMPARISON: CT ABDOMEN PELVIS WO 03/31/2023 5:21 AM FINDINGS: Lungs: Tiny basilar lung nodules. Liver: Again noted is a 1.2 cm hypodense nodule posterior segment right hepatic lobe. Gallbladder and bile ducts: Stable mild dilatation common bile duct without visualized stone. Pancreas: Moderate pancreatic atrophy. Spleen: No splenomegaly. Adrenal glands: No adrenal nodule. Kidneys and ureters: Interval right ureteral stent with almost complete resolution of right hydronephrosis. No definite right renal or ureteral calculi. 3 mm left renal stone. No left ureteral calculi. Stomach and bowel: Fluid and air markedly distends the stomach. No associated gastric wall thickening. There are large calcific density structures at the level of the gastric pylorus and duodenal bulb which are also well visualized the shipping and receiving supervisor film. Additional smaller lesion within a left lower quadrant small bowel loop. Multiple mildly distended fluid-filled small bowel loops. No small bowel wall thickening. Circumferential wall thickening involving the sigmoid colon. Significant right-sided fecal loading. Appendix: No evidence of appendicitis. Intraperitoneal space: Small amount of free fluid in the pelvis. No free intraperitoneal air. Vasculature: Aortoiliac atherosclerotic disease. Stable 2.6 cm infrarenal abdominal aortic aneurysm. Lymph nodes: No significant adenopathy. Urinary bladder: Crisostomo catheter in the bladder with secondary intraluminal air. Reproductive: Unremarkable as visualized. Bones/joints: Again noted is lytic lesion involving the right side of S1. Stable lytic lesion involving the anterior aspect of the right iliac crest. Persistent large lytic lesion centered within left side of the sacrum. Severe degenerative disc space narrowing at L5-S1. Soft tissues: Extra-abdominal soft tissues are unremarkable. IMPRESSION: 1. Distal small bowel obstruction versus gastric/small bowel ileus. 2. Contrast versus foreign bodies contributing to obstruction at the level gastro- duodenal junction and in the distal small bowel loop. 3. Stable hepatic metastasis. 4. Resolving right-sided hydronephrosis status post ureteral stent placement. 5. Bony metastatic disease. 6. Nonspecific colitis of the sigmoid colon. 7. THIS REPORT CONTAINS FINDINGS THAT MAY BE CRITICAL TO PATIENT CARE. The findings were verbally communicated via telephone conference with Giovanni Gayle at 8:50 PM EDT on 04/15/2023. The findings were acknowledged and understood. Dictated and Authenticated by: Paolo Cabral MD. Ordering:SUZANNA Davila MD
--- NOTE | 2023-04-15 21:34 | HPE_ITS ---
Date of service: 04/15/23 Time of Service: 21:34 Assessment and Plan Assessment and plan (1) General weakness: Status: Acute Assessment and plan: FTT at home. Poor appetite. Wt loss. Likely secondary to metastatic process. Suspicious for lung cancer in a smoker. Mets to bone and liver. IV hydration. Will encourage oral intake with protein supp once diet introduced. (2) Hypercalcemia: Status: Acute Assessment and plan: PTH elevated at 8.7. Ionized Ca pending. SPEP drawn at last admission showed elevations of globulin fractions but no monoclonal spike. (3) Hyperkalemia: Status: Acute Assessment and plan: Some improvement that's temporary with insulin and glucose admin. No peaked T-waves on EKG Lokelma administered. Monitor. (4) Constipation: Status: Acute Assessment and plan: Fecal loading in distal colon. Give glycerin suppository. NPO at this time d/t partial bowel obstruction vs ileus. (5) DANIEL (acute kidney injury): Status: Resolved Assessment and plan: Pre-renal likely d/t poor intake. She does have a ureteral stent that was placed d/t stricture. Hydronephrosis significantly improved. IV fluids overnight and monitor. (6) Essential hypertension: Status: Chronic Assessment and plan: Hold antihypertensives until BP is definitively recovered. (7) Hyperlipidemia: Status: Chronic Assessment and plan: Not on lipid lowering agent (8) Cigarette smoker: Status: Chronic Assessment and plan: Offer nicotine replacement and encourage cessation. (9) Hyperparathyroidism: Status: Acute Assessment and plan: Primary. Endocrine as outpt. (10) Metastatic disease: Status: Acute Assessment and plan: No definitive dx of a primary. Suspect lung. Will need further w/u and oncology referral. (11) Urinary tract infection: Status: Acute Assessment and plan: UA +. Cx pending. Elevated WBC count. Rocephin initiated. (12) Bowel obstruction: Status: Acute Assessment and plan: Partial vs ileus. Fecal loading in the distal colon. Is now NPO. IV fluids. Surgical consult if worsens. No NG at this point in time. History of Present Illness History of Present Illness Chief Complaint: FTT and weakness Narrative: This is a 67 yo female with a PMH of CKD stage 3, carotid stenosis, hypercalcemia, ureteral stricture/stented, HTN, HLD, Osteoporosis, PTSD, GERD, OAB, tobacco abuse disorder. She presented with the primary c/o weakness. She has also been losing wt. This process has been noted over the last 1-2 months. Her appetite has been poor. She has had no CP/palpitations, N/V. She does endorse upper abd discomfort for several weeks. No cough/congestion. No F/c. Significant findings in the ED: WBC count of 17.72. VBG lactate 2.7. Na 128. K 6.6. BUN 89. Creatinine 4.1. Ca 15.3. AP 120. CT chest/abd/pelvis: 1. ? Interval lung parenchymal metastatic disease. 2. ? Nonspecific ground-glass opacity which could due to edema or pneumonitis. 3. ? Progressing bony metastatic disease. CT abd/pelvis: 1. ? Distal small bowel obstruction versus gastric/small bowel ileus. 2. ? Contrast versus foreign bodies contributing to obstruction at the level gastro- duodenal junction and in the distal small bowel loop. 3. ? Stable hepatic metastasis. 4. ? Resolving right-sided hydronephrosis status post ureteral stent placement. 5. ? Bony metastatic disease. 6. ? Nonspecific colitis of the sigmoid colon. Hyperkalemia tx in ED: Dextrose and insulin, 2L NS; K decreased to 6.2. With 2L NS her creatinine decreased to 3.7. Na improved to 132. Review of Systems All systems reviewed & are unremarkable except as noted in HPI and below PFSH All Active Problems Bowel obstruction (Acute) Urinary tract infection (Acute) Metastatic disease (Acute) Hyperparathyroidism (Acute) General weakness (Acute) Hypercalcemia (Acute) Hyperkalemia (Acute) Hypercalcemia (Acute) Lesion of brain (Acute) Constipation (Acute) Ascites (Acute) Hypertensive urgency (Acute) Nausea (Acute) Hypokalemia (Chronic) Hydronephrosis of right kidney (Chronic ~10/2022) Ureteral stricture, right (Acute) CKD (chronic kidney disease) stage 3, GFR 30-59 ml/min (Chronic) Essential hypertension (Chronic) Hyperlipidemia (Chronic) Osteoporosis (Chronic) Prediabetes (Chronic) PTSD (post-traumatic stress disorder) (Chronic) GERD (gastroesophageal reflux disease) (Chronic) Lumbosacral radiculopathy due to degenerative joint disease of spine (Chronic) Chronic low back pain (Chronic) Overactive bladder (Chronic) Cigarette smoker (Chronic) Medical History Endometriosis Surgical History History of bilateral tubal ligation (04/15/86) History of carpal tunnel surgery of right wrist (~2006) History of operative procedure on lumbosacral spinal structure (02/08/22) RFA 02/08/22 Hx of esophagogastroduodenoscopy (11/20/06) S/P section (04/15/86) S/P colonoscopy (12/06/16) 02/2022 S/P cystoscopy with ureteral stent placement (11/01/22) Right retrograde pyelogram, right ureteroscopy, right ureteral stent S/P laparoscopic hysterectomy (~1999) Family History Mother , 76 Essential hypertension Heart disease Colon cancer Father , 81 Essential hypertension Stroke Colon cancer Brother , 48 Lung cancer Brother , 48 from accident No problems noted. Sister No problems noted. Son No problems noted. Daughter No problems noted. Maternal Grandfather No problems noted. Maternal Grandmother No problems noted. Paternal Grandfather No problems noted. Paternal Grandmother No problems noted. Social History Smoking/Tobacco Use Status: Current every day Tobacco Type: cigarettes Years s moked: 47 Tobacco: How many years used: 20 Second Hand Exposure: Yes Smoking risk assessment performed?: Yes Alcohol Intake: former Drug use: Never Substance use type: does not use Details: Has not had Dilaudid since previous admission Caregiver/Support person: No Household members: significant other Housing: house Number of Children: 2 Communication Needs: None Do you need help understanding health information?: Rarely current occupation: Disabled Pets and animals: Yes Pets and animals: dog(s) Sexually active: No Do you think of yourself as: straight/heterosexual Current gender identity: female What is your relationship status?: living with partner How often do you talk on the phone with friends or family?: twice per week How often do you get together with friends or relatives?: decline to answer How often do you attend scientology or lutheran services?: decline to answer Do you belong to any clubs or organized social groups?: no Panel score (0-1 are the most socially isolated patients): 1 What type of physical activity do you participate in: walking Duration: 30-45 minutes/day Frequency: daily Ann-Marie/Pentecostal: Protestant Special ann-marie needs: No Seatbelt use: always Drive intox or ride w/intox deliver driver: No Do you feel safe at home: Yes Do you feel safe in your relationship?: Yes History History 2 Para 2 Hx # Term Pregnancies Multiple births Hx # Pregnancies Ectopic pregnancies AB induced Hx Number of Living Children 2 AB spontaneous Meds Allergies and Home Medications Allergies Allergy/AdvReac Type Severity Reaction Status Date / Time mirtazapine AdvReac Lightheaded Verified 04/04/23 20:10 ness Home Medications Medication Instructions Recorded Confirmed Type docusate sodium 100 mg capsule 100 mg PO BID PRN #180 caps 09/09/18 04/15/23 History (Colace) naloxone 4 mg/actuation nasal 1 spray intranasal Q2-3M PRN 08/16/20 04/15/23 Rx spray (Narcan) opioid overdose #2 ea ibuprofen 200 mg tablet 200 mg PO Q6H PRN 02/06/22 04/15/23 History atenolol 50 mg tablet 50 mg PO DAILY #90 tabs 08/30/22 04/15/23 Rx losartan 50 mg tablet 50 mg PO DAILY #90 tabs 02/07/23 04/15/23 Rx omeprazole 40 mg capsule,delayed 40 mg PO .Daily to BID #180 02/25/23 04/15/23 Rx release tab-caps oxycodone-acetaminophen 5 mg-325 1 tab PO .4 to 5 times a day pain 03/21/23 04/15/23 Rx mg tablet #117 tabs potassium chloride 20 mEq 20 meq PO BID #30 tabs 03/27/23 04/15/23 Rx tablet,extended release amlodipine 5 mg tablet 5 mg PO DAILY #30 tabs 04/02/23 04/15/23 Rx aspirin 81 mg chewable tablet 81 mg CH DAILY #30 tabs 04/09/23 04/15/23 Rx (Children's Aspirin) Exam Narrative Exam Narrative: Lying calming in med. Slow to voice responses but is oriented x 3 Const General: cooperative and no acute distress Nutritional Appearance: cachectic Eyes General: appearance normal, both eyes and all related structures Sclera: sclerae normal Resp Effort & Inspection: normal respiratory effort Auscultation: clear to auscultation bilaterally Cardio Rate: regular rate Rhythm: regular rhythm GI Inspection: distended Palpation: nontender Auscultation: hypoactive bowel sounds Neuro General: no focal motor deficits Cranial Nerves: facial strength normal Speech: speech normal Extrem General: no pedal edema and no calf tenderness Psych Affect: blunted Results Labs 04/15/23 18:15 04/15/23 20:13 Labs: Laboratory Results - last 24 hr 04/15/23 04/15/23 04/15/23 18:15 18:15 18:15 WBC RBC Hgb Hct MCV MCH MCHC RDW Plt Count MPV Immature Gran % Neutrophils % Lymphocytes % Monocytes % Eosinophils % Basophils % Nucleated RBC % Absolute Neutrophils Absolute Lymphocytes Absolute Monocytes Absolute Eosinophils Absolute Basophils PT INR APTT VBG Lactate 2.7 H* Sodium 128 L Potassium 6.6 H* Chloride 90 L Carbon Dioxide 23.3 Anion Gap 14.7 H BUN 89 H* Creatinine 4.1 H* Est GFR (CKD-EPI 2020) 11.50 Glucose 171 H Calcium 15.3 H* Magnesium 2.5 H Total Bilirubin 0.3 AST 27 ALT 25 Alkaline Phosphatase 120 H Troponin I < 50 Total Protein 10.3 H Albumin 3.8 Procalcitonin < 0.1 TSH 0.47 Urine Color Urine Clarity Urine pH Ur Specific [place] Urine Protein Urine Ketones Urine Blood Urine Nitrite Urine Bilirubin Urine Urobilinogen Ur Leukocyte Esterase Urine RBC Urine WBC Ur Epithelial Cells Urine Crystals Urine Bacteria Urine Casts Urine Mucus Urine Other Ur Culture Indicated? Urine Glucose Urine Opiates Screen Urine Methadone Screen Ur Barbiturates Screen Ur Tricyclics Screen Ur Amphetamines Screen U Benzodiazepines Scrn Urine Cocaine Screen Ur THC Screen Ethyl Alcohol < 3.0 04/15/23 04/15/23 04/15/23 18:15 18:55 19:45 WBC 17.72 H RBC 4.04 Hgb 13.0 Hct 39.6 MCV 98 H MCH 32.2 MCHC 32.8 RDW 12.3 Plt Count 568 H MPV 9.8 Immature Gran % 0.5 Neutrophils % 87.0 Lymphocytes % 8.4 Monocytes % 3.9 Eosinophils % 0.0 Basophils % 0.2 Nucleated RBC % 0.0 Absolute Neutrophils 15.42 H Absolute Lymphocytes 1.49 Absolute Monocytes 0.69 Absolute Eosinophils 0.00 Absolute Basophils 0.04 PT 10.7 INR 1.1 APTT 24.3 VBG Lactate Sodium Potassium Chloride Carbon Dioxide Anion Gap BUN Creatinine Est GFR (CKD-EPI 2020) Glucose Calcium Magnesium Total Bilirubin AST ALT Alkaline Phosphatase Troponin I Total Protein Albumin Procalcitonin TSH Urine Color Urine Clarity Urine pH Ur Specific [place] Urine Protein Urine Ketones Urine Blood Urine Nitrite Urine Bilirubin Urine Urobilinogen Ur Leukocyte Esterase Urine RBC Urine WBC Ur Epithelial Cells Urine Crystals Urine Bacteria Urine Casts Urine Mucus Urine Other Ur Culture Indicated? Urine Glucose Urine Opiates Screen Positive A Urine Methadone Screen Negative Ur Barbiturates Screen Negative Ur Tricyclics Screen Negative Ur Amphetamines Screen Negative U Benzodiazepines Scrn Negative Urine Cocaine Screen Negative Ur THC Screen Negative Ethyl Alcohol 04/15/23 04/15/23 19:45 20:13 WBC RBC Hgb Hct MCV MCH MCHC RDW Plt Count MPV Immature Gran % Neutrophils % Lymphocytes % Monocytes % Eosinophils % Basophils % Nucleated RBC % Absolute Neutrophils Absolute Lymphocytes Absolute Monocytes Absolute Eosinophils Absolute Basophils PT INR APTT VBG Lactate Sodium 132 L Potassium 6.2 H* Chloride 99 Carbon Dioxide 20.1 L Anion Gap 12.9 H BUN 87 H* Creatinine 3.7 H* Est GFR (CKD-EPI 2020) 13.01 Glucose 124 H Calcium 14.7 H* Magnesium Total Bilirubin AST ALT Alkaline Phosphatase Troponin I Total Protein Albumin Procalcitonin TSH Urine Color Yellow Urine Clarity Cloudy Urine pH 5.0 Ur Specific [place] 1.025 Urine Protein >=300 H Urine Ketones Trace H Urine Blood Large H Urine Nitrite Negative Urine Bilirubin Small H Urine Urobilinogen 0.2 Ur Leukocyte Esterase Moderate H Urine RBC 20-50 H Urine WBC >50 H Ur Epithelial Cells Few Urine Crystals Negative Urine Bacteria Moderate Urine Casts 5-10 WBC Urine Mucus Trace Urine Other Moderate Yeast Ur Culture Indicated? Yes Urine Glucose Negative Urine Opiates Screen Urine Methadone Screen Ur Barbiturates Screen Ur Tricyclics Screen Ur Amphetamines Screen U Benzodiazepines Scrn Urine Cocaine Screen Ur THC Screen Ethyl Alcohol Last Vital Signs Temp 36.8 C 04/15/23 17:55 Pulse 80 04/15/23 17:55 Resp 12 04/15/23 18:08 BP 77/65 L 04/15/23 17:55 Pulse Ox 99 04/15/23 17:55 Time Spent Time spent with Patient: 40-54 minutes Time was spent: preparing to see the patient(eg.review tests), obtaining and/or reviewing separately otained hiistory, ordering medications,tests, procedures, referring, communicating with other health workforce investment act career manager, indepentently interpreting results and counseling the patient
[2023-04-15 22:21] LABS: Source Nasal/Nares
[2023-04-15 23:03] LABS: COVID-19 PCR Negative (Negative)
[2023-04-15] MEDS: CALCIUM GLUCONATE in NaCl 1 GM/50 ML BAG IVPB (23:43)
[2023-04-15] MEDS: Lactated Ringers 1,000 ML 100 ML IV (23:44)
[2023-04-16] VITALS (91 sets, daily range): BP systolic 96–172; BP diastolic 55–104; PULSE 64–91; RESP 12–45; TEMP 36.3–37; O2SAT 88–96
[2023-04-16] MEDS: CALCIUM GLUCONATE in NaCl 1 GM/50 ML BAG IVPB (00:24)
[2023-04-16] MEDS: oxyCODONE 5 MG TAB PO (01:09)
[2023-04-16 05:24] LABS: Lactate 1.4 mmol/L (0.6-1.4)
[2023-04-16 05:29] LABS: Abs Immature Grans 0.04 10^3/uL (0.0-0.06); Absolute Basophil Count 0.04 10^3/uL (0.0-0.2); Absolute Eosinophil Count 0.01 10^3/uL (0.0-0.7); Absolute Monocyte Count 0.94 10^3/uL (0.1-0.8); Basophils % 0.3; Eosinophils % 0.1; HCT 34.6 % (36.0-46.0); HGB 11.6 g/dL (11.2-15.7); Immature Grans % 0.3; Lymphocytes % 9.7; MCH 32.8 pg (27.0-33.0); MCHC 33.5 % (32.0-36.0); MCV 98 fL (80-95); MPV 9.6 fL (8.0-11.0); Monocytes % 6.9; Neutrophils % 82.7; Platelet Count 500 10^3/uL (130-400); RBC 3.54 10^6/uL (3.93-5.22); RDW 12.3 % (11.7-14.6); RDW-SD 44.9 fL; WBC 13.56 10^3/uL (4.4-10.8)
[2023-04-16 05:31] LABS: Absolute Lymphocyte Count 1.32 10^3/uL (1.2-3.4); Absolute Neutrophil Count 11.21 10^3/uL (1.2-6.7)
[2023-04-16 05:47] LABS: ALT 20 U/L (14-59); AST 15 U/L (15-37); Alkaline Phosphatase 94 U/L (46-116); Anion Gap 13.1 mmol/L (3-11); Bilirubin, Total 0.3 mg/dL (0.2-1.0); CO2 21.9 mmol/L (21.0-32.0); CREATININE 2.9 mg/dL (0.55-1.02); Chloride 101 mmol/L (98-107); Estimated GFR 17.42 (mL/min/1.73m2); Glucose 113 mg/dL (74-106); Sodium 136 mmol/L (136-145); Total Protein 8.2 g/dL (6.4-8.2)
[2023-04-16 06:07] LABS: BUN 83 mg/dL (7-18); Calcium > 15.0 mg/dL (8.5-10.1)
[2023-04-16] MEDS: Heparin 5,000 UNITS/ML VIAL 5000 UNITS SC ×3 (06:53→21:49)
--- NOTE | 2023-04-16 06:59 | PUCC_ITS ---
General Date of Service Date of service: 04/16/23 Time of Service: 06:59 Reason for Admission to ICU: Hypercalcemia Assessment and Plan Assessment and plan (1) Hypercalcemia: Status: Acute (2) Bradyarrhythmia: Status: Acute (3) Urinary tract infection: Status: Acute (4) Pneumonia: Status: Acute (5) Ileus: Status: Acute (6) Metastatic disease: Status: Acute (7) Elevated parathyroid hormone related peptide level: Status: Acute (8) Pulmonary nodule: Status: Acute (9) General weakness: Status: Acute (10) Hyperkalemia: Status: Acute (11) Altered mental status: Status: Acute (12) Acute kidney injury superimposed on CKD: Status: Acute (13) Leukocytosis: Status: Acute (14) Lactic acidosis: Status: Acute (15) High anion gap metabolic acidosis: Status: Acute (16) Hyperphosphatemia: Status: Acute (17) Elevated uric acid in blood: Status: Acute Assessment and plan: This is a 67 yo admitted to the ICU for severe hypercalcemia. The most likely etiology of this is metastatic disease given the lytic bone lesions, liver lesion and elevated PTH-rp. She received IVF resuscitation but without improvement in her calcium level. On POCUS today her IVC is small and her RV is not overfilled. She is also on room air. Given this, I ordered her for 1L bolus on normal saline. I also ordered calcitonin q12 and one dose of denosumab. I would avoid any calcium supplementation. She has been having bardyarrythmias over night and this morning, which is likely due to her severe hypercalcemia. If this were to occur and not spontaneously improve, atropine would be recommended. I do suspect that as her calcium level improves, the arrhythmias's will stop. She does also have a UTI on UA and an ileus with a significant amount of fluid in her stomach. She was not decompressed, which can be considered. There are inflammatory changes in the lungs that could be consistent with aspiration or pnuemonia. She is on ceftriaxone for the UTI, which will cover lung bacteria as well. Recommendations Pulmonary: Pulmonary nodules - not present 1 year ago - pleural based - less likely primary neoplastic site - outpatient PET - I will order - I will follow up as an outpatient Cardiac: Bradyarrythmia - transient - avoid calcium administration - if needed can use atropine for sustained bradycardia - if multiple occurrences throughout the day requiring atropine would recommend epinephrine infusion - should improve with correction of calcium Renal: DANIEL on CKD - I/O's - if no Szymanski please bladder scan q6 hours and Szymanski is retaining >350-400 - likely due to hypercalcemia Hypercalcemia - s/p IVF - 1L bolus NS this morning - start calcitonin q12 - 1 dose denosumab (bisphosphonates not appropriate with renal function) - labs q6h until calcium improved - on LR 100cc/hr - PTH-rp is elevated Elevated uric acid - continue to monitor Hyperkalemia - will continue to monitor - s/p Lokelma AGMA - due to uremia from DANIEL/CKD Lactic acidosis - resolved Hyperphosphatemia - continue to monitor I&O: Intake & Output 04/13/23 04/14/23 04/15/23 04/16/23 23:59 23:59 23:59 23:59 Intake Total 2100 / 2100 850 / 850 Output Total 610 / 610 Balance 2100 / 2100 240 / 240 Weight 36.4 kg 36.4 kg Daily Fluid Goal:: positive GI Nutrition: Ileus - NPO for now - consider NG decompression Liver lesion - outpatient PET as above Infectious Disease: UTI - ceftriaxone is sufficient Pneumonia - ceftriaxone is sufficient Hematologic: Leukocytosis - reactive vs infectious Neurologic: Somnolence - due to hypercalcemia Endocrine: No acute concerns Lines: PIV Prophylaxis: heparin omeprazole Code Status: Resuscitation Status DNR/DNI Subjective Critical and life-threatening events over the past 24 hours: This is a 67 yo with CKD, carotid stenosis, smoking, some history of opioid misuse (per family) and recent hypercalcemia presents with severe hypercalcemia. Previously she was worked up for multiple myeloma i nthe setting of lytic bone lesions, but she had no M-spike on SPEP. She also has a liver lesions present in addition to multiple pulmonary nodules (sub 1 cm, and not present 1 year ago). She was given IVF resuscitation but this did not improve her calcium levels. She was also given calcium gluconate for bradycardia (despite a very elevated calcium). She has cardiac pauses overnight and this morning during my assessment she did elisabeth down to [address] elevations on tele (T wave inversion on other lead). Subsequent EKG did not demonstrate significant ST elevations. She is somnolent but states she does have some back and abdominal pain. Her and son were present in her room this morning. Exam Narrative Exam Narrative: Gen: NAD, normal respiratory effort, thin HENT: PERRL Chest: No respiratory distress, normal appearance of chest, clear to auscultation bilaterally, no crackles or wheezes, normal inspiratory effort Heart: regular rate and rhythym, no murmurs, rubs or gallops Abdomen: Distended, tender Extremities: No clubbing, edema, cyanosis, rashes Neuro: AAOx1, non focal Psych: cooperative, somnolent Most Recent VS/Results Last Vital Signs Temp 37.0 C 04/16/23 04:17 Pulse 72 04/16/23 06:30 Resp 30 H 04/16/23 06:31 BP 127/74 04/16/23 06:30 Pulse Ox 94 04/16/23 06:31 Laboratory Results - last 24 hr 04/15/23 04/15/23 04/15/23 18:15 18:15 18:15 WBC RBC Hgb Hct MCV MCH MCHC RDW Plt Count MPV Immature Gran % Neutrophils % Lymphocytes % Monocytes % Eosinophils % Basophils % Nucleated RBC % Absolute Neutrophils Absolute Lymphocytes Absolute Monocytes Absolute Eosinophils Absolute Basophils PT INR APTT VBG Lactate 2.7 H* Sodium 128 L Potassium 6.6 H* Chloride 90 L Carbon Dioxide 23.3 Anion Gap 14.7 H BUN 89 H* Creatinine 4.1 H* Est GFR (CKD-EPI 2020) 11.50 Glucose 171 H Calcium 15.3 H* Magnesium 2.5 H Total Bilirubin 0.3 AST 27 ALT 25 Alkaline Phosphatase 120 H Troponin I < 50 Total Protein 10.3 H Albumin 3.8 Procalcitonin < 0.1 TSH 0.47 Urine Color Urine Clarity Urine pH Ur Specific Perris Urine Protein Urine Ketones Urine Blood Urine Nitrite Urine Bilirubin Urine Urobilinogen Ur Leukocyte Esterase Urine RBC Urine WBC Ur Epithelial Cells Urine Crystals Urine Bacteria Urine Casts Urine Mucus Urine Other Ur Culture Indicated? Urine Glucose Urine Opiates Screen Urine Methadone Screen Ur Barbiturates Screen Ur Tricyclics Screen Ur Amphetamines Screen U Benzodiazepines Scrn Urine Cocaine Screen Ur THC Screen Ethyl Alcohol < 3.0 COVID-19 Source SARS-CoV-2 (PCR) Add-On Test Request 04/15/23 04/15/23 04/15/23 18:15 18:55 19:45 WBC 17.72 H RBC 4.04 Hgb 13.0 Hct 39.6 MCV 98 H MCH 32.2 MCHC 32.8 RDW 12.3 Plt Count 568 H MPV 9.8 Immature Gran % 0.5 Neutrophils % 87.0 Lymphocytes % 8.4 Monocytes % 3.9 Eosinophils % 0.0 Basophils % 0.2 Nucleated RBC % 0.0 Absolute Neutrophils 15.42 H Absolute Lymphocytes 1.49 Absolute Monocytes 0.69 Absolute Eosinophils 0.00 Absolute Basophils 0.04 PT 10.7 INR 1.1 APTT 24.3 VBG Lactate Sodium Potassium Chloride Carbon Dioxide Anion Gap BUN Creatinine Est GFR (CKD-EPI 2020) Glucose Calcium Magnesium Total Bilirubin AST ALT Alkaline Phosphatase Troponin I Total Protein Albumin Procalcitonin TSH Urine Color Urine Clarity Urine pH Ur Specific Perris Urine Protein Urine Ketones Urine Blood Urine Nitrite Urine Bilirubin Urine Urobilinogen Ur Leukocyte Esterase Urine RBC Urine WBC Ur Epithelial Cells Urine Crystals Urine Bacteria Urine Casts Urine Mucus Urine Other Ur Culture Indicated? Urine Glucose Urine Opiates Screen Positive A Urine Methadone Screen Negative Ur Barbiturates Screen Negative Ur Tricyclics Screen Negative Ur Amphetamines Screen Negative U Benzodiazepines Scrn Negative Urine Cocaine Screen Negative Ur THC Screen Negative Ethyl Alcohol COVID-19 Source SARS-CoV-2 (PCR) Add-On Test Request 04/15/23 04/15/23 04/15/23 19:45 20:13 21:09 WBC RBC Hgb Hct MCV MCH MCHC RDW Plt Count MPV Immature Gran % Neutrophils % Lymphocytes % Monocytes % Eosinophils % Basophils % Nucleated RBC % Absolute Neutrophils Absolute Lymphocytes Absolute Monocytes Absolute Eosinophils Absolute Basophils PT INR APTT VBG Lactate Sodium 132 L Potassium 6.2 H* Chloride 99 Carbon Dioxide 20.1 L Anion Gap 12.9 H BUN 87 H* Creatinine 3.7 H* Est GFR (CKD-EPI 2020) 13.01 Glucose 124 H Calcium 14.7 H* Magnesium Total Bilirubin AST ALT Alkaline Phosphatase Troponin I Cancelled Total Protein Albumin Procalcitonin TSH Urine Color Yellow Urine Clarity Cloudy Urine pH 5.0 Ur Specific [place]erris 1.025 Urine Protein >=300 H Urine Ketones Trace H Urine Blood Large H Urine Nitrite Negative Urine Bilirubin Small H Urine Urobilinogen 0.2 Ur Leukocyte Esterase Moderate H Urine RBC 20-50 H Urine WBC >50 H Ur Epithelial Cells Few Urine Crystals Negative Urine Bacteria Moderate Urine Casts 5-10 WBC Urine Mucus Trace Urine Other Moderate Yeast Ur Culture Indicated? Yes Urine Glucose Negative Urine Opiates Screen Urine Methadone Screen Ur Barbiturates Screen Ur Tricyclics Screen Ur Amphetamines Screen U Benzodiazepines Scrn Urine Cocaine Screen Ur THC Screen Ethyl Alcohol COVID-19 Source SARS-CoV-2 (PCR) Add-On Test Request 04/15/23 04/15/23 04/16/23 22:10 22:28 05:06 WBC 13.56 H RBC 3.54 L Hgb 11.6 Hct 34.6 L MCV 98 H MCH 32.8 MCHC 33.5 RDW 12.3 Plt Count 500 H MPV 9.6 Immature Gran % 0.3 Neutrophils % 82.7 Lymphocytes % 9.7 Monocytes % 6.9 Eosinophils % 0.1 Basophils % 0.3 Nucleated RBC % 0.0 Absolute Neutrophils 11.21 H Absolute Lymphocytes 1.32 Absolute Monocytes 0.94 H Absolute Eosinophils 0.01 Absolute Basophils 0.04 PT INR APTT VBG Lactate Sodium Potassium Chloride Carbon Dioxide Anion Gap BUN Creatinine Est GFR (CKD-EPI 2020) Glucose Calcium Magnesium Total Bilirubin AST ALT Alkaline Phosphatase Troponin I Total Protein Albumin Procalcitonin TSH Urine Color Urine Clarity Urine pH Ur Specific Perr[place] Urine Protein Urine Ketones Urine Blood Urine Nitrite Urine Bilirubin Urine Urobilinogen Ur Leukocyte Esterase Urine RBC Urine WBC Ur Epithelial Cells Urine Crystals Urine Bacteria Urine Casts Urine Mucus Urine Other Ur Culture Indicated? Urine Glucose Urine Opiates Screen Urine Methadone Screen Ur Barbiturates Screen Ur Tricyclics Screen Ur Amphetamines Screen U Benzodiazepines Scrn Urine Cocaine Screen Ur THC Screen Ethyl Alcohol COVID-19 Source Nasal/Nares SARS-CoV-2 (PCR) Negative Add-On Test Request TNP 04/16/23 04/16/23 05:06 05:06 WBC RBC Hgb Hct MCV MCH MCHC RDW Plt Count MPV Immature Gran % Neutrophils % Lymphocytes % Monocytes % Eosinophils % Basophils % Nucleated RBC % Absolute Neutrophils Absolute Lymphocytes Absolute Monocytes Absolute Eosinophils Absolute Basophils PT INR APTT VBG Lactate 1.4 Sodium 136 Potassium 5.0 D Chloride 101 Carbon Dioxide 21.9 Anion Gap 13.1 H BUN 83 H* Creatinine 2.9 H Est GFR (CKD-EPI 2020) 17.42 Glucose 113 H Calcium > 15.0 H* Magnesium Total Bilirubin 0.3 AST 15 ALT 20 Alkaline Phosphatase 94 Troponin I Total Protein 8.2 Albumin 3.0 L Procalcitonin TSH Urine Color Urine Clarity Urine pH Ur Specific P[place] Urine Protein Urine Ketones Urine Blood Urine Nitrite Urine Bilirubin Urine Urobilinogen Ur Leukocyte Esterase Urine RBC Urine WBC Ur Epithelial Cells Urine Crystals Urine Bacteria Urine Casts Urine Mucus Urine Other Ur Culture Indicated? Urine Glucose Urine Opiates Screen Urine Methadone Screen Ur Barbiturates Screen Ur Tricyclics Screen Ur Amphetamines Screen U Benzodiazepines Scrn Urine Cocaine Screen Ur THC Screen Ethyl Alcohol COVID-19 Source SARS-CoV-2 (PCR) Add-On Test Request Review of Systems All systems reviewed & are unremarkable except as noted in HPI and below and Unobtainable due to mental status Time spent with patient Time spent in Critical Care: 70 Time spent in Critical care included: Performing procedures not included in c.c time, Coordination of care, Chart review, Documenting critically ill care, Time at immediate bedside, Discussing critically ill care with other medical staff and Discussing care with family members Pocus Exam Limited Cardiac Exam DATE OF EXAM: 04/16/23 TIME OF EXAM: 07:15 IS THIS A REPEAT EXAM DURING THIS ENCOUNTER: no REASON FOR EXAM: Evaluation of LV function VISUALIZED STRUCTURES: four chambers and IVC VIEW OBTAINED: Subxiphoid PERTINENT FINDINGS/IMPRESSION: IVC inspiratory collapsability and Other small IVC Exam complete Multi-Disciplinary Checklist Lines/Tubes CENTRAL LINE: no ARTERIAL LINE: no SZYMANSKI: no ENDOTRACHEAL TUBE: no ICU Maintenance GLUCOSE 140-180mg/dL: yes NUTRITION AT GOAL: no, Reason/Intervention: NPO for ileus PRESSURE ULCER: no RESTRAINTS: no ANTIBIOTICS(if yes, consider Stewardship): Yes Social Issues FAMILY UPDATED: yes PT/OT: no, Reason/Intervention: not currently appropriate GOALS/DISPOSITION/POT LINING SUPERVISOR: yes CODE STATUS: DNR/DNI Prophylaxis DVT PROPHYLAXIS: yes GI PROPHYLAXIS: yes, Indication: home med
[2023-04-16 07:21] LABS: Lab Add On Test DONE
--- NOTE | 2023-04-16 07:45 | RT.EKG_ITS ---
APPROVED REPORT Exam: Resting ECG Reason for Exam: Bradycardic Patient Location: I HR:75 bpm ECG Measurements Heart Rate 75 AXIS WI 151 P 54 QRSd 102 QRS 8 QT 368 T 56 QTc 411 Conclusion Sinus rhythm...normal P axis, V-rate 50- 99 Inferolateral infarct, acute...ST>.10mV, inf-lat leads Anterior infarct, acute...ST >0.25mV, V2-V5
[2023-04-16 07:53] LABS: PHOSPHORUS 5.3 mg/dL (2.6-4.7); Uric Acid 12.6 mg/dL (2.6-6.0)
--- NOTE | 2023-04-16 08:00 | PDOC.CMIN ---
Date of service: 04/16/23 Time of Service: 08:00 Care Management Initial Assmt Initial Assessment REASON FOR HOSPITALIZATION:: hyperkalemia, metastatic cancer PREVIOUS FUNCTIONAL STATUS/SOCIAL/FAMILY SUPPORTS:: Ira lives in [facility] with her partner, Steven. She is retired but formerly worked in [employer] for many years. Her brewery pumper Steven and her son Juan A are her main supports. Until recently, Ira was driving and was independent with her ADLs. She has been hospitalized 3 time in the past month and has had significant weight loss and deteriorating health. CURRENT FUNCTIONAL STATUS:: Ira was asleep when CM attempted to meet with her. She was also out of the unit having testing much of the morning. Ira was not able to participate in conversation. She was confused and somnolent. CM met with Alejo and her son Juan A to discuss treatment and discharge plans. They understand that it appears that Ira has widely metastatic disease with an unknown source. It is not clear which path Ira will choose, if and when she is able to participate in decision making regarding her plan of care. ADVANCE DIRECTIVES:: none on file Has patient been provided with info about the portal/API?: Yes Did the patient sign up for the portal?: Yes CODE STATUS:: DNR/DNI INSURANCE COVERAGE / FINANCIAL ISSUES:: medicare PRIMARY CARE PHYSICIAN:: Susan Arrieta POTENTIAL DISCHARGE NEEDS:: follow up with PCP, Oncology and other community providers PATIENT/FAMILY EDUCATION NEEDS:: Review of discharge instructions including medications, limitations and follow up plan of care; discuss Ask Me Three and self management. TRANSPORTATION:: via private vehicle with Art PLAN:: Ira's discharge plan is unclear at this time as she is not able to understand and communicate her wishes. It appears that she has metastatic disease with an unknown primary. Her brewery pumper Alejo and son Juan A have been visiting and are her health care agents. CM will continue to follow and support discharge planning needs. 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) Metastasis to liver (Acute) Small bowel obstruction (Acute) Sepsis (Acute) Pneumonia (Acute) Pulmonary nodule (Acute) Bradyarrhythmia (Acute) Elevated uric acid in blood (Acute) Hyperphosphatemia (Acute) High anion gap metabolic acidosis (Acute) Lactic acidosis (Acute) Leukocytosis (Acute) Acute kidney injury superimposed on CKD (Acute) Altered mental status (Acute) Elevated parathyroid hormone related peptide level (Acute) Ileus (Acute) Bowel obstruction (Acute) Urinary tract infection (Acute) Metastatic disease (Acute) Hyperparathyroidism (Acute) General weakness (Acute) Hypercalcemia (Acute) Hyperkalemia (Acute) Hypercalcemia (Acute) Lesion of brain (Acute) Constipation (Acute) Ascites (Acute) Hypertensive urgency (Acute) Nausea (Acute) Hypokalemia (Chronic) Hydronephrosis of right kidney (Chronic ~10/2022) Ureteral stricture, right (Acute) CKD (chronic kidney disease) stage 3, GFR 30-59 ml/min (Chronic) Essential hypertension (Chronic) Hyperlipidemia (Chronic) Osteoporosis (Chronic) Prediabetes (Chronic) PTSD (post-traumatic stress disorder) (Chronic) GERD (gastroesophageal reflux disease) (Chronic) Lumbosacral radiculopathy due to degenerative joint disease of spine (Chronic) Chronic low back pain (Chronic) Overactive bladder (Chronic) Cigarette smoker (Chronic) Medical History Endometriosis Surgical History History of bilateral tubal ligation (04/15/86) History of carpal tunnel surgery of right wrist (~2006) History of operative procedure on lumbosacral spinal structure (02/08/22) RFA 02/08/22 Hx of esophagogastroduodenoscopy (11/20/06) S/P section (04/15/86) S/P colonoscopy (12/06/16) 02/2022 S/P cystoscopy with ureteral stent placement (11/01/22) Right retrograde pyelogram, right ureteroscopy, right ureteral stent S/P laparoscopic hysterectomy (~1999) Family History Mother , 76 Essential hypertension Heart disease Colon cancer Father , 81 Essential hypertension Stroke Colon cancer Brother , 48 Lung cancer Brother , 48 from accident No problems noted. Sister No problems noted. Son No problems noted. Daughter No problems noted. Maternal Grandfather No problems noted. Maternal Grandmother No problems noted. Paternal Grandfather No problems noted. Paternal Grandmother No problems noted. Social History Smoking/Tobacco Use Status: Current every day Tobacco Type: cigarettes Years smoked: 47 Tobacco: How many years used: 20 Second Hand Exposure: Yes Smoking risk assessment performed?: Yes Alcohol Intake: former Drug use: Never Substance use type: does not use Details: Has not had Dilaudid since previous admission Caregiver/Support person: No Household members: significant other Housing: house Number of Children: 2 Communication Needs: None Do you need help understanding health information?: Rarely current occupation: Disabled Pets and animals: Yes Pets and animals: dog(s) Sexually active: No Do you think of yourself as: straight/heterosexual Current gender identity: female What is your relationship status?: living with partner How often do you talk on the phone with friends or family?: twice per week How often do you get together with friends or relatives?: decline to answer How often do you attend sabianist or alevism services?: decline to answer Do you belong to any clubs or organized social groups?: no Panel score (0-1 are the most socially isolated patients): 1 What type of physical activity do you participate in: walking Duration: 30-45 minutes/day Frequency: daily Ann-Marie/Anabaptist: Jainism Special ann-marie needs: No Seatbelt use: always Drive intox or ride w/intox charter bus driver: No Do you feel safe at home: Yes Do you feel safe in your relationship?: Yes History History 2 Para 2 Hx # Term Pregnancies Multiple births Hx # Pregnancies Ectopic pregnancies AB induced Hx Number of Living Children 2 AB spontaneous Readmission Within the Past 30 Days Yes or No: Yes Date of First Admission Date of 1st Admission: 04/04/23 Date of this Admission Date of Admission: 04/15/23 This admission was: Through ED I. Interview patient and/or Family Difficulty reaching your doctor or getting an office appt?: No Have you had trouble purchasing/ or taking medication?: No Have you had trouble with getting meals at home?: No Did you feel ready for discharge when you left the last time: Yes Assessment for Readmission Summary of readmission circumstances, based upon interviews: Ira has had 3 hospitalizations since 03/31/23. The first was for urological issues with hydronephrosis and CKD. The last admission as well as the current one are for altered mental status. It now appears that she has wifdely metastatic disease with possible lung, bone ( including skull, clavicle and femu)r and liver involvement.
[2023-04-16] MEDS: Calcitonin-Salmon 400 UNITS/2 ML VIAL 100 UNITS IM ×2 (08:25→21:02)
[2023-04-16 08:36] LABS: Troponin I < 50 ng/L (<or=60)
--- NOTE | 2023-04-16 09:03 | W.PM.PROGNOT ---
Date of Service Date of service: 04/16/23 Time of Service: 09:03 Assessment and Plan Assessment and plan (1) Sepsis: Status: Acute Assessment and plan: I suspect sepsis from either another UTI or d/t her SBO. Blood cultures and urine cultures are pending. She was empirically started on Rocephin last night but I have expanded to cover w/ Meropenem and Vancomycin at least until we get her cultures back. She has been hemodynamically stable but she is still under resuscitated w/ volume. POCUS exam done this morning by Dr. Carcamo demonstrated small IVC and complete inspiratory collapse of her IVC, although no VTI was done before/after fluid challenge but she looks clinically dry i.e. decreased skin turgor, dry mocous membranes, no peripheral edema, and she has high output from her NG. NS bolus was given over an hour this morning, I am continuing her iv fluids w/ NS @ 150 mL to 200 mL/hour to try to keep up w/ her NG output, replace her lost volume. Case reviewed with Dr. Jennifer Carcamo. I performed independent review of her CT scan as well as her POCUS exam. Critical care time spent interviewing and examining the patient, reviewing studies, discussing case with patient's nurse and consulting physicians was 60 minutes (2) Small bowel obstruction: Status: Acute Assessment and plan: SBO per CT. She has diverticulosis but on abscess or diverticulitis on CT. Will consult w/ surgery to evaluate her but will give trial of NG for 24 to 48 h to see if decompression works. She is not a good surgical candidate given her findings of metastatic disease. Although she may needs surgery i.e. colonoscopy to help find her primary. (3) Bradyarrhythmia: Status: Acute Assessment and plan: patient was having sever bradyarrhythmias w/ sinus arrest, pauses of up to several seconds. This has been attributed to her hypercalcemia which has been now treated w/ calcitonin and desisumab (Xgeva), serial calcium levels are being monitored (4) Hypercalcemia: Status: Acute Assessment and plan: PTH related peptide was elevated at 8.7 during last admission SPEP drawn at last admission showed elevations of globulin fractions but no monoclonal spike. given her lytic lesions seen on her CT and her liver abnormalities, this most likely is secondary to metastic cancer (5) Acute kidney injury superimposed on CKD: Status: Acute Assessment and plan: BUN/creatinine were elevated on admission at 89 and 4.1 but have been coming down overnight since being hydrated with IV fluids. This morning she was down to 83 and 2.9 and this afternoon is down to 70 and 2.1. Her baseline creatinine is 1.2 and her baseline BUN is 14. This most likely is secondary to prerenal azotemia due to severe dehydration precipitated by her small bowel obstruction. She does have a component of postrenal obstructive uropathy but has a stent in her right ureter. (6) Lactic acidosis: Status: Acute Assessment and plan: Lactic acidosis secondary to dehydration as well as starvation and probable sepsis. Lactic acidosis quickly corrected with IV fluid hydration. However she has a continued elevated high anion gap metabolic acidosis most likely secondary to renal failure (7) High anion gap metabolic acidosis: Status: Acute (8) Urinary tract infection: Status: Acute Assessment and plan: Urinalysis consistent with UTI. CT scan did not show any acute obstructive uropathy. No perinephric abscess seen on her CT scan. Patient was initiated on Rocephin last night of switched it to meropenem and vancomycin for broader coverage given that she present with a septic picture. Furthermore she has been on multiple antibiotic courses therefore she is at high risk for an ESBL and the vancomycin was added to cover for Enterococcus. I will de-escalate her antibiotics once we get her cultures back. (9) Metastatic disease: Status: Acute Assessment and plan: Still working on finding her primary source suspect lung although Dr. Carcamo reviewed the CAT scans and although the patient has some small peripheral pleural-based nodules she was not overly impressed by these findings but said that she would follow-up with PET CT scan once she is stabilized and ready for medical discharge in the interim we will continue to look for primary. Given her small bowel obstruction her source could be GI. Breast exam was unremarkable today. Upon discharge she should have a follow-up mammogram if 1 has not been performed in the last year. Once her renal function recovers we would consider doing a contrast-enhanced CT scan of her chest and abdomen and pelvis. (10) Hyperkalemia: Status: Acute Assessment and plan: Resolved since being treated with insulin and glucose and calcium gluconate last night. Given her hypercalcemia calcium gluconate was not the optimal choice nevertheless her hyper kalemia has corrected. She was given Lokelma last night. We will continue to monitor. (11) General weakness: Status: Acute Assessment and plan: FTT at home. Poor appetite. Wt loss. Likely secondary to metastatic process. Suspicious for lung cancer in a smoker. Mets to bone and liver. IV hydration. Will encourage oral intake with protein supp once diet introduced. (12) Essential hypertension: Status: Chronic Assessment and plan: Hold antihypertensives until BP is definitively recovered. Subjective Subjective Interval history since last seen: Carrie remains delirious, she is not oriented at all, she is picking at her lines, iv, NG and her campbell. She had large output when the NG was placed. We will leave this in overnight to decompress her abdomen. She remains dehydrated and will get additional fluids to correct her azotemia. POCUS was done this morning by Dr. Carcamo and this demonstrated and underfilled RV and small IVC w/ complete collapsability. Exam Narrative Exam Narrative: Thin cachectic appearing elderly female who appears to be older than her stated age of 67 she is disoriented confused but she is responsive opens her eyes and answers me. She tried pulling out her NG also she successfully pulled out her Campbell catheter earlier this morning. HEENT is remarkable for dry mucous membranes Neck is supple nontender there is no JVD. Carotid pulses are full no bruits. No cervical adenopathy no supraclavicular adenopathy No axillary adenopathy Chest wall nontender breasts are nontender no palpable masses Lungs are clear to auscultation Heart regular but in spite of her being dehydrated it is not tachycardic. In fact review of her rhythm strip showed that she had some bradycardia with significant pauses probably due to her hypercalcemia Abdomen has been distended and firm but less distended since NG was placed. She still has some abdominal pain w/ palpation, active bowel sounds are present, I could not palpate deeply w/out causing her pain so I can not discern whether or not she has any masses. A few shotty inguinal lymph nodes but nothing significant enough to biopsy Lower extremities without edema, capillary refill is normal Neuro exam nonfocal no motor deficits no facial asymmetry Objective Last Vital Signs Temp 37.0 C 04/16/23 07:43 Pulse 74 04/16/23 07:30 Resp 18 04/16/23 07:30 BP 130/73 04/16/23 07:30 Pulse Ox 96 04/16/23 07:00 Laboratory Results - last 24 hr 04/15/23 04/15/23 04/15/23 18:15 18:15 18:15 WBC RBC Hgb Hct MCV MCH MCHC RDW Plt Count MPV Immature Gran % Neutrophils % Lymphocytes % Monocytes % Eosinophils % Basophils % Nucleated RBC % Absolute Neutrophils Absolute Lymphocytes Absolute Monocytes Absolute Eosinophils Absolute Basophils PT INR APTT VBG Lactate 2.7 H* Sodium 128 L Potassium 6.6 H* Chloride 90 L Carbon Dioxide 23.3 Anion Gap 14.7 H BUN 89 H* Creatinine 4.1 H* Est GFR (CKD-EPI 2020) 11.50 Glucose 171 H Uric Acid Calcium 15.3 H* Phosphorus Magnesium 2.5 H Total Bilirubin 0.3 AST 27 ALT 25 Alkaline Phosphatase 120 H Troponin I < 50 Total Protein 10.3 H Albumin 3.8 Procalcitonin < 0.1 TSH 0.47 Urine Color Urine Clarity Urine pH Ur Specific [place] Urine Protein Urine Ketones Urine Blood Urine Nitrite Urine Bilirubin Urine Urobilinogen Ur Leukocyte Esterase Urine RBC Urine WBC Ur Epithelial Cells Urine Crystals Urine Bacteria Urine Casts Urine Mucus Urine Other Ur Culture Indicated? Urine Glucose Urine Opiates Screen Urine Methadone Screen Ur Barbiturates Screen Ur Tricyclics Screen Ur Amphetamines Screen U Benzodiazepines Scrn Urine Cocaine Screen Ur THC Screen Ethyl Alcohol < 3.0 COVID-19 Source SARS-CoV-2 (PCR) Add-On Test Request 04/15/23 04/15/23 04/15/23 18:15 18:55 19:45 WBC 17.72 H RBC 4.04 Hgb 13.0 Hct 39.6 MCV 98 H MCH 32.2 MCHC 32.8 RDW 12.3 Plt Count 568 H MPV 9.8 Immature Gran % 0.5 Neutrophils % 87.0 Lymphocytes % 8.4 Monocytes % 3.9 Eosinophils % 0.0 Basophils % 0.2 Nucleated RBC % 0.0 Absolute Neutrophils 15.42 H Absolute Lymphocytes 1.49 Absolute Monocytes 0.69 Absolute Eosinophils 0.00 Absolute Basophils 0.04 PT 10.7 INR 1.1 APTT 24.3 VBG Lactate Sodium Potassium Chloride Carbon Dioxide Anion Gap BUN Creatinine Est GFR (CKD-EPI 2020) Glucose Uric Acid Calcium Phosphorus Magnesium Total Bilirubin AST ALT Alkaline Phosphatase Troponin I Total Protein Albumin Procalcitonin TSH Urine Color Urine Clarity Urine pH Ur Specific [place] Urine Protein Urine Ketones Urine Blood Urine Nitrite Urine Bilirubin Urine Urobilinogen Ur Leukocyte Esterase Urine RBC Urine WBC Ur Epithelial Cells Urine Crystals Urine Bacteria Urine Casts Urine Mucus Urine Other Ur Culture Indicated? Urine Glucose Urine Opiates Screen Positive A Urine Methadone Screen Negative Ur Barbiturates Screen Negative Ur Tricyclics Screen Negative Ur Amphetamines Screen Negative U Benzodiazepines Scrn Negative Urine Cocaine Screen Negative Ur THC Screen Negative Ethyl Alcohol COVID-19 Source SARS-CoV-2 (PCR) Add-On Test Request 04/15/23 04/15/23 04/15/23 19:45 20:13 21:09 WBC RBC Hgb Hct MCV MCH MCHC RDW Plt Count MPV Immature Gran % Neutrophils % Lymphocytes % Monocytes % Eosinophils % Basophils % Nucleated RBC % Absolute Neutrophils Absolute Lymphocytes Absolute Monocytes Absolute Eosinophils Absolute Basophils PT INR APTT VBG Lactate Sodium 132 L Potassium 6.2 H* Chloride 99 Carbon Dioxide 20.1 L Anion Gap 12.9 H BUN 87 H* Creatinine 3.7 H* Est GFR (CKD-EPI 2020) 13.01 Glucose 124 H Uric Acid Calcium 14.7 H* Phosphorus Magnesium Total Bilirubin AST ALT Alkaline Phosphatase Troponin I Cancelled Total Protein Albumin Procalcitonin TSH Urine Color Yellow Urine Clarity Cloudy Urine pH 5.0 Ur Specific [place] 1.025 Urine Protein >=300 H Urine Ketones Trace H Urine Blood Large H Urine Nitrite Negative Urine Bilirubin Small H Urine Urobilinogen 0.2 Ur Leukocyte Esterase Moderate H Urine RBC 20-50 H Urine WBC >50 H Ur Epithelial Cells Few Urine Crystals Negative Urine Bacteria Moderate Urine Casts 5-10 WBC Urine Mucus Trace Urine Other Moderate Yeast Ur Culture Indicated? Yes Urine Glucose Negative Urine Opiates Screen Urine Methadone Screen Ur Barbiturates Screen Ur Tricyclics Screen Ur Amphetamines Screen U Benzodiazepines Scrn Urine Cocaine Screen Ur THC Screen Ethyl Alcohol COVID-19 Source SARS-CoV-2 (PCR) Add-On Test Request 04/15/23 04/15/23 04/16/23 22:10 22:28 05:06 WBC 13.56 H RBC 3.54 L Hgb 11.6 Hct 34.6 L MCV 98 H MCH 32.8 MCHC 33.5 RDW 12.3 Plt Count 500 H MPV 9.6 Immature Gran % 0.3 Neutrophils % 82.7 Lymphocytes % 9.7 Monocytes % 6.9 Eosinophils % 0.1 Basophils % 0.3 Nucleated RBC % 0.0 Absolute Neutrophils 11.21 H Absolute Lymphocytes 1.32 Absolute Monocytes 0.94 H Absolute Eosinophils 0.01 Absolute Basophils 0.04 PT INR APTT VBG Lactate Sodium Potassium Chloride Carbon Dioxide Anion Gap BUN Creatinine Est GFR (CKD-EPI 2020) Glucose Uric Acid Calcium Phosphorus Magnesium Total Bilirubin AST ALT Alkaline Phosphatase Troponin I Total Protein Albumin Procalcitonin TSH Urine Color Urine Clarity Urine pH Ur Specific [place] Urine Protein Urine Ketones Urine Blood Urine Nitrite Urine Bilirubin Urine Urobilinogen Ur Leukocyte Esterase Urine RBC Urine WBC Ur Epithelial Cells Urine Crystals Urine Bacteria Urine Casts Urine Mucus Urine Other Ur Culture Indicated? Urine Glucose Urine Opiates Screen Urine Methadone Screen Ur Barbiturates Screen Ur Tricyclics Screen Ur Amphetamines Screen U Benzodiazepines Scrn Urine Cocaine Screen Ur THC Screen Ethyl Alcohol COVID-19 Source Nasal/Nares SARS-CoV-2 (PCR) Negative Add-On Test Request TNP 04/16/23 04/16/23 04/16/23 05:06 05:06 05:06 WBC RBC Hgb Hct MCV MCH MCHC RDW Plt Count MPV Immature Gran % Neutrophils % Lymphocytes % Monocytes % Eosinophils % Basophils % Nucleated RBC % Absolute Neutrophils Absolute Lymphocytes Absolute Monocytes Absolute Eosinophils Absolute Basophils PT INR APTT VBG Lactate 1.4 Sodium 136 Potassium 5.0 D Chloride 101 Carbon Dioxide 21.9 Anion Gap 13.1 H BUN 83 H* Creatinine 2.9 H Est GFR (CKD-EPI 2020) 17.42 Glucose 113 H Uric Acid 12.6 H Calcium > 15.0 H* Phosphorus 5.3 H Magnesium Total Bilirubin 0.3 AST 15 ALT 20 Alkaline Phosphatase 94 Troponin I Total Protein 8.2 Albumin 3.0 L Procalcitonin TSH Urine Color Urine Clarity Urine pH Ur Specific [place] Urine Protein Urine Ketones Urine Blood Urine Nitrite Urine Bilirubin Urine Urobilinogen Ur Leukocyte Esterase Urine RBC Urine WBC Ur Epithelial Cells Urine Crystals Urine Bacteria Urine Casts Urine Mucus Urine Other Ur Culture Indicated? Urine Glucose Urine Opiates Screen Urine Methadone Screen Ur Barbiturates Screen Ur Tricyclics Screen Ur Amphetamines Screen U Benzodiazepines Scrn Urine Cocaine Screen Ur THC Screen Ethyl Alcohol COVID-19 Source SARS-CoV-2 (PCR) Add-On Test Request 04/16/23 04/16/23 07:55 Unknown WBC RBC Hgb Hct MCV MCH MCHC RDW Plt Count MPV Immature Gran % Neutrophils % Lymphocytes % Monocytes % Eosinophils % Basophils % Nucleated RBC % Absolute Neutrophils Absolute Lymphocytes Absolute Monocytes Absolute Eosinophils Absolute Basophils PT INR APTT VBG Lactate Sodium Potassium Chloride Carbon Dioxide Anion Gap BUN Creatinine Est GFR (CKD-EPI 2020) Glucose Uric Acid Calcium Phosphorus Magnesium Total Bilirubin AST ALT Alkaline Phosphatase Troponin I < 50 Total Protein Albumin Procalcitonin TSH Urine Color Urine Clarity Urine pH Ur Specific [place] Urine Protein Urine Ketones Urine Blood Urine Nitrite Urine Bilirubin Urine Urobilinogen Ur Leukocyte Esterase Urine RBC Urine WBC Ur Epithelial Cells Urine Crystals Urine Bacteria Urine Casts Urine Mucus Urine Other Ur Culture Indicated? Urine Glucose Urine Opiates Screen Urine Methadone Screen Ur Barbiturates Screen Ur Tricyclics Screen Ur Amphetamines Screen U Benzodiazepines Scrn Urine Cocaine Screen Ur THC Screen Ethyl Alcohol COVID-19 Source SARS-CoV-2 (PCR) Add-On Test Request DONE Time Spent with Patient Time Spent with Patient: >50 minutes Time was spent: preparing to see the patient(eg.review tests), obtaining and/or reviewing separately otained hiistory, ordering medications,tests, procedures, referring, communicating with other health disabilities caregiver, indepentently interpreting results, counseling the patient (Counseled family including and son) and care coordination
[2023-04-16] MEDS: Normal Saline 1,000 ML 200 ML IV ×2 (11:00→18:46)
--- NOTE | 2023-04-16 12:05 | W.PALLCONSUL ---
Date of service: 04/16/23 Time of Service: 13:30 History of Present Illness Narrative: 67-year-old woman from [facility] admitted several days ago with pneumonia complicated by severe hypercalcemia, UTI, hyperkalemia, altered mental status acute on chronic kidney disease, lactic acidosis, bradycardia arrhythmias, ileus. After imaging, it appears that patient has widespread metastatic disease from unknown primary which is present throughout her lungs, diffusely impacting her bones, and also spread throughout her peritoneum. Also appears that she has a partial small bowel obstruction. Palliative care was asked to meet with family to discuss goals of care, help with decision-making, and extra layer support. Today I briefly met with patient, discussed patient with care management, hospitalist Dr. Mora, surgeon Dr. Liu. I also had a lengthy discussion over 30 minutes by phone with partner Steven. Patient sleepy. Opens her eyes briefly to sound. Able to tell me she is in the hospital and then goes back to sleep. Additional history below is from partner Steven. As per Steven, patient has a 20-year history of disability from low back pain, for which she takes chronic opiates. Diagnosed with hydronephrosis in October of this year and stent was placed. Retrospectively looking back since this time she has had over 16 kg weight loss. Also has been feeling fatigued and generally unwell. Initial [facility] admission from March 31 through for constipation and abdominal pain. She was diagnosed with colitis and started antibiotics. Hydronephrosis had recurred and ureteral stent placed back in by Dr. Parsons. CT scan report from this first admission does not note any masses. She was then readmitted to [facility] from April 04- with acute confusion with brief aphasia, which quickly resolved, bump in creatinine, mild hypercalcemia. She hadBrain MRI at that time (1 concerning sclerotic bone lesion noted), carotid artery ultrasound which showed bilateral carotid artery stenosis. Steven reports she did well the first few days and then the day prior to admission became confused again. Upon return she was found to have a calcium over 15, creatinine over 4. Current working diagnosis is widespread malignancy of unclear primary causing partial small bowel obstruction, ureteral stricture and marked hypercalcemia due to bone lesions. Imaging over the last 24 hours reveals widespread masses, likely malignancies. There is no clear-cut primary. Noncontrast head CT yesterday shows no intracranial masses. Treatment has begun for hypercalcemia. and son Juan A today were informed of CT findings and likely diagnosis. Care Team: Primary Care physician: Susan Arrieta Urology: Dr. Parsons Social HX: Lives in [facility] with partner Steven (partners for 20 years). 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 She had to stop workign 20 years ago because of arthritis in her back. Juan A Omalley and daughter Laurie samaniego. She enjoys buying and selling and drilling [employer]. Doing less over the last year, as not feeling as well. Impression of currents health status: N/A What bothers you the most: N/A What worries you the most: N/A Current information preferences: N/A Function: Ambulation:No assist before admission ADLs:Indepndednt iADLs: Everything except vaccuuming. Hearing: Sightly reduced, no hearing aids Vision:glasses Palliative Performance Scale % Ambulation Activity and Evidence of Disease Self Care Intake Level of Consciousness 100 Full Normal activity, no evidence of disease Full Normal Full 90 Full Normal activity, some evidence of disease Full Normal Full 80 Full Normal activity with effort, some evidence of disease Full Normal or reduced Full 70 Reduced Unable to do normal work, some evidence of disease Full Normal or reduced Full 60 Reduced Unable to do hobby or some housework, significant disease Occasional assist necessary Normal or reduced Full or confusion 50 Mainly sit/lie Unable to do any work, extensive disease Considerable assistance required Normal or reduced Full or confusion 40 Mainly in bed Unable to do any work, extensive disease Mainly assistance Normal or reduced Full, drowsy, or confusion 30 Totally bed bound Unable to do any work, extensive disease Total care Reduced Full, drowsy, or confusion 20 Totally bed bound Unable to do any work, extensive disease Total care Minimal sips Full, drowsy, or confusion 10 Totally bed bound Unable to do any work, extensive disease Total care Mouth care only Drowsy or coma 0 - - - - Patient Score: 70?80 prior to acute illness Spiritual history: Occasional prays, believes in god. She is faith bahai Palliative review of systems: Pain: Patient had chronic back pain prior to illness Dyspnea: N/A GI symptoms: N/A Appetite: N/A Depression: Steven thinks she was depressed prior to illness because of chronic pain. Anxiety: None Emotional Distress: Spiritual/Existential Distress: Labs: Cr: Previous 1.24?1.7. High of 4.1 yesterday Liver panel: Normal Albumin: 3.8 at admission CBC: White count yesterday 17 K, 13.56 today. She has a thrombocytosis since beginning March up to 568 K platelets (not present previously) Image being 04/15/2023: Impression: Findings consistent with small-bowel obstruction. Peritoneal metastases. Numerous pulmonary metastases. Extensive bony metastases. Status post placement of right ureteral stent with resolution of hydronephrosis. Liver metastasis. (Previous abdominal pelvic CT October, none of these abnormalities seen, only the severe right hydronephrosis) Head MRI done 04/05/2023 with no mass lesions. Advanced Care Planning: Advanced Directive: Completed and witnessed 04/11/2023!, DNI/DNR, Yes abx and trial of feeding tube. Health Care Agent: Steven Hebert (partner), alternate is son Juan A Sayra ([phone]) COLST: None on file Limitations: Assessment and Plan Assessment and plan (1) Palliative care encounter: Status: Acute Assessment and plan: 67-year-old woman with significant weight loss, severe hypercalcemia, acute on chronic renal failure and evidence of widespread metastatic disease of unknown primary to liver, peritoneum, lung, bone who additionally appears to have partial's small bowel obstruction. Phone meeting with partner Steven today to obtain additional history. Explored his understanding of what was going on. Questions answered. Overall prognosis is poor. Best case scenario is that hypercalcemia responds well to treatment resulting in resolution of confusion, partial small bowel obstruction resolves, at which point discussion with patient over whether she wishes to pursue diagnosis. Most likely scenario in this case with that she might be eligible for palliative chemotherapy. However given this unexpected diagnosis, any additional time would give her and her family a chance to process the diagnosis, and make appropriate arrangements. Advance care planning:Fortuitously, patient and her sister sat down 5 days prior to admission and filled out an advance care directive form that was given to them during her last admission. This was reviewed today. She was clear that she would not want CPR or intubation under any circumstances. She appointed Steven as her healthcare agent and her son Juan A as alternate. I discussed this on the phone with Steven today. He said she was quite certain about CODE STATUS. However she would want to have additional treatment and evaluation at this time. COLST was completed as DNR/DNI, transfer, treat, use antibiotics and IV fluids. Future Family Meeting unfortunately, son Juan A had to return to [place] today. Patient's daughter is driving up from [place] today. Steven agreed to a family meeting on . We are hoping that patient's hypercalcemia and confusion will have improved enough by that time that she is able to participate in the meeting. We will have further goals of care discussion at that time. Chronic Opioid Use: VPMS query: She was Receiving oxycodone 5 mg/APAP allotment of 4 pills a day long-term. Although not very high dose (daily MME 30mg), she could be dependent and could exhibit some withdrawal if she is not given regular low-dose opiates. Monitor carefully. Please also be generous with treatment of pain, given clinical situation. (perception of pain may increase as calcium normalizes) (2) Advanced care planning/counseling discussion: Status: Acute Assessment and plan: 16 to 30 minutes spent today on Advance Care Planning. Patient and family participated voluntarily. Advance care planning may include (not limited to) explanation and discussion of advance directives, choosing and appointing healthcare agents, alternatives to various ACP tools, discussion of (and if indicated, completion of) COLST form, discussion of patient's values and overall goals for treatment, palliative and disease directive care options, ways to avoid hospital readmission including hospice discussions, care preferences should the patient's several other adverse health events.See today's palliative care note for additional information. 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 (Acute) Metastasis to liver (Acute) Small bowel obstruction (Acute) Sepsis (Acute) Pneumonia (Acute) Pulmonary nodule (Acute) Bradyarrhythmia (Acute) Elevated uric acid in blood (Acute) Hyperphosphatemia (Acute) High anion gap metabolic acidosis (Acute) Lactic acidosis (Acute) Leukocytosis (Acute) Acute kidney injury superimposed on CKD (Acute) Altered mental status (Acute) Elevated parathyroid hormone related peptide level (Acute) Ileus (Acute) Bowel obstruction (Acute) Urinary tract infection (Acute) Metastatic disease (Acute) Hyperparathyroidism (Acute) General weakness (Acute) Hypercalcemia (Acute) Hyperkalemia (Acute) Hypercalcemia (Acute) Lesion of brain (Acute) Constipation (Acute) Ascites (Acute) Hypertensive urgency (Acute) Nausea (Acute) Hypokalemia (Chronic) Hydronephrosis of right kidney (Chronic ~10/2022) Ureteral stricture, right (Acute) CKD (chronic kidney disease) stage 3, GFR 30-59 ml/min (Chronic) Essential hypertension (Chronic) Hyperlipidemia (Chronic) Osteoporosis (Chronic) Prediabetes (Chronic) PTSD (post-traumatic stress disorder) (Chronic) GERD (gastroesophageal reflux disease) (Chronic) Lumbosacral radiculopathy due to degenerative joint disease of spine (Chronic) Chronic low back pain (Chronic) Overactive bladder (Chronic) Cigarette smoker (Chronic) Medical History Endometriosis Surgical History History of bilateral tubal ligation (04/15/86) History of carpal tunnel surgery of right wrist (~2006) History of operative procedure on lumbosacral spinal structure (02/08/22) RFA 02/08/22 Hx of esophagogastroduodenoscopy (11/20/06) S/P section (04/15/86) S/P colonoscopy (12/06/16) 02/2022 S/P cystoscopy with ureteral stent placement (11/01/22) Right retrograde pyelogram, right ureteroscopy, right ureteral stent S/P laparoscopic hysterectomy (~1999) Family History Mother , 76 Essential hypertension Heart disease Colon cancer Father , 81 Essential hypertension Stroke Colon cancer Brother , 48 Lung cancer Brother , 48 from accident No problems noted. Sister No problems noted. Son No problems noted. Daughter No problems noted. Maternal Grandfather No problems noted. Maternal Grandmother No problems noted. Paternal Grandfather No problems noted. Paternal Grandmother No problems noted. Social History Smoking/Tobacco Use Status: Current every day Tobacco Type: cigarettes Years smoked: 47 Tobacco: How many years used: 20 Second Hand Exposure: Yes Smoking risk assessment performed?: Yes Alcohol Intake: former Drug use: Never Substance use type: does not use Details: Has not had Dilaudid since previous admission Caregiver/Support person: No Household members: significant other Housing: house Number of Children: 2 Communication Needs: None Do you need help understanding health information?: Rarely current occupation: Disabled Pets and animals: Yes Pets and animals: dog(s) Sexually active: No Do you think of yourself as: straight/heterosexual Current gender identity: female What is your relationship status?: living with partner How often do you talk on the phone with friends or family?: twice per week How often do you get together with friends or relatives?: decline to answer How often do you attend bahai or protestant services?: decline to answer Do you belong to any clubs or organized social groups?: no Panel score (0-1 are the most socially isolated patients): 1 What type of physical activity do you participate in: walking Duration: 30-45 minutes/day Frequency: daily Ann-Marie/Faith: Orthodox Special ann-marie needs: No Seatbelt use: always Drive intox or ride w/intox otr flatbed driver: No Do you feel safe at home: Yes Do you feel safe in your relationship?: Yes History History 2 Para 2 Hx # Term Pregnancies Multiple births Hx # Pregnancies Ectopic pregnancies AB induced Hx Number of Living Children 2 AB spontaneous Exam Narrative Exam Narrative: Small very thin woman laying in ICU bed NG tube from nose. Opens eyes briefly to voice. When asked where she is says hospital . Then goes back to sleep. Results Last Vital Signs Temp 36.8 C 04/16/23 09:16 Pulse 82 04/16/23 10:00 Resp 24 04/16/23 10:00 BP 117/62 04/16/23 10:00 Pulse Ox 92 04/16/23 09:00 Labs 04/16/23 05:06 04/16/23 20:05 Labs: Laboratory Results - last 24 hr 04/15/23 04/15/23 04/15/23 18:15 18:15 18:15 WBC RBC Hgb Hct MCV MCH MCHC RDW Plt Count MPV Immature Gran % Neutrophils % Lymphocytes % Monocytes % Eosinophils % Basophils % Nucleated RBC % Absolute Neutrophils Absolute Lymphocytes Absolute Monocytes Absolute Eosinophils Absolute Basophils PT INR APTT VBG Lactate 2.7 H* Sodium 128 L Potassium 6.6 H* Chloride 90 L Carbon Dioxide 23.3 Anion Gap 14.7 H BUN 89 H* Creatinine 4.1 H* Est GFR (CKD-EPI 2020) 11.50 Glucose 171 H Uric Acid Calcium 15.3 H* Phosphorus Magnesium 2.5 H Total Bilirubin 0.3 AST 27 ALT 25 Alkaline Phosphatase 120 H Troponin I < 50 Total Protein 10.3 H Albumin 3.8 Procalcitonin < 0.1 TSH 0.47 Urine Color Urine Clarity Urine pH Ur Specific [place] Urine Protein Urine Ketones Urine Blood Urine Nitrite Urine Bilirubin Urine Urobilinogen Ur Leukocyte Esterase Urine RBC Urine WBC Ur Epithelial Cells Urine Crystals Urine Bacteria Urine Casts Urine Mucus Urine Other Ur Culture Indicated? Urine Glucose Urine Opiates Screen Urine Methadone Screen Ur Barbiturates Screen Ur Tricyclics Screen Ur Amphetamines Screen U Benzodiazepines Scrn Urine Cocaine Screen Ur THC Screen Ethyl Alcohol < 3.0 COVID-19 Source SARS-CoV-2 (PCR) Add-On Test Request 04/15/23 04/15/23 04/15/23 18:15 18:55 19:45 WBC 17.72 H RBC 4.04 Hgb 13.0 Hct 39.6 MCV 98 H MCH 32.2 MCHC 32.8 RDW 12.3 Plt Count 568 H MPV 9.8 Immature Gran % 0.5 Neutrophils % 87.0 Lymphocytes % 8.4 Monocytes % 3.9 Eosinophils % 0.0 Basophils % 0.2 Nucleated RBC % 0.0 Absolute Neutrophils 15.42 H Absolute Lymphocytes 1.49 Absolute Monocytes 0.69 Absolute Eosinophils 0.00 Absolute Basophils 0.04 PT 10.7 INR 1.1 APTT 24.3 VBG Lactate Sodium Potassium Chloride Carbon Dioxide Anion Gap BUN Creatinine Est GFR (CKD-EPI 2020) Glucose Uric Acid Calcium Phosphorus Magnesium Total Bilirubin AST ALT Alkaline Phosphatase Troponin I Total Protein Albumin Procalcitonin TSH Urine Color Urine Clarity Urine pH Ur Specific [place] Urine Protein Urine Ketones Urine Blood Urine Nitrite Urine Bilirubin Urine Urobilinogen Ur Leukocyte Esterase Urine RBC Urine WBC Ur Epithelial Cells Urine Crystals Urine Bacteria Urine Casts Urine Mucus Urine Other Ur Culture Indicated? Urine Glucose Urine Opiates Screen Positive A Urine Methadone Screen Negative Ur Barbiturates Screen Negative Ur Tricyclics Screen Negative Ur Amphetamines Screen Negative U Benzodiazepines Scrn Negative Urine Cocaine Screen Negative Ur THC Screen Negative Ethyl Alcohol COVID-19 Source SARS-CoV-2 (PCR) Add-On Test Request 04/15/23 04/15/23 04/15/23 19:45 20:13 21:09 WBC RBC Hgb Hct MCV MCH MCHC RDW Plt Count MPV Immature Gran % Neutrophils % Lymphocytes % Monocytes % Eosinophils % Basophils % Nucleated RBC % Absolute Neutrophils Absolute Lymphocytes Absolute Monocytes Absolute Eosinophils Absolute Basophils PT INR APTT VBG Lactate Sodium 132 L Potassium 6.2 H* Chloride 99 Carbon Dioxide 20.1 L Anion Gap 12.9 H BUN 87 H* Creatinine 3.7 H* Est GFR (CKD-EPI 2020) 13.01 Glucose 124 H Uric Acid Calcium 14.7 H* Phosphorus Magnesium Total Bilirubin AST ALT Alkaline Phosphatase Troponin I Cancelled Total Protein Albumin Procalcitonin TSH Urine Color Yellow Urine Clarity Cloudy Urine pH 5.0 Ur Specific [place] 1.025 Urine Protein >=300 H Urine Ketones Trace H Urine Blood Large H Urine Nitrite Negative Urine Bilirubin Small H Urine Urobilinogen 0.2 Ur Leukocyte Esterase Moderate H Urine RBC 20-50 H Urine WBC >50 H Ur Epithelial Cells Few Urine Crystals Negative Urine Bacteria Moderate Urine Casts 5-10 WBC Urine Mucus Trace Urine Other Moderate Yeast Ur Culture Indicated? Yes Urine Glucose Negative Urine Opiates Screen Urine Methadone Screen Ur Barbiturates Screen Ur Tricyclics Screen Ur Amphetamines Screen U Benzodiazepines Scrn Urine Cocaine Screen Ur THC Screen Ethyl Alcohol COVID-19 Source SARS-CoV-2 (PCR) Add-On Test Request 04/15/23 04/15/23 04/16/23 22:10 22:28 05:06 WBC 13.56 H RBC 3.54 L Hgb 11.6 Hct 34.6 L MCV 98 H MCH 32.8 MCHC 33.5 RDW 12.3 Plt Count 500 H MPV 9.6 Immature Gran % 0.3 Neutrophils % 82.7 Lymphocytes % 9.7 Monocytes % 6.9 Eosinophils % 0.1 Basophils % 0.3 Nucleated RBC % 0.0 Absolute Neutrophils 11.21 H Absolute Lymphocytes 1.32 Absolute Monocytes 0.94 H Absolute Eosinophils 0.01 Absolute Basophils 0.04 PT INR APTT VBG Lactate Sodium Potassium Chloride Carbon Dioxide Anion Gap BUN Creatinine Est GFR (CKD-EPI 2020) Glucose Uric Acid Calcium Phosphorus Magnesium Total Bilirubin AST ALT Alkaline Phosphatase Troponin I Total Protein Albumin Procalcitonin TSH Urine Color Urine Clarity Urine pH Ur Specific [place] Urine Protein Urine Ketones Urine Blood Urine Nitrite Urine Bilirubin Urine Urobilinogen Ur Leukocyte Esterase Urine RBC Urine WBC Ur Epithelial Cells Urine Crystals Urine Bacteria Urine Casts Urine Mucus Urine Other Ur Culture Indicated? Urine Glucose Urine Opiates Screen Urine Methadone Screen Ur Barbiturates Screen Ur Tricyclics Screen Ur Amphetamines Screen U Benzodiazepines Scrn Urine Cocaine Screen Ur THC Screen Ethyl Alcohol COVID-19 Source Nasal/Nares SARS-CoV-2 (PCR) Negative Add-On Test Request TNP 04/16/23 04/16/23 04/16/23 05:06 05:06 05:06 WBC RBC Hgb Hct MCV MCH MCHC RDW Plt Count MPV Immature Gran % Neutrophils % Lymphocytes % Monocytes % Eosinophils % Basophils % Nucleated RBC % Absolute Neutrophils Absolute Lymphocytes Absolute Monocytes Absolute Eosinophils Absolute Basophils PT INR APTT VBG Lactate 1.4 Sodium 136 Potassium 5.0 D Chloride 101 Carbon Dioxide 21.9 Anion Gap 13.1 H BUN 83 H* Creatinine 2.9 H Est GFR (CKD-EPI 2020) 17.42 Glucose 113 H Uric Acid 12.6 H Calcium > 15.0 H* Phosphorus 5.3 H Magnesium Total Bilirubin 0.3 AST 15 ALT 20 Alkaline Phosphatase 94 Troponin I Total Protein 8.2 Albumin 3.0 L Procalcitonin TSH Urine Color Urine Clarity Urine pH Ur Specific [place] Urine Protein Urine Ketones Urine Blood Urine Nitrite Urine Bilirubin Urine Urobilinogen Ur Leukocyte Esterase Urine RBC Urine WBC Ur Epithelial Cells Urine Crystals Urine Bacteria Urine Casts Urine Mucus Urine Other Ur Culture Indicated? Urine Glucose Urine Opiates Screen Urine Methadone Screen Ur Barbiturates Screen Ur Tricyclics Screen Ur Amphetamines Screen U Benzodiazepines Scrn Urine Cocaine Screen Ur THC Screen Ethyl Alcohol COVID-19 Source SARS-CoV-2 (PCR) Add-On Test Request 04/16/23 04/16/23 07:55 Unknown WBC RBC Hgb Hct MCV MCH MCHC RDW Plt Count MPV Immature Gran % Neutrophils % Lymphocytes % Monocytes % Eosinophils % Basophils % Nucleated RBC % Absolute Neutrophils Absolute Lymphocytes Absolute Monocytes Absolute Eosinophils Absolute Basophils PT INR APTT VBG Lactate Sodium Potassium Chloride Carbon Dioxide Anion Gap BUN Creatinine Est GFR (CKD-EPI 2020) Glucose Uric Acid Calcium Phosphorus Magnesium Total Bilirubin AST ALT Alkaline Phosphatase Troponin I < 50 Total Protein Albumin Procalcitonin TSH Urine Color Urine Clarity Urine pH Ur Specific [place] Urine Protein Urine Ketones Urine Blood Urine Nitrite Urine Bilirubin Urine Urobilinogen Ur Leukocyte Esterase Urine RBC Urine WBC Ur Epithelial Cells Urine Crystals Urine Bacteria Urine Casts Urine Mucus Urine Other Ur Culture Indicated? Urine Glucose Urine Opiates Screen Urine Methadone Screen Ur Barbiturates Screen Ur Tricyclics Screen Ur Amphetamines Screen U Benzodiazepines Scrn Urine Cocaine Screen Ur THC Screen Ethyl Alcohol COVID-19 Source SARS-CoV-2 (PCR) Add-On Test Request DONE
--- NOTE | 2023-04-16 12:39 | DI.RAD_ITS ---
Exam(s) XR BONE SURVEY EXAM: XR BONE SURVEY CLINICAL HISTORY: lytic rib and T spine lesions, hypercalcemia. TECHNIQUE: 2D digital imaging was performed. COMPARISON: CT CT HEAD WO from 04/04/2023 FINDINGS: Exam is quite limited by multiple overlying leads and other material. No evidence of fracture. . Soft tissues are unremarkable. HEAD AND NECK: Skull lesion seen on CT faintly visualized. Other smaller rounded lytic lesions noted in the skull. Nasogastric tube noted CHEST AND RIBS: Destruction of the posterior portion of the left 4th rib visible. Small lytic lesion visible in the distal left clavicle PELVIS: Right ureteral stent. Crisostomo catheter. Large sacral region was seen on CT which is obscured on plaque on these plain films. LONG BONES: Small lucency seen in mid femur. Question of a small lucency in the proximal right femur . HANDS AND FEET:Normal. SPINE:Not well evaluated. IMPRESSION: Exam is of limited quality. Multiple lytic lesions were noted on CT examinations. DATA REPOSITORY: RADIATION DOSE DELIVERED:
[2023-04-16] MEDS: ACETAMINOPHEN 1,000 MG/100 ML BTL 400 MG IVPB ×2 (12:58→20:37)
[2023-04-16] MEDS: Normal Saline Flush 10 ML SYR IVP (13:02)
[2023-04-16] MEDS: Nicotine 14 MG/24 HR PATCH TD (13:03)
[2023-04-16] MEDS: VANCOMYCIN/WATER (PEG) 1 GM/200 ML BAG IV (13:16)
--- NOTE | 2023-04-16 13:27 | PHA.REVIEW2 ---
Pharmacy Admission Review - Admission Clinical Review (Last Reviewed 04/15/23 @ 22:06 by Liban Cody MD) Pneumonia (Acute) Pulmonary nodule (Acute) Bradyarrhythmia (Acute) Elevated uric acid in blood (Acute) Hyperphosphatemia (Acute) High anion gap metabolic acidosis (Acute) Lactic acidosis (Acute) Leukocytosis (Acute) Acute kidney injury superimposed on CKD (Acute) Altered mental status (Acute) Elevated parathyroid hormone related peptide level (Acute) Ileus (Acute) Bowel obstruction (Acute) Urinary tract infection (Acute) Metastatic disease (Acute) Hyperparathyroidism (Acute) General weakness (Acute) Hypercalcemia (Acute) Hyperkalemia (Acute) Constipation (Acute) mirtazapine Adverse Reaction (Verified 04/04/23 20:10) Lightheadedness Resuscitation Status DNR/DNI Height 5 ft 4 in Weight 36.4 kg - Renal Dosing Renal Dosing: BUN 83 mg/dL (7-18) H* 04/16/23 05:06 Creatinine 2.9 mg/dL (0.55-1.02) H 04/16/23 05:06 Medications needing adjustments: Reviewed (eCrCl 11 ml/min) List of meds needing interventions: meropenem is appropriately renally dosed, vanco is being closely monitored by pharmacy, all other orders ok - Anticoagulation Anticoagulation: Hgb 11.6 g/dL (11.2-15.7) 04/16/23 05:06 Hct 34.6 % (36.0-46.0) L 04/16/23 05:06 Plt Count 500 10^3/uL (130-400) H 04/16/23 05:06 INR 1.1 (0.9-1.1) 04/15/23 18:55 Creatinine 2.9 mg/dL (0.55-1.02) H 04/16/23 05:06 DVT Prophylaxis: Reviewed Medications: Heparin - Opiate Usage Evaluate Pain Scale/Pains Meds: Reviewed (hydromorphone IVP prn) Scheduled Bowel Reg ordered if on Opiates?: Yes (prn orders) - Relevant Labs Sodium 136 mmol/L (136-145) 04/16/23 05:06 Potassium 5.0 mmol/L (3.5-5.1) D 04/16/23 05:06 Chloride 101 mmol/L (98-107) 04/16/23 05:06 Phosphorus 5.3 mg/dL (2.6-4.7) H 04/16/23 05:06 Magnesium 2.5 mg/dL (1.8-2.4) H 04/15/23 18:15 Electrolytes, C-Reactive P, ESR: Reviewed (multiple K+ lowering regimens administered yesterday; xgeva (denosumab) administered this morning for hypercalcemia (level >15) - rechecked @ 1300: corrected ca level = 14.3) - DM Control DM Control: Glucose 113 mg/dL (74-106) H 04/16/23 05:06 DM Control: N/A - Cardiac Review Cardiac Review: Troponin I < 50 ng/L (<or=60) 04/16/23 07:55 BP, HR, EF%: Reviewed - Qtc Review QTc: Reviewed (QTc 411) - IV to PO Switch IV Medications: Reviewed - Home Meds Home Med List reviewed: Reviewed Relevent Home Meds Not ordered & why?: BP meds (stabilizing Ca level, BP currently stable), removed atenolol as it hasn't been filled since august of last year - Current meds Current Medication Order Review: Reviewed (Denosumab give this AM -- dose can repeated once weekly x 3 doses, preferred over bisphosphonates in setting of renal impairment HOWEVER these patients are at an increased risk of hypocalcemia following administration so calcium level needs to continue to be monitor closely) Comments: Denosumab give this AM -- dose can repeated once weekly x 3 doses, preferred over bisphosphonates in setting of renal impairment HOWEVER these patients are at an increased risk of hypocalcemia following administration so calcium level needs to continue to be monitor closely; ceftriaxone started for UTI, suspicion for asp/PNA which ceftriaxone also adequately covers - Comments Comments/Follow Ups: Monitor calcium levels closely especially with poor renal fxn-- currently being drawn q6h
[2023-04-16 13:31] LABS: PHOSPHORUS 4.6 mg/dL (2.6-4.7)
--- NOTE | 2023-04-16 13:32 | W.NUTCONSULT ---
Date of service: 04/16/23 Time of Service: 13:32 Nutritional Consult ASSESSMENT: Ira was admitted with hypercalemia with abdominal pain and iileus, being worked up for metastatic cancer. Medical chare review indicates that Ira has lost 27 lbs in last month, now with BMI of 14 indicating severe malnutrition. Ira is severely depleted and will need nutrition shirin. If ileus does not resolve in next 48 hours, recommend consideration of TPN. Estimated Needs: BEE: 900 kcal x 1.2 = 1080 + 500 calories= 1580 kcal, 43 g protein (1.2 g/kg), 1500 ml fluid NUTRITIONAL DIAGNOSIS: Severe malnutrition as evidenced by unintentional weight loss of 27 lbs in last 30 days due to decreased oral intake. INTERVENTION: Advance diet as able consider TPN if NPO > 48 hours MONITORING AND EVALUATION: weight, po intake, labs Time Spent in Nutritional Counseling and Treatment: 0
[2023-04-16 13:33] LABS: Anion Gap 12.5 mmol/L (3-11); BUN 70 mg/dL (7-18); CO2 23.5 mmol/L (21.0-32.0); CREATININE 2.1 mg/dL (0.55-1.02); Chloride 102 mmol/L (98-107); Estimated GFR 25.67 (mL/min/1.73m2); Glucose 116 mg/dL (74-106); Potassium 4.3 mmol/L (3.5-5.1); Sodium 138 mmol/L (136-145)
[2023-04-16 13:40] LABS: Calcium 13.5 mg/dL (8.5-10.1)
--- NOTE | 2023-04-16 16:16 | SCONE_ITS ---
Date of service: 04/16/23 Time of Service: 16:16 Assessment and Plan Assessment and plan (1) Obtundation: Status: Acute Assessment and plan: Urinary sepsis versus hypercalcemia -Currently patient is able to protect airway and does not require intubation. He is DNR/DNI -She is being aggressively treated with broad-spectrum antibiotics and being treated for her hypercalcemia -He is not requiring pressors for blood pressure support -Overall prognosis is poor (2) Metastasis to liver: Status: Acute Assessment and plan: - MRI of the abdomen and pelvis with IV contrast once patient is stable from a renal function standpoint. -She should go down to [facility] for liver biopsy for diagnostic purposes. -Treatment would be IV chemo and bony radiation for symptom relief. At this point chemo with palliative not curative. Also the drugs being used could potentially be quite toxic depending on her primary which we still do not have. -Supportive care -Patient is DNR/DNI. Palliative care has been consulted. Ultimately hospice is probably her best option. (3) Small bowel obstruction: Status: Acute Assessment and plan: - Most likely combination of the constipation/obstipation from chronic narcotic use, chronic lifelong history of constipation, and And mass effect/compression by tumor. SHe does not appear obstructed from the tumor. -We have been able to decompress the GI tract by NG tube compression. We will try mobilization by Gastrografin. Orders written. Flatplate ordered for in a.m. -There are no peritoneal signs. She does not appear to be in pain. She has bet ter bowel sounds since NG decompression of was initiated. -It is my understanding that Movantik has been tried with no success. 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: Status: Acute (5) Sepsis: Status: Acute Assessment and plan: Urinary by UA (6) Pneumonia: Status: Acute Assessment and plan: Meropenem and vancomycin (7) High anion gap metabolic acidosis: Status: Acute (8) Lactic acidosis: Status: Acute (9) Leukocytosis: Status: Acute (10) Acute kidney injury superimposed on CKD: Status: Acute (11) Bone metastases: Status: Acute (12) Bowel obstruction: Status: Acute (13) Urinary tract infection: Status: Acute (14) Metastatic disease: Status: Acute (15) Hyperparathyroidism: Status: Acute (16) Hypercalcemia: Status: Acute (17) Ascites: Status: Acute (18) Essential hypertension: Status: Chronic (19) CKD (chronic kidney disease) stage 3, GFR 30-59 ml/min: Status: Chronic (20) Hydronephrosis of right kidney: Status: Chronic (21) Hyperlipidemia: Status: Chronic (22) Osteoporosis: Status: Chronic (23) Prediabetes: Status: Chronic (24) PTSD (post-traumatic stress disorder): Status: Chronic (25) GERD (gastroesophageal reflux disease): Status: Chronic (26) Lumbosacral radiculopathy due to degenerative joint disease of spine: Status: Chronic (27) Chronic low back pain: Status: Chronic (28) Overactive bladder: Status: Chronic (29) Cigarette smoker: Status: Chronic (30) Atherosclerosis of aorta: Status: Acute (31) 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: Status: Acute (32) S/P laparoscopic hysterectomy: Assessment and plan: - It is unknown if he still has ovaries in place (33) Diverticulosis: Status: Acute (34) Emphysema lung: Status: Acute (35) Family history of colon cancer in father: Status: Acute Assessment and plan: Father had colorectal cancer in his 40s (36) Chronic constipation: Status: Acute (37) Adenomatous polyps: Status: Acute (38) Chronic narcotic use: Status: Acute (39) Carotid artery stenosis: Status: Acute Assessment and plan: -70% left -50% right (40) Small vessel disease, cerebrovascular: Status: Acute Assessment and plan: - Documented on MRI (41) Cancer cachexia: Status: Acute (42) Protein malnutrition: Status: Acute Assessment and plan: This document was created with voice activated software and may contain errors. 75 mins spent with the patient today. History of Present Illness Narrative: - Patient is obtunded and cannot give any history. History is taken from nursing, Dr. Yusuf, & extensive review of [facility] and [facility] charts. Review of Systems Unobtainable due to mental status PFSH All Active Problems Obtundation (Acute) Protein malnutrition (Acute) Cancer cachexia (Acute) Small vessel disease, cerebrovascular (Acute) Carotid artery stenosis (Acute) Chronic narcotic use (Acute) since 1999. 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 (Acute) Metastasis to liver (Acute) Small bowel obstruction (Acute) Sepsis (Acute) Pneumonia (Acute) Pulmonary nodule (Acute) Bradyarrhythmia (Acute) Elevated uric acid in blood (Acute) Hyperphosphatemia (Acute) High anion gap metabolic acidosis (Acute) Lactic acidosis (Acute) Leukocytosis (Acute) Acute kidney injury superimposed on CKD (Acute) Altered mental status (Acute) Elevated parathyroid hormone related peptide level (Acute) Ileus (Acute) Bowel obstruction (Acute) Urinary tract infection (Acute) Metastatic disease (Acute) Hyperparathyroidism (Acute) General weakness (Acute) Hypercalcemia (Acute) Hyperkalemia (Acute) Hypercalcemia (Acute) Lesion of brain (Acute) Constipation (Acute) Ascites (Acute) Hypertensive urgency (Acute) Nausea (Acute) Hypokalemia (Chronic) Hydronephrosis of right kidney (Chronic ~10/2022) Ureteral stricture, right (Acute) CKD (chronic kidney disease) stage 3, GFR 30-59 ml/min (Chronic) Essential hypertension (Chronic) Hyperlipidemia (Chronic) Osteoporosis (Chronic) Prediabetes (Chronic) PTSD (post-traumatic stress disorder) (Chronic) GERD (gastroesophageal reflux disease) (Chronic) Lumbosacral radiculopathy due to degenerative joint disease of spine (Chronic) Chronic low back pain (Chronic) Overactive bladder (Chronic) Cigarette smoker (Chronic) Medical History Endometriosis Surgical History History of bilateral tubal ligation (04/15/86) History of carpal tunnel surgery of right wrist (~2006) History of operative procedure on lumbosacral spinal structure (02/08/22) RFA 02/08/22 Hx of esophagogastroduodenoscopy (11/20/06) S/P section (04/15/86) S/P colonoscopy (12/06/16) 02/2022 S/P cystoscopy with ureteral stent placement (11/01/22) Right retrograde pyelogram, right ureteroscopy, right ureteral stent S/P laparoscopic hysterectomy (~1999) Family History Mother , 76 Essential hypertension Heart disease Colon cancer Father , 81 Essential hypertension Stroke Colon cancer Brother , 48 Lung cancer Brother , 48 from accident No problems noted. Sister No problems noted. Son No problems noted. Daughter No problems noted. Maternal Grandfather No problems noted. Maternal Grandmother No problems noted. Paternal Grandfather No problems noted. Paternal Grandmother No problems noted. Social History Smoking/Tobacco Use Status: Current every day Tobacco Type: cigarettes Years smoked: 47 Tobacco: How many years used: 20 Second Hand Exposure: Yes Smoking risk assessment performed?: Yes Alcohol Intake: former Drug use: Never Substance use type: does not use Details: Has not had Dilaudid since previous admission Caregiver/Support person: No Household members: significant other Housing: house Number of Children: 2 Communication Needs: None Do you need help understanding health information?: Rarely current occupation: Disabled Pets and animals: Yes Pets and animals: dog(s) Sexually active: No Do you think of yourself as: straight/heterosexual Current gender identity: female What is your relationship status?: living with partner How often do you talk on the phone with friends or family?: twice per week How often do you get together with friends or relatives?: decline to answer How often do you attend pentecostal or mandaeism services?: decline to answer Do you belong to any clubs or organized social groups?: no Panel score (0-1 are the most socially isolated patients): 1 What type of physical activity do you participate in: walking Duration: 30-45 minutes/day Frequency: daily Ann-Marie/Orthodoxy: Taoism Special ann-marie needs: No Seatbelt use: always Drive intox or ride w/intox feedmobile driver: No Do you feel safe at home: Yes Do you feel safe in your relationship?: Yes History History 2 Para 2 Hx # Term Pregnancies Multiple births Hx # Pregnancies Ectopic pregnancies AB induced Hx Number of Living Children 2 AB spontaneous Exam Const General: frail appearing Nutritional Appearance: cachectic and overweight Orientation: obtunded Other: -obtain to maintain/protect airway. HENMT Other: -no jaundice -temperal muscle wasting Resp Effort & Inspection: normal respiratory effort Auscultation: clear to auscultation bilaterally Cardio Rate: regular rate Rhythm: regular rhythm GI Other: mild distention no peritonitis hypoactive BS Results Last Vital Signs Temp 36.8 C 04/16/23 09:16 Pulse 91 H 04/16/23 13:30 Resp 21 04/16/23 13:30 BP 129/104 H 04/16/23 13:30 Pulse Ox 94 04/16/23 13:30 Labs 04/16/23 05:06 04/16/23 13:00 Labs: Laboratory Results - last 24 hr 04/15/23 04/15/23 04/15/23 18:15 18:15 18:15 WBC RBC Hgb Hct MCV MCH MCHC RDW Plt Count MPV Immature Gran % Neutrophils % Lymphocytes % Monocytes % Eosinophils % Basophils % Nucleated RBC % Absolute Neutrophils Absolute Lymphocytes Absolute Monocytes Absolute Eosinophils Absolute Basophils PT INR APTT VBG Lactate 2.7 H* Sodium 128 L Potassium 6.6 H* Chloride 90 L Carbon Dioxide 23.3 Anion Gap 14.7 H BUN 89 H* Creatinine 4.1 H* Est GFR (CKD-EPI 2020) 11.50 Glucose 171 H Uric Acid Calcium 15.3 H* Phosphorus Magnesium 2.5 H Total Bilirubin 0.3 AST 27 ALT 25 Alkaline Phosphatase 120 H Troponin I < 50 Total Protein 10.3 H Albumin 3.8 Procalcitonin < 0.1 TSH 0.47 Urine Color Urine Clarity Urine pH Ur Specific [place] Urine Protein Urine Ketones Urine Blood Urine Nitrite Urine Bilirubin Urine Urobilinogen Ur Leukocyte Esterase Urine RBC Urine WBC Ur Epithelial Cells Urine Crystals Urine Bacteria Urine Casts Urine Mucus Urine Other Ur Culture Indicated? Urine Glucose Urine Opiates Screen Urine Methadone Screen Ur Barbiturates Screen Ur Tricyclics Screen Ur Amphetamines Screen U Benzodiazepines Scrn Urine Cocaine Screen Ur THC Screen Ethyl Alcohol < 3.0 COVID-19 Source SARS-CoV-2 (PCR) Add-On Test Request 04/15/23 04/15/23 04/15/23 18:15 18:55 19:45 WBC 17.72 H RBC 4.04 Hgb 13.0 Hct 39.6 MCV 98 H MCH 32.2 MCHC 32.8 RDW 12.3 Plt Count 568 H MPV 9.8 Immature Gran % 0.5 Neutrophils % 87.0 Lymphocytes % 8.4 Monocytes % 3.9 Eosinophils % 0.0 Basophils % 0.2 Nucleated RBC % 0.0 Absolute Neutrophils 15.42 H Absolute Lymphocytes 1.49 Absolute Monocytes 0.69 Absolute Eosinophils 0.00 Absolute Basophils 0.04 PT 10.7 INR 1.1 APTT 24.3 VBG Lactate Sodium Potassium Chloride Carbon Dioxide Anion Gap BUN Creatinine Est GFR (CKD-EPI 2020) Glucose Uric Acid Calcium Phosphorus Magnesium Total Bilirubin AST ALT Alkaline Phosphatase Troponin I Total Protein Albumin Procalcitonin TSH Urine Color Urine Clarity Urine pH Ur Specific [place] Urine Protein Urine Ketones Urine Blood Urine Nitrite Urine Bilirubin Urine Urobilinogen Ur Leukocyte Esterase Urine RBC Urine WBC Ur Epithelial Cells Urine Crystals Urine Bacteria Urine Casts Urine Mucus Urine Other Ur Culture Indicated? Urine Glucose Urine Opiates Screen Positive A Urine Methadone Screen Negative Ur Barbiturates Screen Negative Ur Tricyclics Screen Negative Ur Amphetamines Screen Negative U Benzodiazepines Scrn Negative Urine Cocaine Screen Negative Ur THC Screen Negative Ethyl Alcohol COVID-19 Source SARS-CoV-2 (PCR) Add-On Test Request 04/15/23 04/15/23 04/15/23 19:45 20:13 21:09 WBC RBC Hgb Hct MCV MCH MCHC RDW Plt Count MPV Immature Gran % Neutrophils % Lymphocytes % Monocytes % Eosinophils % Basophils % Nucleated RBC % Absolute Neutrophils Absolute Lymphocytes Absolute Monocytes Absolute Eosinophils Absolute Basophils PT INR APTT VBG Lactate Sodium 132 L Potassium 6.2 H* Chloride 99 Carbon Dioxide 20.1 L Anion Gap 12.9 H BUN 87 H* Creatinine 3.7 H* Est GFR (CKD-EPI 2020) 13.01 Glucose 124 H Uric Acid Calcium 14.7 H* Phosphorus Magnesium Total Bilirubin AST ALT Alkaline Phosphatase Troponin I Cancelled Total Protein Albumin Procalcitonin TSH Urine Color Yellow Urine Clarity Cloudy Urine pH 5.0 Ur Specific [place] 1.025 Urine Protein >=300 H Urine Ketones Trace H Urine Blood Large H Urine Nitrite Negative Urine Bilirubin Small H Urine Urobilinogen 0.2 Ur Leukocyte Esterase Moderate H Urine RBC 20-50 H Urine WBC >50 H Ur Epithelial Cells Few Urine Crystals Negative Urine Bacteria Moderate Urine Casts 5-10 WBC Urine Mucus Trace Urine Other Moderate Yeast Ur Culture Indicated? Yes Urine Glucose Negative Urine Opiates Screen Urine Methadone Screen Ur Barbiturates Screen Ur Tricyclics Screen Ur Amphetamines Screen U Benzodiazepines Scrn Urine Cocaine Screen Ur THC Screen Ethyl Alcohol COVID-19 Source SARS-CoV-2 (PCR) Add-On Test Request 04/15/23 04/15/23 04/16/23 22:10 22:28 05:06 WBC 13.56 H RBC 3.54 L Hgb 11.6 Hct 34.6 L MCV 98 H MCH 32.8 MCHC 33.5 RDW 12.3 Plt Count 500 H MPV 9.6 Immature Gran % 0.3 Neutrophils % 82.7 Lymphocytes % 9.7 Monocytes % 6.9 Eosinophils % 0.1 Basophils % 0.3 Nucleated RBC % 0.0 Absolute Neutrophils 11.21 H Absolute Lymphocytes 1.32 Absolute Monocytes 0.94 H Absolute Eosinophils 0.01 Absolute Basophils 0.04 PT INR APTT VBG Lactate Sodium Potassium Chloride Carbon Dioxide Anion Gap BUN Creatinine Est GFR (CKD-EPI 2020) Glucose Uric Acid Calcium Phosphorus Magnesium Total Bilirubin AST ALT Alkaline Phosphatase Troponin I Total Protein Albumin Procalcitonin TSH Urine Color Urine Clarity Urine pH Ur Specific [place] Urine Protein Urine Ketones Urine Blood Urine Nitrite Urine Bilirubin Urine Urobilinogen Ur Leukocyte Esterase Urine RBC Urine WBC Ur Epithelial Cells Urine Crystals Urine Bacteria Urine Casts Urine Mucus Urine Other Ur Culture Indicated? Urine Glucose Urine Opiates Screen Urine Methadone Screen Ur Barbiturates Screen Ur Tricyclics Screen Ur Amphetamines Screen U Benzodiazepines Scrn Urine Cocaine Screen Ur THC Screen Ethyl Alcohol COVID-19 Source Nasal/Nares SARS-CoV-2 (PCR) Negative Add-On Test Request TNP 04/16/23 04/16/23 04/16/23 05:06 05:06 05:06 WBC RBC Hgb Hct MCV MCH MCHC RDW Plt Count MPV Immature Gran % Neutrophils % Lymphocytes % Monocytes % Eosinophils % Basophils % Nucleated RBC % Absolute Neutrophils Absolute Lymphocytes Absolute Monocytes Absolute Eosinophils Absolute Basophils PT INR APTT VBG Lactate 1.4 Sodium 136 Potassium 5.0 D Chloride 101 Carbon Dioxide 21.9 Anion Gap 13.1 H BUN 83 H* Creatinine 2.9 H Est GFR (CKD-EPI 2020) 17.42 Glucose 113 H Uric Acid 12.6 H Calcium > 15.0 H* Phosphorus 5.3 H Magnesium Total Bilirubin 0.3 AST 15 ALT 20 Alkaline Phosphatase 94 Troponin I Total Protein 8.2 Albumin 3.0 L Procalcitonin TSH Urine Color Urine Clarity Urine pH Ur Specific [place] Urine Protein Urine Ketones Urine Blood Urine Nitrite Urine Bilirubin Urine Urobilinogen Ur Leukocyte Esterase Urine RBC Urine WBC Ur Epithelial Cells Urine Crystals Urine Bacteria Urine Casts Urine Mucus Urine Other Ur Culture Indicated? Urine Glucose Urine Opiates Screen Urine Methadone Screen Ur Barbiturates Screen Ur Tricyclics Screen Ur Amphetamines Screen U Benzodiazepines Scrn Urine Cocaine Screen Ur THC Screen Ethyl Alcohol COVID-19 Source SARS-CoV-2 (PCR) Add-On Test Request 04/16/23 04/16/23 04/16/23 07:55 13:00 13:00 WBC RBC Hgb Hct MCV MCH MCHC RDW Plt Count MPV Immature Gran % Neutrophils % Lymphocytes % Monocytes % Eosinophils % Basophils % Nucleated RBC % Absolute Neutrophils Absolute Lymphocytes Absolute Monocytes Absolute Eosinophils Absolute Basophils PT INR APTT VBG Lactate Sodium 138 Potassium 4.3 Chloride 102 Carbon Dioxide 23.5 Anion Gap 12.5 H BUN 70 H Creatinine 2.1 H Est GFR (CKD-EPI 2020) 25.67 Glucose 116 H Uric Acid Calcium 13.5 H* Phosphorus 4.6 Magnesium Total Bilirubin AST ALT Alkaline Phosphatase Troponin I < 50 Total Protein Albumin Procalcitonin TSH Urine Color Urine Clarity Urine pH Ur Specific [place] Urine Protein Urine Ketones Urine Blood Urine Nitrite Urine Bilirubin Urine Urobilinogen Ur Leukocyte Esterase Urine RBC Urine WBC Ur Epithelial Cells Urine Crystals Urine Bacteria Urine Casts Urine Mucus Urine Other Ur Culture Indicated? Urine Glucose Urine Opiates Screen Urine Methadone Screen Ur Barbiturates Screen Ur Tricyclics Screen Ur Amphetamines Screen U Benzodiazepines Scrn Urine Cocaine Screen Ur THC Screen Ethyl Alcohol COVID-19 Source SARS-CoV-2 (PCR) Add-On Test Request 04/16/23 04/16/23 16:00 Unknown WBC RBC Hgb Hct MCV MCH MCHC RDW Plt Count MPV Immature Gran % Neutrophils % Lymphocytes % Monocytes % Eosinophils % Basophils % Nucleated RBC % Absolute Neutrophils Absolute Lymphocytes Absolute Monocytes Absolute Eosinophils Absolute Basophils PT INR APTT VBG Lactate Sodium Cancelled Potassium Cancelled Chloride Cancelled Carbon Dioxide Cancelled Anion Gap Cancelled BUN Cancelled Creatinine Cancelled Est GFR (CKD-EPI 2020) Cancelled Glucose Cancelled Uric Acid Calcium Cancelled Phosphorus Magnesium Total Bilirubin AST ALT Alkaline Phosphatase Troponin I Total Protein Albumin Procalcitonin TSH Urine Color Urine Clarity Urine pH Ur Specific [place] Urine Protein Urine Ketones Urine Blood Urine Nitrite Urine Bilirubin Urine Urobilinogen Ur Leukocyte Esterase Urine RBC Urine WBC Ur Epithelial Cells Urine Crystals Urine Bacteria Urine Casts Urine Mucus Urine Other Ur Culture Indicated? Urine Glucose Urine Opiates Screen Urine Methadone Screen Ur Barbiturates Screen Ur Tricyclics Screen Ur Amphetamines Screen U Benzodiazepines Scrn Urine Cocaine Screen Ur THC Screen Ethyl Alcohol COVID-19 Source SARS-CoV-2 (PCR) Add-On Test Request DONE
[2023-04-16] MEDS: Gastrografin 120 ML BTL PO (17:32)
[2023-04-16] MEDS: Pantoprazole 40 MG VIAL IVP (17:32)
[2023-04-16 20:32] LABS: Anion Gap 13.1 mmol/L (3-11); BUN 65 mg/dL (7-18); CO2 22.9 mmol/L (21.0-32.0); CREATININE 1.9 mg/dL (0.55-1.02); Chloride 107 mmol/L (98-107); Estimated GFR 28.94 (mL/min/1.73m2); Glucose 104 mg/dL (74-106); Potassium 3.9 mmol/L (3.5-5.1); Sodium 143 mmol/L (136-145)
[2023-04-16 20:34] LABS: Calcium 12.7 mg/dL (8.5-10.1)
[2023-04-17] VITALS (51 sets, daily range): BP systolic 112–155; BP diastolic 6–93; PULSE 70–103; RESP 13–30; TEMP 36.3–37; O2SAT 87–97
[2023-04-17] MEDS: Normal Saline 1,000 ML 200 ML IV ×2 (00:24→05:31)
--- NOTE | 2023-04-17 02:45 | DI.RAD_ITS ---
Exam(s) XR PORTABLE CHEST AP POST LINE EXAM: XR PORTABLE CHEST AP POST LINE CLINICAL HISTORY: ng tube placement TECHNIQUE: 2D digital imaging was performed of the chest. One image was obtained. An AP view was ob tained. COMPARISON: CR XR CHEST 2V PA LATERAL from 08/23/2021 FINDINGS: MEDIASTINUM: Normal. HEART: Normal. PULMONARY VASCULATURE: Normal. LUNGS: Subcentimeter nodules are seen in the lungs, however the patient's known pulmonary nodules are best appreciated on the CT scan of the chest from 04/16/2023. Mild opacities are seen in the bases, left greater than right. PLEURAL SPACE: No pleural effusion or pneumothorax. BONE:Within normal limits for the patient's age. OTHER FINDINGS:The tip of the enteric tube is in good position in the stomach. IMPRESSION: The tip of the enteric tube is in good position within the stomach. DATA REPOSITORY: RADIATION DOSE DELIVERED:
--- NOTE | 2023-04-17 03:10 | NUR.NOTE ---
[id number] remains restrained but was able to pull out ng tube while restrained. NG tube replaced after several attempts, draining cloudy light green . CXR cone for placement.
[2023-04-17] MEDS: HYDROmorphone 2 MG/ML SYR 1 MG IVP ×3 (03:53→20:18)
[2023-04-17] MEDS: ACETAMINOPHEN 1,000 MG/100 ML BTL 400 MG IVPB ×3 (04:00→20:50)
--- NOTE | 2023-04-17 05:24 | DI.VRAD_ITS ---
PROCEDURE INFORMATION: Exam: XR Chest Exam date and time: 04/17/2023 3:03 AM Age: 67 years old Clinical indication: Device placement; Patient HX: Ng tube placement TECHNIQUE: Imaging protocol: Radiologic exam of the chest. Views: 1 view. COMPARISON: No relevant prior studies are available for comparison. FINDINGS: Tubes, catheters and devices: Nasogastric tube terminates in the expected location of the stomach. Lungs: Hyperinflated lungs. Minimal patchy opacities at the lung bases. Subcentimeter right upper and lower lung nodules. Pleural spaces: No large pleural effusion seen. Heart/Mediastinum: No cardiomegaly. Bones/joints: Grossly unremarkable. Gastrointestinal tract: Gas-filled bowel in the upper abdomen. IMPRESSION: 1. Nasogastric tube as above. 2. Faint patchy bibasilar opacities. Pneumonia not excluded. Follow-up as clinically warranted. Dictated and Authenticated by: Lindy Kowalski MD. Ordering:RACHID Fererr MD
[2023-04-17] MEDS: Heparin 5,000 UNITS/ML VIAL 5000 UNITS SC ×3 (05:32→22:39)
--- NOTE | 2023-04-17 07:00 | DI.RAD_ITS ---
Exam(s) XR ABDOMEN FLAT PLATE EXAM: 2D digital imaging was performed. CLINICAL HISTORY: SBO. COMPARISON: CT CT CHEST/ABD/PEL WO from 04/15/2023 TECHNIQUE: Supine views of the abdomen performed. One images obtained. FINDINGS: BOWEL GAS PATTERN: Nondistended. Oral contrast is seen within the stomach and small bowel. There is no evidence of bowel obstruction. CALCIFICATIONS: No radiopaque calcifications. OSSEOUS STRUCTURES: The lytic sacral lesion is not visualized as it is obscured by overlying bowel. OTHER FINDINGS: There is a right nephroureteral stent. The tip of the enteric tube is in good positi on in the stomach. IMPRESSION: 1. Nonobstructive bowel gas pattern. 2. The tip of the enteric tube is in position in the stomach. DATA REPOSITORY: RADIATION DOSE DELIVERED:
[2023-04-17 07:07] LABS: Abs Immature Grans 0.03 10^3/uL (0.0-0.06); Absolute Basophil Count 0.01 10^3/uL (0.0-0.2); Absolute Eosinophil Count 0.02 10^3/uL (0.0-0.7); Absolute Lymphocyte Count 1.15 10^3/uL (1.2-3.4); Absolute Monocyte Count 0.52 10^3/uL (0.1-0.8); Absolute Neutrophil Count 6.73 10^3/uL (1.2-6.7); Basophils % 0.1; Eosinophils % 0.2; HCT 30.4 % (36.0-46.0); Immature Grans % 0.4; Lymphocytes % 13.6; MCH 31.9 pg (27.0-33.0); MCHC 31.6 % (32.0-36.0); MCV 101 fL (80-95); MPV 9.3 fL (8.0-11.0); Monocytes % 6.1; Neutrophils % 79.6; Platelet Count 331 10^3/uL (130-400); RBC 3.01 10^6/uL (3.93-5.22); RDW 12.5 % (11.7-14.6); RDW-SD 46.6 fL; WBC 8.46 10^3/uL (4.4-10.8)
[2023-04-17 07:12] LABS: HGB 9.6 g/dL (11.2-15.7)
[2023-04-17 07:20] LABS: Ammonia < 10 umol/L (11-32)
[2023-04-17 07:50] LABS: ALT 15 U/L (14-59); AST 15 U/L (15-37); Albumin 2.4 g/dL (3.4-5.0); Alkaline Phosphatase 74 U/L (46-116); BUN 52 mg/dL (7-18); Bilirubin, Total 0.2 mg/dL (0.2-1.0); CREATININE 1.5 mg/dL (0.55-1.02); Chloride 112 mmol/L (98-107); Estimated GFR 38.43 (mL/min/1.73m2); Glucose 95 mg/dL (74-106); Potassium 3.2 mmol/L (3.5-5.1); Sodium 147 mmol/L (136-145); Total Protein 6.8 g/dL (6.4-8.2)
[2023-04-17 08:07] LABS: C-Reactive Protein 9.63 mg/dL (0.0-0.3)
--- NOTE | 2023-04-17 08:16 | CMPROGNOTE_ITS ---
Date of service: 04/17/23 Time of Service: 16:16 Care Management Progress Note Progress Note Text Progress Note Text: S/O:Ira was sitting up in bed when CM met with her. Her daughter and pharmaceutical salesperson Alejo were with her. Ira was much more awake today and recognized CM. She admits that she really doesn't understand what is going on with her. At times, when things are explained, she seems to comprehend, but, per the nurse, she appears to forget. There was some discussion about sending Ira to [facility] for a biopsy, but with what appears to be widely metastatic disease, that may not be necessary. Art informed CM that they were thinking more about going with hospice. CM scheduled a hospice consult for tomorrow morning at 10 am when Alejo and, hopefully, Ira's children, can be present. A:Ira is a 67 year old woman admitted on 04/15/23 with hyperkalemia P: Ira's discharge plan is unclear at this time as she is not able to understand and communicate her wishes. It appears that she has metastatic disease with an unknown primary. Her pharmaceutical salesperson Alejo and son Juan A have been visiting and are her health care agents. CM will continue to follow and support discharge planning needs. :
[2023-04-17] MEDS: Calcitonin-Salmon 400 UNITS/2 ML VIAL 100 UNITS IM ×2 (08:22→20:50)
[2023-04-17] MEDS: oxyCODONE 5 MG TAB PO (08:23)
--- NOTE | 2023-04-17 09:43 | PGE_ITS ---
Date of Service Date of service: 04/17/23 Time of Service: 09:43 Assessment and Plan Assessment and plan (1) Sepsis: Status: Acute Assessment and plan: Sepsis was suspected based on her presentation with acute confusion tachycardia and leukocytosis. Blood and urine cultures were obtained and results are pending at this time. She was started on meropenem and vancomycin as the patient has had recurrent UTIs and has been hospitalized for treatment of UTIs and colitis and has had multiple antibiotics in the recent past. She has been afebrile overnight. Her leukocytosis has resolved. She presented with a white count of 17,700 which declined to 13,500 yesterday and is now normal at 8400 today. Urinalysis on admission was suspicious for UTI with leukocytosis and moderate bacteriuria. Preliminary urine cultures only showing yeast. Blood cultures are no growth at 24 hours. We will continue broad-spectrum antibiotics for 1 more day and then if there is no further growth on her urine cultures and blood cultures we will de-escalate her antibiotics and switch her to an oral antibiotic. Meanwhile have put her on Diflucan for the yeast in her urine. It is possible that the source of infection may not have been from her urine but may be intra-abdominal given her multiple mets in her abdomen and her small bowel obstruction. Professional time spent interviewing and examining patient, discussion of goals of care with hospital team (care management, nursing and consulting professionals) was 30 minutes. (2) Small bowel obstruction: Status: Acute Assessment and plan: SBO is likely secondary to peritoneal metastasis. Continue NG for another 24 hours. Hopefully the Gastrografin will help. Surgical consultation was appreciated from Dr. Mulligan and Dr. Liu. (3) Bradyarrhythmia: Status: Resolved Assessment and plan: Bradycardia arrhythmias have resolved with treatment of her hypercalcemia. This point she no longer needs ICU care and she will be transferred to the medical/surgical floor. (4) Hypercalcemia: Status: Acute Assessment and plan: Secondary to metastatic undifferentiated cancer. Patient was treated with calcitonin and Xgeva.Calcium is now near normal at 11.0. (5) Acute kidney injury superimposed on CKD: Status: Acute Assessment and plan: Acute kidney injury is most likely prerenal azotemia. She has good urine output. Crisostomo catheter remains in place with clear yellow urine. BUN is down to 52 creatinine senna 1.5. We will continue IV fluid hydration as the patient is currently n.p.o. Change IV fluids to D5 LR with potassium supplementation since she is hypokalemic. (6) Lactic acidosis: Status: Resolved Assessment and plan: Lactic acidosis secondary to dehydration and starvation plus or minus sepsis. Now resolved. (7) High anion gap metabolic acidosis: Status: Resolved Assessment and plan: Resolved after IV resuscitation. (8) Urinary tract infection: Status: Acute Assessment and plan: Urinalysis is consistent with UTI however urine cultures only growing yeast. Patient placed on Diflucan. Continue broad-spectrum antibiotics for another 24 hours if the blood cultures remain no growth after 48 hours and a urine culture does not grow any bacteria we will de-escalate her antibiotic therapy. (9) Metastatic disease: Status: Acute Assessment and plan: Unknown primary source of her cancer. Lung cancer is a good possibility given her long smoking history. Other considerations include breast, ovarian, colon (10) Hyperkalemia: Status: Resolved Assessment and plan: Resolved with treatment of Lokelma. She is now hypokalemic. Now that her kidney function is correcting I will be giving her some potassium so Tatian. (11) General weakness: Status: Acute Assessment and plan: FTT at home. Poor appetite. Wt loss. Likely secondary to metastatic process. Suspicious for lung cancer in a smoker. Mets to bone and liver. IV hydration. Will encourage oral intake with protein supp once diet introduced. (12) Essential hypertension: Status: Chronic Assessment and plan: Hold antihypertensives until BP is definitively recovered. Subjective Subjective Interval history since last seen: Patient is more alert today. She is less confused today. I went over her CT findings w/ her and her . I explained to them that she has widespread metastatic disease including lungs, spine, ribs and abdomen including liver. I explained to them that at this point chemotherapy would only be palliative and not curative and she would need to be sent to to [facility] or [facility] for IR biopsy of one of her lesions to make a tissue diagnosis in order for oncology to consider any chemotherapy. After she and her discussed this they are opting for hospice care as their goals of care are geared towards quality of her remaining life rather than quantity. As for her NG and feedings, she still has SBO but her repeat KUB this morning demonstrates some air in the colon as well as the gastrograffin contrast in her small bowel. Hopefully the gastrograffin will lead to some alleviation of the SBO. If not then surgery would be needed to correct the obstruction. Exam Narrative Exam Narrative: Ira is lying in bed talking with her she is alert oriented to person place and circumstance. HEENT unremarkable Neck veins are flat Lungs are clear anteriorly no rhonchi or rales Heart is regular rate and rhythm Abdomen with a few scattered bowel sounds she is not distended but she is tender to palpation particularly in the left side of her abdomen. No rebound tenderness. Extremities without peripheral cyanosis or edema Objective Last Vital Signs Temp 37 C 04/17/23 08:00 Pulse 79 04/17/23 08:01 Resp 18 04/17/23 08:01 BP 145/74 H 04/17/23 08:01 Pulse Ox 93 04/17/23 08:01 Laboratory Results - last 24 hr 04/16/23 04/16/23 04/16/23 13:00 13:00 16:00 WBC RBC Hgb Hct MCV MCH MCHC RDW Plt Count MPV Immature Gran % Neutrophils % Lymphocytes % Monocytes % Eosinophils % Basophils % Nucleated RBC % Absolute Neutrophils Absolute Lymphocytes Absolute Monocytes Absolute Eosinophils Absolute Basophils Sodium 138 Cancelled Potassium 4.3 Cancelled Chloride 102 Cancelled Carbon Dioxide 23.5 Cancelled Anion Gap 12.5 H Cancelled BUN 70 H Cancelled Creatinine 2.1 H Cancelled Est GFR (CKD-EPI 2020) 25.67 Cancelled Glucose 116 H Cancelled Calcium 13.5 H* Cancelled Phosphorus 4.6 Total Bilirubin AST ALT Alkaline Phosphatase Ammonia C-Reactive Protein Total Protein Albumin 04/16/23 04/17/23 04/17/23 20:05 06:55 06:55 WBC RBC Hgb Hct MCV MCH MCHC RDW Plt Count MPV Immature Gran % Neutrophils % Lymphocytes % Monocytes % Eosinophils % Basophils % Nucleated RBC % Absolute Neutrophils Absolute Lymphocytes Absolute Monocytes Absolute Eosinophils Absolute Basophils Sodium 143 147 H Potassium 3.9 3.2 L Chloride 107 112 H Carbon Dioxide 22.9 24.0 Anion Gap 13.1 H 11.0 BUN 65 H 52 H Creatinine 1.9 H 1.5 H Est GFR (CKD-EPI 2020) 28.94 38.43 Glucose 104 95 Calcium 12.7 H* 11.0 H Phosphorus Total Bilirubin 0.2 AST 15 ALT 15 Alkaline Phosphatase 74 Ammonia < 10 L C-Reactive Protein 9.63 H Total Protein 6.8 Albumin 2.4 L 04/17/23 04/17/23 06:55 08:30 WBC 8.46 RBC 3.01 L Hgb 9.6 L D Hct 30.4 L MCV 101 H MCH 31.9 MCHC 31.6 L RDW 12.5 Plt Count 331 MPV 9.3 Immature Gran % 0.4 Neutrophils % 79.6 Lymphocytes % 13.6 Monocytes % 6.1 Eosinophils % 0.2 Basophils % 0.1 Nucleated RBC % 0.0 Absolute Neutrophils 6.73 H Absolute Lymphocytes 1.15 L Absolute Monocytes 0.52 Absolute Eosinophils 0.02 Absolute Basophils 0.01 Sodium Cancelled Potassium Cancelled Chloride Cancelled Carbon Dioxide Cancelled Anion Gap Cancelled BUN Cancelled Creatinine Cancelled Est GFR (CKD-EPI 2020) Cancelled Glucose Cancelled Calcium Cancelled Phosphorus Total Bilirubin AST ALT Alkaline Phosphatase Ammonia C-Reactive Protein Total Protein Albumin Time Spent with Patient Time Spent with Patient: 25-34 minutes Time was spent: preparing to see the patient(eg.review tests), ordering medications,tests, procedures, referring, communicating with other health physician locums urgent care (Patient discussed and seen with Dr. Mulligan), indepentently interpreting results, counseling the patient and care coordination
[2023-04-17] MEDS: POTASSIUM CHLORIDE 10 MEQ/100 ML BAG 100 MEQ IVPB ×4 (10:45→13:57)
--- NOTE | 2023-04-17 10:58 | W.PM.PROGNOT ---
Date of Service Date of service: 04/17/23 Time of Service: 10:58 Assessment and Plan Assessment and plan (1) Obtundation: Status: Acute Assessment and plan: Resolving (2) Metastasis to liver: Status: Acute Assessment and plan: - MRI of the abdomen and pelvis with IV contrast once patient is stable from a renal function standpoint. -After discussion of prognosis with Dr. Mora and they will most likely go the hospice route. They do not want to go down for biopsies at this time. -Continue with supportive care -Patient is DNR/DNI. Palliative care has been consulted. Ultimately hospice is probably her best option. (3) Small bowel obstruction: Status: Acute Assessment and plan: - Most likely combination of the constipation/obstipation from chronic narcotic use, chronic lifelong history of constipation, and And mass effect/compression by tumor. -Continue with NG tube decompression - XRAY of abdomen shows air in the colon. 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: Status: Acute (5) Sepsis: Status: Acute Assessment and plan: Resolving (6) Pneumonia: Status: Acute Assessment and plan: Meropenem and vancomycin (7) High anion gap metabolic acidosis: Status: Acute (8) Lactic acidosis: Status: Acute Assessment and plan: resolved (9) Leukocytosis: Status: Acute (10) Acute kidney injury superimposed on CKD: Status: Acute (11) Bone metastases: Status: Acute (12) Urinary tract infection: Status: Acute (13) Metastatic disease: Status: Acute (14) Hyperparathyroidism: Status: Acute (15) Hypercalcemia: Status: Acute (16) Ascites: Status: Acute (17) Essential hypertension: Status: Chronic (18) CKD (chronic kidney disease) stage 3, GFR 30-59 ml/min: Status: Chronic (19) Hydronephrosis of right kidney: Status: Chronic (20) Hyperlipidemia: Status: Chronic (21) Osteoporosis: Status: Chronic (22) Prediabetes: Status: Chronic (23) PTSD (post-traumatic stress disorder): Status: Chronic (24) GERD (gastroesophageal reflux disease): Status: Chronic (25) Lumbosacral radiculopathy due to degenerative joint disease of spine: Status: Chronic (26) Chronic low back pain: Status: Chronic (27) Overactive bladder: Status: Chronic (28) Cigarette smoker: Status: Chronic (29) Atherosclerosis of aorta: Status: Acute (30) 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: Status: Acute (31) S/P laparoscopic hysterectomy: Assessment and plan: - It is unknown if he still has ovaries in place (32) Diverticulosis: Status: Acute (33) Emphysema lung: Status: Acute (34) Family history of colon cancer in father: Status: Acute Assessment and plan: Father had colorectal cancer in his 40s (35) Chronic constipation: Status: Acute (36) Adenomatous polyps: Status: Acute (37) Chronic narcotic use: Status: Acute (38) Carotid artery stenosis: Status: Acute Assessment and plan: -70% left -50% right (39) Small vessel disease, cerebrovascular: Status: Acute Assessment and plan: - Documented on MRI (40) Cancer cachexia: Status: Acute (41) Protein malnutrition: Status: Acute Assessment and plan: Hopefully once the obstruction clear we can start her on a high protein, low fiber diet. Subjective Subjective Interval history since last seen: Mrs Matos is doing OK. She is confused. NG output is still up. 700 cc today so far. Compalins of abdominal pain Exam Const General: cooperative, comfortable and no acute distress Nutritional Appearance: cachectic Orientation: awake HENMT Head: normocephalic and atraumatic Resp Effort & Inspection: normal respiratory effort Auscultation: clear to auscultation bilaterally GI Inspection: normal to inspection Palpation: soft and tender (lower abdomen, left flank) Objective Last Vital Signs Temp 98.6 F 04/17/23 08:00 Pulse 86 04/17/23 10:01 Resp 21 04/17/23 10:01 BP 144/73 H 04/17/23 10:01 Pulse Ox 93 04/17/23 08:02 Laboratory Results - last 24 hr 04/16/23 04/16/23 04/16/23 13:00 13:00 16:00 WBC RBC Hgb Hct MCV MCH MCHC RDW Plt Count MPV Immature Gran % Neutrophils % Lymphocytes % Monocytes % Eosinophils % Basophils % Nucleated RBC % Absolute Neutrophils Absolute Lymphocytes Absolute Monocytes Absolute Eosinophils Absolute Basophils Sodium 138 Cancelled Potassium 4.3 Cancelled Chloride 102 Cancelled Carbon Dioxide 23.5 Cancelled Anion Gap 12.5 H Cancelled BUN 70 H Cancelled Creatinine 2.1 H Cancelled Est GFR (CKD-EPI 2020) 25.67 Cancelled Glucose 116 H Cancelled Calcium 13.5 H* Cancelled Phosphorus 4.6 Total Bilirubin AST ALT Alkaline Phosphatase Ammonia C-Reactive Protein Total Protein Albumin 04/16/23 04/17/23 04/17/23 20:05 06:55 06:55 WBC RBC Hgb Hct MCV MCH MCHC RDW Plt Count MPV Immature Gran % Neutrophils % Lymphocytes % Monocytes % Eosinophils % Basophils % Nucleated RBC % Absolute Neutrophils Absolute Lymphocytes Absolute Monocytes Absolute Eosinophils Absolute Basophils Sodium 143 147 H Potassium 3.9 3.2 L Chloride 107 112 H Carbon Dioxide 22.9 24.0 Anion Gap 13.1 H 11.0 BUN 65 H 52 H Creatinine 1.9 H 1.5 H Est GFR (CKD-EPI 2020) 28.94 38.43 Glucose 104 95 Calcium 12.7 H* 11.0 H Phosphorus Total Bilirubin 0.2 AST 15 ALT 15 Alkaline Phosphatase 74 Ammonia < 10 L C-Reactive Protein 9.63 H Total Protein 6.8 Albumin 2.4 L 04/17/23 04/17/23 06:55 08:30 WBC 8.46 RBC 3.01 L Hgb 9.6 L D Hct 30.4 L MCV 101 H MCH 31.9 MCHC 31.6 L RDW 12.5 Plt Count 331 MPV 9.3 Immature Gran % 0.4 Neutrophils % 79.6 Lymphocytes % 13.6 Monocytes % 6.1 Eosinophils % 0.2 Basophils % 0.1 Nucleated RBC % 0.0 Absolute Neutrophils 6.73 H Absolute Lymphocytes 1.15 L Absolute Monocytes 0.52 Absolute Eosinophils 0.02 Absolute Basophils 0.01 Sodium Cancelled Potassium Cancelled Chloride Cancelled Carbon Dioxide Cancelled Anion Gap Cancelled BUN Cancelled Creatinine Cancelled Est GFR (CKD-EPI 2020) Cancelled Glucose Cancelled Calcium Cancelled Phosphorus Total Bilirubin AST ALT Alkaline Phosphatase Ammonia C-Reactive Protein Total Protein Albumin Time Spent with Patient Time Spent with Patient: <25 minutes Time was spent: preparing to see the patient(eg.review tests), counseling the patient and care coordination
[2023-04-17 11:07] LABS: Lab Add On Test See Comments
[2023-04-17 11:14] LABS: Reticulocyte 1.2 % (0.5-2.4)
[2023-04-17 11:23] LABS: Iron 52 ug/dL (50-170); Total Iron Binding Capacity 169 ug/dL (250-450); Transferrin Sat 31 % (15-50)
[2023-04-17 11:49] LABS: Ferritin 369 ng/mL (8-252); Folate 5.4 ng/mL (8.6-20.0); Vitamin B12 325 pg/mL (193-986)
[2023-04-17] MEDS: Fluconazole 100 MG TAB PO (12:40)
[2023-04-17] MEDS: Normal Saline Flush 10 ML SYR IVP (16:35)
[2023-04-17] MEDS: Pantoprazole 40 MG VIAL IVP (16:35)
[2023-04-17 16:41] LABS: Potassium 3.5 mmol/L (3.5-5.1)
[2023-04-17] MEDS: Nicotine 14 MG/24 HR PATCH TD (19:00)
--- NOTE | 2023-04-17 19:29 | NUR.NOTE ---
Nursing Note: Report received from WOOL HAT SANDING MACHINE OPERATOR and pt moved to MS floor at 1850. Pt moved to bed with 3 assist. VSS. NG to intermittent wall suction. IV fluids; [id number]@80/hr. Crisostomo draining clear yellow urine. Wrist restraints in place. Nicotine patch removed from pt's right shoulder; new one to be placed by oncoming RN. Pt oriented to MS floor, hospital environment, call marinelli system, etc. Call marinelli within reach. Report given to oncoming RN.
[2023-04-18] VITALS (7 sets, daily range): BP systolic 120–160; BP diastolic 65–84; PULSE 78–83; RESP 18; TEMP 36.4–37.1; O2SAT 93–95
[2023-04-18] MEDS: HYDROmorphone 2 MG/ML SYR 1 MG IVP ×4 (00:12→13:34)
[2023-04-18] MEDS: VANCOMYCIN/WATER (PEG) 1 GM/200 ML BAG IV (01:46)
[2023-04-18] MEDS: ACETAMINOPHEN 1,000 MG/100 ML BTL 400 MG IVPB ×3 (04:30→19:24)
[2023-04-18] MEDS: Heparin 5,000 UNITS/ML VIAL 5000 UNITS SC ×3 (05:49→21:28)
[2023-04-18 06:45] LABS: Abs Immature Grans 0.02 10^3/uL (0.0-0.06); Absolute Basophil Count 0.01 10^3/uL (0.0-0.2); Absolute Eosinophil Count 0.05 10^3/uL (0.0-0.7); Absolute Lymphocyte Count 1.42 10^3/uL (1.2-3.4); Absolute Monocyte Count 0.61 10^3/uL (0.1-0.8); Absolute Neutrophil Count 6.69 10^3/uL (1.2-6.7); Basophils % 0.1; Eosinophils % 0.6; HCT 29.4 % (36.0-46.0); HGB 9.5 g/dL (11.2-15.7); Immature Grans % 0.2; Lymphocytes % 16.1; MCH 32.3 pg (27.0-33.0); MCHC 32.3 % (32.0-36.0); MCV 100 fL (80-95); MPV 9.7 fL (8.0-11.0); Monocytes % 6.9; Neutrophils % 76.1; Platelet Count 330 10^3/uL (130-400); RBC 2.94 10^6/uL (3.93-5.22); RDW 12.3 % (11.7-14.6); RDW-SD 44.8 fL
[2023-04-18 07:12] LABS: ALT 11 U/L (14-59); AST 11 U/L (15-37); Albumin 2.5 g/dL (3.4-5.0); Alkaline Phosphatase 70 U/L (46-116); Anion Gap 12.1 mmol/L (3-11); BUN 33 mg/dL (7-18); Bilirubin, Total 0.2 mg/dL (0.2-1.0); CO2 23.9 mmol/L (21.0-32.0); CREATININE 1.2 mg/dL (0.55-1.02); Calcium 10.4 mg/dL (8.5-10.1); Chloride 110 mmol/L (98-107); Estimated GFR 50.23 (mL/min/1.73m2); Glucose 114 mg/dL (74-106); Sodium 146 mmol/L (136-145); Total Protein 6.9 g/dL (6.4-8.2)
[2023-04-18 07:18] LABS: Potassium 2.9 mmol/L (3.5-5.1)
[2023-04-18] MEDS: Calcitonin-Salmon 400 UNITS/2 ML VIAL 100 UNITS IM (07:44)
--- NOTE | 2023-04-18 08:24 | DI.RAD_ITS ---
Exam(s) XR ABDOMEN FLAT PLATE EXAM: 2D digital imaging was performed. CLINICAL HISTORY: partial small bowel obstruction. COMPARISON: CR XR ABDOMEN FLAT PLATE from 04/17/2023 TECHNIQUE: Supine views of the abdomen performed. FINDINGS: A right ureteral stent is again noted. There is contrast material in the bowel related to prior CT. High-density material is again noted in the stomach. No gross evidence of bowel dilatation. Nasogastric tube present in the stomach. IMPRESSION: Stable appearance. DATA REPOSITORY: RADIATION DOSE DELIVERED:
[2023-04-18] MEDS: Normal Saline Flush 10 ML SYR IVP ×5 (08:58→18:39)
--- NOTE | 2023-04-18 09:32 | CMPROGNOTE_ITS ---
Date of service: 04/18/23 Time of Service: 09:33 Care Management Progress Note Progress Note Text Progress Note Text: S/O:Ira was sitting up in bed when CM met with her. She was surrounded by family, including Alejo, her daughter Laurie and Alejo's sister Ira. Chase Cazares from hospice met with all of them around 10 am. CM and Ira's nurse Jeannine were also present. Chase explained the services provided by hospice and the time frame for admission and equipment procurement. Ira stated that she wanted to go home on hospice today. She verbalized that she knows she does not have much time and wants to home with her family. Logistically, a discharge today would not work, as no equipment has been ordered and the comfort kit would not be available until tomorrow. After a brief discussion, it was decided that Ira will discharge home tomorrow with a same day admission to hospice. She will have a pediatric wheelchair, commode, hospital bed and walker provided. Ira has an N/G tube at the moment which will be removed prior to discharge. She also has a campbell catheter which may or may not remain in place. The family plans to obtain a supply of briefs in case the decision is made to discontinue the campbell. In the meantime, Ira's pain management regimen has been adjusted to include the use of a Fentanyl patch and an increase in the frequency with which her prn Dilaudid can be given. A:Ira is a 67 year old woman admitted on 04/15/23 with hyperkalemia P: Ira will discharge home tomorrow with a same day admission to hospice. Ira and her family met with Chase from [facility] this morning and questions were answered. CM will coordinate transport with EMS when the delivery of the equipment has been confirmed. CM will continue to follow and support Ira and her family and their discharge planning needs. :
[2023-04-18] MEDS: POTASSIUM CHLORIDE 10 MEQ/100 ML BAG 100 MEQ IVPB ×4 (10:58→14:42)
[2023-04-18] MEDS: Fluconazole 100 MG TAB PO (11:38)
[2023-04-18] MEDS: fentaNYL 12 MCG PATCH TD (15:08)
[2023-04-18] MEDS: Pantoprazole 40 MG VIAL IVP (15:12)
--- NOTE | 2023-04-18 15:18 | W.PM.PROGNOT ---
Date of Service Date of service: 04/18/23 Time of Service: 15:18 Assessment and Plan Assessment and plan (1) Sepsis: Status: Ruled-out Assessment and plan: sepsis was suspected based on her presentation, however blood cultures show no growth to date. Urine culture only grew Aileen. she has not spiked any fevers and her WBC has normalized. At present, I am going to stop her antibiotics as she is going home on hospice anyway and we have no definite infection, although w/ her SBO she could easily have enteric organisms transmitted through her bowel. Professional time spent interviewing and examining patient, discussion of goals of care with hospital team (care management, nursing and consulting professionals) was 30 minutes. (2) Small bowel obstruction: Status: Acute Assessment and plan: SBO is likely secondary to peritoneal metastasis. Still has NG in place for comfort measures. We will leave in place for now while she is admitted but discontinue upon her discharge. She has flatus but no BM. KUB this morning showed no progression of her gastrograffin (3) Hypercalcemia: Status: Acute Assessment and plan: Secondary to metastatic undifferentiated cancer. Patient was treated with calcitonin and Xgeva.Calcium is now near normal at 10.4 (4) Acute kidney injury superimposed on CKD: Status: Acute Assessment and plan: renal fxn nearly normal now w/ BUN 33 and creatinine 1.3. continue iv fluids. (5) Metastatic disease: Status: Acute Assessment and plan: Unknown primary source of her cancer. Lung cancer is a good possibility given her long smoking history. Other considerations include breast, ovarian, colon (6) General weakness: Status: Acute Assessment and plan: FTT at home. Poor appetite. Wt loss. Likely secondary to metastatic process. Suspicious for lung cancer in a smoker. Mets to bone and liver. IV hydration. Will encourage oral intake with protein supp once diet introduced. (7) Essential hypertension: Status: Chronic Assessment and plan: Hold antihypertensives until BP is definitively recovered. Subjective Subjective Interval history since last seen: Ira has continued abdominal pain. NG is still draining a large amount of bilious fluid. 800 mL since 7 am to 3 pm today. Overnight she had 600 mL from midnight to 7 am. I am starting her on fentanyl patch 12 mcg patch but also will increase her dilaudid to 2 mg IV q2h prn. Patient will discharge tomorrow on hospice care. Exam Narrative Exam Narrative: Ira is alert, oriented, she says that the dilaudid is not controlling her pain and her nurse Jeannine confirms this Lungs: clear anteriorly Heart: regular Abdomen: no longer distended but she is diffusely tender NG draining bilious material. Extremities: no edema Objective Last Vital Signs Temp 36.9 C 04/18/23 06:36 Pulse 83 04/18/23 06:36 Resp 18 04/18/23 06:36 BP 138/77 04/18/23 06:36 Pulse Ox 95 04/18/23 06:36 Laboratory Results - last 24 hr 04/17/23 04/17/23 04/18/23 16:20 16:20 05:56 WBC RBC Hgb 10.0 L Hct 31.0 L MCV MCH MCHC RDW Plt Count MPV Immature Gran % Neutrophils % Lymphocytes % Monocytes % Eosinophils % Basophils % Nucleated RBC % Absolute Neutrophils Absolute Lymphocytes Absolute Monocytes Absolute Eosinophils Absolute Basophils Sodium 146 H Potassium 3.5 2.9 L Chloride 110 H Carbon Dioxide 23.9 Anion Gap 12.1 H BUN 33 H Creatinine 1.2 H Est GFR (CKD-EPI 2020) 50.23 Glucose 114 H Calcium 10.4 H Total Bilirubin 0.2 AST 11 L ALT 11 L Alkaline Phosphatase 70 Total Protein 6.9 Albumin 2.5 L 04/18/23 05:56 WBC 8.80 RBC 2.94 L Hgb 9.5 L Hct 29.4 L MCV 100 H MCH 32.3 MCHC 32.3 RDW 12.3 Plt Count 330 MPV 9.7 Immature Gran % 0.2 Neutrophils % 76.1 Lymphocytes % 16.1 Monocytes % 6.9 Eosinophils % 0.6 Basophils % 0.1 Nucleated RBC % 0.0 Absolute Neutrophils 6.69 Absolute Lymphocytes 1.42 Absolute Monocytes 0.61 Absolute Eosinophils 0.05 Absolute Basophils 0.01 Sodium Potassium Chloride Carbon Dioxide Anion Gap BUN Creatinine Est GFR (CKD-EPI 2020) Glucose Calcium Total Bilirubin AST ALT Alkaline Phosphatase Total Protein Albumin Time Spent with Patient Time Spent with Patient: 25-34 minutes Time was spent: preparing to see the patient(eg.review tests), ordering medications,tests, procedures, referring, communicating with other health career resource specialist, indepentently interpreting results, counseling the patient and care coordination
[2023-04-18] MEDS: HYDROmorphone 2 MG/ML SYR IVP ×3 (15:55→23:48)
[2023-04-18 16:34] LABS: Potassium 3.5 mmol/L (3.5-5.1)
[2023-04-18 18:34] LABS: Lab Add On Test DONE
[2023-04-18 20:29] LABS: Procalcitonin < 0.1 ng/mL
[2023-04-19] MEDS: HYDROmorphone 2 MG/ML SYR IVP ×6 (02:34→12:58)
[2023-04-19] MEDS: Heparin 5,000 UNITS/ML VIAL 5000 UNITS SC (05:01)
[2023-04-19] MEDS: ACETAMINOPHEN 1,000 MG/100 ML BTL 400 MG IVPB ×2 (05:01→11:28)
[2023-04-19 06:39] LABS: Abs Immature Grans 0.05 10^3/uL (0.0-0.06); Absolute Basophil Count 0.02 10^3/uL (0.0-0.2); Absolute Eosinophil Count 0.16 10^3/uL (0.0-0.7); Absolute Lymphocyte Count 1.72 10^3/uL (1.2-3.4); Absolute Monocyte Count 0.69 10^3/uL (0.1-0.8); Absolute Neutrophil Count 7.14 10^3/uL (1.2-6.7); Basophils % 0.2; Eosinophils % 1.6; HCT 29.5 % (36.0-46.0); HGB 9.6 g/dL (11.2-15.7); Immature Grans % 0.5; Lymphocytes % 17.6; MCH 32.2 pg (27.0-33.0); MCHC 32.5 % (32.0-36.0); MCV 99 fL (80-95); MPV 9.5 fL (8.0-11.0); Monocytes % 7.1; Platelet Count 312 10^3/uL (130-400); RBC 2.98 10^6/uL (3.93-5.22); WBC 9.78 10^3/uL (4.4-10.8)
[2023-04-19 06:43] VITALS: BP 132/75; PULSE 85; RESP 18; TEMP 36.7; O2SAT 95
[2023-04-19 06:50] LABS: ALT 10 U/L (14-59); AST 12 U/L (15-37); Albumin 2.3 g/dL (3.4-5.0); Alkaline Phosphatase 66 U/L (46-116); Anion Gap 8.9 mmol/L (3-11); BUN 21 mg/dL (7-18); Bilirubin, Total 0.2 mg/dL (0.2-1.0); CO2 26.1 mmol/L (21.0-32.0); CREATININE 1.1 mg/dL (0.55-1.02); Calcium 9.9 mg/dL (8.5-10.1); Chloride 108 mmol/L (98-107); Estimated GFR 55.76 (mL/min/1.73m2); Glucose 123 mg/dL (74-106); Potassium 3.4 mmol/L (3.5-5.1); Sodium 143 mmol/L (136-145); Total Protein 6.7 g/dL (6.4-8.2)
[2023-04-19 07:35] VITALS: BP 133/77; PULSE 77; RESP 18; TEMP 36.2; O2SAT 95
--- NOTE | 2023-04-19 08:35 | PDOC.CMDIS ---
Date of service: 04/19/23 Time of Service: 08:35 LACE Index Scoring Tool Questions: Length of Stay (in days): 4 - 6 Was the patient admitted via the E.D.?: Yes Comorbidities: Liver or Renal Disease and Metastatic Solid Tumor E.D. Visits: 3 Answers: Total Score: 15 Risk of Readmission: High Risk Care Management Discharge Plan Reason for Hospitalization: hyperkalemia, metastatic cancer Discharge Plan: Iar will discharge home with a same day admission to hospice. She will follow up with the hospice providers and plan of care and transport via EMS coordinated by CM. Patient/Family Education Needs: Review of discharge instructions including medications, limitations and follow up plan of care; discuss Ask Me Three Services Needed at Discharge: Home Health Care Services
[2023-04-19] MEDS: Fluconazole 100 MG TAB PO (11:28)
[2023-04-19] MEDS: Normal Saline Flush 10 ML SYR IVP ×2 (11:29→12:58)
[2023-04-19 15:47] LABS: PTH-Related Peptide 17 pmol/L (< or = 4.2)
--- NOTE | 2023-04-19 16:12 | CHAPLAIN ---
Ira's and son were with her when I visited this morning, and brought her a comfort shawl. Ira said she'll be going home on hospice later today and the equipment she needed has been delivered. She seems to have good support with her family. Ira said she doesn't want things to end this way, but she would rather be home that in the hospital if she doesn't have much time left. She has more children in [place], and they'll be coming up to visit her, she said. I let Ira and her know that through hospice they'll have access to Rev. Monica Garzon, the lpn or medical assistant. I'll also let Monica know that Ira is being admitted.
--- NOTE | 2023-04-22 21:57 | DSE_ITS ---
Date of service: 04/19/23 Time of Service: 12:00 DS: Diagnosis Discharge Diagnosis (1) Sepsis: Status: Deleted Asessment and Plan: initially suspected from either her SBO and/or UTI however, blood cultures came back no growth and urine only grew Aileen. Patient was intially treated w/ Ceftriaxone which was changed to meropenem and vancomycin but when cultures came back negative antibiotics were stopped. (2) Small bowel obstruction: Status: Acute Asessment and Plan: secondary to omental metastatic cancer (3) Hypercalcemia: Status: Deleted Asessment and Plan: secondary to multiple skeletal lesions noted on CT scans and on her skeletal survey. Hypercalcemia was treated Xgeva and calcitonin (4) Acute kidney injury superimposed on CKD: Status: Resolved Asessment and Plan: secondary to prerenal azotemia. Treated w/ aggressive fluid hydration. No acute obstruction of her kidneys was documented on CT scan. She has chronic ureteral narrowing on the right but has a stent in place. Initial BUN and creatine were 89 and 4.1 but decreased to 21 and 1.1 at discharge. (5) Metastatic disease: Status: Acute Asessment and Plan: widely diffuse metastatic disease from undifferentiate cancer, possibilities include colon (family hx of colon cancer), lung, however, patient and her family opted not to have IR guided biopsy of her skeletal or her liver lesions. (6) General weakness: Status: Acute Asessment and Plan: secondary to cancer and her hypercalcemia. Did improe w/ treatment of her hyper calcemia (7) Essential hypertension: Status: Chronic Discharge Plan Disposition Patient Disposition: Home W/Hospice Services Condition: Poor Discharge Details Reason For Visit: Hyperkalemia, Liver Lesions, DANIEL Admit Date/Time: 04/15/23 17:53 Admit Provider: Liban Cody Attending Provider: Liban Cody Primary Care Provider: [facility] Hospital Course: This is a 67 yo female with a PMH of CKD stage 3, carotid stenosis, hypercalcemia, ureteral stricture/stented, HTN, HLD, Osteoporosis, PTSD, GERD, OAB, tobacco abuse disorder. She presented with the primary c/o weakness.? She has also been losing wt.? This process has been noted over the last 1-2 months.? Her appetite has been poor.? She has had no CP/palpitations, N/V.? She does endorse upper abd discomfort for several weeks.? No cough/congestion.? No F/c.? Significant findings in the ED: WBC count of 17.72. VBG lactate 2.7. Na 128. K 6.6. BUN 89. Creatinine 4.1. Ca 15.3. AP 120. CT chest/abd/pelvis:? 1. ? Interval lung parenchymal metastatic disease. 2. ? Nonspecific ground-glass opacity which could due to edema or pneumonitis. 3. ? Progressing bony metastatic disease. CT abd/pelvis: 1. ? Distal small bowel obstruction versus gastric/small bowel ileus. 2. ? Contrast versus foreign bodies contributing to obstruction at the level gastro- duodenal junction and in the distal small bowel loop. 3. ? Stable hepatic metastasis. 4. ? Resolving right-sided hydronephrosis status post ureteral stent placement. 5. ? Bony metastatic disease. 6. ? Nonspecific colitis of the sigmoid colon. Hyperkalemia tx in ED: Dextrose and insulin, 2L NS; K decreased to 6.2. With 2L NS her creatinine decreased to 3.7.? Na improved to 132. Patient initially was treated for her DANIEL w/ iv fluids and workup for sepsis was performed. Blood cultures show no growth to date. Urine culture grew Aileen which was treated w/ Diflucan. She was on empiric broad spectrum antibiotics at first but when her cultures came back negative, antibiotics were stopped. Her acute delirium improved w/ hydration and with improvement of her blood pressures. Patient was treated w/ NG placement for decompression of her stomach and given antiemetics. She was put on narcotics for pain control as nonnarcotics did not achieve adquate pain control. Surgical consultation was obtained w/ Dr. Liu who recommended patient to go to [facility] [place] for IR biopsy of her liver or one of her riky lesions. However, after review of her prior CT scans from [facility] 2022 and earlier this March, the lesions were seen on prior CT scans and therefore even palliative chemotherapy would be considered ineffective. When the patient was given her choices for proceeding w/ needle biopsy and potential chemotherapy w/ likelihood of little improvement, she with the support of her family opted for hospice care. Hospice and Palliative medicine were consulted and patient was discharged home to enter into hospice care. She was started on fentanyl patch while hospitalized as she was requiring frequent dosing of parenteral hydromorphone. Hospice team will assume her pain management upon discharge. Attempts were made to alleviate her SBO w/ instillation of gastrograffin through her NG but repeat KUB films showed no improvement in her SBO. She is passing flatus but still no BM. Nausea was controlled w/ antie metics. Home Meds and New Rx's Prescriptions: New fentanyl 12 mcg/hr Patch 72 Hour 12 mcg transdermal Q72H Qty: 5 0RF Continued naloxone [Narcan] 4 mg/actuation spray,non-aerosol 1 spray intranasal Q2-3M PRN (Reason: opioid overdose) Qty: 2 4RF Rx Instructions: spray 1 dose into ONE nostril; alternate nostrils w each dose until help arrives losartan 50 mg tablet 50 mg PO DAILY Qty: 90 3RF docusate sodium [Colace] 100 mg capsule 100 mg PO BID PRNQty: 180 Patient Comments: 04/11/16 PRN only/pps omeprazole 40 mg capsule,delayed release(DR/EC) 40 mg PO .Daily to BID Qty: 180 3RF Rx Instructions: Take 1 pill once to twice a day for heartburn oxycodone-acetaminophen 5-325 mg tablet 1 tab PO .4 to 5 times a day MDD 5 tablets Qty: 117 0RF Rx Instructions: Take 1 tablet four times a day for chronic low back pain potassium chloride 20 mEq tablet extended release 20 meq PO BID Qty: 30 0RF amlodipine 5 mg Tablet 5 mg PO DAILY Qty: 30 0RF hydromorphone 2 mg tablet 2 mg PO Q6H PRN Patient Comments: TAKE ONE TABLET BY MOUTH EVERY 6 HOURS NEEDED FOR PAIN, MAX DAILY DOSE 4 TABLETS Discontinued ibuprofen 200 mg Tablet 200 mg PO Q6H PRN aspirin [Children's Aspirin] 81 mg Tablet,Chewable 81 mg CH DAILY Qty: 30 0RF Discharge Instructions Instructions: Hyperkalemia (GEN) Stand Alone Forms: Nursing Discharge Form Referrals: Susan Arrieta NP [Primary Care Provider] - 05/01/23 9:00 am Activity:: Activity as Tolerated Equipment/Supplies:: No Equipment Needed Diet:: full liquids as tolerated Discharge Orders Discharge Orders: Discharge Order (Routine); Ordered 04/19/23 Ordered By: Abraham Mora Discharge Data Discharge Date/Time-TO BE ENTERED AT DEPARTURE: 04/19/23 15:40 DS: Summary Time Spent with Patient providing and/or coordinating discharge services: Greater than 30 minutes Specific discharge activities: Interview/exam of patient; review of discharge instructions, completion of prescriptions/discharge instructions; discussion w/ nursing and CM; documentation of hospital visit Status at Discharge Functional status at discharge: uses cane/walker Overall status at discharge: patient is not back to baseline Mental Status: mental status grossly normal Speech and Movement: speech and movement normal Mood: congruent mood Affect: normal affect Exam Narrative Exam Narrative: Ira is alert, oriented, pain seems to be reasonably controlled, fentanyl patch was added. Lungs: clear anteriorly Heart: regular Abdomen: no longer distended but she is diffusely tender NG draining bilious material. Extremities: no edema Psych Mental Status: mental status grossly normal Speech and Movement: speech and movement normal Mood: congruent mood Affect: normal affect DS: Data Vitals/I&O Vitals and I&O: Vital Signs Temperature 36.2 C L 04/19/23 07:35 Temperature Source Tympanic 04/19/23 07:35 Pulse 77 04/19/23 07:35 Pulse Rhythm Regular 04/19/23 09:37 Pulse 79 04/17/23 17:01 Respiratory Rate 18 04/19/23 07:35 Respiratory Effort Normal 04/19/23 09:37 Respiratory Depth Normal 04/19/23 09:37 Respiratory Pattern Normal 04/19/23 09:37 Blood Pressure 133/77 04/19/23 07:35 Blood Pressure Mean 92 04/17/23 17:01 Blood Pressure Position Supine 04/17/23 08:00 Pulse Oximetry 95 04/19/23 07:35 Oxygen Delivery Method Room Air 04/19/23 07:35 Oxygen Flow Rate 0 04/19/23 07:35 Pain Level 9 04/19/23 12:58 Comment RN notified 04/17/23 04:58 PFSH All Active Problems Partial small bowel obstruction (Acute) Advanced care planning/counseling discussion (Acute) Palliative care encounter (Acute) Protein malnutrition (Acute) Cancer cachexia (Acute) Small vessel disease, cerebrovascular (Acute) Carotid artery stenosis (Acute) Chronic narcotic use (Acute) since 1999. 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) Metastasis to liver (Acute) Small bowel obstruction (Acute) Pulmonary nodule (Acute) Elevated parathyroid hormone related peptide level (Acute) Ileus (Acute) Bowel obstruction (Acute) Metastatic disease (Acute) General weakness (Acute) Hypercalcemia (Acute) Lesion of brain (Acute) Constipation (Acute) Ascites (Acute) Hypertensive urgency (Acute) Nausea (Acute) Hypokalemia (Chronic) Hydronephrosis of right kidney (Chronic ~10/2022) Ureteral stricture, right (Acute) CKD (chronic kidney disease) stage 3, GFR 30-59 ml/min (Chronic) Essential hypertension (Chronic) Hyperlipidemia (Chronic) Osteoporosis (Chronic) Prediabetes (Chronic) PTSD (post-traumatic stress disorder) (Chronic) GERD (gastroesophageal reflux disease) (Chronic) Lumbosacral radiculopathy due to degenerative joint disease of spine (Chronic) Chronic low back pain (Chronic) Overactive bladder (Chronic) Cigarette smoker (Chronic) Medical History Endometriosis Surgical History History of bilateral tubal ligation (04/15/86) History of carpal tunnel surgery of right wrist (~2006) History of operative procedure on lumbosacral spinal structure (02/08/22) RFA 02/08/22 Hx of esophagogastroduodenoscopy (11/20/06) S/P section (04/15/86) S/P colonoscopy (12/06/16) 02/2022 S/P cystoscopy with ureteral stent placement (11/01/22) Right retrograde pyelogram, right ureteroscopy, right ureteral stent S/P laparoscopic hysterectomy (~1999) Family History Mother , 76 Essential hypertension Heart disease Colon cancer Father , 81 Essential hypertension Stroke Colon cancer Brother , 48 Lung cancer Brother , 48 from accident No problems noted. Sister No problems noted. Son No problems noted. Daughter No problems noted. Maternal Grandfather No problems noted. Maternal Grandmother No problems noted. Paternal Grandfather No problems noted. Paternal Grandmother No problems noted. Social History Smoking/Tobacco Use Status: Current every day Tobacco Type: cigarettes Years smoked: 47 Tobacco: How many years used: 20 Second Hand Exposure: Yes Smoking risk assessment performed?: Yes Alcohol Intake: former Drug use: Never Substance use type: does not use Details: Has not had Dilaudid since previous admission Caregiver/Support person: No Household members: significant other Housing: house Number of Children: 2 Communication Needs: None Do you need help understanding health information?: Rarely current occupation: Disabled Pets and animals: Yes Pets and animals: dog(s) Sexually active: No Do you think of yourself as: straight/heterosexual Current gender identity: female What is your relationship status?: living with partner How often do you talk on the phone with friends or family?: twice per week How often do you get together with friends or relatives?: decline to answer How often do you attend quaker or presybeterian services?: decline to answer Do you belong to any clubs or organized social groups?: no Panel score (0-1 are the most socially isolated patients): 1 What type of physical activity do you participate in: walking Duration: 30-45 minutes/day Frequency: daily Ann-Marie/Temple: Rastafari Special ann-marie needs: No Seatbelt use: always Drive intox or ride w/intox tow truck driver: No Do you feel safe at home: Yes Do you feel safe in your relationship?: Yes History History 2 Para 2 Hx # Term Pregnancies Multiple births Hx # Pregnancies Ectopic pregnancies AB induced Hx Number of Living Children 2 AB spontaneous Time Spent with Patient Time Spent with Patient: <45 minutes Time was spent: preparing to see the patient(eg.review tests), referring, communicating with other health day care director, indepentently interpreting results, counseling the patient and care coordination
== END 2023-04-19 15:40 | disposition hospice, home (50) | DRG 871 ==
LOC: ER 21:22 → ICU 04-16 00:14 → MS 04-17 18:39
PROVIDERS: Internal Medicine; Student in an Organized Health Care Education/Training Program; Surgery; Admitting Provider Family Medicine; Emergency Provider Emergency Medicine; PCP Nurse Practitioner Family; Visit Provider Family Medicine
DX: A41.9 Sepsis, unspecified organism (principal); J18.9 Pneumonia, unspecified organism; N17.9 Acute kidney failure, unspecified; N39.0 Urinary tract infection, site not specified; E87.20 Acidosis, unspecified; C78.6 Secondary malignant neoplasm of retroperitoneum and peritoneum; Z68.1 Body mass index [BMI] 19.9 or less, adult; C78.7 Secondary malignant neoplasm of liver and intrahepatic bile duct; C78.02 Secondary malignant neoplasm of left lung; C78.01 Secondary malignant neoplasm of right lung; C79.51 Secondary malignant neoplasm of bone; K56.7 Ileus, unspecified; N13.30 Unspecified hydronephrosis; R18.8 Other ascites; E46 Unspecified protein-calorie malnutrition; E83.52 Hypercalcemia; E87.5 Hyperkalemia; I12.9 Hypertensive chronic kidney disease with stage 1 through stage 4 chronic kidney disease, or unspecified chronic kidney disease; E78.5 Hyperlipidemia, unspecified; F17.210 Nicotine dependence, cigarettes, uncomplicated; D72.829 Elevated white blood cell count, unspecified; E83.39 Other disorders of phosphorus metabolism; E79.0 Hyperuricemia without signs of inflammatory arthritis and tophaceous disease; R40.1 Stupor; N18.30 Chronic kidney disease, stage 3 unspecified; M81.0 Age-related osteoporosis without current pathological fracture; R73.03 Prediabetes; F43.10 Post-traumatic stress disorder, unspecified; K21.9 Gastro-esophageal reflux disease without esophagitis; M47.27 Other spondylosis with radiculopathy, lumbosacral region; M54.50 Low back pain, unspecified; G89.29 Other chronic pain; N32.81 Overactive bladder; I70.0 Atherosclerosis of aorta; Z79.891 Long term (current) use of opiate analgesic; I65.23 Occlusion and stenosis of bilateral carotid arteries; R53.1 Weakness; R63.4 Abnormal weight loss; R40.0 Somnolence; K57.30 Diverticulosis of large intestine without perforation or abscess without bleeding; R62.7 Adult failure to thrive; E86.0 Dehydration; Z66 Do not resuscitate; Z80.0 Family history of malignant neoplasm of digestive organs; I67.9 Cerebrovascular disease, unspecified; K59.09 Other constipation; J43.9 Emphysema, unspecified
CPT/HCPCS: 36410; 36415; 51702; 71045; 71250; 80048; 80053; 80307; 84145; 87040; 87635; 93005; 93308; 96365; 96375; 99223; 99232; 99285; 74018; 74176; 77075; 80320; 81003; 81015; 82140; 82397; 82607; 82728; 82746; 83540; 83550; 83605; 83735; 84100; 84132; 84443; 84484; 84550; 85014; 85018; 85025; 85045; 85610; 85730; 86140; 87086; 93010; 99239; 99291; J0131; J0630; J0696; J0897; J1170; J1644; J3480